=== PATIENT | female | born 1990 | race Caucasian/White ===

== ENCOUNTER → 2021-10-14 10:18 | Outpatient (BNVA) | payer OTHER, MEDICAID, SELFPAY | PROVIDERS: Visit Provider Nurse Practitioner Family | DX: M54.81 Occipital neuralgia (principal); M54.2 Cervicalgia; G43.109 Migraine with aura, not intractable, without status migrainosus; G25.81 Restless legs syndrome; R56.9 Unspecified convulsions; M79.2 Neuralgia and neuritis, unspecified; Z79.899 Other long term (current) drug therapy | CPT/HCPCS: 99212 ==

== ENCOUNTER 2021-12-13 06:48 | Outpatient (REF) | payer OTHER, SELFPAY ==
--- NOTE | 2021-12-13 06:52 | EEG_ITS ---
This is a 16-channel EEG with an EKG lead. The patient is reported awake and drowsy during the tracing. Background EEG rhythm during wakefulness is about 10 to 12 hertz 5 to 30 microvolt posteriorly, lower amplitude fast anteriorly. The patient transitioned into drowsiness and then like sleep. There was 1 right frontal sharp wave noted during later part of the tracing. Photic stimulation did not produce any significant driving. Hyperventilation was not performed. Cardiac lead did not reveal any significant abnormality. IMPRESSION: Mildly abnormal EEG suggestive of right hemispheric irritability. If seizure disorder is strongly suspected, further EEG monitoring with ambulatory EEG is recommended. MD SADIA Lovell/MINAL / [phone]
== END 2021-12-13 06:49 | disposition home or self-care (01) ==
LOC: HO.NEURO 06:48
PROVIDERS: Visit Provider Nurse Practitioner Family
DX: R56.9 Unspecified convulsions (principal)
CPT/HCPCS: 95816

== ENCOUNTER → 2021-12-23 11:21 | Outpatient (BNVA) | payer OTHER, SELFPAY | PROVIDERS: Visit Provider Nurse Practitioner Family | DX: G25.81 Restless legs syndrome (principal); R53.83 Other fatigue; R56.9 Unspecified convulsions; M79.2 Neuralgia and neuritis, unspecified; G43.109 Migraine with aura, not intractable, without status migrainosus; M54.81 Occipital neuralgia; M54.2 Cervicalgia; Z79.891 Long term (current) use of opiate analgesic | CPT/HCPCS: 99212 ==

== ENCOUNTER → 2022-01-10 13:38 | Outpatient (BNVA) | payer OTHER, SELFPAY | PROVIDERS: Visit Provider Nurse Practitioner Family | DX: G43.109 Migraine with aura, not intractable, without status migrainosus (principal); M54.81 Occipital neuralgia; M54.2 Cervicalgia; M79.2 Neuralgia and neuritis, unspecified; Z79.891 Long term (current) use of opiate analgesic | CPT/HCPCS: 99202 ==

== ENCOUNTER → 2022-03-30 10:37 | Outpatient (BNVA) | payer OTHER, SELFPAY | PROVIDERS: Visit Provider Nurse Practitioner Family | DX: G25.81 Restless legs syndrome (principal); G43.109 Migraine with aura, not intractable, without status migrainosus; M54.81 Occipital neuralgia; M79.2 Neuralgia and neuritis, unspecified; R56.9 Unspecified convulsions; Z79.891 Long term (current) use of opiate analgesic | CPT/HCPCS: 99212 ==

== ENCOUNTER → 2022-04-15 10:22 | Outpatient (BNVA) | payer OTHER, SELFPAY | PROVIDERS: Visit Provider Internal Medicine | DX: M54.81 Occipital neuralgia (principal) | CPT/HCPCS: 64405; 64450; J2795; J3300 ==

== ENCOUNTER → 2022-05-06 11:13 | Outpatient (BNVA) | payer OTHER, SELFPAY | PROVIDERS: Visit Provider Internal Medicine | DX: G43.109 Migraine with aura, not intractable, without status migrainosus (principal); M54.81 Occipital neuralgia | CPT/HCPCS: 99212 ==

== ENCOUNTER → 2022-06-27 09:42 | Outpatient (BNVA) | payer OTHER, SELFPAY | PROVIDERS: Visit Provider Nurse Practitioner Family | DX: G43.109 Migraine with aura, not intractable, without status migrainosus (principal); M79.2 Neuralgia and neuritis, unspecified; R56.9 Unspecified convulsions; G25.81 Restless legs syndrome; M54.81 Occipital neuralgia; E10.9 Type 1 diabetes mellitus without complications; Z79.891 Long term (current) use of opiate analgesic | CPT/HCPCS: 99212 ==

== ENCOUNTER → 2022-09-28 11:21 | Outpatient (BNVA) | payer OTHER, SELFPAY | PROVIDERS: Visit Provider Nurse Practitioner Family | DX: G43.109 Migraine with aura, not intractable, without status migrainosus (principal); G25.81 Restless legs syndrome; M54.81 Occipital neuralgia; R56.9 Unspecified convulsions | CPT/HCPCS: 99212 ==

== ENCOUNTER → 2022-12-29 11:35 | Outpatient (BNVA) | payer MEDICAID, SELFPAY | PROVIDERS: PCP Internal Medicine; Visit Provider Nurse Practitioner Family | DX: M79.2 Neuralgia and neuritis, unspecified (principal); R56.9 Unspecified convulsions; G43.109 Migraine with aura, not intractable, without status migrainosus; G25.81 Restless legs syndrome | CPT/HCPCS: 99212 ==

== ENCOUNTER → 2023-01-06 09:23 | Outpatient (BNVA) | payer MEDICAID, SELFPAY | PROVIDERS: PCP Internal Medicine; Visit Provider Nurse Practitioner Family | DX: E11.40 Type 2 diabetes mellitus with diabetic neuropathy, unspecified (principal); E11.65 Type 2 diabetes mellitus with hyperglycemia | CPT/HCPCS: 99212 ==

== ENCOUNTER 2023-03-23 08:27 | Outpatient (REF) | payer MEDICAID, SELFPAY ==
--- NOTE | 2023-03-23 08:32 | EMG_ITS ---
Bilateral tibial and peroneal motor studies were performed. Bilateral sural, superficial peroneal, and medial and lateral plantar sensory studies were performed. Tibial H reflexes were obtained. A needle examination was performed. IMPRESSION: 1. Mild sensory motor peripheral neuropathy. 2. Moderately severe left peroneal neuropathy, somewhat out of proportion to underlying neuropathy. MD SADIA Lovell/MINAL / [phone]
[2023-03-23 09:10] LABS: MANUAL DIFF FLAG NO
[2023-03-23 09:52] LABS: Basophils Percent Auto 0.5 % (0-2); Eosinophils Absolute Auto 0.2 X10*3/uL (0.0-0.4); Eosinophils Percent Auto 2.4 % (0-4); Hematocrit 39.7 % (37.0-47.0); Hemoglobin 12.6 g/dl (12.0-16.0); Imm Gran Abs Auto 0.05 X10*3/uL (0.00-0.03); Imm Gran Pct Auto 0.7 % (0.0-0.4); Lymphocytes Absolute Auto 2.1 X10*3/uL (1.2-4.9); Lymphocytes Percent Auto 27.8 % (20-40); Mean Corpuscular HGB Conc 31.7 g/dl (31.0-35.0); Mean Corpuscular Hemoglobin 29.2 pg (27.0-33.0); Mean Corpuscular Volume 92.1 fL (80.0-98.0); Mean Platelet Volume 9.7 fL (9.4-12.3); Monocytes Absolute Auto 0.5 X10*3/uL (0.1-1.2); Monocytes Percent Auto 6.6 % (2-11); Neutrophils Absolute Auto 4.6 x10*3/uL (2.0-8.3); Platelet Count 334 X10*3/uL (160-400); Red Blood Count 4.31 X10*6/uL (4.20-5.50); Red Cell Distribution Width 13.1 % (11.0-16.0); White Blood Count 7.4 X10*3/uL (4.8-10.8)
[2023-03-23 10:35] LABS: Alanine Aminotransferase 10 U/L (0-31); Albumin Level 4.1 g/dL (3.5-5.0); Alkaline Phosphatase 86 U/L (39-117); Anion Gap 10 (12-20); Aspartate Amino Transferase 15 U/L (5-31); Bilirubin Total 1.1 mg/dL (0.0-1.0); Blood Urea Nitrogen 7 mg/dL (9-16); Calcium 9.2 mg/dL (8.4-10.2); Carbon Dioxide 26 mmol/L (22-29); Chloride 106 mmol/L (96-108); Estimated Glomerular Filt Rate > 60; Glucose Random 108 mg/dL (60-115); Potassium 4.1 mmol/L (3.3-5.1); Sodium 138 mmol/L (135-145); Total Protein 7.3 g/dL (6.5-8.0)
== END 2023-03-23 08:28 | disposition home or self-care (01) ==
LOC: HO.NEURO 08:27
PROVIDERS: Nurse Practitioner Family; Visit Provider Nurse Practitioner Family
DX: E10.40 Type 1 diabetes mellitus with diabetic neuropathy, unspecified (principal); M79.2 Neuralgia and neuritis, unspecified; R56.9 Unspecified convulsions
CPT/HCPCS: 36415; 80053; 85025; 95886; 95913

== ENCOUNTER 2023-04-20 13:19 | Outpatient (AMB) | payer MEDICAID, SELFPAY ==
--- NOTE | 2023-04-20 13:20 | A.OFFVIS_ITS ---
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 Patient reports increasing weakness in her left lower extremity and tripping on the left. Patient reports she was shopping at store today and almost fell due to tripping on left side. She presents with left ankle/foot mild weakness with dorsiflexion, no foot drop. Neurodiagnostic studies showed mild sensory motor peripheral neuropathy and moderately severe left peroneal neuropathy. Patient was referred to [facility] for consideration for placing her left ankle in a boot. Denies any recent cough, cold, infection, fever or other significant changes in medical history since last office visit. Patient denies any bladder or bowel incontinence or saddle anesthesia. PRIOR: Patient presents today to discuss trial of capsaicin 8% for chronic painful diabetic neuropathy with a history of poorly controlled glucose. Patient had bilateral EMG and NCS in 2018 at [facility] which showed bilateral mild peroneal neuropathy. No EMG have been repeated since then. Patient reports chronic numbness, tingling, burning, stabbing, cramping pain worse at night. Her last A1C was 7.1. She was diagnosed with DM type 1 at age 13. Her diabetic foot exams have been consistently normal. Patient reports mild decrease in sensation in her plantar surfaces of both feet. Skin intact, no ulcers or breaks in skin. Patient is interested to proceed with Topical Capsaicin 8% patch application. We will submit request for PAStefany SMITH Medical History Type 1 diabetes Surgical History No pertinent past surgical history Family History Father Skin cancer Diabetes Hypertension Mother Diabetes Social History Alcohol intake: never Patient Tobacco Use Status: Never used Tobacco Review of Systems Const All systems reviewed & are unremarkable except as noted in HPI and below Physical Exam Vital Signs: Last Vital Signs Pulse 82 04/20/23 13:24 BP 130/73 04/20/23 13:24 Pulse Ox 99 04/20/23 13:24 Oxygen Delivery Method Room Air 04/20/23 13:24 BMI result Body Mass Index 23.6 General: Appears afebrile. Alert and oriented. Mood and affect appropriate. Follows and participates in conversation appropriately. Respiratory effort is unlabored. Able to transition from sit to stand unassisted. Ambulates with bilaterally normal heel strike and toe off. Results Reviewed Results Reviewed: NE electromyogram (EMG); NE nerve conduction velocity 03/23/23 Bilateral tibial and peroneal motor studies were performed. Bilateral sural, superficial peroneal, and medial and lateral plantar sensory studies were performed. Tibial H reflexes were obtained. A needle examination was performed. IMPRESSION: 1. Mild sensory motor peripheral neuropathy. 2. Moderately severe left peroneal neuropathy, somewhat out of proportion to underlying neuropathy. Assessment & Plan Assessment & Plan (1) Peroneal neuropathy: Code(s): G57.30 - Lesion of lateral popliteal nerve, unspecified lower limb (2) Chronic painful diabetic neuropathy: Code(s): E11.40 - Type 2 diabetes mellitus with diabetic neuropathy, unspecified Plan 1. Neurodiagnostic studies discussed with patient and are noted above. 2. Orthopedic referral placed earlier for consideration of putting patient's left ankle in a boot. 3. Schedule Left sciatic diagnostic nerve block with local and US guidance for potential temporary stimulator placement for sensory motor peripheral neuropathy and moderately severe left peroneal neuropathy. Informational pamphlet provided to patient. Expectations, risks and benefits were reviewed. Patient is aware she will be contacted to schedule this procedure. All questions were answered and the patient is in agreement of plan. Follow-up after injections and sooner as needed. Coding Level of Care Code Est Pt Level 4 (35073) Diagnoses Peroneal neuropathy G57.30 Chronic painful diabetic neuropathy E11.40
[2023-04-20 13:24] VITALS: BP 130/73; PULSE 82; O2SAT 99; BMI 23.6
== END 2023-04-20 13:50 | disposition home or self-care (01) ==
PROVIDERS: Visit Provider Nurse Practitioner Family
DX: G57.30 Lesion of lateral popliteal nerve, unspecified lower limb (principal); E11.40 Type 2 diabetes mellitus with diabetic neuropathy, unspecified
CPT/HCPCS: 99214

== ENCOUNTER → 2023-04-20 13:19 | Outpatient (BNVA) | payer MEDICAID, SELFPAY | PROVIDERS: Visit Provider Nurse Practitioner Family | DX: G57.30 Lesion of lateral popliteal nerve, unspecified lower limb (principal); E11.40 Type 2 diabetes mellitus with diabetic neuropathy, unspecified | CPT/HCPCS: 99212 ==

== ENCOUNTER 2023-05-08 09:16 | Outpatient (AMB) | payer MEDICAID, SELFPAY ==
[2023-05-08 09:36] VITALS: PULSE 84; RESP 14; O2SAT 99; BMI 23.6
--- NOTE | 2023-05-08 09:36 | A.OFFVIS_ITS ---
Intake Vital Signs 3 05/08/23 09:36 Height 5 ft 2 in Weight 129 lb BMI 23.6 Blood Pressure Location Lt brachial Position Sitting Respiration 14 Pulse 84 Pulse Source Pulse Oximeter Pulse Oximetry (%) 99 Oxygen Delivery Method Room Air Intake Visit Reasons: Left Dx sciatic nerve block Allergies No Known Allergies Allergy (Verified 05/11/23 14:35) HPI Left Dx sciatic nerve block 2 HPI0 Details 32-year-old female who presents today to the office for a left diagnostic sciatic nerve block. Denies any recent cough, cold, infection, fever or other significant changes in medical history since last office visit. She is type I diabetic. Past Procedures: 04/15/22: Occipital Nerve Block ? No reli ef. [facility] Medical History Type 1 diabetes Surgical History No pertinent past surgical history Family History Father Skin cancer Diabetes Hypertension Mother Diabetes Social History Alcohol intake: never Patient Tobacco Use Status: Never used Tobacco Review of Systems Const All systems reviewed & are unremarkable except as noted in HPI and below Physical Exam Vital Signs: Last Vital Signs Pulse 84 05/08/23 09:36 Resp 14 05/08/23 09:36 Pulse Ox 99 05/08/23 09:36 Oxygen Delivery Method Room Air 05/08/23 09:36 BMI result Body Mass Index 23.6 General: Appears afebrile. Alert and oriented. Mood and affect appropriate. Follows and participates in conversation appropriately. Respiratory effort is unlabored. Able to transition from sit to stand unassisted. Ambulates with bilaterally normal heel strike and toe off. Office Procedures Nerve Block Details: Left peroneal nerve block, ultrasound-guided After obtaining written consent, pre-procedure blood pressure and heart rate were stable and recorded in the nursing record. The patient was placed lateral on the table. The popliteal fossa area overlying the sciatic nerve was widely prepped with chloraprep, allowed to dry and sterilely draped. Using ultrasound, the appropriate landmarks including the popliteal artery and peroneal nerve were identified. The skin overlying the target was anesthetized with 1% lidocaine. A 21 gauge echostim needle was advanced under sonographic guidance to the peroneal segment of the sciatic nerve after the bifurcation. Aspiration was negative for heme and synovial fluid. 4 cc of lidocaine 1.5% was injected around the peroneal nerve. The needle was removed, skin cleansed and a sterile bandage was applied. The patient tolerated the procedure well and no complications were encountered. Following the procedure, the patient's vital signs and foot strength were stable. The patient was discharged home in good condition with post-procedural instructions. Time Out: Immediately prior to the procedure, the following was verbally confirmed that there is a signed consent form and that the correct patient, planned procedure, site and side are consistent with documentation and that necessary equipment and/or blood products are available prior to the start of the case. Complications: none EBL: <1 cc Note: An ultrasound image of the injection was taken and stored in the permanent record. 23338 - Sciatic (left sided, ultrasound guided) Procedure code (CPT) selection complete Results Reviewed Results Reviewed: No imaging is available for review. Assessment & Plan Assessment & Plan (1) Peroneal neuropathy: Code(s): G57.30 - Lesion of lateral popliteal nerve, unspecified lower limb Plan Patient is status post left peroneal nerve block, ultrasound-guided. Patient tolerated procedure well and was discharged home in stable condition with discharge instructions. All questions were answered. We will follow-up in two weeks via telephone or in clinic to assess response to therapy. A follow-up appointment was made during today's visit. Scribed for Dr. Miller by Brandon Rucker medical coordinator pesticide use, on 05/08/2023. I, Dr. Miller, have personally reviewed and agree with the information entered by the scribe. Coding Level of Care Code Procedure Only Diagnoses Peroneal neuropathy G57.30 CPT Codes Nerve Block - Nerve Block 6: 30402 - Sciatic ([id number])
== END 2023-05-08 10:04 | disposition home or self-care (01) ==
PROVIDERS: Visit Provider Internal Medicine
DX: G57.30 Lesion of lateral popliteal nerve, unspecified lower limb (principal)
CPT/HCPCS: 64450; 76942

== ENCOUNTER → 2023-05-08 09:16 | Outpatient (BNVA) | payer MEDICAID, SELFPAY | PROVIDERS: Visit Provider Internal Medicine | DX: G57.30 Lesion of lateral popliteal nerve, unspecified lower limb (principal) | CPT/HCPCS: 64450 ==

== ENCOUNTER 2023-05-11 14:29 | Outpatient (AMB) | payer MEDICAID, SELFPAY ==
--- NOTE | 2023-05-11 14:31 | A.OFFVIS_ITS ---
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 Miller. Patient reports 70-80% pain relief for 2 days with improved functioning, daily activities, and better sleep. She has upcoming visit with Orthopedic provider for left ankle boot evaluation. Patient would like to proceed with Sprint PNS trial for a sustained pain relief. Denies any recent cough, cold, infection, fever or other significant changes in medical history since last office visit. Most recent A1C 6.4. per patient. Past Procedures: 05/08/23: Left peroneal nerve block-70-8 0% pain relief for 2 days. PRIOR: Patient presents today to discuss recent EMG results. Patient reports increasing weakness in her left lower extremity and tripping on the left. Patient reports she was shopping at store today and almost fell due to tripping on left side. She presents with left ankle/foot mild weakness with dorsiflexion, no foot drop. Neurodiagnostic studies showed mild sensory motor peripheral neuropathy and moderately severe left peroneal neuropathy. Patient was referred to [facility] for consideration for placing her left ankle in a boot. Denies any recent cough, cold, infection, fever or other significant changes in medical history since last office visit. Patient denies any bladder or bowel incontinence or saddle anesthesia. PRIOR: Patient presents today to discuss trial of capsaicin 8% for chronic painful diabetic neuropathy with a history of poorly controlled glucose. Patient had bilateral EMG and NCS in 2018 at [facility] which showed bilateral mild peroneal neuropathy. No EMG have been repeated since then. Patient reports chronic numbness, tingling, burning, stabbing, cramping pain worse at night. Her last A1C was 7.1. She was diagnosed with DM type 1 at age 13. Her diabetic foot exams have been consistently normal. Patient reports mild decrease in sensation in her plantar surfaces of both feet. Skin intact, no ulcers or breaks in skin. Patient is interested to proceed with Topical Capsaicin 8% patch application. We will submit request for PA. [facility] Medical History Type 1 diabetes Surgical History No pertinent past surgical history Family History Father Skin cancer Diabetes Hypertension Mother Diabetes Social History Alcohol intake: never Patient Tobacco Use Status: Never used Tobacco Review of Systems Const All systems reviewed & are unremarkable except as noted in HPI and below Physical Exam Vital Signs: Last Vital Signs Pulse 80 05/11/23 14:35 BP 128/69 05/11/23 14:35 Pulse Ox 99 05/11/23 14:35 Oxygen Delivery Method Room Air 05/11/23 14:35 BMI result Body Mass Index 23.7 General: Appears afebrile. Alert and oriented. Mood and affect appropriate. Follows and participates in conversation appropriately. Respiratory effort is unlabored. Able to transition from sit to stand unassisted. Ambulates with bilaterally normal heel strike and toe off. Assessment & Plan Assessment & Plan (1) Peroneal neuropathy: Code(s): G57.30 - Lesion of lateral popliteal nerve, unspecified lower limb Plan Patient is status post left peroneal nerve block on 05/08/23 with good results. 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 Schedule Left Peroneal Nerve Sprint PNS lead placement with local OR and US guidance. Expectations, risks and benefits were reviewed. Patient is aware she will be contacted to schedule this procedure. All questions were answered and the patient is in agreement of plan. Follow-up after Sprint placement and sooner as needed. Coding Level of Care Code Est Pt Level 3 (70436) Diagnoses Peroneal neuropathy G57.30
[2023-05-11 14:35] VITALS: BP 128/69; PULSE 80; O2SAT 99; BMI 23.7
== END 2023-05-11 14:48 | disposition home or self-care (01) ==
PROVIDERS: Visit Provider Nurse Practitioner Family
DX: G57.30 Lesion of lateral popliteal nerve, unspecified lower limb (principal)
CPT/HCPCS: 99213

== ENCOUNTER → 2023-05-11 14:29 | Outpatient (BNVA) | payer MEDICAID, SELFPAY | PROVIDERS: Visit Provider Nurse Practitioner Family | DX: G57.30 Lesion of lateral popliteal nerve, unspecified lower limb (principal) | CPT/HCPCS: 99212 ==

== ENCOUNTER 2023-05-17 09:57 | Outpatient (AMB) | payer MEDICAID, SELFPAY ==
[2023-05-17 09:57] VITALS: BMI 23.6
--- NOTE | 2023-05-17 09:57 | A.OFFVIS_ITS ---
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 She complains of pain in the ankle as well as weakness that causes tripping. She has been seen recently with pain mgmt who have done a peroneal nerve block on 05/08/23 and referred her to our office for possible boot placement due to the weakness and increased tripping. No foot drop per pain mgmt. Neurodiagnostic studies showed mild sensory motor peripheral neuropathy and moderately severe left peroneal neuropathy.. Allergies No Known Allergies Allergy (Verified 05/17/23 10:01) Medication List - Last Reconciled 05/17/23 by Lorie Thorpe MD atogepant 30 mg PO DAILY 30 days benfotiamine 300 mg (2 x 150 mg) PO DAILY 30 days blood sugar diagnostic (FreeStyle Lite Strips) As directed blood-glucose meter (FreeStyle Lite Meter kit) As directed epinephrine (EpiPen) 0.3 mg (0.3 mL) IM Q4H PRN fremanezumab-vfrm (Ajovy) 225 mg (1.5 mL) subcut ONCE 30 days glucagon (Glucagon Emergency Kit) mg IM DIRECTED indomethacin 50 mg (2 x 25 mg) PO TID PRN 30 days insulin glargine (Lantus U-100 Insulin) 23 units subcut DAILY PRN insulin lispro 0 - 75 units subcut DAILY insulin syringe-needle U-100 As directed levonorgestrel (Mirena) 1 insert intrauterine ONCE magnesium oxide 400 mg PO BEDTIME 30 days naloxone (LifEMS Naloxone) 2 mg (2 mL) IM Q2M PRN 30 days oxcarbazepine (Trileptal) 150 mg PO BID 30 days oxycodone 10 mg PO QHS, may repeat x's 1; 24 days riboflavin (vitamin B2) 400 mg PO DAILY 30 days rimegepant (Nurtec ODT) 75 mg PO Q OTHER DAY 30 days sumatriptan succinate 50 - 100 mg orally at onset of headache, may repeat in 2 hrs PRN; max 2 tabs per day or 4 tabs/week (may take with Ibuprofen) 30 days HPI HPI Comments History of Present Illness Details Per records review: s/p Left peroneal nerve block on 05/08/[address] Miller. Chronic painful diabetic neuropathy with a history of poorly controlled glucose, type 1 DM. Patient had bilateral EMG and NCS in [address] [facility] which showed bilateral mild peroneal neuropathy. No EMG have been repeated since then. 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 Scheduling for Left Peroneal Nerve Sprint PNS lead placement. Patient been having numbness on both feet/legs at age 27. Some numbnness mildly on fingers. Noted left foot drop past month only. No falls. Left knee pain. Left sided back pain. Not using assistive device. HbA1c now 6.4. [facility] Medical History Type 1 diabetes Surgical History No pertinent past surgical history Family History Father Skin cancer Diabetes Hypertension Mother Diabetes Social History Alcohol intake: never Patient Tobacco Use Status: Never used Tobacco Review of Systems Const All systems reviewed & are unremarkable except as noted in HPI and below Physical Exam Vital Signs: BMI result Body Mass Index 23.6 Constitutional: Patient appears to be in no acute distress, well nourished and well developed. Patient was appropriately conversant and oriented. Good historian. MSK: No specific abnormalities found on inspection of the spine and all extremities. No pain with palpation over the lumbar area. Lumbar ROM was full. Bilateral hip, knee and ankle ROM WNL. No ligamentous laxity or crepitance. No increased effusion. Mild tenderness and Achillis tendon left, tenderness on left plantar fascia. No foot drop. Strength is 5/5 in all muscle groups tested. No increased tone noted. Neurological: Neurologic examination of the upper and lower extremities was nonfocal with intact sensation, muscle stretch reflexes and without focal motor deficits . Guzman?s negative bilaterally. Babinski was down going bilaterally. Clonus was negative. Gait is non-antalgic without loss of balance. Patient was able to perform heel walk and toe walk. Good heel strike on gait exam. Results Reviewed Results Reviewed: I independently reviewed the results of the following: NCS/EMG done by Dr. Marquez did show slowing of peroneal motor nerve across the fibula. But also showed other evidence of polyneuropathy. I reviewed records from the following: Neurology Pain management Assessment & Plan Assessment & Plan (1) Chronic painful diabetic neuropathy: Code(s): E11.40 - Type 2 diabetes mellitus with diabetic neuropathy, unspecified (2) Peroneal neuropathy: Code(s): G57.30 - Lesion of lateral popliteal nerve, unspecified lower limb Qualifiers: Laterality: left Qualified Code(s): 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, left lower limb (3) Plantar fasciitis of left foot: Code(s): M72.2 - Plantar fascial fibromatosis Plan No actual footdrop seen on exam. I think pain affects her dorsiflexion, possibly from plantar fascia or Achilles tendinitis. I do not think she needs a custom molded AFO at this time. I also do not want to put her on a bulky tie up/shoe lace type of brace that will just worsen her proprioception. We can try a plantar fascia sock for now, to wear during the day. Re-evaluate in 2 months. Advised to watch out for any development of EHL or dorsiflexion weakness or frequent falls. Discussed proper gait such as heel strike. Assessment and plan discussed with patient, and patient was agreeable. All questions were answered thoroughly. Follow-up in 2 months. Lorie Thorpe MD, RADHA Board Certified, [place] Board [employer] and Rehabilitation (ABPMR) Board Certified, [place] Board [employer] Electrodiagnostic [employer] (ABEM) Coding Level of Care Code New Pt Level 4 (43948) Diagnoses Chronic painful diabetic neuropathy E11.40 Neuropathy of left peroneal nerve G57.32 Laterality: left Plantar fasciitis of left foot M72.2
== END 2023-05-17 11:09 | disposition home or self-care (01) ==
PROVIDERS: Visit Provider Physical Medicine & Rehabilitation
DX: E11.40 Type 2 diabetes mellitus with diabetic neuropathy, unspecified (principal); G57.32 Lesion of lateral popliteal nerve, left lower limb; M72.2 Plantar fascial fibromatosis
CPT/HCPCS: 99204

== ENCOUNTER → 2023-05-17 09:57 | Outpatient (BNVA) | payer MEDICAID, SELFPAY | PROVIDERS: Visit Provider Physical Medicine & Rehabilitation | DX: G57.32 Lesion of lateral popliteal nerve, left lower limb (principal); M21.372 Foot drop, left foot; M72.2 Plantar fascial fibromatosis; E11.42 Type 2 diabetes mellitus with diabetic polyneuropathy; E11.65 Type 2 diabetes mellitus with hyperglycemia; Z79.4 Long term (current) use of insulin; Z79.891 Long term (current) use of opiate analgesic | CPT/HCPCS: 99202 ==

== ENCOUNTER 2023-07-05 10:04 | Day surgery (SDC) | payer MEDICAID, SELFPAY ==
--- OUTSIDE RECORDS SUMMARY | 2023-07-05 10:06 | XMS_ITS | Continuity of Care Document ---
Author Name Unknown Organization [facility] Endocrinolo gy and Diabetes Address [address] [place] [id number]- Care Team Providers Care Chemist Physical Name Role Phone Radha FITZPATRICK, Brittany Saeed Primary Care Physician Encounter [facility] [place] Date(s): 05/10/23 - 05/17/23 [facility] Endocrinology and Diabetes [address] [place] [id number] Attending Physician: Francisca Bashir NP Allergies, Adverse Reactions, Alerts Substance Reaction Severity Status enalapril Angioedema Active Immunizations Given and Recorded Vaccine Date Status Refusal Reason tetanus/diphtheria/pertussis, acel(Tdap) 1 03/28/13 Given influ virus vac, H1N1, inactive(oldterm) 07/01/09 Given 1Admin Note: vis given Medications AccuChek Guide Glucometer AccuChek Guide Glucometer, See Instructions, # 1 each, Refills 0, Tot. Refills 0, Maintenance, Use to check Bgs 6x daily. E10.65, 05/10/23 9:53:00 EDT, Supply, 158, cm, 05/10/23 9:22:00 EDT, Height Start Date: 05/10/23 Status: Ordered AccuChek Guide Test Strips AccuChek Guide Test Strips, See Instructions, # 180 each, Refills 6, Tot. Refills 6, Maintenance, Use to check BGs up to 6x daily. E10.65, 05/10/23 9:53:00 EDT, Supply, 158, cm, 05/10/23 9:22:00 EDT,Height Start Date: 05/10/23 Status: Ordered acetaminophen 325 mg oral tablet 650 mg, By Mouth, Every 4 hours, PRN, (1-3), may give 325mg per patient preference and re-dose [id number] within 4 hours, if needed. Patient should only receive a total of 650mg of Acetaminophen every 4 hours., Refills 0, Maintenance, Pain , Mild, 1... Start Date: 07/08/20 Status: Ordered Alcohol Pads See Instructions, # 450 each, Refills 5, Tot. Refills 5, Maintenance, use as directed for Type 1 Diabetes Mellitus to test 5 times daily, 07/19/22 16:12:00 EST, Compound, 158, cm, 06/27/22 11:23:00 EST, Height Start Date: 07/19/22 Stop Date: 01/10/24 Status: Ordered Alcohol Wipes See Instructions, # 450 Doses, Refills 4, Tot. Refills 4, Maintenance, use up to 5 times/d, 09/20/17 9:35:50, Compound Start Date: 09/20/17 Status: Ordered Baqsimi inhaled glucagon Baqsimi inhaled glucagon, See Instructions, # 2 each, Refills 3, Tot. Refills 3, Maintenance, prn severe hypoglycemia; may repeat x 1, 06/30/21 12:06:00 EST, Supply, 158, cm, 06/30/21 11:35:00 EST, Height, 74.7, kg, 07/02/20 14:05:00 EST, Dry Weight Start Date: 06/30/21 Status: Ordered BD Ultra fine [id number] insuiln syringes BD Ultra fine [id number] insuiln syringes, See Instructions, # 120 each, Refills 3, Tot. Refills 3, Maintenance, Use to inject insulin 4x a day in case of pump failure. E10.9, 01/25/23 9:08:00 EDT, pump failed, Supply, 158, cm, 08/25/22 12:35:00 EST,... Start Date: 01/25/23 Status: Ordered bisoprolol 10 mg oral tablet 1 tablet = 10 mg, By Mouth, Daily, # 90 tablet, 4 Refills, Maintenance, 05/20/21 11:26:00 EDT, Tablet, [facility][id number], Partial fill upon patient request if the prescription is for a schedule II opioid drug., 158, cm, 05/20/21 11:15:00 EDT... Start Date: 05/20/21 Stop Date: 08/13/22 Status: Ordered Blood Pressure Machine Blood Pressure Machine, See Instructions, # 1 Unknown, Refills 0, Tot. Refills 0, Maintenance, Blood Pressure Machine, 08/19/20 15:11:00 EST, Supply, 158, cm, 07/31/20 15:21:00 EST, Height, 74.7, kg,07/02/20 14:05:00 EST, Dry Weight Start Date: 08/19/20 Status: Ordered Contour Next EZ Test Strips See Instructions, # 900 each, Refills 4, Tot. Refills 4, Maintenance, use as directed for Type 1 Diabetes Mellitus. Max test 10x's/day, 90 days, 06/30/21 12:06:00 EST, Compound, 158, cm, 06/30/21 11:35:00 EST, Height, 74.7, kg, 07/02/20 14:05:00 EST,... Start Date: 06/30/21 Stop Date: 11/27/21 Status: Ordered cyclobenzaprine 10 mg oral tablet 10 mg, 1, tablet, By Mouth, Daily at supper, # 30 tablet, Refills 1, Tot. Refills 1, Maintenance, 06/27/22 11:38:00 EST, Route to Pharmacy Electronically, [facility] #[id number], Partial fill upon patient request if the prescription is for a sche... Start Date: 06/27/22 Status: Ordered famotidine 20 mg oral tablet 20 mg, 1, tablet, By Mouth, 2 times a day, # 60 tablet, Refills 0, Tot. Refills 0, Maintenance, 06/09/20 12:47:00 EST, Route to Pharmacy Electronically, [facility] #[id number], Partial fill uponpatient request, 157, cm, 06/08/20 22:31:00 EST, He... Start Date: 06/09/20 Status: Ordered Freestyle Flash Glucose Meter See Instructions, # 1 each, Refills 5, Tot. Refills 5, Maintenance, use as directed for Type 1 Diabetes Mellitus, 12/30/19 19:43:00 EDT, Supply, 160.1, cm, 10/04/19 10:01:00 EDT, Height, 56.1, kg, 01/10/20 11:19:00 EST, Dry Weight Start Date: 12/30/19 Stop Date: 06/27/20 Status: Ordered Freestyle Lite Lancets See Instructions, # 180 each, Refills 6, Tot. Refills 6, Maintenance, Use to check BGs 6x daily. E10.65, 07/19/22 16:11:00 EST, Supply, 158, cm, 06/27/22 11:23:00 EST, Height Start Date: 07/19/22 Status: Ordered Freestyle Lite Monitor See Instructions, # 1 each, Refills 0, Tot. Refills 0, Maintenance, Use to check BGs 6x daily. E10.65, 07/19/22 16:11:00 EST, Supply, 158, cm, 06/27/22 11:23:00 EST, Height Start Date: 07/19/22 Status: Ordered Freestyle Lite Monitor See Instructions, # 1 each, Refills 1, Tot. Refills 1, Maintenance, use to test BS 10 times daily, E 10.65, 06/10/22 10:21:00 EST, Supply, 158, cm, 03/23/22 11:28:00 EDT, Height, 74.7, kg, 07/02/20 14:05:00 EST, Dry Weight Start Date: 06/10/22 Status: Ordered Freestyle Lite Test Strips See Instructions, # 180 each, Refills 6, Tot. Refills 6, Maintenance, Check BGs 6x daily. E10.65, 05/10/23 9:32:00 EDT, Supply, 158, cm, 05/10/23 9:22:00 EDT, Height Start Date: 05/10/23 Status: Ordered Freestyle Test Strips See Instructions, # 250 each, Refills 6, Tot. Refills 6, Maintenance, Use to check blood glucose 8xa day, E10.9, 06/02/21 12:16:00 EST, Supply, 158, cm, 05/20/21 11:15:00 EDT, Height, 74.7, kg, 07/02/20 14:05:00 EST, Dry Weight Start Date: 06/02/21 Stop Date: 02/22/23 Status: Ordered Glucagon Emergency Kit See Instructions, PRN, # 6 each, Refills 2, Tot. Refills 2, Maintenance, Blood Glucose, use as directed for Type 1 Diabetes Mellitus, 06/30/21 12:09:00 EST, Supply, 158, cm, 06/30/21 11:35:00 EST, Height, 74.7, kg, 07/02/20 14:05:00 EST, Dry Weight Start Date: 06/30/21 Stop Date: 03/27/22 Status: Ordered Home BP Cuff Home BP Cuff, See Instructions, # 1 each, Refills 1, Tot. Refills 1, Maintenance, dx = T1DM, ; check BP once daily, 06/05/20 10:24:00 EST, Supply, 160.1, cm, 06/05/20 10:12:00 EST, Height, 59.9, kg, 04/08/20 11:16:00 EDT, Dry Weight Start Date: 06/05/20 Status: Ordered insulin lispro 100 u/ml subcutaneous injection See Instructions, Up to 50 units per day via insulin pump. E 10.9, # 30 mL, 8 Refills, Maintenance,05/10/23 9:34:00 EDT, [facility][id number], 158, cm, 05/10/23 9:22:00 EDT, Height Start Date: 05/10/23 Status: Ordered Insulin Syringe, BD Ultra-Fine 1 cc 31 G x 8 mm (5/16in) See Instructions, # 100 each, Refills 11, Tot. Refills 11, Maintenance, use to inject insulin up to3 times per day. E 10.9, 06/30/21 12:06:00 EST, Supply, 158, cm, 06/30/21 11:35:00 EST, Height, 74.7, kg, 07/02/20 14:05:00 EST, Dry Weight Start Date: 06/30/21 Status: Ordered Ketostix See Instructions, # 1 each, Refills 11, Tot. Refills 11, Maintenance, use as directed for Type 1 Diabetes Mellitus, 06/30/21 12:06:00 EST, Compound, 158, cm, 06/30/21 11:35:00 EST, Height, 74.7, kg, 07/02/20 14:05:00 EST, Dry Weight Start Date: 06/30/21 Stop Date: 06/25/22 Status: Ordered Lantus 100 u/ml subcutaneous solution See Instructions, Subcutaneous Injection, take 23 units daily prn pump failure, # 10 mL, 11 Refills, Maintenance, 01/25/23 8:59:00 EDT, [facility] #[id number], 158, cm, 08/25/22 12:35:00 EST, Height Start Date: 01/25/23 Stop Date: 01/20/24 Status: Ordered Medtronic 630G Insulin Pump Medtronic 630G Insulin Pump, Refills 0, Maintenance, 05/24/17 9:45:07, Compound Start Date: 05/24/17 Status: Ordered Medtronic 770G Insulin Pump Medtronic 770G Insulin Pump, See Instructions, Refills 0, Maintenance, NOT sharing, 08/25/22 12:44:00 EST, Supply Start Date: 08/25/22 Status: Ordered , Refills 0, Maintenance, 03/27/20 9:59:00 EDT, Supply Start Date: 03/27/20 Status: Ordered Problem List Condition Confirmation Course Effective Dates Status Health St atus Informant Rubella non-immune Confirmed Active Type 1 diabetes mellitus Confirmed Active Vitamin D deficiency Confirmed Active Vital Signs Most recent to oldest [Reference Range]: 1 Height 158 cm (05/10/23 9:22 AM) Weight 58.8 kg (05/10/23 9:22 AM) Oxygen Saturation [94-100 %] 98 % (05/10/23 9:22 AM) Pulse Rate [55-90 bpm] 77 bpm (05/10/23 9:22 AM) Body Mass Index [18.5-24.99 kg/m2] 23.55 kg/m2 (05/10/23 9:22 AM) Blood Pressure [90-138/55-84 mm Hg] 108/ 72mm Hg (05/10/23 9:22 AM) Respiratory Rate [16-30 br/min] 14 br/mi n *L* (05/10/23 9:22 AM) Mode of Delivery (Oxygen) Room air (05/10/23 9:22 AM) Blood pressure sites Arm, left (05/10/23 9:22 AM) Weight Obtained Via Bed scale (05/10/23 9:22 AM) Social History Social History Type Response Smoking Status Never smoker entered on: 04/17/15 Sex Patient Care team information Care Team Personnel Name: Radha FITZPATRICK, Brittany Saeed Position: [facility] Outreach Member Role: PCP Address: Address: [facility] [place] [address]- Care Team Related Persons Name: PERRI MORALEZ Address: home [address] [place] [address] Name: JULIAN MOLINA Address: home [address] [place] [address] Name: BERLIN MOLINA Address: [address] [address] Name: BERTHA SINGH Address: [address] Address: home [address] [place] [address] Name: LA SINGH Address: home [address] [place] [address]
--- OUTSIDE RECORDS SUMMARY | 2023-07-05 10:06 | XMS_ITS | Continuity of Care Document ---
Author Name Unknown Organization [facility] Endocrinolo gy and Diabetes Address [address] [place] [address]- Care Team Providers Care Ip Litigation Associate Name Role Phone Radha FITZPATRICK, Brittany Saeed Primary Care Physician [phone] Encounter [facility] [place] Date(s): 05/15/23 - 06/14/23 [facility] Endocrinology and Diabetes [address] [place] [id number] Allergies, Adverse Reactions, Alerts Substance Reaction Severity [...] give 325mg per patient preference and re-dose [id number] within 4 hours, if needed. Patient should [...] Date: 06/30/21 Status: Ordered BD Ultra fine [id number] insuiln syringes BD Ultra fine 87Am2hgq8sb insuiln syringes, See Instructions, # 120 each, [...] 4 Refills, Maintenance, 05/20/21 11:26:00 EDT, Tablet, [facility] #[id number], Partial fill upon patient request if the [...] 06/27/22 11:38:00 EST, Route to Pharmacy Electronically, [facility] #[id number], Partial fill upon patient request if the prescription is for a sche... Start Date: 06/27/22 Status: Ordered famotidine 20 mg oral tablet 20 mg, 1, tablet, By Mouth, 2 times a day, # 60 tablet, Refills 0, Tot. Refills 0, Maintenance, 06/09/20 12:47:00 EST, Route to Pharmacy Electronically, [facility] #[id number], Partial fill uponpatient request, 157, cm, 06/08/20 22:31:00 EST, He... Start Date: 06/09/20 Status: Ordered Freestyle Flash Glucose Meter See Instructions, # 1 each, Refills 5, Tot. Refills 5, Maintenance, use as directed for Type 1 Diabetes Mellitus, 12/30/19 19:43:00 EDT, Supply, 160.1, cm, 10/04/19 10:01:00 EDT, Height, 56.1, kg, 08/02/19 11:19:00 EST, Dry Weight Start Date: 12/30/19 Stop Date: 06/27/20 Status: Ordered FREESTYLE LITE BLOOD GLUCOSE SYSTEM FREESTYLE LITE BLOOD GLUCOSE SYSTEM, See Instructions, # 1 each, 0 Refills, Maintenance, USE TO TEST BLOOD SUGAR 10 TIMES A DAY, 05/31/23 8:04:00 EST, 158, cm, 05/10/23 9:22:00 EDT, Height Start Date: 05/31/23 Status: Ordered Freestyle Lite Lancets See Instructions, [...] 6, Maintenance, Check BGs 6x daily. E10.65, 06/01/23 12:08:00 EST, Supply, 158, cm, 05/10/23 9:22:00 EDT, Height Start Date: 06/01/23 Status: Ordered Freestyle Test Strips See Instructions, [...] 30 mL, 8 Refills, Maintenance,05/10/23 9:34:00 EDT, [id number], 158, cm, 05/10/23 9:22:00 EDT, Height Start [...] mL, 11 Refills, Maintenance, 01/25/23 8:59:00 EDT, [facility] #[id number], 158, cm, 08/25/22 12:35:00 EST, Height Start [...] Confirmed Active Vitamin D deficiency Confirmed Active Social History Social History Type Response Smoking Status Never smoker entered on: 04/17/15 Sex Patient Care team information Care Team Personnel Name: Radha FITZPATRICK, Brittany Saeed Position: [facility] Outreach Member Role: PCP Address: Address: [address] [place] [address]- Care Team Related Persons Name: PERRI MORALEZ Address: home [address] [place] [address] Name: JULIAN MOLINA Address: home [address] [place] [address] Name: BERLIN MOLINA Address: home [address] [address] Name: BERTHA SINGH Address: [address] Address: home [address] [place] [address] Name: LA SINGH Address: home [address] [place] [address]
--- OUTSIDE RECORDS SUMMARY | 2023-07-05 10:07 | XMS_ITS | Continuity of Care Document ---
Author Name Unknown Organization [facility] Endocrinolo gy and Diabetes Address [address] [place] [address]- Care Team Providers Care Property Economist Name Role Phone Radha FITZPATRICK, Brittany Saeed Primary Care Physician Encounter [facility] [place] Date(s): 01/25/23 - 02/24/23 [facility] Endocrinology and Diabetes [address] [place] [id number] Allergies, Adverse Reactions, Alerts Substance Reaction Severity Status enalapril Angioedema Active Immunizations Given and Recorded Vaccine Date Status Refusal Reason tetanus/diphtheria/pertussis, acel(Tdap) 1 03/28/13 Given influ virus vac, H1N1, inactive(oldterm) 07/01/09 Given 1Admin Note: vis given Medications acetaminophen 325 mg oral tablet 650 mg, By Mouth, Every 4 hours, PRN, (1-3), may give 325mg per patient preference and re-dose [id number] within 4 hours, if needed. Patient should [...] Date: 06/30/21 Status: Ordered BD Ultra fine [id number] insuiln syringes BD Ultra fine 78Lz5vvg5lg insuiln syringes, See Instructions, # 120 each, [...] 4 Refills, Maintenance, 05/20/21 11:26:00 EDT, Tablet, [facility] #[id number], Partial fill upon patient request if the [...] 06/27/22 11:38:00 EST, Route to Pharmacy Electronically, [facility] #[id number], Partial fill upon patient request if the prescription is for a sche... Start Date: 06/27/22 Status: Ordered famotidine 20 mg oral tablet 20 mg, 1, tablet, By Mouth, 2 times a day, # 60 tablet, Refills 0, Tot. Refills 0, Maintenance, 06/09/20 12:47:00 EST, Route to Pharmacy Electronically, [facility] #[id number], Partial fill uponpatient request, 157, cm, 06/08/20 [...] 6, Maintenance, Check BGs 6x daily. E10.65, 08/25/22 13:10:00 EST, Supply, 158, cm, 08/25/22 12:35:00 EST, Height Start Date: 08/25/22 Status: Ordered Freestyle Test Strips See Instructions, [...] E 10.9, # 30 mL, 8 Refills, Maintenance,08/25/22 13:09:00 EST, [facility] #[id number], 158, cm, 08/25/22 12:35:00 EST, Height Start Date: 08/25/22 Status: Ordered Insulin Syringe, BD Ultra-Fine 1 [...] mL, 11 Refills, Maintenance, 01/25/23 8:59:00 EDT, [facility] #[id number], 158, cm, 08/25/22 12:35:00 EST, Height Start [...] Personnel Name: Radha FITZPATRICK, Brittany Saeed Position: [facility] Outreach Member Role: PCP Address: Address: [address] [place] [address] Name: Eve Mccormick RN Position: [facility] RN Member Role: Primary Care Nurse Care Team Related Persons Name: PERRI MORALEZ Address: home [address] [place] [address] Name: JULIAN MOLINA Address: home [address] [place] [address] Name: BERLIN MOLINA Address: home [address] [facility] [address] [place] [address] Name: BERTHA SINGH Address: [address] Address: home [address] [place] [address] Name: LA SINGH Address: home [address] [place] [address]
--- OUTSIDE RECORDS SUMMARY | 2023-07-05 10:07 | XMS_ITS | Continuity of Care Document ---
Author Name Unknown Organization [facility] Endocrinolo gy and Diabetes Address [address] [place] [address]- Care Team Providers Care Tool Room Gear Machine Operator Name Role Phone Radha FITZPATRICK, Brittany Saeed Primary Care Physician Encounter [facility] [place] Date(s): 05/10/23 - 06/09/23 [facility] Endocrinology and Diabetes [address] [place] [id number] Attending Physician: AdmtrHilda Admitting Physician: Admtr, Ar8 Referring Physician: Admtr, Ar8 Allergies, Adverse Reactions, Alerts Substance Reaction Severity [...] give 325mg per patient preference and re-dose [id number] within 4 hours, if needed. Patient should [...] Date: 06/30/21 Status: Ordered BD Ultra fine [id number] insuiln syringes BD Ultra fine 25Mx4tby2dg insuiln syringes, See Instructions, # 120 each, [...] 4 Refills, Maintenance, 05/20/21 11:26:00 EDT, Tablet, [facility] #[id number], Partial fill upon patient request if the [...] 06/27/22 11:38:00 EST, Route to Pharmacy Electronically, [facility] #[id number], Partial fill upon patient request if the prescription is for a sche... Start Date: 06/27/22 Status: Ordered famotidine 20 mg oral tablet 20 mg, 1, tablet, By Mouth, 2 times a day, # 60 tablet, Refills 0, Tot. Refills 0, Maintenance, 06/09/20 12:47:00 EST, Route to Pharmacy Electronically, [facility] #[id number], Partial fill uponpatient request, 157, cm, 06/08/20 [...] 30 mL, 8 Refills, Maintenance,05/10/23 9:34:00 EDT, [facility] #[id number], 158, cm, 05/10/23 9:22:00 EDT, Height Start [...] mL, 11 Refills, Maintenance, 01/25/23 8:59:00 EDT, [facility] #[id number], 158, cm, 08/25/22 12:35:00 EST, Height Start [...] Care team information Care Team Personnel Name: Brittany Garcia NP Position: [facility] Outreach Member Role: PCP Address: Address: [address] [place] [address]- Care Team Related Persons Name: PERRI MORALEZ Address: home [address] [place] [address] Name: JULIAN MOLINA Address: home [address] [place] [address] Name: BERLIN MOLINA Address: home [address] [facility] [address] [place] [address] Name: BERTHA SINGH Address: [address] Address: home [address] [place] [address] Name: LA SINGH Address: home [address] [place] [address]
--- OUTSIDE RECORDS SUMMARY | 2023-07-05 10:07 | XMS_ITS | Continuity of Care Document ---
Author Name Unknown Organization [facility] Endocrinolo gy and Diabetes Address [address] [place] [address]- Care Team Providers Care Molecular Genetic Pathologist Name Role Phone Radha FITZPATRICK, Brittany Saeed Primary Care Physician [phone] Encounter [facility] [place] Date(s): 06/01/23 - 07/01/23 [facility] Endocrinology and Diabetes [address] [place] [id number] Allergies, Adverse Reactions, Alerts Substance Reaction [...] give 325mg per patient preference and re-dose [id number] within 4 hours, if needed. Patient should [...] Date: 06/30/21 Status: Ordered BD Ultra fine [id number] insuiln syringes BD Ultra fine 70Ea5sqt9ui insuiln syringes, See Instructions, # 120 each, [...] 4 Refills, Maintenance, 05/20/21 11:26:00 EDT, Tablet, [facility] #[id number], Partial fill upon patient request if the [...] 06/27/22 11:38:00 EST, Route to Pharmacy Electronically, [facility] #[id number], Partial fill upon patient request if the prescription is for a sche... Start Date: 06/27/22 Status: Ordered famotidine 20 mg oral tablet 20 mg, 1, tablet, By Mouth, 2 times a day, # 60 tablet, Refills 0, Tot. Refills 0, Maintenance, 06/09/20 12:47:00 EST, Route to Pharmacy Electronically, [facility] #[id number], Partial fill uponpatient request, 157, cm, 06/08/20 [...] 30 mL, 8 Refills, Maintenance,05/10/23 9:34:00 EDT, [id number], 158, cm, 05/10/23 9:22:00 EDT, Height Start [...] mL, 11 Refills, Maintenance, 01/25/23 8:59:00 EDT, [facility] #[id number], 158, cm, 08/25/22 12:35:00 EST, Height Start [...] Personnel Name: Radha FITZPATRICK, Brittany Saeed Position: [facility] Outreach Member Role: PCP Address: Address: [address] [place] [address]- Care Team Related Persons Name: PERRI MORALEZ Address: home [address] [place] [address] Name: JULIAN MOLINA Address: home [address] [place] [address] Name: BERLIN MOLINA Address: [address] [address] Name: BERTHA SINGH Address: [address] Address: home [address] [place] [address] Name: LA SINGH Address: home [address] [place] [address]
--- OUTSIDE RECORDS SUMMARY | 2023-07-05 10:08 | XMS_ITS | Continuity of Care Document ---
Author Name Unknown Organization [facility] Endocrinolo gy and Diabetes Address [address] [place] [address]- Care Team Providers Care Superintendent Stevedoring Name Role Phone Radha FITZPATRICK, Brittany Saeed Primary Care Physician [place] [facility]s): 06/01/23 - 07/01/23 [facility] Endocrinology and Diabetes [address] [place] [id number] Allergies, Adverse Reactions, Alerts Substance Reaction [...] give 325mg per patient preference and re-dose [id number] within 4 hours, if needed. Patient should [...] Date: 06/30/21 Status: Ordered BD Ultra fine [id number] insuiln syringes BD Ultra fine 55Ec8lze0kk insuiln syringes, See Instructions, # 120 each, [...] 4 Refills, Maintenance, 05/20/21 11:26:00 EDT, Tablet, [facility] #[id number], Partial fill upon patient request if the [...] 06/27/22 11:38:00 EST, Route to Pharmacy Electronically, [facility] #[id number], Partial fill upon patient request if the prescription is for a sche... Start Date: 06/27/22 Status: Ordered famotidine 20 mg oral tablet 20 mg, 1, tablet, By Mouth, 2 times a day, # 60 tablet, Refills 0, Tot. Refills 0, Maintenance, 06/09/20 12:47:00 EST, Route to Pharmacy Electronically, [facility] #[id number], Partial fill uponpatient request, 157, cm, 06/08/20 [...] 30 mL, 8 Refills, Maintenance,05/10/23 9:34:00 EDT, [id number], 158, cm, 05/10/23 9:22:00 EDT, Height Start [...] mL, 11 Refills, Maintenance, 01/25/23 8:59:00 EDT, [facility] #[id number], 158, cm, 08/25/22 12:35:00 EST, Height Start [...] Personnel Name: Radha FITZPATRICK, Brittany Saeed Position: [facility] Outreach Member Role: PCP Address: Address: [address] [place] [address]- Care Team Related Persons Name: PERRI MORALEZ Address: home [address] [place] [address] Name: JULIAN MOLINA Address: home [address] [place] [address] Name: BERLIN MOLINA Address: [address] [address] Name: BERTHA SINGH Address: [address] Address: home [address] [place] [address] Name: LA SINGH Address: home [address] [place] [address]
--- OUTSIDE RECORDS SUMMARY | 2023-07-05 10:08 | XMS_ITS | Continuity of Care Document ---
Author Name Unknown Organization [facility] Address [address] [place] [address]- Care Team Providers Care Pin Machine Tender Name Role Phone Radha FITZPATRICK, Brittany Saeed Primary Care Physician [phone] Encounter [facility] [place](s): 06/01/23 - 07/01/23 [facility] [address] [place] [id number] Allergies, Adverse Reactions, Alerts Substance Reaction [...] give 325mg per patient preference and re-dose [id number] within 4 hours, if needed. Patient should [...] Date: 06/30/21 Status: Ordered BD Ultra fine [id number] insuiln syringes BD Ultra fine [id number] insuiln syringes, See Instructions, # 120 each, [...] 4 Refills, Maintenance, 05/20/21 11:26:00 EDT, Tablet, [facility] #[id number], Partial fill upon patient request if the [...] 06/27/22 11:38:00 EST, Route to Pharmacy Electronically, [facility] #[id number], Partial fill upon patient request if the prescription is for a sche... Start Date: 06/27/22 Status: Ordered famotidine 20 mg oral tablet 20 mg, 1, tablet, By Mouth, 2 times a day, # 60 tablet, Refills 0, Tot. Refills 0, Maintenance, 06/09/20 12:47:00 EST, Route to Pharmacy Electronically, [facility] #[id number], Partial fill uponpatient request, 157, cm, 06/08/20 [...] 30 mL, 8 Refills, Maintenance,05/10/23 9:34:00 EDT[id number], 158, cm, 05/10/23 9:22:00 EDT, Height Start [...] mL, 11 Refills, Maintenance, 01/25/23 8:59:00 EDT, [facility] #[id number], 158, cm, 08/25/22 12:35:00 EST, Height Start [...] Personnel Name: Radha FITZPATRICK, Brittany Saeed Position: [facility] Outreach Member Role: PCP Address: Address: [address] [place] [id number]- Care Team Related Persons Name: PERRI MORALEZ Address: home [address] [place] [address] Name: JULIAN MOLINA Address: home [address] [place] [address] Name: BERLIN MOLINA Address: [address] [address] Name: BERTHA SINGH Address: [address] Address: home [address] [place] [address] Name: LA SINGH Address: [address] [place] [address]
--- OUTSIDE RECORDS SUMMARY | 2023-07-05 10:09 | XMS_ITS | Continuity of Care Document ---
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 Patient should [...] Date: 06/30/21 Status: Ordered BD Ultra fine [id number] insuiln syringes BD Ultra fine [id number] insuiln syringes, See Instructions, # 120 each, [...] 4 Refills, Maintenance, 05/20/21 11:26:00 EDT, Tablet, [facility] #[id number], Partial fill upon patient request if the [...] 06/27/22 11:38:00 EST, Route to Pharmacy Electronically, [facility] #[id number], Partial fill upon patient request if the prescription is for a sche... Start Date: 06/27/22 Status: Ordered famotidine 20 mg oral tablet 20 mg, 1, tablet, By Mouth, 2 times a day, # 60 tablet, Refills 0, Tot. Refills 0, Maintenance, 06/09/20 12:47:00 EST, Route to Pharmacy Electronically, [facility] #[id number], Partial fill uponpatient request, 157, cm, 06/08/20 [...] 30 mL, 8 Refills, Maintenance,05/10/23 9:34:00 EDT, [facility] #[id number], 158, cm, 05/10/23 9:22:00 EDT, Height Start [...] mL, 11 Refills, Maintenance, 01/25/23 8:59:00 EDT, [facility] #[id number], 158, cm, 08/25/22 12:35:00 EST, Height Start [...] Status Never smoker entered on: 04/17/15 Sex Cardiology * Event Display: Cardiovascular Result Scanned Authored Date: Patient Care team information Care Team Personnel Name: Brittany Garcia NP Position: [facility] Outreach Member Role: PCP Address: Address: [address] [place] [id number]- Care Team Related Persons Name: PERRI MORALEZ Address: [address] [place] [address] Name: JULIAN MOLINA Address: [address] [place] [address] Name: BERLIN MOLINA Address: [address] [address] Name: BERTHA SINGH Address: [address] Address: [address] [place] [address] [place] Name: LA SINGH Address: [address] [place] [address]
[2023-07-05 10:27] VITALS: BP 125/74; PULSE 81; RESP 16; TEMP 36.2; O2SAT 99; BMI 23.8
--- NOTE | 2023-07-05 11:12 | P.BOP_ITS ---
Brief Operative Note Date of Service: 07/05/23 Pre-op diagnosis: Peroneal neuropathy, left Post-op diagnosis: same Procedure: Temporary left peroneal nerve stimulator placement Implants: Sprint temporary PNS system Surgeon: Anant Miller MD Anesthesia: local Was an High Value Associate used for this Procedure?: No Estimated blood loss (mL): 1 Pathology: none sent Condition: stable Disposition: same day
--- NOTE | 2023-07-05 11:12 | MHC.SHP ---
Pre-Procedural Eval Section A Date of Service: 07/05/23 The patient is an INPATIENT: No Changes since office visit: Yes Patient answered all questions The History & Physical has been completed within 30 days and I have reviewed it.: No Section B Chief Complaint: Peroneal neuropathy Relevant Family History (Specify if Yes): No Relevant Social History: None Present Medications: see Short Stay Collaborative assessment Medical History: No relevant PMH History of Previous Operations: No relevant previous surgery Allergies: Allergies Allergy/AdvReac Type Severity Reaction Status Date / Time pregabalin [From Lyrica] AdvReac Drowsy Verified 06/01/23 10:45 gabapentin AdvReac Intermediate Drowsy Uncoded 06/01/23 10:45 Review of Systems Sugical H&P ROS: Negative: Constitution, Cardiovascular and Respiratory Exam Surgical H&P Exam: Normal: HEENT, Normal: Heart and Normal: Lungs and Significant Findings: Skin (Bruise on the left lateral thigh) Plan Diagnosis/Plan: Unchanged I have reviewed the history and physical and performed a pertinent physical examination on my patient. No changes have occurred unless specified. Time Spent With Patient Time: Total time managing care of this patient today ____ minutes.
--- NOTE | 2023-07-05 11:12 | W.PM.OPN ---
Operative Note Operative Note Date of Service: 07/05/23 Narrative: Peripheral Nerve Stimulation Temporary Lead Placement, Ultrasound-Guided, Peroneal Nerve, Left ? After the risks, benefits and alternatives were discussed with the patient and informed consentwas obtained, patient was placed in the lateral position and padded to foster comfort. Appropriate skin and bony landmarks were identified, and pertinent vascular structures were located. The skin overlying the needle entry site was prepped and draped in sterile fashion. Ultrasound was used to identify the popliteal artery and the sciatic nerve. After identifying and marking the intended target along the course of the peroneal segment of the sciatic nerve, the skin around the planned entry point and the subcutaneous tissues were injected with local anesthetic. An introducer needle and stimulating probe were assembled, inserted and advanced along the intended course of the peroneal segment, taking care to maintain the proper depth of insertion as the introducer was advanced under ultrasound guidance. The introducer needle was delivered to a location in proximity to the peroneal segment of the sciatic nerve taking care not to puncture the popliteal artery or the vein. Multiple stimulation parameters were used to deliver stimulation to the peroneal nerve in concert with stimulating at multiple positions around the nerve. Nerve target acquisition was confirmed noting generation of sensory effects (paresthesia, muscle tension, etc) in the lateral knee, calf and ankle; corresponding to the distribution of the peroneal nerve. Various electrical parameter combinations were tested, and the lead location was adjusted (physically relocated under ultrasound guidance) until the patient indicated lateral leg paresthesia and tension overlapping the distribution of the patient?s typical region of pain. The stimulating probe was removed from the introducer and a percutaneous lead was guided through the needle and delivered to a location in similar proximity to the nerve. Final location was verified with electrical stimulation and documented. The introducer needle was removed, and the exposed end of the percutaneous lead was attached to an external stimulator unit. Various electrical parameter combinations were again tested until the patient indicated paresthesia and muscle tension overlapping the distribution of the patient?s typical region of pain. After confirming that lead impedance was in the normal range, the external unit was detached, the needle was removed, and the lead was anchored at the skin. The lead was threaded into the connector block and electrical continuity and desired patient response was confirmed. The connector block was attached to the external stimulator unit. The site was covered with a sterile occlusive dressing. A final ultrasound image was taken to document final placement. The patient was observed for stability of vital signs and comfort.
[2023-07-05 11:52] VITALS: BP 116/67; PULSE 74; RESP 20; TEMP 37.1; O2SAT 98
== END 2023-07-05 12:15 | disposition home or self-care (01) ==
PROVIDERS: Visit Provider Internal Medicine
PROC: (CPT 64555; principal; 2023-07-05 14:40)
DX: G57.32 Lesion of lateral popliteal nerve, left lower limb (principal); E10.8 Type 1 diabetes mellitus with unspecified complications; Z79.4 Long term (current) use of insulin
CPT/HCPCS: 64555; C1778

== ENCOUNTER → 2023-07-05 10:04 | Outpatient (BNV) | payer MEDICAID, SELFPAY | PROVIDERS: Visit Provider Internal Medicine | DX: G57.32 Lesion of lateral popliteal nerve, left lower limb (principal) | CPT/HCPCS: 64555 ==

== ENCOUNTER 2023-07-11 09:01 | Outpatient (AMB) | payer MEDICAID, SELFPAY ==
--- NOTE | 2023-07-11 09:03 | MHC.OFFVIS ---
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 Miller. Patient reports 70% pain relief since procedure with improved functioning, daily activities, and better sleep. Rates her left lower extremity pain at 3-4/10 since Sprint placement at 34 stimulation setting. Patient reports tenderness and bruising at the lead insertion site and rates this at 8/10. The dressing was removed today. Lead insertion sites look clean, dry, intact, with noted healing bruising around lead site, no redness, no swelling, no pathological discharge. Area was cleansed with Chloraprep. Leads pulled with tips intact and the area was cleansed again with Chloraprep, applied Bacitracin and covered it with gauze and Tegaderm film dressing. Denies any recent cough, cold, infection, fever or other significant changes in medical history since last office visit. Past Procedures: 07/05/23: Left peroneal nerve Sprint PNS-70% pain relief 05/08/23: Left peroneal nerve block-70-80% pain relief for 2 days. PRIOR: Patient presents today to discuss recent EMG results. Patient reports increasing weakness in her left lower extremity and tripping on the left. Patient reports she was shopping at store today and almost fell due to tripping on left side. She presents with left ankle/foot mild weakness with dorsiflexion, no foot drop. Neurodiagnostic studies showed mild sensory motor peripheral neuropathy and moderately severe left peroneal neuropathy. Patient was referred to [facility] for consideration for placing her left ankle in a boot. Denies any recent cough, cold, infection, fever or other significant changes in medical history since last office visit. Patient denies any bladder or bowel incontinence or saddle anesthesia. PRIOR: Patient presents today to discuss trial of capsaicin 8% for chronic painful diabetic neuropathy with a history of poorly controlled glucose. Patient had bilateral EMG and NCS in 2018 at [facility] which showed bilateral mild peroneal neuropathy. No EMG have been repeated since then. Patient reports chronic numbness, tingling, burning, stabbing, cramping pain worse at night. Her last A1C was 7.1. She was diagnosed with DM type 1 at age 13. Her diabetic foot exams have been consistently normal. Patient reports mild decrease in sensation in her plantar surfaces of both feet. Skin intact, no ulcers or breaks in skin. Patient is interested to proceed with Topical Capsaicin 8% patch application. We will submit request for PA. [facility] Medical History Type 1 diabetes Surgical History No pertinent past surgical history Family History Father Skin cancer Diabetes Hypertension Mother Diabetes Social History Alcohol intake: never Patient Tobacco Use Status: Never used Tobacco Review of Systems Const All systems reviewed & are unremarkable except as noted in HPI and below Physical Exam Vital Signs: Last Vital Signs Pulse 81 07/11/23 09:06 BP 127/83 07/11/23 09:06 Pulse Ox 98 07/11/23 09:06 Oxygen Delivery Method Room Air 07/11/23 09:06 BMI result Body Mass Index 23.8 General: Appears afebrile. Alert and oriented. Mood and affect appropriate. Follows and participates in conversation appropriately. Respiratory effort is unlabored. Able to transition from sit to stand unassisted. Ambulates with bilaterally normal heel strike and toe off. Lead Insertion Site: Lead insertion sites look clean, dry, intact. Healing bruising noted at the lead insertion site, no pathological discharge, no swelling, no redness, no erythema.? Assessment & Plan Assessment & Plan (1) Peroneal neuropathy: Code(s): G57.30 - Lesion of lateral popliteal nerve, unspecified lower limb Qualifiers: Laterality: left Qualified Code(s): 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, left lower limb Plan Patient is status post one week left peroneal nerve Sprint lead placement on 07/08/23 with good results. Patient has healing bruising with site tenderness post insertion and will continue to monitor it, with trial of ice pack and Tylenol as needed. Otherwise, lead site is intact, no pathological discharge, bleeding or swelling. Dressing change was done in office today. Patient will continue dressing changes at home and reports no concerns or questions with device care or dressing changes. Patient will adjust her stimulation settings as needed. All questions were answered and the patient is in agreement of plan. Follow-up for Sprint removal and sooner as needed. Coding Level of Care Code Est Pt Level 3 (61969) Diagnoses Neuropathy of left peroneal nerve G57.32 Laterality: left
[2023-07-11 09:06] VITALS: BP 127/83; PULSE 81; O2SAT 98; BMI 23.8
== END 2023-07-11 10:06 | disposition home or self-care (01) ==
PROVIDERS: Visit Provider Nurse Practitioner Family
DX: G57.32 Lesion of lateral popliteal nerve, left lower limb (principal)
CPT/HCPCS: 99024

== ENCOUNTER → 2023-07-11 09:01 | Outpatient (BNVA) | payer MEDICAID, SELFPAY | PROVIDERS: Visit Provider Nurse Practitioner Family | DX: G57.32 Lesion of lateral popliteal nerve, left lower limb (principal) | CPT/HCPCS: 99212 ==

== ENCOUNTER 2023-07-27 13:15 | Outpatient (AMB) | payer MEDICAID, SELFPAY ==
--- NOTE | 2023-07-27 13:29 | MHC.OFFVIS ---
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 Miller. Patient continues to endorse significant pain at the Sprint lead insertion and around lead insertion site since placement procedure. She reports good pain relief in her left lower leg laterally and dorsal left foot with positive paresthesia with stimulation setting at 34-48. Patient reports tenderness and healing bruising at the lead insertion site and rates this at 8-/10. She has reached out to Benita Jensen several times regarding this with multiple setting adjustments and turning off device with no changes in her pain symptoms around lead insertion site. Patient presents today with request to remove her Sprint device. The dressing was removed today. Lead insertion sites look clean, dry, intact, with mild bruising and mild redness noted around lead site, but no swelling, erythema or pathological discharge. Area was cleansed with Chloraprep. Lead pulled with the tip intact and the area was cleansed again with Chloraprep, applied Bacitracin and covered it with gauze and Tegaderm film dressing. The lead wire at the distal end was noted to be partially uncurled upon inspection after Sprint lead removal. Denies any recent cough, cold, infection, fever or other significant changes in medical history since last office visit. Past Procedures: 07/05/23: Left peroneal nerve Sprint PNS-70% LLE pain relief, TTP around and at lead insertion site 05/08/23: Left peroneal nerve block-70-80% pain relief for 2 days. PRIOR: Patient presents today to discuss recent EMG results. Patient reports increasing weakness in her left lower extremity and tripping on the left. Patient reports she was shopping at store today and almost fell due to tripping on left side. She presents with left ankle/foot mild weakness with dorsiflexion, no foot drop. Neurodiagnostic studies showed mild sensory motor peripheral neuropathy and moderately severe left peroneal neuropathy. Patient was referred to [facility] for consideration for placing her left ankle in a boot. Denies any recent cough, cold, infection, fever or other significant changes in medical history since last office visit. Patient denies any bladder or bowel incontinence or saddle anesthesia. PRIOR: Patient presents today to discuss trial of capsaicin 8% for chronic painful diabetic neuropathy with a history of poorly controlled glucose. Patient had bilateral EMG and NCS in 2018 at [facility] which showed bilateral mild peroneal neuropathy. No EMG have been repeated since then. Patient reports chronic numbness, tingling, burning, stabbing, cramping pain worse at night. Her last A1C was 7.1. She was diagnosed with DM type 1 at age 13. Her diabetic foot exams have been consistently normal. Patient reports mild decrease in sensation in her plantar surfaces of both feet. Skin intact, no ulcers or breaks in skin. Patient is interested to proceed with Topical Capsaicin 8% patch application. We will submit request for PA. [facility] Medical History Type 1 diabetes Surgical History No pertinent past surgical history Family History Father Skin cancer Diabetes Hypertension Mother Diabetes Social History Alcohol intake: never Patient Tobacco Use Status: Never used Tobacco Review of Systems Const All systems reviewed & are unremarkable except as noted in HPI and below Physical Exam Vital Signs: Last Vital Signs Pulse 88 07/27/23 13:32 BP 134/81 07/27/23 13:32 Pulse Ox 97 07/27/23 13:32 Oxygen Delivery Method Room Air 07/27/23 13:32 BMI result Body Mass Index 23.8 General: Appears afebrile. Alert and oriented. Mood and affect appropriate. Follows and participates in conversation appropriately. Respiratory effort is unlabored. Able to transition from sit to stand unassisted. Ambulates with bilaterally normal heel strike and toe off. Lead Insertion Site: Lead insertion sites look clean, dry, intact. Mild redness and skin site irritation noted around the lead insertion site, no pathological discharge, no swelling, no redness, no erythema. Lead pulled with tip intact, with uncurled lead wire is noted at the distal end as noted below. Assessment & Plan Assessment & Plan (1) Peroneal neuropathy: Code(s): G57.30 - Lesion of lateral popliteal nerve, unspecified lower limb Qualifiers: Laterality: left Qualified Code(s): 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, left lower limb Plan Patient is status post one week left peroneal nerve Sprint lead placement on 07/08/23 with good results for LLE pain relief. However, she has continuous and unbearable tenderness and discomfort around lead insertion site. Sprint lead site is intact, no pathological discharge, bleeding or swelling. Patient has adjusted stimulation settings and reached out to Sprint rep with continued lead insertion site pain and tenderness. Lead was pulled with tip intact per patient's request. Discussed Sprint PNS replacement. Patient will continue to monitor her symptoms and notify our office with her decision. All questions and concerns have been answered. Follow up as needed. Coding Level of Care Code Est Pt Level 3 (71464) Diagnoses Neuropathy of left peroneal nerve G57.32 Laterality: left
[2023-07-27 13:32] VITALS: BP 134/81; PULSE 88; O2SAT 97; BMI 23.8
== END 2023-07-27 13:50 | disposition home or self-care (01) ==
PROVIDERS: Visit Provider Nurse Practitioner Family
DX: G57.32 Lesion of lateral popliteal nerve, left lower limb (principal)
CPT/HCPCS: 99213

== ENCOUNTER → 2023-07-27 13:15 | Outpatient (BNVA) | payer MEDICAID, SELFPAY | PROVIDERS: Visit Provider Nurse Practitioner Family | DX: G57.32 Lesion of lateral popliteal nerve, left lower limb (principal) | CPT/HCPCS: 99212 ==

== ENCOUNTER 2023-08-30 10:55 | Outpatient (AMB) | payer MEDICAID, SELFPAY ==
[2023-08-30 10:58] VITALS: BMI 23.8
--- NOTE | 2023-08-30 10:58 | A.OFFVIS_ITS ---
Intake Vital Signs 08/30/23 10:58 Height 5 ft 2 in Weight 130 lb BMI 23.8 Intake Visit Reasons: OV-Left Ankle foot Neuropathy-Follow up Intake Note: Gris is a 33 year old female who presents today for a follow up of her left foot/ankle plantar fasciitis & peroneal neuropathy. At her last visit she was fit in an ankle sleeve, which gives her mild relief but she cant wear it for a long time. She states that her pain has gotten worse since her last visit. Allergies pregabalin [From Lyrica] Adverse Reaction (Verified 08/30/23 11:01) Drowsy gabapentin Adverse Reaction (Intermediate, Uncoded 06/01/23 10:45) Drowsy Medication List - Last Reconciled 08/30/23 by Lorie Thorpe MD atogepant 30 mg PO DAILY 30 days benfotiamine 300 mg (2 x 150 mg) PO DAILY 30 days blood sugar diagnostic (FreeStyle Lite Strips) As directed blood-glucose meter (FreeStyle Lite Meter kit) As directed duloxetine 30 mg PO DAILY 2 weeks epinephrine (EpiPen) 0.3 mg (0.3 mL) IM Q4H PRN fremanezumab-vfrm (Ajovy) 225 mg (1.5 mL) subcut ONCE 30 days glucagon (Glucagon Emergency Kit) mg IM DIRECTED indomethacin 50 mg (2 x 25 mg) PO TID PRN 30 days insulin glargine (Lantus U-100 Insulin) 23 units subcut DAILY PRN insulin lispro 0 - 75 units subcut DAILY insulin syringe-needle U-100 As directed levonorgestrel (Mirena) 1 insert intrauterine ONCE magnesium oxide 400 mg PO BEDTIME 30 days naloxone (LifEMS Naloxone) 2 mg (2 mL) IM Q2M PRN 30 days oxcarbazepine (Trileptal) 150 mg PO BID 30 days oxycodone 10 mg PO QHS, may repeat x's 1; 24 days riboflavin (vitamin B2) 400 mg PO DAILY 30 days rimegepant (Nurtec ODT) 75 mg PO Q OTHER DAY 30 days sumatriptan succinate 50 - 100 mg orally at onset of headache, may repeat in 2 hrs PRN; max 2 tabs per day or 4 tabs/week (may take with Ibuprofen) 30 days HPI HPI Comments History of Present Illness Details Per records review: s/p Left peroneal nerve block on 05/08/[address] Miller. Chronic painful diabetic neuropathy with a history of poorly controlled glucose, type 1 DM. Patient had bilateral EMG and NCS in 2018 at [facility] which showed bilateral mild peroneal neuropathy. No EMG have been repeated since then. Pursuing peripheral nerve stimulation for left peroneal neuropathy for [facility] pain relief. Scheduling for Left Peroneal Nerve Sprint PNS lead placement. Patient been having numbness on both feet/legs at age 27. Some numbnness mildly on fingers. Noted left foot drop past month only. No falls. Left knee pain. Left sided back pain. Not using assistive device. HbA1c now 6.4. Since the last time I saw her, she had followed with pain management. Left Peroneal nerve Sprint PNS lead placement on 07/05/[address] Miller. However it caused more severe pain. Lead was removed on her last visit 07/27/2023. Tells me today that it is about the same kind of pain. Pointing to area posterior to left lateral malleolus, along peroneal tendons. She tried to wear the plantar fascia sock but could not tolerate wearing it more than a few hours. It did not really help. [facility] Medical History (Updated 08/30/23 @ 11:24 by Lorie Thorpe MD) Foot drop, left Type 1 diabetes Surgical History No pertinent past surgical history Family History Father Skin cancer Diabetes Hypertension Mother Diabetes Social History Alcohol intake: never Patient Tobacco Use Status: Never used Tobacco Physical Exam Vital Signs: BMI result Body Mass Index 23.8 Constitutional: Patient appears to be in no acute distress, well nourished and well developed. Patient was appropriately conversant and oriented. Good historian. MSK: Tender just behind left lateral malleolus, along peroneal tendon. No signs of acute inflammation. Slight footdrop left, but still full range actively when done with knee extended. No increased tone noted. Neurological: Babinski was down going bilaterally. Clonus was negative. Gait is more antalgic today. Results Reviewed Results Reviewed: 03/23/23 Dr. Marquez IMPRESSION: 1. Mild sensory motor peripheral neuropathy. 2. Moderately severe left peroneal neuropathy, somewhat out of proportion to underlying neuropathy. Reviewed notes from pain management. Assessment & Plan Assessment & Plan (1) Foot drop, left: Code(s): M21.372 - Foot drop, left foot (2) Peroneal neuropathy: Code(s): G57.30 - Lesion of lateral popliteal nerve, unspecified lower limb Qualifiers: Laterality: left Qualified Code(s): 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, left lower limb (3) Chronic painful diabetic neuropathy: Code(s): E11.40 - Type 2 diabetes mellitus with diabetic neuropathy, unspecified Plan I am afraid her footdrop is worsening, partly from weakness, partly from pain. At this point I would recommend a custom molded AFO to prevent any falls and further injuries. Referring her to an dbas. Patient had undergone adequate conservative management without improvement of condition. It would be reasonable to obtain further imaging such as MRI left ankle. An MRI would help rule out any serious condition, guide treatment and assess prognosis for recovery, and also help us decide if she needs any surgical consult. Assessment and plan discussed with patient, and patient was agreeable. All questions were answered thoroughly. Follow-up after MRI. Lorie Thorpe MD, RADHA Board Certified, [place] [employer] and [employer] (ABPMR) Board Certified, [place] [employer] Electro[employer]ostic [employer] (ABEM) Orders: Orders MR ankle LT wo con Today E11.40 - Type 2 diabetes mellitus with diabetic neuropathy, unspecified, G57.30 - Lesion of lateral popliteal nerve, unspecified lower limb Medications: New [Custom AFO] left custom molded AFO 1 ea 0RF E11.40 - Type 2 diabetes mellitus with diabetic neuropathy, unspecified, G57.30 - Lesion of lateral popliteal nerve, unspecified lower limb, M21.372 - Foot drop, left foot Coding Level of Care Code Est Pt Level 4 (14329) Diagnoses Foot drop, left M21.372 Neuropathy of left peroneal nerve G57.32 Laterality: left Chronic painful diabetic neuropathy E11.40
== END 2023-08-30 11:40 | disposition home or self-care (01) ==
PROVIDERS: Referring Provider Internal Medicine; Visit Provider Physical Medicine & Rehabilitation
DX: M21.372 Foot drop, left foot (principal); G57.32 Lesion of lateral popliteal nerve, left lower limb; E11.40 Type 2 diabetes mellitus with diabetic neuropathy, unspecified
CPT/HCPCS: 99214

== ENCOUNTER → 2023-08-30 10:55 | Outpatient (BNVA) | payer MEDICAID, SELFPAY | PROVIDERS: Visit Provider Physical Medicine & Rehabilitation | DX: M21.372 Foot drop, left foot (principal); G57.32 Lesion of lateral popliteal nerve, left lower limb | CPT/HCPCS: 99212 ==

== ENCOUNTER 2023-10-13 10:13 | Outpatient (AMB) | payer MEDICAID, SELFPAY ==
--- NOTE | 2023-10-13 10:14 | MHC.OFFVIS ---
Intake Vital Signs 10/13/23 10:29 Height 5 ft 2 in Weight 134 lb BMI 24.5 BP 114/72 Blood Pressure Location Rt brachial Position Sitting Pulse 80 Pulse Source Pulse Oximeter Pulse Oximetry (%) 98 Intake Visit Reasons: f/u appt overdue-LVM Intake Note: Paytient presents for follow up. no issues or concerns Allergies pregabalin [From Lyrica] Adverse Reaction (Verified 10/13/23 10:29) Drowsy gabapentin Adverse Reaction (Intermediate, Uncoded 10/13/23 10:29) Drowsy Medication List - Last Reconciled 10/13/23 by REJI RichardP [Custom AFO left custom molded AFO] atogepant 30 mg PO DAILY 30 days benfotiamine 300 mg (2 x 150 mg) PO DAILY 30 days blood sugar diagnostic (FreeStyle Lite Strips) As directed blood-glucose meter (FreeStyle Lite Meter kit) As directed duloxetine 30 mg PO DAILY 2 weeks epinephrine (EpiPen) 0.3 mg (0.3 mL) IM Q4H PRN fremanezumab-vfrm (Ajovy) 225 mg (1.5 mL) subcut ONCE 30 days glucagon (Glucagon Emergency Kit) mg IM DIRECTED indomethacin 50 mg (2 x 25 mg) PO TID PRN 30 days insulin glargine (Lantus U-100 Insulin) 23 units subcut DAILY PRN insulin lispro 0 - 75 units subcut DAILY insulin syringe-needle U-100 As directed levonorgestrel (Mirena) 1 insert intrauterine ONCE magnesium oxide 400 mg PO BEDTIME 30 days naloxone (LifEMS Naloxone) 2 mg (2 mL) IM Q2M PRN 30 days oxcarbazepine (Trileptal) 150 mg PO BID 30 days oxycodone 10 mg PO QHS, may repeat x's 1; 24 days riboflavin (vitamin B2) 400 mg PO DAILY 30 days rimegepant (Nurtec ODT) 75 mg PO Q OTHER DAY 30 days sumatriptan succinate 50 - 100 mg orally at onset of headache, may repeat in 2 hrs PRN; max 2 tabs per day or 4 tabs/week (may take with Ibuprofen) 30 days HPI HPI Comments History of Present Illness Details 33-yr-old female presents for f/u visit. Pt continues to use Oxycodone 10-20mg qhs for restless legs and leg pains. She has been f/b pain management and now physiatry for further tx of left peroneal neuropathy and pains in he knees nad feet. She was tried on a pain stimulator- however this caused insertion pain. She is now working w/ physiatry to try a boot/splint and having an MRI. More recently, she is noticing tingling and swelling in her hands. She states her migraines are Good and Bad. She is taking Atogepant- may forget sometimes to take- but it does help. She does not think she rec'd Nurtec yet. She is no longer on Ajovy- these caused injection site pain and were ineffective. She has not had any spacing out episodes. Her blood sugars are well-controlled- but even w/ episodes of lower blood sugar, she has not had any spacing out episodes. No longer taking the Trileptal. Labs done in Jul 2023- Showed mildly elevated WBC 12.9 H and Neut 9.7 H. At the time she stated she felt fine, however within a few days she developed a strep infection- which was tx'd w/ ABT. Ferritin- 45 low norm 25 OH Vit D- 14.6 H TSH- 1.85 NL Folic acid- 6.2 NL Vit B12- 290 NL [facility] Medical History (Updated 08/30/23 @ 11:24 by Lorie Thorpe MD) Foot drop, left Type 1 diabetes Surgical History No pertinent past surgical history Family History Father Skin cancer Diabetes Hypertension Mother Diabetes Social History Alcohol intake: never Patient Tobacco Use Status: Never used Tobacco Physical Exam Vital Signs: Last Vital Signs Pulse 80 10/13/23 10:29 BP 114/72 10/13/23 10:29 Pulse Ox 98 10/13/23 10:29 BMI result Body Mass Index 24.5 Const General: cooperative and no acute distress Orientation/consciousness: patient oriented x3 Resp Effort & Inspection: normal respiratory effort and able to speak in complete sentences Neuro General: patient oriented x3 Cranial nerves: Yes CN's II-XII intact bilaterally Cognition (Neuro): normal cognition Psych Appearance: grossly normal Mental Status: mental status grossly normal Speech and movement: Normal speech and movement present Affect: normal affect Attitude: cooperative Assessment & Plan Assessment & Plan (1) Migraine with aura: Code(s): G43.109 - Migraine with aura, not intractable, without status migrainosus (2) Restless leg syndrome: Code(s): G25.81 - Restless legs syndrome Plan For neuralgia and restless legs: Reviewed recent lab workup. Ferritin low normal, less than goal of 75 in RLS treatment. B12 and folate low normal. We will supplement with ferrous sulfate and vitamin-C, colace p.r.n. B12 and folic acid supplement. Continue oxycodone 10-20mg qhs. Naloxone prn opioid overdose w/ instructions for use. Follow-up with pain management in physiatry as scheduled. Patient has previously ?failed multiple dopaminergic, AED, and antidepressant treatments for her ongoing restless leg/neuropathy symptoms. ? For convulsions: No recent convulsive or spacing out episodes. Possible these previous episodes were related to hypoglycemia. Blood sugars overall better controlled. Her 24 EEG showed left temporal lobe slowing, Brain MRI showed Few small subcortical white matter T2 hyperintensities in the mesial left frontal lobe. Patient is no longer taking Trileptal. ? For migraine prevention: May use indomethacin 25-50 mg po tid prn stabbing headaches sparingly- taken w/ food. Continue Riboflavin and Magnesium. Continue Atogepant 30mg qhs. Pt has not tolerated ?amirtiptyline, cymbalta, gabapentin, pregabail, Aimovig (constipation and leg cramping), Emaglity (injection site pain). Ajovy- injection site pain and was ineffective. ? For acute migraine tx: Hold Sumatriptan prn. Trial rizatriptan 10 mg p.r.n. ? f/u in 3 months or sooner prn. Medications: New cholecalciferol (vitamin D3) 25 mcg PO DAILY 30 caps 6RF 30 days cyanocobalamin (vitamin B-12) 500 mcg PO DAILY 30 tabs 6RF 30 days folic acid 0.4 mg PO DAILY 30 tabs 6RF 30 days ferrous sulfate 325 mg orally 3 x's per week- Mon; take w/ vitamin C 12 tabs 6RF 28 days ascorbate calcium (vitamin C) 500 mg orally 3 x's per week- Mon; 12 tabs 6RF 28 days rizatriptan max 2 tabs per day or 4 tabs per week 5 - 10 mg (0.5 - 1 x 10 mg) PO Q2H PRN 12 tabs 3RF migraine headache 30 days Refilled atogepant 30 mg PO DAILY 30 tabs 6RF 30 days G43.109 - Migraine with aura, not intractable, without status migrainosus indomethacin administer with food or milk 50 mg (2 x 25 mg) PO TID PRN 90 caps 1RF stabbing headache 30 days Discontinued fremanezumab-vfrm administer 225mg sc q month Discontinued Reason: Doctor's Order 225 mg (1.5 mL) subcut ONCE 30 days 1.5 mL 6RF rimegepant for prevention. Discontinued Reason: Doctor's Order 75 mg PO Q OTHER DAY 30 days 18 tabs 6RF G43.109 - Migraine with aura, not intractable, without status migrainosus oxcarbazepine Discontinued Reason: Doctor's Order 150 mg PO BID 30 days 60 tabs 3RF Coding Level of Care Code Est Pt Level 4 (51964) Diagnoses Migraine with aura G43.109 Restless leg syndrome G25.81
[2023-10-13 10:29] VITALS: BP 114/72; PULSE 80; O2SAT 98; BMI 24.5
== END 2023-10-13 11:07 | disposition home or self-care (01) ==
PROVIDERS: Visit Provider Nurse Practitioner Family
DX: G43.109 Migraine with aura, not intractable, without status migrainosus (principal); G25.81 Restless legs syndrome
CPT/HCPCS: 99214

== ENCOUNTER → 2023-10-13 10:13 | Outpatient (BNVA) | payer MEDICAID, SELFPAY | PROVIDERS: Visit Provider Nurse Practitioner Family | DX: G25.81 Restless legs syndrome (principal); G43.109 Migraine with aura, not intractable, without status migrainosus; G62.9 Polyneuropathy, unspecified; M79.606 Pain in leg, unspecified; Z79.891 Long term (current) use of opiate analgesic | CPT/HCPCS: 99212 ==

== ENCOUNTER 2023-11-08 10:23 | Outpatient (REF) | payer MEDICAID, SELFPAY ==
--- NOTE | ~2023-11-08 | MR_ITS ---
EXAMINATION: MR ANKLE WITHOUT CONTRAST, LEFT CLINICAL INFORMATION: Lesion of the lateral popliteal nerve. Chronic peroneal neuropathy, foot drop. Please assess tendons for tears. COMPARISON: None available. TECHNIQUE: MRI of the ankle was performed using routine sequences on a high-field scanner. FINDINGS: ACHILLES TENDON: Normal. OTHER TENDONS: Tendons are intact. The peroneal tendons, specifically, are normal in appearance without appreciable tears, tendinosis, or tenosynovitis. Imaged portions of the peroneal muscles are normal in signal intensity. No appreciable subluxation at the level of lateral malleolus. Extensor and medial flexor tendons are normal. LIGAMENTS: The anterior and posterior talofibular ligaments are intact. Normal calcaneofibular ligament. Normal anterior and posterior tibiofibular ligament. The deltoid and spring ligaments are intact. BONE AND ARTICULAR CARTILAGE: Normal marrow signal. Cartilage is well preserved. No talar osteochondral lesions. JOINT FLUID AND SOFT TISSUES: No joint effusion. Subcutaneous soft tissues are normal. PLANTAR FASCIA: Normal. SINUS TARSI AND TARSAL TUNNEL: Normal. MR/MR ankle LT wo con IMPRESSION: Normal MRI of the ankle. No appreciable abnormalities are identified at the peroneal tendons.
== END 2023-11-08 10:24 | disposition home or self-care (01) ==
LOC: HO.MRI 10:23
PROVIDERS: Visit Provider Physical Medicine & Rehabilitation
DX: G57.30 Lesion of lateral popliteal nerve, unspecified lower limb (principal); E11.40 Type 2 diabetes mellitus with diabetic neuropathy, unspecified
CPT/HCPCS: 73721

== ENCOUNTER 2024-02-29 12:58 | Outpatient (AMB) | payer MEDICAID, SELFPAY ==
--- NOTE | 2024-02-29 13:00 | MHC.OFFVIS ---
Vital Signs 02/29/24 13:01 Height 5 ft 2 in Weight 133 lb BMI 24.3 Pulse 73 Pulse Source Pulse Oximeter Pulse Oximetry (%) 100 Oxygen Delivery Method Room Air Intake Visit Reasons: Follow up Intake Note: Patient presents for follow up migraines are really bad non stop for a whole week. Allergies pregabalin [From Lyrica] Adverse Reaction (Verified 02/29/24 13:04) Drowsy gabapentin Adverse Reaction (Intermediate, Uncoded 02/29/24 13:04) Drowsy Medication List - Last Reconciled 02/29/24 by VIN Richard [Custom AFO left custom molded AFO] ascorbate calcium (vitamin C) 500 mg orally 3 x's per week- Mon; 28 days atogepant 30 mg PO DAILY 30 days benfotiamine 300 mg (2 x 150 mg) PO DAILY 30 days blood sugar diagnostic (FreeStyle Lite Strips) As directed blood-glucose meter (FreeStyle Lite Meter kit) As directed cholecalciferol (vitamin D3) 25 mcg PO DAILY 30 days cyanocobalamin (vitamin B-12) 500 mcg PO DAILY 30 days duloxetine 30 mg PO DAILY 2 weeks epinephrine (EpiPen) 0.3 mg (0.3 mL) IM Q4H PRN ferrous sulfate 325 mg orally 3 x's per week- Mon; take w/ vitamin C 28 days folic acid 0.4 mg PO DAILY 30 days glucagon (Glucagon Emergency Kit) mg IM DIRECTED indomethacin 50 mg (2 x 25 mg) PO TID PRN 30 days insulin glargine (Lantus U-100 Insulin) 23 units subcut DAILY PRN insulin lispro 0 - 75 units subcut DAILY insulin syringe-needle U-100 As directed levonorgestrel (Mirena) 1 insert intrauterine ONCE magnesium oxide 400 mg PO BEDTIME 30 days naloxone (LifEMS Naloxone) 2 mg (2 mL) IM Q2M PRN 30 days oxycodone 10 mg PO QHS, november repeat x's 1; 24 days riboflavin (vitamin B2) 400 mg PO DAILY 30 days ubrogepant (Ubrelvy) 50 - 100 mg (0.5 - 1 x 100 mg) PO ONCE PRN 30 days HPI Comments Details: 33-yr-old female presents for f/u visit of migraine, BLE restless leg syndrome. Pt is not sure who her current PCP is at [facility]. Pt denies any significant interval medical changes. Pt states he has had an increase in frequency and severity of her migraine attacks, especially in the last 1.5 weeks. She has also been more forgetful. She has had to lay down d/t the photo/phonophobia. Currently only using Tylenol prn, which does not help. Prior to this she was having a migraine every few weeks. Low grade headache- also a/w photo/phonophobia, once a week. She states she had side effects from Rizatriptan. She is not sure what happened with the atogepant order. Has not been using her indomethacin. Her blood sugars have been more variable in the last few weeks- she attributes this to the headaches. When her migraines are worse, her blood sugar will decrease. Her last HgA1C was WNL. Denies any seizure like episodes. Baseline headache characteristics: Throbbing, aching, pressure holocranial, mostly frontal and occipital, pain a/w photophobia, phonophobia, allodynia, nausea, tiredness, brain fog, activity intolerance. She continues to have BLE tingling, pain, numbness. She has seen physiatry, who gave her RLE AFO. She cannot wear all the time, as it can be uncomfortable. She is not sure if it helping or not. [facility] Medical History (Updated 08/30/23 @ 11:24 by Lorie Thorpe MD) Foot drop, left Type 1 diabetes Surgical History No pertinent past surgical history Family History Father Skin cancer Diabetes Hypertension Mother Diabetes Social History Alcohol intake: never Patient Tobacco Use Status: Never used Tobacco Physical Exam Vital Signs: Last Vital Signs Pulse 73 02/29/24 13:01 Pulse Ox 100 02/29/24 13:01 Oxygen Delivery Method Room Air 02/29/24 13:01 BMI result Body Mass Index 24.3 Const General: cooperative and no acute distress Orientation/consciousness: patient oriented x3 Resp Effort & Inspection: normal respiratory effort and able to speak in complete sentences Neuro General: patient oriented x3 Cranial nerves: Yes CN's II-XII intact bilaterally Cognition (Neuro): normal cognition Psych Appearance: grossly normal Mental Status: mental status grossly normal Speech and movement: Normal speech and movement present Affect: normal affect Attitude: cooperative Assessment & Plan Assessment & Plan (1) Migraine with aura: Code(s): G43.109 - Migraine with aura, not intractable, without status migrainosus Category: Medical (2) Neuralgia: Comment: BLE & BUE- swelling, tingling, numbness, pain. ? 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 Code(s): M79.2 - Neuralgia and neuritis, unspecified Category: Medical (3) Restless leg syndrome: Code(s): G25.81 - Restless legs syndrome Category: Medical Plan For neuralgia and restless legs: Will check f/u labs. Continue ferrous sulfate and vitamin-C, colace p.r.n. B12 and folic acid supplement. Continue oxycodone 10-20mg qhs. Naloxone prn opioid overdose w/ instructions for use. Follow-up with pain management and physiatry as scheduled. Patient has previously ?failed multiple dopaminergic, AED, and antidepressant treatments for her ongoing restless leg/neuropathy symptoms. ? For convulsions: No recent convulsive or spacing out episodes. Possible these previous episodes were related to hypoglycemia. Blood sugars overall better controlled. Her 24 EEG showed left temporal lobe slowing, Brain MRI showed Few small subcortical white matter T2 hyperintensities in the mesial left frontal lobe. Patient is no longer taking Trileptal. ? For migraine prevention: Re-try indomethacin 25-50 mg po tid prn for breakthrough migraine and for stabbing headaches sparingly- taken w/ food. Continue Riboflavin and Magnesium. Resume Atogepant 30mg qhs. Pt has not tolerated ?amirtiptyline, cymbalta, gabapentin, pregabail, Aimovig (constipation and leg cramping), Emaglity (injection site pain). Ajovy- injection site pain and was ineffective. Treatment contraindications: Betablockers d/t insulin dependent type I diabetic. Future considerations- Vyepti. ? For acute migraine tx: Trial Ubrelvy 100mg prn at onset of migarine, MR in 2 hrs, max 200mg/day. May take w/ Tylenol. Previous trials- Sumatriptan- ineffective. Rizatriptan 10 mg p.r.n- ineffective. ? f/u in 3-6 months or sooner prn. Medications: New ubrogepant (Ubrelvy) take at onset of migraine, may repeat in 2hrs (may take w/ Tylenol) 50 - 100 mg (0.5 - 1 x 100 mg) PO ONCE 30 days PRN 16 tabs 3RF migraine headache Refilled indomethacin administer with food or milk 50 mg (2 x 25 mg) PO TID 30 days PRN 90 caps 1RF stabbing headache atogepant 30 mg PO DAILY 30 days 30 tabs 6RF G43.109 - Migraine with aura, not intractable, without status migrainosus Discontinued sumatriptan succinate Discontinued Reason: Doctor's Order (0.5 - 1 x 100 mg) 50 - 100 mg orally at onset of headache, may repeat in 2 hrs PRN; max 2 tabs per day or 4 tabs/week (may take with Ibuprofen) 30 days 12 tabs 6RF migraine headache rizatriptan max 2 tabs per day or 4 tabs per week Discontinued Reason: Doctor's Order 5 - 10 mg (0.5 - 1 x 10 mg) PO Q2H 30 days PRN 12 tabs 3RF migraine headache Coding Level of Care Code Est Pt Level 4 (12440) Diagnoses Migraine with aura G43.109 Neuralgia M79.2 Restless leg syndrome G25.81
[2024-02-29 13:01] VITALS: PULSE 73; O2SAT 100; BMI 24.3
== END 2024-02-29 13:46 | disposition home or self-care (01) ==
PROVIDERS: Visit Provider Nurse Practitioner Family
DX: G43.109 Migraine with aura, not intractable, without status migrainosus (principal); M79.2 Neuralgia and neuritis, unspecified; G25.81 Restless legs syndrome
CPT/HCPCS: 99214

== ENCOUNTER → 2024-02-29 12:58 | Outpatient (BNVA) | payer MEDICAID, SELFPAY | PROVIDERS: Visit Provider Nurse Practitioner Family | DX: G43.109 Migraine with aura, not intractable, without status migrainosus (principal); G25.81 Restless legs syndrome; M79.2 Neuralgia and neuritis, unspecified | CPT/HCPCS: 99212 ==

== ENCOUNTER 2024-02-29 13:51 | Outpatient (REF) | payer MEDICAID, SELFPAY ==
[2024-02-29 17:41] LABS: MANUAL DIFF FLAG NO
[2024-02-29 17:58] LABS: Basophils Percent Auto 0.2 % (0-2); Eosinophils Absolute Auto 0.1 X10*3/uL (0.0-0.4); Eosinophils Percent Auto 1.7 % (0-4); Hematocrit 38.9 % (37.0-47.0); Hemoglobin 12.8 g/dl (12.0-16.0); Imm Gran Abs Auto 0.04 X10*3/uL (0.00-0.03); Imm Gran Pct Auto 0.5 % (0.0-0.4); Lymphocytes Absolute Auto 1.9 X10*3/uL (1.2-4.9); Lymphocytes Percent Auto 22.7 % (20-40); Mean Corpuscular HGB Conc 32.9 g/dl (31.0-35.0); Mean Corpuscular Hemoglobin 29.8 pg (27.0-33.0); Mean Corpuscular Volume 90.5 fL (80.0-98.0); Mean Platelet Volume 10.1 fL (9.4-12.3); Monocytes Absolute Auto 0.4 X10*3/uL (0.1-1.2); Monocytes Percent Auto 4.4 % (2-11); Neutrophils Absolute Auto 5.8 x10*3/uL (2.0-8.3); Neutrophils Percent Auto 70.5 % (45-73); Platelet Count 333 X10*3/uL (160-400); Red Cell Distribution Width 13.5 % (11.0-16.0); White Blood Count 8.2 X10*3/uL (4.8-10.8)
[2024-02-29 18:15] LABS: Alanine Aminotransferase 11 U/L (0-31); Albumin Level 4.2 g/dL (3.5-5.0); Alkaline Phosphatase 89 U/L (39-117); Anion Gap 9 (12-20); Aspartate Amino Transferase 16 U/L (5-31); Blood Urea Nitrogen 7 mg/dL (9-16); Calcium 9.2 mg/dL (8.4-10.2); Carbon Dioxide 26 mmol/L (22-29); Chloride 106 mmol/L (96-108); Estimated Glomerular Filt Rate > 60; Glucose Random 179 mg/dL (60-115); Iron 60 mcg/dL (30-160); Percent Iron Saturation 21 % (15-50); Potassium 3.6 mmol/L (3.3-5.1); Sodium 137 mmol/L (135-145); Total Iron Binding Capacity 291 mcg/dL (228-428); Total Protein 7.3 g/dL (6.5-8.0); Unsaturated Iron Binding 231 ug/dL
[2024-02-29 18:32] LABS: Ferritin 42 ng/mL (10-122); TSH reflex Free T4 0.81 uIU/mL (0.32-4.0)
[2024-02-29 18:38] LABS: Folate 6.2 ng/mL (> or = 4.0); Vitamin B12 328 pg/mL (200-900)
[2024-02-29 18:44] LABS: Erythrocyte Sedimentation Rate 3 MM/HR (0-20)
[2024-03-01 09:03] LABS: CRP High Sensitivity 7.2 mg/L
[2024-03-04 17:43] LABS: Vitamin D 25-OH, D2 <4 ng/mL; Vitamin D 25-OH, D3 26 ng/mL; Vitamin D 25-OH, Total 26 ng/mL (30-100)
== END 2024-02-29 13:52 | disposition home or self-care (01) ==
LOC: HO.HKASLDS 13:51
PROVIDERS: Visit Provider Nurse Practitioner Family
DX: R53.83 Other fatigue (principal); E11.40 Type 2 diabetes mellitus with diabetic neuropathy, unspecified; G25.81 Restless legs syndrome; M79.10 Myalgia, unspecified site
CPT/HCPCS: 36415; 80053; 82306; 82607; 82728; 82746; 83540; 84443; 85025; 85652; 86141; 99212

== ENCOUNTER 2024-09-13 13:21 | Outpatient (AMB) | payer MEDICAID, SELFPAY ==
[2024-09-13 13:21] VITALS: BP 120/84; PULSE 84; O2SAT 99; BMI 25.1
--- NOTE | 2024-09-13 13:21 | MHC.OFFVIS ---
Vital Signs 09/13/24 13:21 Height 5 ft 2 in Weight 137 lb BMI 25.1 BP 120/84 Blood Pressure Location Lt brachial Position Sitting Pulse 84 Pulse Source Pulse Oximeter Pulse Oximetry (%) 99 Oxygen Delivery Method Room Air Intake Visit Reasons: Follow up [employer] Required: No Allergies pregabalin [From Lyrica] Adverse Reaction (Verified 09/13/24 13:28) Drowsy gabapentin Adverse Reaction (Intermediate, Uncoded 02/29/24 13:04) Drowsy Medication List - Last Reconciled 09/14/24 by VIN Richard [Custom AFO left custom molded AFO] ascorbate calcium (vitamin C) 500 mg orally 3 x's per week- Mon; 28 days atogepant 30 mg PO DAILY 30 days benfotiamine 300 mg (2 x 150 mg) PO DAILY 30 days blood sugar diagnostic (FreeStyle Lite Strips) As directed blood-glucose meter (FreeStyle Lite Meter kit) As directed cholecalciferol (vitamin D3) 50 mcg (2 x 25 mcg (1,000 unit)) PO DAILY 30 days cyanocobalamin (vitamin B-12) 500 mcg PO DAILY 30 days duloxetine 30 mg PO DAILY 2 weeks epinephrine (EpiPen) 0.3 mg (0.3 mL) IM Q4H PRN ferrous sulfate 325 mg orally 3 x's per week- Mon; take w/ vitamin C 28 days folic acid 0.4 mg PO DAILY 30 days glucagon (Glucagon Emergency Kit) mg IM DIRECTED indomethacin 50 mg (2 x 25 mg) PO TID PRN 30 days insulin glargine (Lantus U-100 Insulin) 23 units subcut DAILY PRN insulin lispro 0 - 75 units subcut DAILY insulin syringe-needle U-100 As directed levonorgestrel (Mirena) 1 insert intrauterine ONCE magnesium oxide 400 mg PO BEDTIME 30 days naloxone (LifEMS Naloxone) 2 mg (2 mL) IM Q2M PRN 30 days oxycodone 10 mg PO QHS, november repeat x's 1; 24 days riboflavin (vitamin B2) 400 mg PO DAILY 30 days ubrogepant (Ubrelvy) 50 - 100 mg (0.5 - 1 x 100 mg) PO ONCE PRN 30 days HPI Comments Details: 34-yr-old female presents for f/u visit of migraine, BLE restless leg syndrome. Pt is not sure who her current PCP is at [facility]. Pt reports she is having increased pain. Now having shocking, electrical pains and numbness in bilateral distal forearms, wrists, and hands. Her hands feel weak with extended activity, but sometimes even doing her hair. She does endorse nonradiating neck pain and tightness. She is having shocking non-radiating low back pain. She is having increased RLE distal and LLE form knee through foot- shocking pains. She has not seen pain managemnet in > 1 yr. Physiatry gave her a LLE AFO, but this does not always help. Left ankle MRI in October of 2023, was unremarkable. Her last HgA1C was < 6%. She states she is compliant with vitamin-D, folic acid, magnesium, B2, ferrous sulfate. She is compliant with oxycodone 10-20 mg q.h.s. Denies interval syncopal events. Pt reports her migraines are not as frequent. Currently having 2-3 migraine days a week. She is not taking anything at this time for as needed tx. She does not believe she started the Qulipta 30 mg q.h.s. Baseline headache characteristics: Throbbing, aching, pressure holocranial, mostly frontal and occipital, pain a/w photophobia, phonophobia, allodynia, nausea, tiredness, brain fog, activity intolerance. COUNTS INCLUDE 234 BEDS AT [facility] Medical History (Updated 09/14/24 @ 17:28 by VIN Richard) Foot drop, left Type 1 diabetes Surgical History No pertinent past surgical history Family History Father Skin cancer Diabetes Hypertension Mother Diabetes Social History Alcohol intake: never Patient Tobacco Use Status: Never used Tobacco Physical Exam Vital Signs: Last Vital Signs Pulse 84 09/13/24 13:21 BP 120/84 09/13/24 13:21 Pulse Ox 99 09/13/24 13:21 Oxygen Delivery Method Room Air 09/13/24 13:21 BMI result Body Mass Index 25.1 Const General: cooperative and no acute distress Orientation/consciousness: patient oriented x3 Resp Effort & Inspection: normal respiratory effort and able to speak in complete sentences Neuro Other: RUE Tinel, Phalen, medial nerve compression test-positive. Symmetric bilateral hand grasp Decreased bilateral, more so on left, strength. Patient is not wearing left AFO today General: patient oriented x3 Cranial nerves: Yes CN's II-XII intact bilaterally Cognition (Neuro): normal cognition Psych Appearance: grossly normal Mental Status: mental status grossly normal Speech and movement: Normal speech and movement present Affect: normal affect Attitude: cooperative Assessment & Plan Assessment & Plan (1) Paresthesia and pain of both upper extremities: Code(s): R20.2 - Paresthesia of skin; M79.601 - Pain in right arm; M79.602 - Pain in left arm Category: Medical (2) Migraine with aura: Code(s): G43.109 - Migraine with aura, not intractable, without status migrainosus Category: Medical (3) Neuralgia: Comment: BLE & BUE- swelling, tingling, numbness, pain. ? 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 Code(s): M79.2 - Neuralgia and neuritis, unspecified Category: Medical (4) Restless leg syndrome: Code(s): G25.81 - Restless legs syndrome Category: Medical (5) Vitamin D deficiency: Code(s): E55.9 - Vitamin D deficiency, unspecified Category: Medical (6) Anemia: Code(s): D64.9 - Anemia, unspecified Category: Medical Plan For worsening BUE painful paresthesia: Patient advised to undergo BUE EMG/NCS. For neuralgia, restless legs, left footdrop: Will recheck labs. Continue ferrous sulfate and vitamin-C, colace p.r.n. B12 and folic acid supplement. Continue oxycodone 10-20mg qhs. No indications of inappropriate use of oxycodone. Naloxone prn opioid overdose. Patient has previously ?failed multiple dopaminergic, AED, and antidepressant treatments for her ongoing restless leg/neuropathy symptoms. Future considerations: Spine imaging, CSF studies, follow-up with pain management and physiatry. ? For convulsions: No recent convulsive or spacing out episodes. Possible these previous episodes were related to hypoglycemia. Blood sugars overall better controlled. Her 24 EEG showed left temporal lobe slowing, Brain MRI showed Few small subcortical white matter T2 hyperintensities in the mesial left frontal lobe. Patient is no longer taking Trileptal. ? For migraine prevention: Hold indomethacin 25-50 mg- patient not taking Continue Riboflavin and Magnesium. Resume Atogepant 30mg qhs. Pt has not tolerated ?amirtiptyline, cymbalta, gabapentin, pregabail, Aimovig (constipation and leg cramping), Emaglity (injection site pain). Ajovy- injection site pain and was ineffective. Treatment contraindications: Betablockers d/t insulin dependent type I diabetic. Future considerations- Vyepti. ? For acute migraine tx: Trial zolmitriptan 5 mg p.r.n., may repeat in 2 hours, max 10 mg per day. May take with Tylenol 650-1000 mg every 4-6 hours as needed. Hold Ubrelvy 100mg prn at onset of migarine, MR in 2 hrs, max 200mg/day. May take w/ Tylenol. Previous trials- Sumatriptan- ineffective. Rizatriptan 10 mg p.r.n- ineffective. ? f/u in 3-6 months or sooner prn. Orders: Orders NE electromyogram (EMG) Today M79.601 - Pain in right arm, M79.602 - Pain in left arm, R20.2 - Paresthesia of skin Vitamin D 25-OH (D2 and D3) Today D64.9 - Anemia, unspecified, E10.9 - Type 1 diabetes mellitus without complications, E55.9 - Vitamin D deficiency, unspecified, M79.601 - Pain in right arm, M79.602 - Pain in left arm, R20.2 - Paresthesia of skin Vitamin B12 and Folate Today D64.9 - Anemia, unspecified, E10.9 - Type 1 diabetes mellitus without complications, E55.9 - Vitamin D deficiency, unspecified, M79.601 - Pain in right arm, M79.602 - Pain in left arm, R20.2 - Paresthesia of skin Ferritin Today D64.9 - Anemia, unspecified, E10.9 - Type 1 diabetes mellitus without complications, E55.9 - Vitamin D deficiency, unspecified, M79.601 - Pain in right arm, M79.602 - Pain in left arm, R20.2 - Paresthesia of skin Vitamin B6 Today D64.9 - Anemia, unspecified, E10.9 - Type 1 diabetes mellitus without complications, E55.9 - Vitamin D deficiency, unspecified, M79.601 - Pain in right arm, M79.602 - Pain in left arm, R20.2 - Paresthesia of skin DANNY Reflex Titer and Pattern Today D64.9 - Anemia, unspecified, E55.9 - Vitamin D deficiency, unspecified, 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, left lower limb, M21.372 - Foot drop, left foot, M79.601 - Pain in right arm, M79.602 - Pain in left arm, R20.2 - Paresthesia of skin Methylmalonic Acid Today D64.9 - Anemia, unspecified, E55.9 - Vitamin D deficiency, unspecified, 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, left lower limb, M21.372 - Foot drop, left foot, M79.601 - Pain in right arm, M79.602 - Pain in left arm, R20.2 - Paresthesia of skin Erythrocyte Sedimentation Rate Today D64.9 - Anemia, unspecified, E55.9 - Vitamin D deficiency, unspecified, 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, left lower limb, M21.372 - Foot drop, left foot, M79.601 - Pain in right arm, M79.602 - Pain in left arm, R20.2 - Paresthesia of skin Vitamin B1 Today D64.9 - Anemia, unspecified, E55.9 - Vitamin D deficiency, unspecified, 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, left lower limb, M21.372 - Foot drop, left foot, M79.601 - Pain in right arm, M79.602 - Pain in left arm, R20.2 - Paresthesia of skin NE nerve conduction velocity Today M79.601 - Pain in right arm, M79.602 - Pain in left arm, R20.2 - Paresthesia of skin IRON PROFILE Today D64.9 - Anemia, unspecified, E10.9 - Type 1 diabetes mellitus without complications, E55.9 - Vitamin D deficiency, unspecified, M79.601 - Pain in right arm, M79.602 - Pain in left arm, R20.2 - Paresthesia of skin Complete Blood Count Auto Diff Today D64.9 - Anemia, unspecified, E10.9 - Type 1 diabetes mellitus without complications, E55.9 - Vitamin D deficiency, unspecified, M79.601 - Pain in right arm, M79.602 - Pain in left arm, R20.2 - Paresthesia of skin Comprehensive Met. Panel Today D64.9 - Anemia, unspecified, E10.9 - Type 1 diabetes mellitus without complications, E55.9 - Vitamin D deficiency, unspecified, M79.601 - Pain in right arm, M79.602 - Pain in left arm, R20.2 - Paresthesia of skin Rheumatoid Factor Today D64.9 - Anemia, unspecified, E55.9 - Vitamin D deficiency, unspecified, 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, left lower limb, M21.372 - Foot drop, left foot, M79.601 - Pain in right arm, M79.602 - Pain in left arm, R20.2 - Paresthesia of skin Homocysteine Today D64.9 - Anemia, unspecified, E55.9 - Vitamin D deficiency, unspecified, 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, left lower limb, M21.372 - Foot drop, left foot, M79.601 - Pain in right arm, M79.602 - Pain in left arm, R20.2 - Paresthesia of skin CRP High Sensitivity Today D64.9 - Anemia, unspecified, E55.9 - Vitamin D deficiency, unspecified, 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, left lower limb, M21.372 - Foot drop, left foot, M79.601 - Pain in right arm, M79.602 - Pain in left arm, R20.2 - Paresthesia of skin Medications: New zolmitriptan (Zomig) take 1 tab at onset of headache; if no relief, may repeat 1 tab after at least 2 hrs; max = 2 tabs/24 hrs orally PRN; 30 days 12 tabs 3RF migraine headache Refilled atogepant 30 mg PO DAILY 30 days 30 tabs 6RF G43.109 - Migraine with aura, not intractable, without status migrainosus Discontinued ubrogepant (Ubrelvy) take at onset of migraine, may repeat in 2hrs (may take w/ Tylenol) Discontinued Reason: Doctor's Order 50 - 100 mg (0.5 - 1 x 100 mg) PO ONCE 30 days PRN 16 tabs 3RF migraine headache Coding Level of Care Code Est Pt Level 4 (06133) Complex EM visit Add On G2211 Diagnoses Paresthesia and pain of both upper extremities R20.2; M79.601; M79.602 Migraine with aura G43.109 Neuralgia M79.2 Restless leg syndrome G25.81 Vitamin D deficiency E55.9 Anemia D64.9
--- OUTSIDE RECORDS SUMMARY | 2024-09-13 13:46 | XMS_ITS | Clinical Summary ---
Author Organization [facility] Address [address] [place] [address] Care Team Providers Care Director Sales Name Role Phone Kim Braden Primary Care Provider [phone] Source Comments PLEASE NOTE, if this patient is a minor, it may be UNLAWFUL to discuss sensitive information that is contained in these records (such as FAMILY PLANNING, MENTAL HEALTH or SUBSTANCE ABUSE) with the minor patient's parent or other person without the patient's specific authorization.[facility] Allergies Active Allergy Reactions Criticality Noted Date Comments Emily Armenta,SOB High 12/13/2020 Medications HUMALOG U-100 INSULIN 100 unit/mL injection 10 8 Active KETOSTIX strip Use as directed. 2 Active oxyCODONE 10 mg tab tablet TAKE 1 TABLET BY MOUTH EVERY NIGHT AT BEDTIME FOR RESTLESS LEGS. MAY REPEAT DOSE 1 TIME. 2 Active LANTUS U-100 INSULIN 100 unit/mL injection ADMINISTER 23 UNITS UNDER THE SKIN DAILY NEEDED FOR PUMP FAILURE 2 Active butalbital-acet aminophen-caff 50-325-40 mg per tablet TAKE 1 TABLET BY MOUTH AT ONSET OF MIGRAINE NEEDED FOR PAIN. MAY REPEAT IN 4 HOURS. MAX 2 TABLETS DAILY / 4 EVERY WEEK NEEDED 2 Active bisoprolol fumarate (ZEBETA) 5 mg tablet Take 5 mg by mouth once daily 2 Active ferrous sulfate 325 mg (65 mg iron) tabletIndicatio ns:Low iron Take 1 Tablet by mouth once daily with breakfast 90 Tablet 2 Active VITAMIN B-12 1,000 mcg tabletIndicatio ns:B12 deficiency TAKE 1 TABLET BY MOUTH DAILY 90 Tablet 2 Active Hospital, Clinic, or Other Facility Administered Medication Ordered Dose Route Frequency Start Date End Date Status medroxyPROGESTERone 150 mg injection (Ordered as: DEPO-PROVERA)Indications :Depo-Provera contraceptive status 150 mg IM Every 3 months 12/27/2017 Active medroxyPROGESTERone 150 mg injection (Ordered as: DEPO-PROVERA)Indications :Depo-Provera contraceptive status 150 mg IM Every 3 months 05/30/2018 Active Active Problems Problem Noted Date Diagnosed Date Migraine headache 01/10/2023 Overview (01/10/2023): [facility] [place] 12/29/22 - indomethacin 20-25 po TID prn with food. C/w riboflavin, magnesium Trial atogepant. Once approved, stop ajovy Has not tolerated amitriptyline, cymbalta, gabapentin, pregabalin, aimovig Abnormal EEG 11/20/2022 Overview (01/10/2023): 12/29/22 [facility] [place]. Borderline abnormal EEG. Spacing out. 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 She is seeing Cardiology Dr. 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 She is seeing Cardiology Dr. Rooney at [facility] Vitamin D deficiency 10/21/[address] 10/21/2021 Overview (10/21/2021): 2020 approx. B12 deficiency 02/08/2019 Restless leg syndrome 05/31/2018 Overview (01/10/2023): 12/29/22 For neuralgia, RLS: on oxycodone. Have failed trial of dopaminergic, AED, antidepressants Seeing [facility] neurolog[place] Chronic pain 05/01/2018 Overview (05/01/2018): 03/30/[address] Denney at [facility]. No labs received, referred back to PCP. Neuropathy 04/10/2018 Overview (01/17/2023): 12/2022: pt seeing pain management. Undergoing repeat NCV, EMG study to assess for neuropathy progression 04/03/18 Eval at [facility] Neurology. Will obtain EMG reports. Start trial of ER alpha lipoic acid 300 mg BID, consider Lamictal or tricyclic as gapaentin and nortriptyline not tolerated in the past. F/u 4 months. Depo-Provera contraceptive status 02/21/2018 Type 1 diabetes mellitus wit h diabetic polyneuropathy ([facility]) 12/20/2017 Overview (10/07/2022): 02/2022 [facility] consult: no changes to insulin regimen. Goal A1c <7%. Eye referral placed by endo. F/u in 3 months Sees [facility]. 06/06/18 - on insulin pump. RTC in 3 months. 2--19 - doing well on insulinpump. A1c 6.7%. B12 low. No indication for VY or statin at thist iem. RTC in 3 months. Saw eye provider september 2017. Chronic nonintractable headache 12/20/2017 Immunizations Name Administration Dates Next Due Flu, Preservative Free 10/21/2021,2019,03/21/2017,08/15 HEP B,ADULT 09/10/2014,03/07/2014,02/03/2014 HPV, QUADRIVALENT 07/01/2009,02/25/2009,11/12/19 09 INFLUENZA, SEASONAL, INJECTABLE 04/13/2011,04/10 INFLUENZA,SEASONAL,INTRADERM AL,PRESERV ATIVE FREE 04/18/2012 PNEUMOCOCCAL POLYSACCHARIDE PPV23 09/24/2019 TDAP 01/29/2014 Td(adult),2 Lf tetanus toxoid,preservative free 05/24/2005 Varicella, Live Vaccine 09/12/2014,02/03/2014 Family History Medical History Relation Name Comments No Known Problems Father No Known Problems Maternal Grandfather No Known Problems Maternal Grandmother Cancer Mother Colon CA No Known Problems Sister No Known Problems Son Kidney disease Neg Relation Name Status Comments Father Alive Maternal Grandfather Maternal Grandmother Alive Mother Sister Alive Son Alive Social History Tobacco Use Types Packs/Day Years Used Date Smoking Tobacco: Never Smokeless Tobacco: Never Tobacco Cessation:Counseling Given: Yes Alcohol Use Standard Drinks/Week Comments No 0 (1 standard drink = 0.6 oz pur e alcohol) Social Connections Answer Date Recorded Connectedness 0 03/30/2024 Financial Resource Strain Answer Date R ecorded Financial Resource Strain 0 2018 Stress Answer Date Recorded Stress 0 03/18/2019 Physical Activity Answer Date Recorded Physical Activity 0 03/18/2019 Food Insecurity Answer Date Recorded Food 0 04/18/2024 Transportation Needs Answer Date Record ed Transportation 0 03/18/2019 Housing Stability Answer Date Recorded Housing 0 03/18/2019 Safety and Environment Answer Date Eric rded Safety 0 10/21/2021 Utilities Answer Date Recorded Utilities 0 03/18/2019 Employment Answer Date Recorded Employment 0 03/18/2019 Comments No Sex and Gender Information Value Date Recorded Sex Assigned at Female 12/20/2017 6:40 AM PDT Legal Sex Female 11:42 AM PDT Gender Identity Female 12/20/2017 6:40 AM PDT Sexual Orientation Straight 12/20/2017 6: 57 AM PDT Occupation Industry Job Start Date Job End Date Unemployed Not on file Not on file Not on file Last Filed Vital Signs Vital Sign Reading Time Taken Comments Blood Pressure 110/80 10/21/2021 9:23 AM EDT Pulse 69 10/21/2021 9:23 AM EDT Temperature 36.7 ??C (98.1 ??F) 10/21/2021 9:23 AM ED T Respiratory Rate 16 10/21/2021 9:23 AM EDT Oxygen Saturation 98% 10/21/2021 9:23 AM EDT Inhaled Oxygen Concentration - - Weight 49 kg (108 lb) 10/21/2021 9:23 AM EDT Height 157.5 cm (5' 2 ) 10/21/2021 9:23 AM EDT Body Mass Index 19.75 10/21/2021 9:23 AM EDT Plan of Treatment Health Maintenance Due Date Last Done Comments Dental Examination 1992 Diabetes Foot Exam 1992 HPV Screening 1992 Urine Drug Screen 1992 [id number] INJ 08/30/2018 05/30/2018 Imm-Pneumococcal (2 of 2 - PCV) 09/23/2020 Diabetes HbA1c 04/22/2022 10/21/2021, 03/0 09/2019, 12/20/2017 Annual Preventive Care Visit 10/21/2022 10/21/2021, 12/20/2017 Diabetes Microalbumin (w/Creatinine) 10/21/2022 10/21/2021 Relationship Safety Screening/Counseling 10/21/2022 10/21/2021 Serum Creatinine 10/21/2022 10/21/2021, 09/2019, 03/01/2018, Additional history exists Tobacco Screening 10/21/2022 10/21/2021 Imm-DTaP/Tdap/Td (4 - Td or Tdap) 01/30/2024 01/29/2014, 03/28/2013, 05/24/2005 Pap Smear 02/20/2024 02/19/2021 [id number] ( season) 2024 Imm-Influenza (#1) 2024 10/21/2021, 0 09/24/2019, 03/21/2017, Additional history exists Alcohol and Drug Screen 07/24/2024 10/22/19 22, 09/24/2019, 12/20/2017 Depression Annual Screen 07/24/2024 10/21/2021, 11/23 Hypertension Screening (#1) 10/20/2024 Retinopathy Screening 07/02/2025 07/02/2024, 023 Cervical Cancer Screening 02/19/2026 Pap + HPV 02/19/2026 02/19/2021 Lipid Screening 10/21/2026 10/21/2021, 03/0 09/2019, 12/20/2017 Imm-Hepatitis B Completed 09/10/2014, 02/21, 02/03/2014 HIV Screening Completed 10/21/2021, 09/24/2019 Hepatitis C Screening Completed 10/21/2021, 018 Cervical Ablation/Cold-Knife Conization Discontinued Cervical Cryotherapy Discontinued Colposcopy Discontinued Endometrial Biopsy Discontinued Excision/Leep Discontinued HPV Genotyping Discontinued Vaginal Pap Discontinued Vulvoscopy Discontinued Procedures Procedure Name Priority Date/Time Associated Diagnosis Comments EYE EXAM 07/02/2024 3:00 AM EST HIV 1/2 AG & AB W/RFLX (4TH GEN) Routine 10/21/2021 10:27 AM EDT Screening for viral disease COMPREHENSIVE METABOLIC PANEL Routine 10/21/2021 10:27 AM EDT Type 1 diabetes mellitus with diabetic polyneuropathy (HCC-CMS) HEPATITIS C AB W/RFLX HCV RNA, QT, RT PCR Routine 10/21/2021 10:27 AM EDT Screening for viral disease LIPIDS W RFLX TO DIRECT LDL Routine 10/21/2021 10:27 AM EDT Type 1 diabetes mellitus with diabetic polyneuropathy (HCC-CMS) MICROALBUMIN/CREATINI NE RATIO, URINE, RANDOM Routine 10/21/2021 10:27 AM EDT Type 1 diabetes mellitus with diabetic polyneuropathy (HCC-CMS) HGBA1C W/MPG Routine 10/21/2021 10:27 AM EDT Type 1 diabetes mellitus with diabetic polyneuropathy (HCC-CMS) PAP W/ HPV 02/19/2021 3:00 AM EDT from Last 3 Months or Most Recently Relevant to Health Maintenance Results * EYE EXAM (07/02/2024 3:00 AM EST) 07/02/2024 3:00 AM EST us Tristin Raymundo MD OTHER Edited Result - Final * HEPATITIS C AB W/RFLX HCV RNA, QT, RT PCR (10/21/2021 10:27 AM EDT) HEPATITIS C ANTIBODY NON-REACT SOFIA NON-REACT SOFIA [facility] SIGNAL TO CUT-OFF 0.01 <1.00 [facility] Comment: HCV antibody was non-reactive. There is no laboratory evidence of HCV infection. In most cases, no further action is required. However, if recent HCV exposure is suspected, a test for HCV RNA (test code 02377) is suggested. For additional information please refer to http://[employer] Feed/faq/FXO66b0 (This link is being provided for informational/ educational purposes only.) Blood Blood / Unknown 10/21/2021 1 0:27 AM EDT 10/21/2021 10:28 AM EDT Narrative [facility] - 10/22/2021 10:54 PM EDT FASTING:YES Leah Orellana [employer]ENT [employer] WORKER-C LAB - BLOOD DRAW Final Resul t [facility] [address] [address], [facility] [address] [address] * HIV 1/2 AG & AB W/RFLX (4TH GEN) (10/21/2021 10:27 AM EDT) Pathologist [facility] HIV AG/AB, 4TH GEN NON-REAC TIVE NON-REAC TIVE [facility] Comment: HIV-1 antigen and HIV-1/HIV-2 antibodies were not detected. There is no laboratory evidence of HIV infection. PLEASE NOTE: This information has been disclosed to you from records whose confidentiality may be protected by state law. ??If your state requires such protection, then the state law prohibits you from making any further disclosure of the information without the specific written consent of the person to whom it pertains, or as otherwise permitted by law. A general authorization for the release of medical or other information is NOT sufficient for this purpose. ?? For additional information please refer to http://Parent[employer] Feed/faq/WDU218 (This link is being provided for informational/ educational purposes only.) The performance of this assay has not been clinically validated in patients less than 2 years old. Blood Blood / Unknown 10/21/2021 1 0:27 AM EDT 10/21/2021 10:28 AM EDT Narrative [facility] - 10/22/2021 10:54 PM EDT FASTING:YES Leah MENDOZAP-C LAB - BLOOD DRAW Final Resul t Performing Organization Address [facility] Co de Phone Number [email or web address] [address] [address], [facility] [address] [address] * (ABNORMAL) HGBA1C W/MPG (10/21/2021 10:27 AM EDT) HEMOGLOBIN A1C 6.6(H) <5.7 % of total Hgb [facility] Comment: For someone without known diabetes, a hemoglobin A1c value of 6.5% or greater indicates that they may have diabetes and this should be confirmed with a follow-up test. For someone with known diabetes, a value <7% indicates that their diabetes is well controlled and a value greater than or equal to 7% indicates suboptimal control. A1c targets should be individualized based on duration of diabetes, age, comorbid conditions, and other considerations. Currently, no consensus exists regarding use of hemoglobin A1c for diagnosis of diabetes for children. ?? MEAN PLASMA GLUCOSE 158 mg/dL (calc) [facility] Blood Blood / Unknown 10/21/2021 1 0:27 AM EDT 10/21/2021 10:28 AM EDT Narrative [facility] - 10/22/2021 10:54 PM EDT FASTING:YES Leah MENDOZAP-C LAB - BLOOD DRAW Edited Resu lt - Final Performing Organization Address [facility]/ZIP Co de Phone Number [email or web address] [address] [address], [employer] [address],[place] [address] * LIPIDS W RFLX TO DIRECT LDL (10/21/2021 10:27 AM EDT) CHOLESTEROL, TOTAL 117 <200 mg/dL [facility] HDL CHOLESTEROL 55 > OR = 50 mg/dL [facility] TRIGLYCERIDES 38 <150 mg/dL [facility] LDL-CHOLESTEROL 51 99 mg/dL (calc) [facility] Comment: Reference range: <100 Desirable range <100 mg/dL for primary prevention; ?? <70 mg/dL for patients with CHD or diabetic patients with > or = 2 CHD risk factors. LDL-C is now calculated using the Steven calculation, which is a validated novel method providing better accuracy than the Friedewald equation in the estimation of LDL-C. Manish SS et al. ASIF. 2013;310(19): 1780-8711 (http://education.[employer]/faq/AHU828) CHOL/HDLC RATIO 2.1 <5.0 (calc) [facility] NON-HDL CHOLESTEROL 62 <130 mg/dL (calc) [facility] Comment: For patients with diabetes plus 1 major ASCVD risk factor, treating to a non-HDL-C goal of <100 mg/dL (LDL-C of <70 mg/dL) is considered a therapeutic option. Blood Blood / Unknown 10/21/2021 1 0:27 AM EDT 10/21/2021 10:28 AM EDT Narrative [facility] - 10/22/2021 10:54 PM EDT FASTING:YES Leah Orellana [employer] WORKER-C LAB - BLOOD DRAW Final Resul t [facility] [address] [address], [facility] [address] [address] * MICROALBUMIN/CREATININE RATIO, URINE, RANDOM (10/21/2021 10:27 AM EDT) CREATININE, RANDOM URINE 169 20 - 275 mg/dL [facility] MICROALBUMIN 1.0 mg/dL [facility] Comment: Reference Range Not established MICROALBUMIN/CREA TININE RATIO, RANDOM URINE 6 <30 mcg/mg creat [facility] Comment: The ADA defines abnormalities in albumin excretion as follows: Albuminuria Category ?Result (mcg/mg creatinine) Normal to Mildly increased ?? <30 Moderately increased ? 30-299 Severely increased ? > OR = 300 The ADA recommends that at least two of three specimens collected within a 3-6 month period be abnormal before considering a patient to be within a diagnostic category. Urine Urine specimen / Unknown 10/21/2021 10:27 AM EDT 10/21/2021 10:28 AM EDT Narrative [facility] - 10/22/2021 10:54 PM EDT FASTING:YES Leah Reyna [employer] WORKER-C LAB - NO BLOOD DRAW Final Re sult [facility] [address] [address], [facility] [address] [address] * (ABNORMAL) COMPREHENSIVE METABOLIC PANEL (10/21/2021 10:27 AM EDT) GLUCOSE 161(H) 65 - 99 mg/dL [facility] Comment: ?Fasting reference interval For someone without known diabetes, a glucose value >125 mg/dL indicates that they may have diabetes and this should be confirmed with a follow-up test. UREA NITROGEN (BUN) 14 7 - 25 mg/dL [facility] CREATININE (blood) 0.69 0.50 - 1.10 mg/dL [facility] GFR ESTIMATED 118 > OR = 60 mL/min/1 .73m2 [facility] EGFR 136 > OR = 60 mL/min/1 .73m2 [facility] BUN/CREATININE RATIO NOT APPLICABLE 6 - 22 [facility] SODIUM 136 135 - 146 mmol/L [facility] POTASSIUM 4.3 3.5 - 5.3 mmol/L [facility] CHLORIDE 105 98 - 110 mmol/L [facility] CARBON DIOXIDE 24 20 - 32 mmol/L [facility] CALCIUM 8.9 8.6 - 10.2 mg/dL [facility] PROTEIN, TOTAL 6.5 6.1 - 8.1 g/dL [facility] ALBUMIN 4.0 3.6 - 5.1 g/dL [facility] GLOBULIN 2.5 1.9 - 3.7 g/dL (calc) [facility] ALBUMIN/GLOBUL IN RATIO 1.6 1.0 - 2.5 (calc) [facility] BILIRUBIN, TOTAL 0.6 0.2 - 1.2 mg/dL [facility] ALKALINE PHOSPHATASE 62 31 - 125 U/L [facility] AST 23 10 - 30 U/L [facility] ALT 13 6 - 29 U/L [facility] Blood Blood / Unknown 10/21/2021 1 0:27 AM EDT 10/21/2021 10:28 AM EDT Narrative [facility] - 10/22/2021 10:54 PM EDT FASTING:YES Leah BANUELOS-C LAB - BLOOD DRAW Edited Resu lt - Final [facility] [address] [address], [facility] [address] [address] * PAP W/ HPV (02/19/2021 3:00 AM EDT) 02/19/2021 3:00 AM EDT Leah MENDOZAP-C LAB - NO BLOOD DRAW Final Re sult from Last 3 Months or Most Recently Relevant to Health Maintenance Insurance [employer] Care Teams Director Sales Relationship Specialty Start Date End Date iKm Braden [place] [address] [place] [address] PCP - General Primary Care 12/13/23
--- OUTSIDE RECORDS SUMMARY | 2024-09-13 13:46 | XMS_ITS | Continuity of Care Document ---
Author Organization [facility] Address [address] [place] [address]- Care Team Providers Care [employer] Name Role Phone Radha FITZPATRICK, Brittany Saeed Primary Care Physician [id number] Date(s): 07/18/24 - 08/17/24 [facility] [address] [place] [id number] Encounter Type: Triage Allergies, Adverse Reactions, Alerts Substance Criticality Severity Reaction Reaction Severity Status enalapril Angioedema Active Immunizations Given and Recorded Vaccine Date Status Refusal Reason tetanus/diphtheria/pertussis, acel(Tdap) 1 03/28/13 Given influ virus vac, H1N1, inactive(oldterm) 07/01/09 Given 1Admin Note: vis given Medications AccuChek Guide Glucometer AccuChek Guide Glucometer, See Instructions, # 1 each, Refills 0, Tot. Refills 0, Maintenance, Use to check Bgs 6x daily. E10.65, 05/10/23 9:53:00 AM EDT, Supply, 158, cm, 05/10/23 9:22:00 EDT, Height Start Date: 05/10/23 Status: Ordered Quantity: 1.0 Unit: each Repeat number: 1 AccuChek Guide Test Strips AccuChek Guide Test Strips, See Instructions, # 180 each, Refills 6, Tot. Refills 6, Maintenance, Use to check BGs up to 6x daily. E10.65, 05/10/23 9:53:00 AM EDT, Supply, 158, cm, 05/10/23 9:22:00 EDT, Height Start Date: 05/10/23 Status: Ordered Quantity: 180.0 Unit: each Repeat number: 7 acetaminophen 325 mg oral tablet 650 mg, By Mouth, Every 4 hours, PRN, (1-3), may give 325mg per patient preference and re-dose [id number] within 4 hours, if needed. Patient should only receive a total of 650mg of Acetaminophen every 4 hours., Refills 0, Maintenance, Pain , Mild, 07/08/20 9:14:00 AM EST, Partial fill upon patient r equest if the prescription is for a schedule II opioid drug. Start Date: 07/08/20 Status: Ordered Repeat number: 1 Alcohol Pads See Instructions, # 450 each, Refills 5, Tot. Refills 5, Maintenance, use as directed for Type 1 Diabetes Mellitus to test 5 times daily, 07/19/22 4:12:00 PM EST, Compound, 158, cm, 06/27/22 11:23:00EST, Height Start Date: 07/19/22 Stop Date: 01/10/24 Status: Ordered Quantity: 450.0 Unit: each Repeat number: 6 Alcohol Wipes See Instructions, # 450 Doses, Refills 4, Tot. Refills 4, Maintenance, use up to 5 times/d, :35:50 AM EST, Compound Start Date: 09/20/17 Status: Ordered Quantity: 450.0 Unit: Doses Repeat number: 5 Baqsimi inhaled glucagon Baqsimi inhaled glucagon, See Instructions, # 2 each, Refills 3, Tot. Refills 3, Maintenance, prn severe hypoglycemia; may repeat x 1, 06/30/21 12:06:00 PM EST, Supply, 158, cm, 06/30/21 11:35:00 EST,Height, 74.7, kg, 07/02/20 14:05:00 EST, Dry Weight Start Date: 06/30/21 Status: Ordered Quantity: 2.0 Unit: each Repeat number: 4 BD Ultra fine [id number] insuiln syringes BD Ultra fine [id number] insuiln syringes, See Instructions, # 120 each, Refills 3, Tot. Refills 3, Maintenance, Use to inject insulin 4x a day in case of pump failure. E10.9, 01/25/23 9:08:00 AM EDT,pump failed, Supply, 158, cm, 08/25/22 12:35:00 EST, Height Start Date: 01/25/23 Status: Ordered Quantity: 120.0 Unit: each Repeat number: 4 bisoprolol 10 mg oral tablet 1 tablet = 10 mg, By Mouth, Daily, # 90 tablet, 4 Refills, Maintenance, 05/20/21 11:26:00 AM EDT, Tablet, [facility] #[id number], Partial fill upon patient request if the prescription is for a schedule II opioid drug., 158, cm, 05/20/21 11:15:00 EDT, Height, 74.7, kg, 07/02/20 14:05:00 EST, Dry Weight Start Date: 05/20/21 Stop Date: 08/13/22 Status: Ordered Quantity: 90.0 Unit: tablet Repeat number: 5 Blood Pressure Machine Blood Pressure Machine, See Instructions, # 1 Unknown, Refills 0, Tot. Refills 0, Maintenance, Blood Pressure Machine, 08/19/20 3:11:00 PM EST, Supply, 158, cm, 07/31/20 15:21:00 EST, Height, 74.7, kg, 07/02/20 14:05:00 EST, Dry Weight Start Date: 08/19/20 Status: Ordered Quantity: 1.0 Unit: Unknown Repeat number: 1 Contour Next EZ Test Strips See Instructions, # 900 each, Refills 4, Tot. Refills 4, Maintenance, use as directed for Type 1 Diabetes Mellitus. Max test 10x's/day, 90 days, 06/30/21 12:06:00 PM EST, Compound, 158, cm, 06/30/21 11:35:00 EST, Height, 74.7, kg, 07/02/20 14:05:00 EST, Dry Weight Start Date: 06/30/21 Stop Date: 11/27/21 Status: Ordered Quantity: 900.0 Unit: each Repeat number: 5 cyclobenzaprine 10 mg oral tablet 10 mg, 1, tablet, By Mouth, Daily at supper, # 30 tablet, Refills 1, Tot. Refills 1, Maintenance, 06/27/22 11:38:00 AM EST, Route to Pharmacy Electronically, [facility] #[id number], Partial fill upon patient request if the prescription is for a schedule II opioid drug., 158, cm, 06/27/22 11:23:0 0 EST, Height, 74.7, kg, 07/02/20 14:05:00 EST, Dry Weight Start Date: 06/27/22 Status: Ordered Quantity: 30.0 Unit: tablet Repeat number: 2 famotidine 20 mg oral tablet 20 mg, 1, tablet, By Mouth, 2 times a day, # 60 tablet, Refills 0, Tot. Refills 0, Maintenance, 06/09/20 12:47:00 PM EST, Route to Pharmacy Electronically, [facility] #[id number], Partial fill upon patient request, 157, cm, 06/08/20 22:31:00 EST, Height, 63, kg, 06/08/20 22:31:00 EST, Dry Weight Start Date: 06/09/20 Status: Ordered Quantity: 60.0 Unit: tablet Repeat number: 1 Freestyle Flash Glucose Meter See Instructions, # 1 each, Refills 5, Tot. Refills 5, Maintenance, use as directed for Type 1 Diabetes Mellitus, 12/30/19 7:43:00 PM EDT, Supply, 160.1, cm, 10/04/19 10:01:00 EDT, Height, 56.1, kg, 08/02/19 11:19:00 EST, Dry Weight Start Date: 12/30/19 Stop Date: 06/27/20 Status: Ordered Quantity: 1.0 Unit: each Repeat number: 6 FREESTYLE LITE BLOOD GLUCOSE SYSTEM FREESTYLE LITE BLOOD GLUCOSE SYSTEM, See Instructions, # 1 each, 0 Refills, Maintenance, USE TO TEST BLOOD SUGAR 10 TIMES A DAY, 05/31/23 8:04:00 AM EST, 158, cm, 05/10/23 9:22:00 EDT, Height Start Date: 05/31/23 Status: Ordered Quantity: 1.0 Unit: each Repeat number: 1 Freestyle Lite Lancets See Instructions, # 180 each, Refills 6, Tot. Refills 6, Maintenance, Use to check BGs 6x daily. E10.65, 07/19/22 4:11:00 PM EST, Supply, 158, cm, 06/27/22 11:23:00 EST, Height Start Date: 07/19/22 Status: Ordered Quantity: 180.0 Unit: each Repeat number: 7 Freestyle Lite Monitor See Instructions, # 1 each, Refills 0, Tot. Refills 0, Maintenance, Use to check BGs 6x daily. E10., 07/19/22 4:11:00 PM EST, Supply, 158, cm, 06/27/22 11:23:00 EST, Height Start Date: 07/19/22 Status: Ordered Quantity: 1.0 Unit: each Repeat number: 1 Freestyle Lite Monitor See Instructions, # 1 each, Refills 1, Tot. Refills 1, Maintenance, use to test BS 10 times daily, E 10., 06/10/22 10:21:00 AM EST, Supply, 158, cm, 03/23/22 11:28:00 EDT, Height, 74.7, kg, 07/02/20 14:05:00 EST, Dry Weight Start Date: 06/10/22 Status: Ordered Quantity: 1.0 Unit: each Repeat number: 2 Freestyle Lite Test Strips See Instructions, # 180 each, Refills 6, Tot. Refills 6, Maintenance, Check BGs 6x daily. E10.65, 06/01/23 12:08:00 PM EST, Supply, 158, cm, 05/10/23 9:22:00 EDT, Height Start Date: 06/01/23 Status: Ordered Quantity: 180.0 Unit: each Repeat number: 7 Freestyle Test Strips See Instructions, # 250 each, Refills 6, Tot. Refills 6, Maintenance, Use to check blood glucose 8xa day, E10.9, 06/02/21 12:16:00 PM EST, Supply, 158, cm, 05/20/21 11:15:00 EDT, Height, 74.7, kg, 07/02/20 14:05:00 EST, Dry Weight Start Date: 06/02/21 Stop Date: 02/22/23 Status: Ordered Quantity: 250.0 Unit: each Repeat number: 7 Glucagon Emergency Kit See Instructions, PRN, # 6 each, Refills 2, Tot. Refills 2, Maintenance, Blood Glucose, use as directed for Type 1 Diabetes Mellitus, 06/30/21 12:09:00 PM EST, Supply, 158, cm, 06/30/21 11:35:00 EST, Height, 74.7, kg, 07/02/20 14:05:00 EST, Dry Weight Start Date: 06/30/21 Stop Date: 03/27/22 Status: Ordered Quantity: 6.0 Unit: each Repeat number: 3 Home BP Cuff Home BP Cuff, See Instructions, # 1 each, Refills 1, Tot. Refills 1, Maintenance, dx = T1DM, ; check BP once daily, 06/05/20 10:24:00 AM EST, Supply, 160.1, cm, 06/05/20 10:12:00 EST, Height, 59.9, kg, 04/08/20 11:16:00 EDT, Dry Weight Start Date: 06/05/20 Status: Ordered Quantity: 1.0 Unit: each Repeat number: 2 insulin lispro 100 u/ml subcutaneous injection See Instructions, Up to 50 units per day via insulin pump. E 10.9, # 30 mL, 8 Refills, Maintenance,04/03/24 10:16:00 AM EDT, [facility] #[id number], 158, cm, 04/03/24 9:44:00 EDT, Height Start Date: 04/03/24 Status: Ordered Quantity: 30.0 Unit: mL Repeat number: 9 Insulin Syringe, BD Ultra-Fine 1 cc 31 G x 8 mm (5/16in) See Instructions, # 100 each, Refills 11, Tot. Refills 11, Maintenance, use to inject insulin up to3 times per day. E 10.9, 06/30/21 12:06:00 PM EST, Supply, 158, cm, 06/30/21 11:35:00 EST, Height, 74.7, kg, 07/02/20 14:05:00 EST, Dry Weight Start Date: 06/30/21 Status: Ordered Quantity: 100.0 Unit: each Repeat number: 12 Ketostix See Instructions, # 1 each, Refills 11, Tot. Refills 11, Maintenance, use as directed for Type 1 Diabetes Mellitus, 06/30/21 12:06:00 PM EST, Compound, 158, cm, 06/30/21 11:35:00 EST, Height, 74.7, kg, 07/02/20 14:05:00 EST, Dry Weight Start Date: 06/30/21 Stop Date: 06/25/22 Status: Ordered Quantity: 1.0 Unit: each Repeat number: 12 Lantus 100 u/ml subcutaneous solution See Instructions, Subcutaneous Injection, take 23 units daily prn pump failure, # 10 mL, 11 Refills, Maintenance, 01/25/23 8:59:00 AM EDT, [facility] #[id number], 158, cm, 08/25/22 12:35:00 EST, Height Start Date: 01/25/23 Stop Date: 01/20/24 Status: Ordered Quantity: 10.0 Unit: mL Repeat number: 12 Medtronic 630G Insulin Pump Medtronic 630G Insulin Pump, Refills 0, Maintenance, 05/24/17 9:45:07 AM EDT, Compound Start Date: 05/24/17 Status: Ordered Repeat number: 1 Medtronic 770G Insulin Pump Medtronic 770G Insulin Pump, See Instructions, Refills 0, Maintenance, NOT sharing, 08/25/22 12:44:00PM EST, Supply Start Date: 08/25/22 Status: Ordered Repeat number: 1 , Refills 0, Maintenance, 03/27/20 9:59:00 AM EDT, Supply Start Date: 03/27/20 Status: Ordered Repeat number: 1 Problem List Condition Confirmation Course Effective Dates Status Health St atus Informant Rubella non-immune Confirmed Active Type 1 diabetes mellitus Confirmed Active Vitamin D deficiency Confirmed Active Social History Social History Type Response Smoking Status Never smoker entered on: 04/17/15 Sex Female Sex Representation Female (finding) Patient Care team information Care Team Personnel Name: Brittany Garcia NP Position: S Outreach Member Role: PCP Address: [address] [place] [address] Telecom: Name: Eve Mccormick RN Position: [facility] SN RN Member Role: Primary Care Nurse Care Team Related Persons Name: PERRI MORALEZ Name: JULIAN MOLINA Name: BERLIN MOLINA Name: BERTHA SINGH Name: LA SINGH Insurance Providers Guarantor name: SAMMY MORALEZ [facility] Plan Information #: 1 Payer: [facility] [employer] Member Number: NA Policy Number: NA Group Number: NA
--- OUTSIDE RECORDS SUMMARY | 2024-09-13 13:47 | XMS_ITS | Data Portability ---
Author Organization [facility], Main Office Address [address] [facility] [place] [address] Care Team Providers Care Clinical Registered Nurse Name Role Phone SIENA FLORES Primary Care Provider OMAR GARDINER Router Operator Pin [phone] SULEMAN LEIGH Property Consultant SILVINO SARMIENTO Hand Assembler For Puller Over Assessment No assessment recorded. Plan of Treatment Reminders Order Date Submit Date Provider Last Modified By Organization Details Last Modified Time Details Appointments None record ed. Lab pregna ncy test, urine 2017 018 [email or web address] In-Office Order, Internal Use Only DO Not Attach Compendium DO Not Attach Compendium, Do Not Delete/merge, [id number] 8 11:45:04 TSH, serum or plasma 2016 017 OSMAN [facility], [address], [address], [place], [address], 7 17:59:13 vitami n B12, serum 2016 017 OSMAN [facility], [address], [address], [place], [address], 7 18:11:00 pregna ncy test, urine 2016 017 OSMAN In-Office Order, Internal Use Only DO Not Attach Compendium DO Not Attach Compendium, Do Not Delete/merge, [id number] 7 09:50:38 Referral neurol ogist referr al 2017 018 andrez Thornton MD, [address] [place] [address] , [address], [place], [address], 8 13:35:00 physic al therap ist referr al - DX:lbp eval & treat 2-3x/w k x 4 wks 2016 017 [email or web address] Not available 8 09:11:08 gyneco logist referr al - Pap in 2016 after urgent visit for post coital bleedi ng showed ASCUS and + HPV, has not had follow -up for this. Also having menorr hagia since , on depo- does not usuall y have a period . 2016 017 [email or web address] [facility] Hand Assembler For Puller Over Group [facility], [address] [place], [address], 7 09:49:29 Procedures None record ed. Surgeries None record ed. Imaging XR, lumbos acral spine 2016 017 [facility], [address] [place], [address], 7 12:31:15 Medication Orders medrox yproge steron e 150 mg/mL intram uscula r suspen jeovany 2017 018 [email or web address] Not available 8 11:45:04 gabape ntin 300 mg capsul e 2016 017 [email or web address] [id number], [address], [place], [id number], 8 09:14:28 duloxe florentin 60 mg capsul e,meek yed releas e 2016 017 [email or web address] [id number], [address], [place], [id number], 7 10:37:05 medrox yproge steron e 150 mg/mL intram uscula r suspen jeovany 2016 017 [email or web address] Not available 09:53:47 Patient TargetsNo targets recorded. Patient Instructions Encounter Date Encounter Id Patient Instructions Last Modified By Organization Details Last Modified Time 05/04/2017 [id number] Call or return for worsening or concerns. [email or web address] Not available 05/04/2017 09:48:46 I have reviewed the note and agree with the assessment and plan of care. [email or web address] Not available 05/04/2017 11:50:32 05/19/2017 [id number] learning about type 1 diabetes Not available 05/20/2017 09:54:40 type 1 diabetes: care instructions Not available 05/20/2017 09:54:40 Medications (OTC, herbal therapies, supplements) reviewed and reconciled with patient and or caregiver, including potential side effects, drug interactions, instructions, and the consequences of not taking medication. Reviewed potential barriers to medication adherence, such as side effects from medication or cost of medication. [email or web address] Not available 05/20/2017 14:17:16 06/14/2017 [id number] back pain: care instructions [email or web address] Not available 06/14/2017 11:27:20 back care and preventing injuries: care instructions ckrym Not available 06/14/2017 11:27:21 getting back to normal after low back pain: care instructions ckrym Not available 06/14/2017 11:27:21 back pain, emergency or urgent symptoms: care instructions ckrym Not available 06/14/2017 11:27:21 take gabapentin at night x 3 nights, then twice daily x 3 days, then 3 times daily [email or web address] Not available 06/14/2017 11:19:28 I have reviewed the note and agree with the assessment and plan of care. [email or web address] Not available 06/14/2017 12:41:25 07/26/2017 [id number] I have reviewed the note and agree with the assessment and plan of care. 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 Also having menorrhagia since march, on depo- does not usually have a period. Referring Physician: Ernesto Gomez, Family Medicine, Encounter Date: 05/04/2017 DX:lbp eval & treat 2-3x/wk x 4 wks Referring Physician: Geovany Howell, Internal Medicine, Encounter Date: 06/14/2017 Neurologist Referral for Idi opathic peripheral neuropathy Referring Physician: Geovany Howell, Internal Medicine, Encounter Date: 07/26/2017 Results Created Date Observation Date Name Description Value Unit Range Abnormal Flag Note LastModifiedBy Organization Detail LastModifiedTime 05/04/20 17 05/04/2017 pregn kalyan test, urine HCG negati ve Not Available In-Office Order Internal Use Only DO Not Attach Compendium DO Not Attach Compendium, Do Not Delete/merge, [id number] 05/04/2017 09:43:40 04/26/20 17 04/26/2017 CBC w/ auto diff WBC 8.1 K/mm3 (4.0-1 1.0) Not Available [facility] [address] [place], [address], 04/26/2017 14:34:25 04/26/20 17 04/26/2017 CBC w/ auto diff RBC 4.10 M/mm3 (4.20- 5.40) low Not Available [facility] [address] [place], [address], 04/26/2017 14:34:25 04/26/20 17 04/26/2017 CBC w/ auto diff HGB 11.5 gm/dL (12.0- 16.0) low Not Available [facility] [address] [place], [address], 04/26/2017 14:34:25 04/26/20 17 04/26/2017 CBC w/ auto diff HCT 36.1 % (37.0- 47.0) low Not Available [facility] [address] [place], [address], 04/26/2017 14:34:25 04/26/20 17 04/26/2017 CBC w/ auto diff MCV 88.0 fL (80.0- 100.0) Not Available [facility] [address] [place], [address], 04/26/2017 14:34:25 04/26/20 17 04/26/2017 CBC w/ auto diff MCH 28.0 pg (27.0- 34.0) Not Available [facility] [address] [place], [address], 04/26/2017 14:34:25 04/26/20 17 04/26/2017 CBC w/ auto diff MCHC 31.9 g/dL (33.0- 37.0) low Not Available [facility] [address] [place], [address], 04/26/2017 14:34:25 04/26/20 17 04/26/2017 CBC w/ auto diff plt 255 K/mm3 (150-4 60) Not Available [facility] [address] [place], [address], 04/26/2017 14:34:25 04/26/20 17 04/26/2017 CBC w/ auto diff RDW-SD 41.3 fL (<47.0 ) Not Available [facility] [address] [place], [address], 04/26/2017 14:34:25 04/26/20 17 04/26/2017 CBC w/ auto diff MPV 10.7 fL (9.4-1 2.4) Not Available [facility] [address] [place], [address], 04/26/2017 14:34:25 04/26/20 17 04/26/2017 CBC w/ auto diff automated NRBC 0.0 #/100 _WBC' s Not Available [facility] [address] [place], [address], 04/26/2017 14:34:25 04/26/20 17 04/26/2017 CBC w/ auto diff abs. NRBC 0.0 K/mm3 Not Available [facility] [address] [place], [address], 04/26/2017 14:34:25 04/26/20 17 04/26/2017 iron + total iron- yulissa ng capac ity (TIBC ), serum iron 37 mcg/d L (30-16 0) Not Available [facility] [address] [place], [address], 04/26/2017 16:33:52 04/26/20 17 04/26/2017 iron + total iron- yulissa ng capac ity (TIBC ), serum unsaturated iron binding capac 266 mcg/d L (110-3 70) Not Available [facility] [address] [place], [address], 04/26/2017 16:33:52 04/26/20 17 04/26/2017 iron + total iron- yulissa ng capac ity (TIBC ), serum est T. iron bind capacity 303 mcg/d L (140-5 30) Not Available [facility] [address] [place], [address], 04/26/2017 16:33:52 04/26/20 17 04/26/2017 iron + total iron- yulissa ng capac ity (TIBC ), serum % iron saturation 12 % (20-55 ) low Not Available [facility] [address] [place], [address], 04/26/2017 16:33:52 04/26/20 17 04/26/2017 beni tin, serum or plasm a ferritin 31 NG/mL (14-28 3) Not Available [facility] [address] [place], [address], 04/26/2017 16:42:17 04/26/20 17 04/27/2017 vitam in D, 25-hy droxy , total , serum 25OH vitamin D 22.2 NG/mL (20-50 ) SERUM 25OHD : 20 TO 50 NG/ML : SUFFI CIENT IN VITAM IN D. Refer ence: [facility] Data Brief : No.59 September: Vitam in D Statu s: Unite d State s: 2000- 2005 Not Available [facility] [address] [place], [address], 04/27/2017 06:28:47 06/14/20 17 06/14/2017 TSH, serum or plasm a TSH 1.49 mIU/m L (0.40- 4.00) Not Available [facility] [address] [place], [address], 06/14/2017 17:59:12 06/14/20 17 06/14/2017 vitam in B12, serum vitamin B12 270 pg/mL (170-8 70) Not Available [facility] [address] [place], [address], 06/14/2017 18:11:00 08/02/19 18 08/02/2017 pregn kalyan test, urine HCG negati ve Not Available In-Office Order Internal Use Only DO Not Attach Compendium DO Not Attach Compendium, Do Not Delete/merge, [id number] 08/02/2017 10:13:52 06/14/20 17 06/14/2017 XR, lumba r spine Lumbar Spine 2 or 3 Views INDICA TION/C LINICA L QUESTI ON: radicu lopath y lumbar region / . COMPAR KHAI: None. FINDIN GS: Normal alignm ent and well preser kiana disc and verteb ral body morpho logy. No bone lesion s or fractu res. No spondy lolysi s or spondy lolist hesis. Normal soft tissue s. IMPRES JEOVANY: No acute abnorm ality. WSN: [id number] Dictat ed By: Elvis Salgado MD Dictat ed Date/T luis: 12:28 p Review ed By: Elvis Salgado MD Signed By: Elvis Salgado MD Signed Date/T luis: 12:28 pm Transc ribed By: DARSHAN Transc ribed Date/T luis: 12:28 pm Patien t Class: Outpat ient [facility] (Outpt Imaging) [address] , [place], [address], 06/14/2017 22:02:42 Result Notes None recorded. Problems Name Problem SNOMED Code Status Onset Date Resolution Date Notes Provider Name and Address Organization Details Recorded Time Radiolog y result abnormal [id number] Completed 201202/11/2014 RECORDED 03/14/20 13 9:57AM BY ANTOINE ROBLERO MA, ANNOTATI ON/ADDEN DUM Donalarry PAGAN-C [address], [place], [address], [facility] 6 11:47:54 Amenorrh ea 81878018 Completed 201202/11/2014 IMPRESSI ON: DUE TO PREGNANC Y; RECORDED 01/30/20 13 10:36AM BY LEIGHA HAGEN MA, ANNOTATI ON/ADDEN DUM Dona Dante PA-C [address], [place], [address], [facility] 6 11:47:54 Allergic rhinitis 35276024 Active Dona PAGAN-C [address], [place], [address], [facility] 6 11:47:54 Chest pain 62311074 Completed 200802/11/2014 RECORDED 02/26/20 09 10:33AM BY MAGDIEL POWER ON/ADDEN DUM Dona Dante PAGAN-C [address], [place], [address], [facility] 6 11:47:54 Breathin g painful 22428571 Completed 201202/11/2014 IMPRESSI ON: HER CHEST PAIN IS MUSCULOS KELETAL AND PROBABLY COSTOCHO NDRITIS; RECORDED 01/30/20 13 10:36AM BY LEIGHA HAGEN MA, ANNOTATI ON/ADDEN DUM Donalarry PAGAN-C [address], [place], [address], [facility] 6 11:47:54 Contact dermatit is 03475441 Completed 201102/11/2014 RECORDED 02/21/20 12 9:30AM BY JAK COLEMAN MA, ANNOTATI ON/ADDEN DUM Dona Howell PA-C [address] [facility] [address], [place], [address], [facility] 6 11:47:54 Dizzines s and giddines s 499939993 Completed 201202/11/2014 RECORDED 01/30/20 13 10:36AM BY LEIGHA HAGEN MA, ANNOTATI ON/ADDEN DUM Dona Howell PA-C [address] [facility] [address], [place], [address], [facility] 6 11:47:54 Type 1 diabetes mellitus 89817593 Active Donamag Howell WISeKey-C [address] [facility] [address], [place], [address], [facility] 6 11:47:54 Impacted cerumen 83511433 Completed 201102/11/2014 IMPRESSI ON: BILAT. NORMAL POST LAVAGE EXAM.; RECORDED 02/21/20 12 9:30AM BY JAK COLEMAN MA, ANNOTATI ON/ADDEN DUM Dona Howell PA-C [address] [facility] [address], [place], [address], [facility] 6 11:47:54 Influenz a vaccine needed 88430221289 06 Completed 201302/11/2014 RECORDED 08/15/19 14 1:43PM BY SIENA FLOWERS MD, ANNOTATI ON/ADDEN DUM Dona Howell PA-C [address] [facility] [address], [place], [address], [facility] 6 11:47:54 Follow-u p encounte r Completed 201102/11/2014 RECORDED 02/21/20 12 9:30AM BY JAK COLEMAN MA, ANNOTATI ON/ADDEN DUM Dona Dante PAGAN-C [address] [facility] [address], [place], [address], [facility] 6 11:47:55 Adult health examinat ion Completed 201307/28/2014 RECORDED 08/15/19 14 12:58PM BY DENISE PEREZ I, OFFICE VISIT Dona PAGAN-C [address] [facility] [address], [place], [address], [facility] 6 11:47:55 Pruritic disorder 879631295 Completed 201102/11/2014 RECORDED 02/21/20 12 9:30AM BY JAK COLEMAN MA, ANNOTATI ON/ADDEN DUM Dona Dante PAGAN-C [address] [facility] [address], [place], [address], [facility] 6 11:47:54 Gastroes ophageal reflux disease 313694561 Active Dona PAGAN-C [address] [facility] [address], [place], [address], [facility] 6 11:47:54 Laborato ry procedur e performe d 753771963 Completed 201302/11/2014 RECORDED 08/15/19 14 12:55PM BY DENISE PEREZ I, ANNOTATI ON/ADDEN DUM Dona Dante PAGAN-C [address] [facility] [address], [place], [address], [facility] 6 11:47:55 Migraine 59636360 Active Donamag PAGAN-C [address] [facility] [address], [place], [address], [facility] 6 11:47:54 Administ ration of viral vaccine Completed 200802/11/2014 DATE: 02/26/20 09; RECORDED 02/21/20 12 9:30AM BY JAK COLEMAN MA, MAGDIEL ON/ADDEN DUM [facility] [address] [facility] [address], [place], [address], [facility] 6 11:47:54 Patient status finding [id number] Completed 201307/28/2014 RECORDED 08/15/19 14 12:58PM BY DENISE PEREZ I, OFFICE VISIT Dona Howell [address], [place], [address], [facility] 6 11:47:54 Onychomy cosis due to dermatop hyte 447583161 Active [address], [place], [address], [facility] 6 11:47:54 Onychia of toe 270298531 Completed 201102/11/2014 IMPRESSI ON: CHRONIC AND RECURRIN G, WITH I&D AND TOENAIL TRIMMING DONE YESTERDA Y BY PODIATRY . ALTHOUGH HER SXS TODAY SEEM TO BE CONCERNI NG, THIS ALSO COULD BE THE TRAUMA ASSOC WITH RECENT SURGERY AND NOT NECESSAR ANGIE INFECTIO N. SHE IS WORSE TODAY THAN USUAL POST PROCEDUR E AND HAS RESPONDE D TO BACTRIM IN THE PAST, SO WE DISCUSSE D AND OPTED TO START EMPIRIC ABX TX, WHILE CONTINUI NG TO MONITOR AT HOME. REFERRAL FOR SECOND OPINION GIVEN.; RECORDED 02/21/20 12 9:30AM BY JAK COLEMAN MA, ANNOTATI ON/ADDEN DUM Dona BAINC [address], [place], [address], [facility] 6 11:47:54 Paronych ia of toe 359601268 Active Dona Howell PA-C [address] [place] [address] [address], [place], [address], [facility] 6 11:47:54 Primigra mohan 651207940 Completed 201202/11/2014 IMPRESSI ON: THIS WAS UNEXPECT ED. SHE WILL START NOW. HANDOUT ACOG GIVEN YOLIS Vinson UNEXPECT ED PREGNANC Y OPTIONS. SHE IS NOT SURE IF SHE WANTS TO KEEP THE BABY. GAVE HANDOUT ACOG NUTRI N ALSO. WILL SET HER UP WITH OB. SHE WILL NEED TO BE SEEN SOONER THAN USUAL WITH HER TYPE 1 DM.; RECORDED 03/14/20 13 9:56AM BY ANTOINE ROBLERO MA, MAGDIEL ON/ADDEN DUM Dona BAINC [address], [place], [address], [facility] 6 11:47:55 Eruption [id number] Completed 201102/11/2014 IMPRESSI ON: ETIOLOGY UNCLEAR, NO NEW EXPOSURE THAT SHE IS AWARE OF BUT DID HAVE RECENT TRAVEL TO [place]. LITTLE IMPROVEM ENT WITH TOPICAL CS AND PO ANTIHIST AMINES. AVOID PO PRED D/T DMT1 FOR NOW. GIVEN THAT ITCHING WORSE AT NIGHT, ONGOING NATURE WILL TX WITH PERMETHR IN X 1 BEFORE SEEING DERM. APPT WITH SPEC CURRENTL Y SCHED FOR MAR, WE WILL TRY TO EXPEDITE FOR HER.; RECORDED 07/05/20 12 3:17PM BY MAGDIEL YOUNG ON/ADDEN DUM Dona BAINC [address], [place], [address], [facility] 6 11:47:54 Adult health examinat ion Completed 201102/11/2014 RECORDED 02/21/20 12 9:30AM BY JAK COLEMAN MA, ANNOTATI ON/ADDEN DUM Dona BAINC [address], [place], [address], [facility] 6 11:47:55 Well child 382706176 Completed 201102/11/2014 RECORDED 02/21/20 12 9:30AM BY JAK COLEMAN MA, ANNOTATI ON/ADDEN DUM Dona BAINC [address], [place], [address], [facility] 6 11:47:55 Administ ration of diphther ia, pertussi s, and tetanus vaccine Completed 201307/28/2014 RECORDED 08/15/19 14 1:44PM BY SIENA FLOWERS MD, SIGRIDATI ON/ADDEN DUM Dona Howell PA-C [address], [place], [address], [facility] 6 11:47:54 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 Completed 200802/11/2014 RECORDED 02/26/20 09 10:32AM BY MAGDIEL POWER ON/ADDEN DUM Dona Howell PA-C [address], [place], [address], [facility] 6 11:47:54 Tinea pedis 4815772 Completed 201102/11/2014 RECORDED 02/21/20 12 9:30AM BY JAK COLEMAN MA, SIGRIDATI ON/ADDEN DUM Dona Howell PA-C [address] [facility] [address], [place], [address], [facility] 6 11:47:54 Type 1 diabetes mellitus 12267761 Completed 201202/11/2014 RECORDED 10/10/19 13 4:13PM BY MAGDIEL PIERRE ON/ADDEN DUM Dona Howell PA-C [address] [facility] [address], [place], [address], [facility] 6 11:47:54 Urticari a 529881216 Completed 201102/11/2014 STORY: MADE SEVERAL ATTEMPT TO REACH MOM WITH NO RETURN CALLS; RECORDED 02/21/20 12 9:30AM BY JAK COLEMAN MA, SIGRIDATI ON/ADDEN DUM Dona Howell PA-C [address] [facility] [address], [place], [address], [facility] 6 11:47:54 Leukorrh ea 936180058 Completed 201202/11/2014 RECORDED 01/30/20 13 10:36AM BY LEIGHA HAGEN MA, MAGDIEL ON/ADDEN DUM Dona Howell PA-C [address], [place], [address], [facility] 6 11:47:54 Viral disease 68454374 Completed 201102/11/2014 IMPRESSI ON: IN HOUSE STREP NEG, SEND OUT PENDING. LUNGS CTA. SUSPECT VIRAL ETIOLOGY . ENCOURAG ED CONTINUE D PRN USE OF TYLENOL/ MOTRIN, REST, AND FLUIDS. F/U PRN IF SXS WORSEN OR FAIL TO IMPROVE. ; RECORDED 02/21/20 12 9:30AM BY JAK COLEMAN MA, MAGDIEL ON/ADDEN DUM Dona Howell PA-C [address], [place], [address], [facility] 6 11:47:54 Candidal vulvovag initis 88204259 Active Dona Howell PA-C [address] [facility] [address], [place], [address], [facility] 6 11:47:54 Ganglion cyst 618656795 Active Dona Howell PA-C [address] [facility] [address], [place], [address], [facility] 6 11:47:54 Lichenif ication of skin 935751681 Active Dona Howell PA-C [address], [place], [address], [facility] 6 11:47:54 Radiolog y result abnormal 017552479 Completed 201203/03/2014 RECORDED 03/14/20 13 9:57AM BY ANTOINE ROBLERO MA, MAGDIEL ON/ADDEN DUM Dona Howell PA-C [address], [place], [address], [facility] 6 11:47:54 Amenorrh ea 95832364 Completed 201203/03/2014 IMPRESSI ON: DUE TO PREGNANC Y; RECORDED 01/30/20 13 10:36AM BY LEIGHA HAGEN MA, ANNOTATI ON/ADDEN DUM Dona Howell PA-C [address], [place], [address], [facility] 6 11:47:54 Chest pain 33877310 Completed 200803/03/2014 RECORDED 02/26/20 09 10:33AM BY TRAMA[place] TRAN, SIGRIDATI ON/ADDEN DUM Dona Howell PA-C [address], [place], [address], [facility] 6 11:47:54 Breathin g painful 85747362 Completed 201203/03/2014 IMPRESSI ON: HER CHEST PAIN IS MUSCULOS KELETAL AND PROBABLY COSTOCHO NDRITIS; RECORDED 01/30/20 13 10:36AM BY LEIGHA HAGEN MA, ANNOTMARAH ON/ADDEN DUM Dona Howell PA-C [address], [place], [address], [facility] 6 11:47:54 Contact dermatit is 50369966 Completed 201103/03/2014 RECORDED 02/21/20 12 9:30AM BY JAK COLEMAN MA, ANNOTATI ON/ADDEN DUM Dona Howell PA-C [address], [place], [address], [facility] 6 11:47:54 Dizzines s and giddines s 145939914 Completed 201203/03/2014 RECORDED 01/30/20 13 10:36AM BY LEIGHA HAGEN MA, ANNOTATI ON/ADDEN DUM Dona Howell PA-C [address], [place], [address], [facility] 6 11:47:54 Impacted jordyn 34640345 Completed 201103/03/2014 IMPRESSI ON: BILAT. NORMAL POST LAVAGE EXAM.; RECORDED 02/21/20 12 9:30AM BY JAK COLEMAN MA, ANNOTATI ON/ADDEN DUM Dona Dante PA-C [address], [place], [address], [facility] 6 11:47:54 Influenz a vaccine needed 27309231564 06 Completed 201303/03/2014 RECORDED 08/15/19 14 1:43PM BY SIENA FLOWERS MD, ANNOTATI ON/ADDEN DUM Dona Dante PA-C [address], [place], [address], [facility] 6 11:47:54 Follow-u p encounte r Completed 201103/03/2014 RECORDED 02/21/20 12 9:30AM BY JAK COLEMAN MA, ANNOTMARAH ON/ADDEN DUM Dona Dante PA-C [address] [facility] [address], [place], [address], [facility] 6 11:47:55 Adult health examinat ion Completed 201303/03/2014 RECORDED 02/04/20 14 3:31PM BY JAK COLEMAN MA, MAGDIEL ON/ADDEN DUM Dona Dante PA-C [address], [place], [address], [facility] 6 11:47:55 Pruritic disorder 230499369 Completed 201103/03/2014 RECORDED 02/21/20 12 9:30AM BY JAK COLEMAN MA, MAGDIEL ON/ADDEN DUM Dona Dante PA-C [address], [place], [address], [facility] 6 11:47:54 Gastroes ophageal reflux disease 464575400 Completed 201303/03/2014 RECORDED 02/04/20 14 3:30PM BY JAK COLEMAN MA, MAGDIEL ON/ADDEN DUM Dona BAINC [address], [place], [address], [facility] 6 11:47:54 Infectiv e hepatiti s immuniza tion Completed 201303/03/2014 RECORDED 02/04/20 14 3:31PM BY JAK COLEMAN MA, NURSE VISIT Dona Howell PA-C [address], [place], [address], [facility] 6 11:47:54 History of clinical finding in subject 913941354 Completed 201303/03/2014 RECORDED 02/04/20 14 3:31PM BY JAK COLEMAN MA, MAGDIEL ON/ADDEN DUM Dona BAINC [address], [place], [address], [facility] 6 11:47:54 Laborato ry procedur e performe d 718893553 Completed 201303/03/2014 RECORDED 08/15/19 14 12:55PM BY MAGDIEL YOUNG ON/ADDEN DUM Dona Howell PA-C [address], [place], [address], [facility] 6 11:47:55 Administ ration of viral vaccine Completed 200803/03/2014 DATE: 02/26/20 09; RECORDED 02/21/20 12 9:30AM BY JAK COLEMAN MA, MAGDIEL ON/ADDEN DUM Dona Howell PA-C [address], [place], [address], [facility] 6 11:47:54 Onychomy cosis due to dermatop hyte 021733690 Completed 201303/03/2014 RECORDED 02/04/20 14 3:30PM BY JAK COLEMAN MA, MAGDIEL ON/JOSE BAINC [address], [place], [address], [facility] 6 11:47:54 Onychia of toe 046998967 Completed 201103/03/2014 IMPRESSI ON: CHRONIC AND RECURRIN G, WITH I&D AND TOENAIL TRIMMING DONE YESTERDA Y BY PODIATRY . ALTHOUGH HER SXS TODAY SEEM TO BE CONCERNI NG, THIS ALSO COULD BE THE TRAUMA ASSOC WITH RECENT SURGERY AND NOT NECESSAR ANGIE INFECTIO N. SHE IS WORSE TODAY THAN USUAL POST PROCEDUR E AND HAS RESPONDE D TO BACTRIM IN THE PAST, SO WE DISCUSSE D AND OPTED TO START EMPIRIC ABX TX, WHILE CONTINUI NG TO MONITOR AT HOME. REFERRAL FOR SECOND OPINION GIVEN.; RECORDED 02/21/20 12 9:30AM BY JAK COLEMAN MA, MAGDIEL ON/JOSE Howell PA-C [address], [place], [id number] 9, [facility] 6 11:47:54 Primigra mohan [id number] Completed 201203/03/2014 IMPRESSI ON: THIS WAS UNEXPECT ED. SHE WILL START NOW. HANDOUT ACOG GIVEN REGARDIN G UNEXPECT ED PREGNANC Y OPTIONS. SHE IS NOT SURE IF SHE WANTS TO KEEP THE BABY. GAVE HANDOUT ACOG NUTRITIO N ALSO. WILL SET HER UP WITH OB. SHE WILL NEED TO BE SEEN SOONER THAN USUAL WITH HER TYPE 1 DM.; RECORDED 03/14/20 13 9:56AM BY ANTOINE ROBLERO MA, MAGDIEL ON/JOSE BAINC [address], [place], [address], [facility] 6 11:47:55 Eruption [id number] Completed 201103/03/2014 IMPRESSI ON: ETIOLOGY UNCLEAR, NO NEW EXPOSURE THAT SHE IS AWARE OF BUT DID HAVE RECENT TRAVEL TO [place]. LITTLE IMPROVEM ENT WITH TOPICAL CS AND PO ANTIHIST AMINES. AVOID PO PRED D/T DMT1 FOR NOW. GIVEN THAT ITCHING WORSE AT NIGHT, ONGOING NATURE WILL TX WITH PERMETHR IN X 1 BEFORE SEEING DERM. APPT WITH SPEC CURRENTL Y SCHED FOR SEPT, WE WILL TRY TO EXPEDITE FOR HER.; RECORDED 07/05/20 12 3:17PM BY SIGRID YOUNGATI ON/ADDEN DUM Dona Dante PA-C [address] [facility] [address], [place], [address], [facility] 6 11:47:54 Well child [id number] Completed 201103/03/2014 RECORDED 02/21/20 12 9:30AM BY JAK COLEMAN MA, MAGDIEL ON/ADDEN DUM Donalarry Howell PA-C [address] [facility] [address], [place], [address], [facility] 6 11:47:55 Administ ration of diphther ia, pertussi s, and tetanus vaccine Completed 201303/03/2014 RECORDED 02/04/20 14 3:30PM BY JAK COLEMAN MA, MAGDIEL ON/ADDEN DUM Donamag Howell PA-C [address] [facility] [address], [place], [address], [facility] 6 11:47:54 Tietze's disease [id number] Completed 200803/03/2014 RECORDED 02/26/20 09 10:32AM BY MAGDIEL POWER ON/ADDEN DUM Dona Dante PA-C [address] [facility] [address], [place], [address], [facility] 6 11:47:54 Tinea pedis [id number] Completed 201103/03/2014 RECORDED 02/21/20 12 9:30AM BY JAK COLEMAN MA, MAGDIEL ON/ADDEN DUM Dona Dante PA-C [address] [facility] [address], [place], [address], [facility] 6 11:47:54 Urticjasmyne gross [id number] Completed 201103/03/2014 STORY: MADE SEVERAL ATTEMPT TO REACH MOM WITH NO RETURN CALLS; RECORDED 02/21/20 12 9:30AM BY JAK COLEMAN MA, MAGDIEL ON/ADDEN DUM [facility] [address] [facility] [address], [place], [address], [facility] 6 11:47:54 Leukorrh ea [id number] Completed 201203/03/2014 RECORDED 01/30/20 13 10:36AM BY LEIGHA HAGEN MA, MAGDIEL ON/ADDEN [facility] [address] [facility] [address], [place], [address], [facility] 6 11:47:54 Varicell a vaccinat ion Completed 201303/03/2014 RECORDED 02/04/20 14 3:31PM BY JAK COLEMAN MA, NURSE VISIT [address], [place], [address], [facility] 6 11:47:54 Viral disease [id number] Completed 201103/03/2014 IMPRESSI ON: IN HOUSE STREP NEG, SEND OUT PENDING. LUNGS CTA. SUSPECT VIRAL ETIOLOGY . ENCOURAG ED CONTINUE D PRN USE OF TYLENOL/ MOTRIN, REST, AND FLUIDS. F/U PRN IF SXS WORSEN OR FAIL TO IMPROVE. ; RECORDED 02/21/20 12 9:30AM BY JAK COLEMAN MA, ANNOTMARAH ON/ADDEN [facility] [address] [facility] [address], [place], [address], [facility] 6 11:47:54 Candidal vulvovag initis [id number] Completed 201303/03/2014 RECORDED 02/04/20 14 3:31PM BY JAK COLEMAN MA, ANNOTATI ON/ADDEN DUM Dona Valladaresden PA-C [address], [place], [address], [facility] 6 11:47:54 Alek ball [id number] Active Dona Howell PA-C [address], [place], [address], [facility] 6 11:47:54 Shoulder pain 64309663 Active Dona Howell PA-C [address], [place], [address], [facility] 6 11:47:54 Luis liu [id number] Completed 07/26/2017 TRAMAINE Pierre, [facility] 8 09:11:35 Type 2 diabetes mellitus [id number] Completed 09/25/2015 Dona Howell PA-C [address], [place], [address], [facility] 6 11:47:54 Fatigue 13914877 Completed 07/26/2017 TRAMAINE Pierre, [facility] 8 09:11:48 Anemia 240221400 Active Dona Howell PA-C [address], [place], [address], [facility] 6 11:47:54 Vitamin D deficien cy 51200200 Active Dona Howell PA-C [address], [place], [address], [facility] 6 11:47:54 Upper chest pain [id number] Completed 06/14/2017 TRAMAINE Neff, [facility] 7 10:30:36 Pain in lower limb 17544251 Active 2016 Siena vanessa MD [address] [facility] [address], [facility] [address], [facility] 7 12:08:57 Notes:Diabetic Eye Exam, [facility] on 08/18/2015. Problem Notes None recorded. Procedures Surgical History Date Name Laterality Status Provider Name and Address Organization Details Recorded Time 05/12/2017 Date of Last Pap Smear completed Leigha stokes MA [facility] 05/13/2017 12:30:50 No surg proc w/in 30 days completed Leigha stokes MA [facility] 06/14/2017 10:31:01 Imaging Results Imaging Date Name Status LastModified by Organiz ation Details LastModified Time 06/14/2017 XR, lumbar spine completed [facility] [address] , [place], [address], 06/14/2017 22:02:42 Procedure Notes None recorded. Medical Equipment None Reported. Allergies Allergen ID Allergen Name Allergen Category Reaction Reaction Severity Criticality Documentation Date Start Date Code Code System Note Provider Name and Address Organization Details Recorded Time 26659 duloxetin e medicatio n dizziness nausea vomiting moderate Not available Not available Not available 06/01/20172016 12454 RxNorm Leigha de MA null, [facility] 7 10:30:23 Medications Name Sig Start Date Stop Date Status Note LastModified by Organization Details LastModified Time multiple vitamins tabs active Not Available Not Available Not Available vitamin d 67223 unit caps active Not Available Not Available No t Available butalbita l/apap/ca ffeine 50-300-40 mg caps active Not Available Not Available Not Available ciproflox acin hcl 500 mg tabs active Not Available Not Available Not Available oxycodone /acetamin ophen 5-325 mg tabs active Not Available Not Available Not Available humalog 100 unit/ml soln active Not Available Not Available Not Available amoxicill in/clavul anate potassium 875-125 mg tabs active Not Available Not Available Not Available ibuprofen 800 mg tabs active Not Available Not Available Not Available methylpre dnisolone dose pack 4 mg tabs active Not Available Not Available No t Available methocarb melina 750 mg tabs active Not Available Not Available Not Available polymyxin b sulfate/t rimethopr im sulfate 83341-1.1 unit/ml-% soln active Not Available Not Available Not Available hydroxyzi ne pamoate 50 mg caps active Not Available Not Available Not Available diazepam 5 mg tabs active Not Available Not Available No t Available amoxicill in 500 mg capsule Take 1 capsule every day by oral route as needed for 7 days. 05/20 completed dental work Not Available Not Available Not Available Vitamin B-2 100 mg tablet active Not Available Not Available No t Available naproxen 375 mg tablet TWO TIMES DAILY 08/04 completed RECORDED 10/10/19 13 1:18PM BY SIENA FLOWERS MD, MEDICATI ON AUTO-JACK CTIVATIO N; Not Available Not Available Not Available divalproe x 250 mg tablet,de layed release TAKE 1 TABLET BY MOUTH TWICE DAILY 08/25 completed Not Available Not Available Not Available cetirizin e 10 mg tablet Take 1 tablet every day by oral route for 5 days. 03/21 completed Not Available Not Available Not Available ibuprofen 800 mg tablet Take 1 tablet every 6-8 hours by oral route as needed for 10 days. active Not Available Not Available No t Available fluconazo le 150 mg tablet ONE TIME FOR VULVOVAG INAL CANDIDIA SIS 08/16 completed RECORDED 08/20/19 14 2:43PM BY SIENA FLOWERS MD, MEDICATI ON AUTO-JACK CTIVATIO N; Not Available Not Available Not Available hydrocodo ne 5 mg-acetam inophen 325 mg tablet active Not Available Not Available Not Available promethaz ine 12.5 mg tablet active Not Available Not Available No t Available metronida zole 0.75 % (37.5 mg/5 gram) vaginal gel active Not Available Not Available Not Available ondansetr on HCl 4 mg tablet active Not Available Not Available No t Available prednison e 20 mg tablet Take 2 tablets every day by oral route with meals for 5 days. 10/03 completed Not Available Not Available Not Available Lantus U-100 Insulin 100 unit/mL subcutane ous solution Inject 18 units every day by subcutan eous route. active Not Available Not Available No t Available permethri n 5 % topical cream ONE TIME LEAVE ON FOR 8 TO 14HOURS 02/21 completed RECORDED 02/25/20 12 9:01AM BY YOUSUF BURNETT PA-C, MEDICATI ON AUTO-JACK CTIVATIO N; Not Available Not Available Not Available clotrimaz ole 1 % vaginal cream AT BEDTIME, NEEDS APPLICAT OR 10/16 completed RECORDED 10/17/19 13 8:51AM BY LATASHA LAI, MEDICATI ON AUTO-JACK CTIVATIO N; Not Available Not Available Not Available metronida zole 500 mg tablet Take 1 tablet twice a day by oral route for 7 days. 07/22 completed Not Available Not Available Not Available sulfameth oxazole 800 mg-trimet hoprim 160 mg tablet TWO TIMES DAILY 09/23 completed RECORDED 09/28/19 11 10:31AM BY LATASHA KRAFT, MEDICATI ON AUTO-JACK CTIVATIO N; Not Available Not Available Not Available amoxicill in 500 mg tablet 03/21 completed Not Available Not Available Not Available Vitamin tablet Take 1 tablet every day by oral route for 90 days. 04/01 completed Not Available Not Available Not Available oxycodone -acetamin ophen 5 mg-325 mg tablet 05/04 completed Not Available Not Available Not Available Humalog U-100 Insulin 100 unit/mL subcutane ous solution PER SLIDING SCALE active Not Available Not Available No t Available amitripty line 10 mg tablet TAKE 1 TABLET BY MOUTH DAILY FOR 1 WEEK THEN INCREASE BY 1 TABLET EVERY WEEK UNTIL TAKING 4 TABLETS DAILY 05/20 completed Not Available Not Available Not Available cephalexi n 500 mg capsule Take 1 capsule 3 times a day by oral route for 7 days. 10/03 completed Not Available Not Available Not Available diphenhyd ramine 25 mg capsule FOUR TIMES DAILY, NEEDED 10/09 completed RECORDED 10/10/19 13 4:17PM BY SHANNON PULIDO, OFFICE VISIT; Not Available Not Available Not Available ferrous sulfate 325 mg (65 mg iron) tablet active Not Available Not Available Not Available clotrimaz ole-betam ethasone 1 %-0.05 % topical cream BID TO AFFECTED AREA active Not Available Not Available No t Available Polytrim 10,000 unit-1 mg/mL eye drops INSTILL 1 DROP INTO AFFECTED EYE(S) BY OPHTHALM IC ROUTE EVERY 6 HOURS x 7 DAYS 2014 active Not Available Not Available Not Avai lable gabapenti n 300 mg capsule Take 1 capsule 3 times a day by oral route for 30 days. 07/26 completed Not Available Not Available Not Available omeprazol e 20 mg capsule,d elayed release Take 1 capsule every day by oral route for 90 days. 08/25 completed Not Available Not Available Not Available alcohol swabs 03/21 completed Not Available Not Available Not Available ibuprofen 600 mg tablet Take 1 tablet 3 times a day by oral route with meals for 30 days. active Not Available Not Available No t Available Vitamin C 250 mg tablet active Not Available Not Available Not Available Vitamin D2 1,250 mcg (50,000 unit) capsule TAKE 1 CAPSULE BY MOUTH EVERY WEEK x 8 weeks only active Not Available Not Available No t Available Aclovate 0.05 % topical cream BID 10/09 completed RECORDED 10/10/19 13 4:17PM BY SHANNON PULIDO, OFFICE VISIT; Not Available Not Available Not Available medroxypr ogesteron e 150 mg/mL intramusc ular suspensio n Inject 1 mL every 3 months by intramus cular route. active Not Available Not Available No t Available loratadin e 10 mg tablet DAILY 12/09 completed RECORDED 12/10/19 11 1:12PM BY LEIGHA HAGEN MA, OFFICE VISIT; Not Available Not Available Not Available Ketostix strips 03/21 completed Not Available Not Available Not Available naproxen 500 mg tablet TAKE 1 TABLET BY MOUTH TWICE DAILY FOR 15 DAYS 04/26 completed Not Available Not Available Not Available amoxicill in 875 mg-potass ium clavulana te 125 mg tablet Take 1 tablet every 12 hours by oral route for 7 days. 2014 active Not Available Not Available Not Avai lable Levora-28 0.15 mg-0.03 mg tablet active Not Available Not Available No t Available azithromy srinivas 500 mg tablet 06/22 completed Not Available Not Available Not Available medroxypr ogesteron e 150 mg/mL intramusc ular syringe active Not Available Not Available Not Available duloxetin e 60 mg capsule,d elayed release Take 1 capsule every day by oral route for 90 days. 06/14 completed Not Available Not Available Not Available Lyrica 50 mg capsule Take 1 capsule 3 times a day by oral route for 30 days. active Not Available Not Available No t Available chlorhexi dine gluconate 0.12 % mouthwash 05/04 completed Not Available Not Available Not Available omeprazol e DAILY 2013 active RECORDED 08/15/19 14 1:41PM BY SIENA FLOWERS MD, OFFICE VISIT; Not Available Not Available Not Available naproxen BID/PRN 05/10 completed RECORDED 11/08/19 09 9:14AM BY SIENA FLOWERS MD, MEDICATI ON AUTO-JACK CTIVATIO N; Not Available Not Available Not Available DAILY 08/15 completed RECORDED 08/15/19 14 1:07PM BY DENISE PEREZ I, ANNOTATI ON/ADDEN DUM; Not Available Not Available Not Available Humalog U-100 Insulin SLIDING SCALE active RECORDED 01/02/20 10 4:27PM BY LEIGHA HAGEN MA, WELL CHILD VISITS; Not Available Not Available Not Available fexofenad ine DAILY 12/09 completed RECORDED 12/10/19 11 1:12PM BY LEIGHA HAGEN MA, OFFICE VISIT; Not Available Not Available Not Available Triamcino lone Acetate TWO TIMES DAILY 10/09 completed RECORDED 10/10/19 13 4:17PM BY SHANNON PULIDO, OFFICE VISIT; Not Available Not Available Not Available Paradigm Insulin Pump NEEDED active RECORDED 08/15/19 14 1:08PM BY DENISE PEREZ I, OFFICE VISIT; Not Available Not Available Not Available butalbita l-acetami nophen-ca ffeine 50 mg-300 mg-40 mg capsule Take 1 capsule 4 times a day by oral route as needed for 5 days. active Not Available Not Available No t Available Judy 30 mg tablet 04/01 completed Not Available Not Available Not Available Contour Next EZ Meter Take 1 each 4 times a day by miscell. route. active Not Available Not Available No t Available PrePlus 27 mg iron-1 mg tablet 04/01 completed Not Available Not Available Not Available Xulane 150 mcg-35 mcg/24 hr transderm al patch active Not Available Not Available Not Available TriNessa Lo 0.18 mg/0.215 mg/0.25 mg-25 mcg tablet 03/21 completed Not Available Not Available Not Available Vitals Date Recorded Body height Body temperature Oxygen saturation Oxygen saturation in Arterial blood by Pulse oximetry Heart rate Body mass index (BMI) Body weight Systolic blood pressure Diastolic blood pressure Provider Name and Address Organization Details Last Updated DateTime 165.735 cm 97.6 [degF] 97 % 97 % 91 /min 18.3 kg/m2 96053.0 3 g 104 mm[Hg] 69 mm[Hg] Boy Perez [facility] 7 09:21:50 Date Recorded Body height Body mass index (BMI) Body weight Heart rate Oxygen saturation Oxygen saturation in Arterial blood by Pulse oximetry Body temperature Systolic blood pressure Diastolic blood pressure Provider Name and Address Organization Details Last Updated DateTime 165.735 cm 18.8 kg/m2 91288.5 3 g 74 /min 97 % 97 % 98.1 [degF] 116 mm[Hg] 74 mm[Hg] Denise Mora [facility] 7 15:58:40 Date Recorded Body height Body temperature Oxygen saturation Oxygen saturation in Arterial blood by Pulse oximetry Heart rate Body mass index (BMI) Body weight Systolic blood pressure Diastolic blood pressure Provider Name and Address Organization Details Last Updated DateTime 165.735 cm 98.8 [degF] 97 % 97 % 116 /min 19 kg/m2 20717.1 2 g 98 mm[Hg] 62 mm[Hg] Leigha de [facility] 7 10:42:00 Date Recorded Body height Body mass index (BMI) Body weight Body temperature Oxygen saturation Oxygen saturation in Arterial blood by Pulse oximetry Heart rate Systolic blood pressure Diastolic blood pressure Provider Name and Address Organization Details Last Updated DateTime 8 165.735 cm 19.6 kg/m2 47195.7 g 98.3 [degF] 100 % 100 % 80 /min 98 mm[Hg] 63 mm[Hg] Shannon Pulido MA [facility] [place] 8 09:14:17 Date Recorded Body height Provider Name an d Address Organization Details Last Updated DateTime 08/02/2017 165.735 cm Laya Braxton [facility] [place] 08/02/2017 10:02:11 Social History Question Answer Notes LastModified by Organizat ion Details LastModified Time Tobacco Smoking Status Never Smoker Not Available [facility] 05/26/2020 03:36:40 Do You Have An Advance Directive? No [id number] Information not available 05/26/2020 What Is Your Level Of Alcohol Consumption? None [id number] Information not available 05/26/2020 Is Blood Transfusion Acceptable In An Emergency? Yes [id number] Information not available 05/26/2020 What Is Your Level Of Caffeine Consumption? None [id number] Information not available 05/26/2020 How Much Tobacco Do You Chew? None [id number] Information not available 05/26/2020 Are You Currently Employed? Yes [id number] Information not available 05/26/2020 What Type Of Diet Are You Following? REGULAR [id number] Information not available 05/26/2020 Which Illicit Or Recreational Drugs Have You Used? 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 With Others Son Information not available 09/10/2014 Do You Take Precautions To Prevent Distracted Driving? Yes Information not available 09/24/2015 How Often Do You Need To Have Someone Help You When You Read Instructions, Pamphlets, Or Other Written Material From Your Doctor Or Pharmacy? Never Information not available 09/24/2015 Have You Served In The ? No [email or web address] Information not available 04/01/2016 What Was The Date Of Your Most Recent Tobacco Screening? 07/26/2017 [id number] Information not available 05/26/2020 How Many Children Do You Have? 1 Todd [id number] Information not available 05/26/2020 Do You Use Protection During Sex? No [id number] Information not available 05/26/2020 Seat Belts Used Routinely Yes Information not available 09/24/2015 Are You Sexually Active? Yes [id number] Information not available 05/26/2020 Smoke Alarm In Home Yes Information not available 04/07/2015 At What Age Did You Start Smoking Tobacco? 2 [id number] Information not available 05/26/2020 Are You Passively Exposed To Smoke? No Information not available 04/07/2015 How Much Tobacco Do You Smoke? No [id number] Information not available 05/26/2020 Do You Use Sunscreen Routinely? No [id number] Information not available 05/26/2020 How Many Years Have You Smoked Tobacco? 0 [id number] Information not available 05/26/2020 Sex: Unknown Functional Status Question Answer Note LastModified by Organization D etails LastModified Time Are you able to care for yourself? Yes [id number] Information n ot available 05/26/2020 What is your exercise level? None [id number] Information not available 05/26/2020 Mental Status None recorded. Family History Relationship Description Onset Age of this Age Resolved Age Notes LastModified by Organization Details LastModified Time Mother Migraine [email or web address] Not avail able 12/25/2015 10:48:47 Mother Irritable bowel syndrome [email or web address] Not available 09/2015 10:48:47 Mother Primary fibromyalgia syndrome [email or web address] Not available 09/2015 10:48:47 Medical History Condition Response Diabetes Y Gynecological History Statement/Question Response Date of Last Pap Smear 05/12/2017 Obstetrics History GPAL:G 0 P 0 0 0 0 Immunizations Vaccine Type Date Status Note Provider Nam e and Address Organization Details Recorded Time Hep B, adult 5 completed Not Available [facility] 08/10/2019 02:21:35 varicella 5 completed Not Available [facility] 08/10/2019 02:21:32 Hep B, adult 4 completed Not Available [facility] 08/24/2019 02:14:00 Tdap 4 completed Not Available [facility] 02/28/2014 09:41:55 varicella 4 completed Not Available [facility] 02/28/2014 09:41:55 Td (adult), 2 Lf tetanus toxoid, preservative free, adsorbed 5 completed Not Available [facility] 02/04/2014 13:24:14 Influenza, split virus, trivalent, preservative 8 completed Not Available [facility] 02/04/2014 13:24:14 HPV, quadrivalent 9 completed Not Available [facility] 02/04/2014 13:24:14 HPV, quadrivalent 9 completed Not Available [facility] 02/04/2014 13:24:14 HPV, quadrivalent 9 completed Not Available [facility] 02/04/2014 13:24:14 Influenza, split virus, trivalent, preservative 1 completed Not Available [facility] 02/04/2014 13:24:14 influenza, seasonal, intradermal, preservative free 2 completed Not Available [facility] 02/04/2014 13:24:14 Influenza, split virus, quadrivalent, PF 4 completed Not Available [facility] 02/04/2014 13:24:14 Hep B, adult 4 completed Not Available [facility] 08/10/2019 02:21:35 Influenza, split virus, quadrivalent, PF 7 completed Not Available [facility] 08/10/2019 02:22:10 Past Encounters Encounter ID Performer Location Encounter Start Date Encounter Closed Date Diagnosis/Indication Diagnosis SNOMED-CT Code Diagnosis ICD10 Code Diagnosis Note [id number] Denise Mora Main Office [address] [place] [address] 02/26/2014 14:30:48 02/26/2014 15:01:37 Ganglion cyst 569428026 Lichenific ation of skin 405177515 [id number] autoEComm erce [address] [facility] [place] [address] 10/25/2007 00:00:00 [id number] [address] [place] [address] 12/04/2007 00:00:00 [id number] auto[employer]Comm erce [address] [facility] [address] [place] [address] 04/10/2008 00:00:00 [id number] autoEComm erce [address] [facility] [place] [address] 11/11/2008 00:00:00 [id number] autoEComm erce [address] [facility] [address] [place] [address] 12/22/2008 00:00:00 [id number] autoEComm erce [address] [facility] [place] [address] 02/25/2009 00:00:00 [id number] autoEComm erce [address] [facility] [place] [address] 01/01/2010 00:00:00 [id number] autoEComm erce [address] [facility] [place] [address] 04/22/2010 00:00:00 [id number] autoEComm erce [address] [facility] [place] [address] 09/16/2010 00:00:00 [id number] autoEComm erce [address] [facility] [place] [address] 12/09/2010 00:00:00 [id number] autoEComm erce [address] [facility] [place] [address] 01/12/2011 00:00:00 [id number] autoEComm erce [address] [facility] [place] [address] 04/13/2011 00:00:00 [id number] autoEComm erce [address] [facility],[address] [address] [place] [address] 06/15/2011 00:00:00 [id number] [employer] [address] [place],[address] [place] [address] 07/19/2011 00:00:00 [id number] [address] [address] [place] [address] 01/18/2012 00:00:00 [id number] [address] [address] [place] [address] 02/21/2012 00:00:00 [id number] [employer] [address] [place],[address] [place] [address] 04/18/2012 00:00:00 [id number] [address] [address] [place] [address] 07/05/2012 00:00:00 [id number] [employer] erce [address] [facility],[address] [place] [address] 10/09/2012 00:00:00 [id number] auto[employer] erce [address] [facility],[address] [place] [address] 08/15/2013 00:00:00 [id number] Main Office [address] [facility] [address] [place], [place] [address] 03/07/2014 08:52:54 03/07/2014 12:17:28 Requires course of hepatitis B vaccination [id number] Denise Mora Main Office [address] [facility] [address] [place], [place] [address] 07/28/2014 12:45:00 07/28/2014 13:12:56 Migraine 66148093 Her migraines occur 2-4 times per week so she has agreed to trying prophylaxi s. We will start with Depakote since a beta antonio may drop her BP which is already at a systolic below 110 and topomax may decrease her appetite and her BMI is already below 17. [id number] Denise Mora Main Office [address] [facility] [address] [place] [address] 09/10/2014 15:31:05 09/10/2014 16:11:30 Adult health examination [id number] Requires c ourse of hepatitis B vaccination [id number] Migraine 36252391 Her migraines occur 2-4 times per week so she has agreed to trying prophylaxi s. We will start with Depakote since a beta antonio may drop her BP which is already at a systolic below 110 and topomax may decrease her appetite and her BMI is already below 17. Type 1 marilia betes mellitus [id number] Siena Flores MD Main Office [address] [address] [place] [address] 09/12/2014 11:25:08 09/12/2014 11:40:26 Varicella vaccination 73851120 [id number] Denise Yaolianne Main Office [address] [address] [place] [address] 09/16/2014 10:13:32 09/16/2014 10:33:46 Hordeolum [id number] Please apply warm compresses to area x 15 minutes 4-5 times daily- (use a wash clot with hot water and hold to area, apply fresh hot water as needed x 15 minutes. Polytrim every 6 hours as directed. Should you develop worsening swelling, redness, fever, discharge, vision changes please return. [id number] Main Office [address] [address] [place] [address] 03/10/2015 09:06:03 03/10/2015 09:58:00 Type 1 diabetes mellitus 19447982 followed at [facility] and has a pump in place. A1C's have been running high. Shoulder pain 25625626 [id number] Alden Adams MD Main Office [address] [address] [place] [address] 04/07/2015 13:18:08 04/07/2015 13:58:55 [facility] [id number] Siena Flores MD Main Office [address] [address] [place] [address] 07/09/2015 14:20:17 07/09/2015 15:04:29 Type 2 diabetes mellitus 15869595 E11.9 Fingerstic k A1C 8.7%, improved from the last one in february which was 11.3, she sees Dr. Martin next month. She will f.u at that appt, watch her diet- carbs and high sugar food intake, she will contact her opthalmolo gist re: blurred vision. Will check CBC, TSH and vitamin D as well. Fatigue 70739456 R53.83 [id number] Siena Flores MD Main Office [address] [address] [place] [address] 09/24/2015 14:35:59 09/24/2015 15:25:57 Adult health examination 335208024 Z00.00 Screening for malignant neoplasm of cervix 751444419 Z12.4 Type 1 marilia betes mellitus 31762471 E10.9 followed at [facility] and has a pump in place. A1C's have been running high. [id number] Alden Adams MD Main Office [address] [address] [place] [address] 12/25/2015 10:43:16 12/25/2015 11:43:08 Upper chest pain 661543459 R07.82 Musculoske letal L. chest pain. Pt. reassured. Advised to do warm compress TID 5-10 minutes, avoid lifting or excessive exercise and take ADvil 200 mg 3 po TID with food for 5 days. F/u PRN. [id number] Estellafilemon Rouse Main Office [address] [address] [place] [address] 02/25/2016 09:57:00 02/25/2016 10:35:59 Amenorrhea 81760790 N91.2 Normal 1645597 2 Z34.91 [id number] Siena Flores MD Main Office [address] [address] [place] [address] 04/01/2016 09:56:40 04/01/2016 10:46:22 Type 1 diabetes mellitus 65830727 E10.9 followed at [facility] and has a pump in place. A1C's have been running high. Migraine 99736414 G43.90 9 Her migraines occur 2-4 times per week so she has agreed to trying prophylaxi s. We will start with Depakote since a beta antonio may drop her BP which is already at a systolic below 110 and topomax may decrease her appetite and her BMI is already below 17. Gastroesop hageal reflux disease 362177992 K21.9 [id number] Siena Flores MD Main Office [address] [address] [place] [address] 06/22/2016 10:42:11 06/22/2016 11:32:23 Postcoital bleeding 27565023 N93.0 Cultures were sent and test was negative. We will make a [facility] appointmen t for her for further evaluation . Sampling o f vagina for Papanicolaou smear 703987649 Z01.419 [id number] Edgar arriaga Main Office [address] [address] [place] [address] 07/22/2016 13:21:30 07/22/2016 14:29:10 Lateral epicondylitis 515377629 M77.11 Tendinitis of wrist 4238 86305 M77.8 ice, compressio n , ortho referral for wrist injection. [id number] Siena Flores MD Main Office [address] [address] [place] [address] 08/25/2016 08:49:25 08/25/2016 09:45:11 Cellulitis 482481580 L03.011 Paronychia of finger 444 477692 L03.019 [id number] Siena Flores MD Main Office [address] [address] [place] [address] 09/02/2016 09:11:28 09/02/2016 09:51:55 Type 1 diabetes mellitus 57121266 E10.9 followed at [facility] and has a pump in place. A1C's have been running high. Physically able to work 5280173652 12730 Z78.9 Evaluation done to clear her to work. She first must see [facility] because of her type 1 diabetes. [id number] Alden Adams MD Main Office [address] [address] [place] [address] 09/05/2016 13:53:15 09/05/2016 15:22:56 Eruption 101007207 R21 unknown etiology, but doubt anaphylaxi s as was seen in ER last night, and doubt SE of keflex as has been off it x few days - will change benadryl to zyrtec and add pred. pulse [id number] Siena Flores MD Main Office [address] [address] [place] [address] 11/11/2016 09:35:54 11/11/2016 09:51:05 Contraception care management 107993661 Z30.9 [id number] Siena Flores MD Main Office [address] [address] [place] [address] 02/13/2017 09:45:48 02/13/2017 10:14:39 Contraception care management 593339055 Z30.9 [id number] Gwen James Main Office [address] [address] [place] [address] 03/21/2017 11:21:23 03/21/2017 12:11:55 Needs influenza immunization 692929281 Z23 Pain in lower limb 80623 006 M79.661 M79.662 Unclear etiology. Will check labs and do a trial of naprosyn and see her back in 2 weeks. If the pain persists we will do a referral at that time. [id number] Siena Flores MD Main Office [address] [address] [place] [address] 04/12/2017 11:29:30 04/12/2017 12:06:13 Diabetic peripheral neuropathy 013601819 E11.40 We discussed improving her diabetes control as well and she is followed by [facility] endo. [id number] Siena Flores MD Main Office [address] [address] [place] [address] 04/26/2017 08:56:03 04/26/2017 10:43:46 Adult health examination 780546923 Z00.00 pt utd c a1c and lipids Irregular periods 530596 07 N92.6 despite use of depo q 3 months - will arrange for diver's tender exam Vitamin D deficiency 347 85121 E55.9 recheck level Type 1 marilia betes mellitus 27412874 E10.9 cont meds as dir - cont f/u c [facility] endo - next is 11 - they check a1c q 6 months Diabetic p eripheral neuropathy 920870660 E11.40 encouraged her to increase to 3 pills nightly of elavil since no sig response to 2 tabs nightly - f/u c pcp next month Anemia 807248950 D64.9 h/o anemia - will check iron studies too Loss of te eth due to extraction 85431999 K08.409 had 3 wisdom teeth extracted last week - finished prednisone and advised to finish amox as dir as well as add probiotic supplement daily - next f/u next Monday [id number] Siena Flores MD Main Office [address] [place] [address] 05/04/2017 09:13:57 05/04/2017 09:49:28 Menorrhagia 165194242 N92.0 On depo, negative. Will refer to [facility] for further eval. HPV - Erendira n papillomavirus test positive 115611551 R87.619 Had pap but has not had follow-up. Will refer to [facility] Atypical s quamous cells of undetermined significance on cervical Papanicolaou smear 400460396 R87.610 Anemia 336756187 D64.9 Mildly anemic with normal iron and mildly low % sat. Suspect due to menorrhagi a. instructed to eat more iron rich foods- green leafy veggies, red meat. [facility] 951140888 Z30.42 To get depo today. [id number] Siena Flores MD Main Office [address] [place] [address] 05/19/2017 15:52:01 05/19/2017 16:17:10 Type 1 diabetes mellitus 17337537 E10.9 followed at [facility] and has a pump in place. A1C's have been running high. Diabetic p eripheral neuropathy 466159349 E11.40 Tried amitriptyl ine which did not help. [id number] Siena Flores MD Main Office [address] [address] 06/14/2017 10:27:23 06/14/2017 11:27:36 Type 1 diabetes mellitus 85682250 E10.9 cont meds, f/u c endo Diabetic p eripheral neuropathy 208328150 E11.40 no better c elavil, no tolerate duloxetine - will give trial of gabapentin Lumbar radiculopathy 128 739067 M54.16 [id number] Siena Flores MD Main Office [address] [address] 07/26/2017 08:56:34 07/26/2017 09:58:26 Idiopathic peripheral neuropathy 77854455 G60.9 per neur persists, doubt diabetic per neur from last endo note - all labs and xrays nl so far - will get neuro evaluation -- pt does have + FH MS in maternal cousin meanwhile - cont lyrica as best you can - if SE unbearable , then stop Type 1 marilia betes mellitus 15561476 E10.9 cont meds, f/u c endo [id number] Denise Mora Main Office [address] [facility] [address] [facility] [place] [address] 08/02/2017 09:23:28 08/02/2017 10:31:40 Contraception care management 949666557 Z30.42 Health Concerns Section Related Observation LastModified by Organization Detai ls LastModified Time None Recorded Concern Status LastModified by Organization Details LastModified Time None Recorded Advance Directives Directive N: Payers Encounter Date Sequence Insurance Name Policy Number Policy Schulte Covered Member ID Schulte Member ID Guarantor Name 05/04/2017 1 [facility] - MEDICAID ESSENTIAL (MEDICAID HMO) [id number] Gris Vega [id number] Gris Vega 05/04/2017 1 [place] Gris Vega [id number] Gris Vega 05/19/2017 1 [facility] - MEDICAID ESSENTIAL (MEDICAID HMO) [id number] Gris Vega [id number] Gris Vega 05/19/2017 1 [place] Gris Vega [id number] Gris Vega 06/14/2017 1 [facility] - MEDICAID ESSENTIAL (MEDICAID HMO) [id number] Gris Vega [id number] Gris Vega 06/14/2017 1 [place] Gris Vega [id number] Gris Vega 07/26/2017 1 [facility] - MEDICAID ESSENTIAL (MEDICAID HMO) [id number] Gris Vega [id number] Gris Vega 07/26/2017 1 [place] Gris Vega [id number] Gris Vega 08/02/2017 1 [facility] - MEDICAID ESSENTIAL (MEDICAID HMO) [id number] Grismarlene Vega [id number] Gris Vega 08/02/2017 1 [place] [facility] Gris Vega [id number] Gris Vega Notes Date Note Type Note Provider Name and Address Organization Details Recorded Time 05/04/2017 text/html Generic HPI TemplateReported bypatient.Notes:Dionisio gaytan presents c/o intermenstrual bleeding since march. Comes randomly, has been going on daily since march. She has been on depo x almost 1 year and does not usually have a period- not even spotting. She did not miss any depo doses. No increased stress recently. She does use condoms but not consistent. She does not believe there is any chance she could be . She presented for an urgent visit 06/22/2016 for post coital bleeding and a pap smear was done at that time- that was her first pap. She tested positive for BV and was treated appropriately Siena Flores MD [address], [address], [facility] 05/04/2017 11:50:48 05/19/2017 text/html She was started on amitriptyline 10 mg daily and increased this dose to a total of 40 mg daily for peripheral neuropathy but she stopped it because it was not giving any relief. She continues to have pain in her legs. 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 Siena Flores MD [address] [facility] [address], [place], [address], [facility] 05/20/2017 14:17:38 06/14/2017 text/html rev. recent note s - c/o B LE >> B UE tingling, numbness, and pain x several months now. tried increasing elavil - no help, then tried duloxetine - had SE - stopped -- now on no meds for this rev. endo consult 11.1 - doubt per neur but rec check tsh and B-12 c/o int lbp x 2 months as well, no b/b dysfxn Siena Flores MD [address] [facility] [address], [place], [address], [facility] 06/14/2017 12:41:32 07/26/2017 text/html here for f/u per . neur no better c elavil, no tolerate duloxetine and gabapentin, and then changed to lyrica ~ 3 wks ago - pt states could not tolerate 50mg 3x/day d/t gi SE, but can handle BID - however, only feels minimally better had lumbar xray - rev c pt - she did not go to PT, but low back pain is better primarily c/o B thigh to feet or even vice versa -- tingling, swelling, pain seen by endo - does not feel is diabetic per neur rev xray and recent labs that endo asked us to check - all normal no b/b dysfxn + FH MS - maternal cousin Siena Flores MD [address] [facility] [address], [place], [address], [facility] [place] 07/26/2017 09:58:50 OBGyn Episode No OBEpisode recorded.
== END 2024-09-13 13:56 | disposition home or self-care (01) ==
PROVIDERS: Visit Provider Nurse Practitioner Family
DX: R20.2 Paresthesia of skin (principal); M79.601 Pain in right arm; M79.602 Pain in left arm; G43.109 Migraine with aura, not intractable, without status migrainosus; M79.2 Neuralgia and neuritis, unspecified; G25.81 Restless legs syndrome; E55.9 Vitamin D deficiency, unspecified; D64.9 Anemia, unspecified
CPT/HCPCS: 99214

== ENCOUNTER → 2024-09-13 13:21 | Outpatient (BNVA) | payer MEDICAID, SELFPAY | PROVIDERS: Visit Provider Nurse Practitioner Family | DX: G43.109 Migraine with aura, not intractable, without status migrainosus (principal); R20.2 Paresthesia of skin; M79.601 Pain in right arm; M79.602 Pain in left arm; M79.2 Neuralgia and neuritis, unspecified; G25.81 Restless legs syndrome; E55.9 Vitamin D deficiency, unspecified; D64.9 Anemia, unspecified | CPT/HCPCS: 99212 ==

== ENCOUNTER 2024-09-18 09:15 | Outpatient (REF) | payer MEDICAID, SELFPAY ==
--- OUTSIDE RECORDS SUMMARY | 2024-09-18 10:22 | XMS_ITS | Data Portability ---
Author Organization [facility], Main Office Address [address] [facility] [address] [place] [address] Care Team Providers Care Front End Driver Name Role Phone SIENA FLORES Primary Care Provider OMAR GARDINER Lead Engineer SULEMAN LEIGH Photo Finisher SILVINO SARMIENTO Counsel Assessment No assessment recorded. Plan of Treatment Reminders Order Date Submit Date Provider Last Modified By Organization Details Last Modified Time Details Appointments None record ed. Lab pregna ncy test, urine 2017 018 [email or web address] In-Office Order, Internal Use Only DO Not Attach Compendium DO Not Attach Compendium, Do Not Delete/merge, [id number] 8 11:45:04 TSH, serum or plasma 2016 017 OSMAN [facility], [address], [address], [place], [address], 7 17:59:13 vitami n B12, serum 2016 017 OSMAN [facility], [address], [address], [place], [address], 7 18:11:00 pregna ncy test, urine 2016 017 OSMAN In-Office Order, Internal Use Only DO Not Attach Compendium DO Not Attach Compendium, Do Not Delete/merge, [id number] 7 09:50:38 Referral neurol ogist referr al 2017 018 andrez Thornton MD, [address] [place] [address] , [address], [place], [address], 8 13:35:00 physic al therap ist referr [...] have a period . 2016 017 [email or web address] [facility], [address] [place], [address], 7 09:49:29 Procedures None record ed. Surgeries None record ed. Imaging XR, lumbos acral spine 2016 017 [facility], [address] [place], [address], 7 12:31:15 Medication Orders medrox yproge steron e 150 mg/mL intram uscula r suspen jeovany 2017 018 [email or web address] Not available 8 11:45:04 gabape ntin 300 mg capsul e 2016 017 [email or web address] [id number], [address], [place], [id number], 8 09:14:28 duloxe florentin 60 mg capsul e,meek yed releas e 2016 017 [email or web address] [facility] #[id number], [address], [place], [phone], 7 10:37:05 medrox yproge steron e 150 mg/mL intram uscula r suspen jeovany 2016 017 [email or web address] Not available 09:53:47 Patient TargetsNo targets recorded. Patient Instructions Encounter Date Encounter Id Patient Instructions Last Modified By Organization Details Last Modified Time 05/04/2017 [id number] Call or return for worsening or concerns. [email or web address] Not available 05/04/2017 09:48:46 I have reviewed the note and agree with the assessment and plan of care. [email or web address] Not available 05/04/2017 11:50:32 05/19/2017 [id number] learning about type 1 diabetes Not available [...] medication. [email or web address] Not available 05/20/2017 14:17:16 06/14/2017 [id number] back pain: care instructions [email or web address] Not available [...] care. [email or web address] Not available 06/14/2017 12:41:25 07/26/2017 [id number] I have reviewed the note and agree with the assessment and plan of care. 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 Referral for HP V - Human papillomavirus [...] Abnormal Flag Note LastModifiedBy Organization Detail LastModifiedTime 05/04/2005/04/2017 pregn kalyan test, urine HCG negati ve Not Available In-Office Order Internal Use Only DO Not Attach Compendium DO Not Attach Compendium, Do Not Delete/merge, [id number] 05/04/2017 09:43:40 04/26/2004/26/2017 CBC w/ auto diff WBC 8.1 K/mm3 (4.0-1 1.0) Not Available [facility] (Centralized Electronic Ordering - All Locations) Patient Can Go To The Location Of Their Choice, [id number] 04/26/2017 14:34:25 04/26/2004/26/2017 CBC w/ auto diff RBC 4.10 M/mm3 (4.20- 5.40) low Not Available [facility] (Centralized Electronic Ordering - All Locations) Patient Can Go To The Location Of Their Choice, [id number] 04/26/2017 14:34:25 04/26/2004/26/2017 CBC w/ auto diff HGB 11.5 gm/dL (12.0- 16.0) low Not Available [facility] (Centralized Electronic Ordering - All Locations) Patient Can Go To The Location Of Their Choice, [id number] 04/26/2017 14:34:25 04/26/20 17 04/26/2017 CBC w/ auto diff HCT 36.1 % (37.0- 47.0) low Not Available [facility] (Centralized Electronic Ordering - All Locations) Patient Can Go To The Location Of Their Choice, [id number] 04/26/2017 14:34:25 04/26/2004/26/2017 CBC w/ auto diff MCV 88.0 fL (80.0- 100.0) Not Available [facility] (Centralized Electronic Ordering - All Locations) Patient Can Go To The Location Of Their Choice, 04/26/2017 14:34:25 04/26/20 17 04/26/2017 CBC w/ auto diff MCH 28.0 pg (27.0- 34.0) Not Available [facility] (Centralized Electronic Ordering - All Locations) Patient Can Go To The Location Of Their Choice, 04/26/2017 14:34:25 04/26/20 17 04/26/2017 CBC w/ auto diff MCHC 31.9 g/dL (33.0- 37.0) low Not Available [facility] (Centralized Electronic Ordering - All Locations) Patient Can Go To The Location Of Their Choice, 04/26/2017 14:34:25 04/26/20 17 04/26/2017 CBC w/ auto diff plt 255 K/mm3 (150-4 60) Not Available [facility] (Centralized Electronic Ordering - All Locations) Patient Can Go To The Location Of Their Choice, 04/26/2017 14:34:25 04/26/2004/26/2017 CBC w/ auto diff RDW-SD 41.3 fL (<47.0 ) Not Available [facility] (Centralized Electronic Ordering - All Locations) Patient Can Go To The Location Of Their Choice, 04/26/2017 14:34:25 04/26/2004/26/2017 CBC w/ auto diff MPV 10.7 fL (9.4-1 2.4) Not Available [facility] (Centralized Electronic Ordering - All Locations) Patient Can Go To The Location Of Their Choice, 04/26/2017 14:34:25 04/26/2004/26/2017 CBC w/ auto diff automated NRBC 0.0 #/100 _WBC' s Not Available [facility] (Centralized Electronic Ordering - All Locations) Patient Can Go To The Location Of Their Choice, 04/26/2017 14:34:25 04/26/2004/26/2017 CBC w/ auto diff abs. NRBC 0.0 K/mm3 Not Available [facility] (Centralized Electronic Ordering - All Locations) Patient Can Go To The Location Of Their Choice, 04/26/2017 14:34:25 04/26/20 17 04/26/2017 iron + total iron- yulissa ng capac ity (TIBC ), serum iron 37 mcg/d L (30-16 0) Not Available [facility] (Centralized Electronic Ordering - All Locations) Patient Can Go To The Location Of Their Choice, 04/26/2017 16:33:52 04/26/20 17 04/26/2017 iron + total iron- yulissa ng capac ity (TIBC ), serum unsaturated iron binding capac 266 mcg/d L (110-3 70) Not Available [facility] (Centralized Electronic Ordering - All Locations) Patient Can Go To The Location Of Their Choice, 04/26/2017 16:33:52 04/26/20 17 04/26/2017 iron + total iron- yulissa ng capac ity (TIBC ), serum est T. iron bind capacity 303 mcg/d L (140-5 30) Not Available [facility] (Centralized Electronic Ordering - All Locations) Patient Can Go To The Location Of Their Choice, 04/26/2017 16:33:52 04/26/20 17 04/26/2017 iron + total iron- yulissa ng capac ity (TIBC ), serum % iron saturation 12 % (20-55 ) low Not Available [facility] (Centralized Electronic Ordering - All Locations) Patient Can Go To The Location Of Their Choice, 04/26/2017 16:33:52 04/26/20 17 04/26/2017 beni tin, serum or plasm a ferritin 31 NG/mL (14-28 3) Not Available [facility] (Centralized Electronic Ordering - All Locations) Patient Can Go To The Location Of Their Choice, 04/26/2017 16:42:17 04/26/20 17 04/27/2017 vitam in D, 25-hy droxy , total , serum 25OH vitamin D 22.2 NG/mL (20-50 ) SERUM 25OHD : 20 TO 50 NG/ML : SUFFI CIENT IN VITAM IN D. Refer ence: [facility] Data Brief : No.59 September: Vitam in D Statu s: Unite [place] s: 2000- 2005 Not Available [facility] (Centralized Electronic Ordering - All Locations) Patient Can Go To The Location Of Their Choice, [id number] 04/27/2017 06:28:47 06/14/20 17 06/14/2017 TSH, serum or plasm a TSH 1.49 mIU/m L (0.40- 4.00) Not Available [facility] (Centralized Electronic Ordering - All Locations) Patient Can Go To The Location Of Their Choice, [id number] 06/14/2017 17:59:12 06/14/20 17 06/14/2017 vitam in B12, serum vitamin B12 270 pg/mL (170-8 70) Not Available [facility] (Centralized Electronic Ordering - All Locations) Patient Can Go To The Location Of Their Choice, [id number] 06/14/2017 18:11:00 08/02/19 18 08/02/2017 pregn kalyan test, urine HCG negati ve Not Available In-Office Order Internal Use Only DO Not Attach Compendium DO Not Attach Compendium, Do Not Delete/merge, [id number] 08/02/2017 10:13:52 06/14/20 17 06/14/2017 XR, lumba [...] IMPRES JEOVANY: No acute abnorm ality. WSN: [id number] Dictat ed By: Elvis Salgado MD Dictat ed Date/T luis: 12:28 p Review ed By: Elvis Salgado MD Signed By: Elvis Salgado MD Signed Date/T luis: 12:28 pm Transc ribed By: DARSHAN Transc ribed Date/T luis: 12:28 pm Patien t Class: Outpat ient [facility] (Outpt Imaging) [address] [place], [address], 06/14/2017 22:02:42 Result Notes None recorded. Problems Name Problem SNOMED Code Status Onset Date Resolution Date Notes Provider Name and Address Organization Details Recorded Time Radiolog y result abnormal [id number] Completed 201202/11/2014 RECORDED 03/14/20 13 9:57AM BY ANTOINE ROBLERO MA, SIGRIDATI ON/ADDEN DUM [facility] [place] [employer] [address], [place], [address], [facility] 6 11:47:54 Amenorrh ea 75580873 Completed 201202/11/2014 IMPRESSI ON: DUE TO PREGNANC Y; RECORDED 01/30/20 13 10:36AM BY LEIGHA HAGEN MA, ANNOTMARAH ON/ADDEN DUM [facility] [place] [employer] [address], [place], [address], [facility] 6 11:47:54 Allergic rhinitis 56463780 Active Dona Howell PA-C [address], [place], [address], [facility] 6 11:47:54 Chest pain 42082512 Completed 200802/11/2014 RECORDED 02/26/20 09 10:33AM BY MAGDIEL POWER ON/ADDEN DUM [facility] [place] [employer] [address], [place], [address], [facility] 6 11:47:54 Breathin g painful [id number] Completed 201202/11/2014 IMPRESSI ON: HER CHEST PAIN IS MUSCULOS KELETAL AND PROBABLY COSTOCHO NDRITIS; RECORDED 01/30/20 13 10:36AM BY LEIGHA HAGEN MA, ANNOTMARAH ON/ADDEN DUM [facility] [place] [employer] [address], [place], [address], [facility] 6 11:47:54 Contact dermatit is [id number] Completed 201102/11/2014 RECORDED 02/21/20 12 9:30AM BY JAK COLEMAN MA, ANNOTATI ON/ADDEN DUM Dona Howell PA-C [address], [place], [address], [facility] 6 11:47:54 Dizzines s and giddines s 990818948 Completed 201202/11/2014 RECORDED 01/30/20 13 10:36AM BY LEIGHA HAGEN MA, ANNOTATI ON/ADDEN DUM Dona Howell PA-C [address], [place], [address], [facility] 6 11:47:54 Type 1 diabetes mellitus [id number] Active Dona Howell PA-C [address], [place], [address], [facility] 6 11:47:54 Impacted cerumen 60086850 Completed 201102/11/2014 IMPRESSI ON: BILAT. NORMAL POST LAVAGE EXAM.; RECORDED 02/21/20 12 9:30AM BY JAK COLEMAN MA, ANNOTATI ON/ADDEN DUM Dona Howell PA-C [address], [place], [address], [facility] 6 11:47:54 Influenz a vaccine needed [id number] 06 Completed 201302/11/2014 RECORDED 08/15/19 14 1:43PM BY SIENA FLOWERS MD, ANNOTATI ON/ADDEN DUM Dona Howell PA-C [address], [place], [address], [facility] 6 11:47:54 Follow-u p encounte r Completed 201102/11/2014 RECORDED 02/21/20 12 9:30AM BY JAK COLEMAN MA, ANNOTATI ON/ADDEN DUM Dona Howell PA-C [address], [place], [address], [facility] 6 11:47:55 Adult health examinat ion Completed 201307/28/2014 RECORDED 08/15/19 14 12:58PM BY DENISE PEREZ I, OFFICE VISIT Dona [facility] [address], [place], [address], [facility] 6 11:47:55 Pruritic disorder [id number] Completed 201102/11/2014 RECORDED 02/21/20 12 9:30AM BY JAK COLEMAN MA, ANNOTATI ON/ADDEN DUM Dona [facility] [address], [place], [address], [facility] 6 11:47:54 Gastroes ophageal reflux disease 741658516 Active Dona [facility] [address] [facility] [address], [place], [address], [facility] 6 11:47:54 Laborato ry procedur e performe d 589796976 Completed 201302/11/2014 RECORDED 08/15/19 14 12:55PM BY DENISE PEREZ I, ANNOTATI ON/ADDEN DUM [facility] [address] [facility] [address], [place], [address], [facility] 6 11:47:55 Migraine 74017122 Active Dona [facility] [address], [place], [address], [facility] 6 11:47:54 Administ ration of viral vaccine Completed 200802/11/2014 DATE: 02/26/20 09; RECORDED 02/21/20 12 9:30AM BY JAK COLEMAN MA, ANNOTATI ON/ADDEN DUM Dona [facility] [address] [facility] [address], [place], [address], [facility] 6 11:47:54 Patient status finding [id number] Completed 201307/28/2014 RECORDED 08/15/19 14 12:58PM BY DENISE PEREZ I, OFFICE VISIT Dona Howell PA-C [address] [facility] [address], [place], [address], [facility] 6 11:47:54 Onychomy cosis due to dermatop hyte 013294418 Active Dona Howell PA-C [address] [facility] [address], [place], [address], [facility] 6 11:47:54 Onychia of toe 271714453 Completed 201102/11/2014 IMPRESSI ON: CHRONIC AND RECURRIN [...] ANNOTATI ON/ADDEN DUM Dona Howell PA-C [address] [facility] [address], [place], [address], [facility] 6 11:47:54 Paronych ia of toe 500344508 Active oDna Howell PA-C [address] [facility] [address], [place], [address], [facility] 6 11:47:54 Primigra mohan 332657690 Completed 201202/11/2014 IMPRESSI ON: THIS WAS UNEXPECT [...] [address], [place], [address], [facility] 6 11:47:55 Eruption 631101445 Completed 201102/11/2014 IMPRESSI ON: ETIOLOGY UNCLEAR, NO NEW EXPOSURE THAT SHE IS AWARE OF BUT DID HAVE RECENT TRAVEL TO [place]. LITTLE IMPROVEM ENT WITH TOPICAL CS AND PO ANTIHIST AMINES. AVOID PO PRED D/T DMT1 FOR NOW. GIVEN THAT ITCHING WORSE AT NIGHT, ONGOING NATURE WILL TX WITH PERMETHR IN X 1 BEFORE SEEING DERM. APPT WITH SPEC CURRENTL Y SCHED FOR MAR, WE WILL TRY TO EXPEDITE FOR HER.; RECORDED 07/05/20 12 3:17PM BY MAGDIEL YOUNG ON/JOSE DUM Dona [facility] [address], [place], [address], [facility] 6 11:47:54 Adult health examinat ion Completed 201102/11/2014 RECORDED 02/21/20 12 9:30AM BY JAK COLEMAN MA, MAGDIEL ON/JOSE BAINC [address] [facility] [address], [place], [address], [facility] 6 11:47:55 Well child [id number] Completed 201102/11/2014 RECORDED 02/21/20 12 9:30AM BY JAK COLEMAN MA, ANNOTATI ON/JOSE BAINC [address] [facility] [address], [place], [address], [facility] 6 11:47:55 Administ ration of diphther ia, pertussi s, and tetanus vaccine Completed 201307/28/2014 RECORDED 08/15/19 14 1:44PM BY SIENA FLOWERS MD, ANNOTATI ON/ADDEN DUM Dona Howell PA-C [address], [place], [address], [facility] 6 11:47:54 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 Completed 200802/11/2014 RECORDED 02/26/20 09 10:32AM BY TRAMAINE TRAN, ANNOTATI ON/ADDEN DUM Dona Howell PA-C [address], [place], [address], [facility] 6 11:47:54 Tinea pedis 4309045 Completed 201102/11/2014 RECORDED 02/21/20 12 9:30AM BY JAK COLEMAN MA, ANNOTATI ON/ADDEN DUM Dona Howell PA-C [address] [facility] [address], [place], [address], [facility] 6 11:47:54 Type 1 diabetes mellitus [id number] Completed 201202/11/2014 RECORDED 10/10/19 13 4:13PM BY SHANNON PULIDO, SIGRIDATI ON/ADDEN DUM Dona Howell PA-C [address] [facility] [address], [place], [address], [facility] 6 11:47:54 Urticari a [id number] Completed 201102/11/2014 STORY: MADE SEVERAL ATTEMPT TO REACH MOM WITH NO RETURN CALLS; RECORDED 02/21/20 12 9:30AM BY JAK COLEMAN MA, ANNOTATI ON/ADDEN DUM Dona Howell PA-C [address] [facility] [address], [place], [address], [facility] 6 11:47:54 Leukorrh ea 318388810 Completed 201202/11/2014 RECORDED 01/30/20 13 10:36AM BY LEIGHA HAGEN MA, SIGRIDATI ON/ADDEN DUM Dona Howell PA-C [address], [place], [address], [facility] 6 11:47:54 Viral disease 14225737 Completed 201102/11/2014 IMPRESSI ON: IN HOUSE STREP NEG, SEND OUT PENDING. LUNGS CTA. SUSPECT VIRAL ETIOLOGY . ENCOURAG ED CONTINUE D PRN USE OF TYLENOL/ MOTRIN, REST, AND FLUIDS. F/U PRN IF SXS WORSEN OR FAIL TO IMPROVE. ; RECORDED 02/21/20 12 9:30AM BY JAK COLEMAN MA, MAGDIEL ON/ADDEN DUM Dona Howell PA-C [address], [place], [address], [facility] 6 11:47:54 Candidal vulvovag initis 26426529 Active M[facility] [address], [place], [address], [facility] 6 11:47:54 Ganglion cyst 915956868 Active [facility] [address], [place], [address], [facility] 6 11:47:54 Lichenif ication of skin 170936212 Active [facility] [address], [place], [address], [facility] 6 11:47:54 Radiolog y result abnormal 506478149 Completed 201203/03/2014 RECORDED 03/14/20 13 9:57AM BY ANTOINE ROBLERO MA, MAGDIEL ON/ADDEN DUM Dona Howell PA-C [address], [place], [address], [facility] 6 11:47:54 Amenorrh ea 43224854 Completed 201203/03/2014 IMPRESSI ON: DUE TO PREGNANC Y; RECORDED 01/30/20 13 10:36AM BY LEIGHA HAGEN MA, ANNOTATI ON/ADDEN DUM Dona Howell PA-C [address], [place], [address], [facility] 6 11:47:54 Chest pain 10677363 Completed 200803/03/2014 RECORDED 02/26/20 09 10:33AM BY TRAMAINE TRAN, ANNOTATI ON/ADDEN DUM Dona Howell PA-C [address], [place], [address], [facility] 6 11:47:54 Breathin g painful 06010120 Completed 201203/03/2014 IMPRESSI ON: HER CHEST PAIN IS MUSCULOS KELETAL AND PROBABLY COSTOCHO NDRITIS; RECORDED 01/30/20 13 10:36AM BY LEIGHA HAGEN MA, ANNOTATI ON/ADDEN DUM Dona Howell PA-C [address], [place], [address], [facility] 6 11:47:54 Contact dermatit is [id number] Completed 201103/03/2014 RECORDED 02/21/20 12 9:30AM BY JAK COLEMAN MA, ANNOTATI ON/ADDEN DUM Dona Howell PA-C [address] [facility] [address], [place], [address], [facility] 6 11:47:54 Dizzines s and giddines s 129581224 Completed 201203/03/2014 RECORDED 01/30/20 13 10:36AM BY LEIGHA HAGEN MA, ANNOTATI ON/ADDEN DUM Dona Howell PA-C [address], [place], [address], [facility] 6 11:47:54 Impacted cerumen 10143793 Completed 201103/03/2014 IMPRESSI ON: BILAT. NORMAL POST LAVAGE EXAM.; RECORDED 02/21/20 12 9:30AM BY JAK COLEMAN MA, ANNOTATI ON/ADDEN DUM Odna Howell PA-C [address], [place], [address], [facility] 6 11:47:54 Influenz a vaccine needed 06142639087 06 Completed 201303/03/2014 RECORDED 08/15/19 14 1:43PM BY SIENA FLOWERS MD, SIGRIDATI ON/ADDEN DUM Dona Howell PA-C [address], [place], [address], [facility] 6 11:47:54 Follow-u mckenna encounte r Completed 201103/03/2014 RECORDED 02/21/20 12 9:30AM BY JAK COLEMAN MA, MAGDIEL ON/ADDEN DUM Dona Howell PA-C [address] [facility] [address], [place], [address], [facility] 6 11:47:55 Adult health examinat ion Completed 201303/03/2014 RECORDED 02/04/20 14 3:31PM BY JAK COLEMAN MA, MAGDIEL ON/ADDEN DUM Dona Dante PA-C [address] [facility] [address], [place], [address], [facility] 6 11:47:55 Pruritic disorder 996909551 Completed 201103/03/2014 RECORDED 02/21/20 12 9:30AM BY JAK COLEMAN MA, ANNOTMARAH ON/ADDEN DUM Dona Howell PA-C [address], [place], [address], [facility] 6 11:47:54 Gastroes ophageal reflux disease 918487648 Completed 201303/03/2014 RECORDED 02/04/20 14 3:30PM BY JAK COLEMAN MA, MAGDIEL ON/ADDEN DUM Dona Dante [facility] [address], [place], [address], [facility] 6 11:47:54 Infectiv e hepatiti s immuniza tion Completed 201303/03/2014 RECORDED 02/04/20 14 3:31PM BY JAK COLEMAN MA, NURSE VISIT Dona [facility] [address], [place], [address], [facility] 6 11:47:54 History of clinical finding in subject [id number] Completed 201303/03/2014 RECORDED 02/04/20 14 3:31PM BY JAK COLEMAN MA, MAGDIEL ON/ADDEN DUM Dona Dante [facility] [address] [facility] [address], [place], [address], [facility] 6 11:47:54 Laborato ry procedur e performe d 368447155 Completed 201303/03/2014 RECORDED 08/15/19 14 12:55PM BY MAGDIEL YOUNG ON/ADDEN DUM Dona Dante [facility] [address] [facility] [address], [place], [address], [facility] 6 11:47:55 Administ ration of viral vaccine Completed 200803/03/2014 DATE: 02/26/20 09; RECORDED 02/21/20 12 9:30AM BY JAK COLEMAN MA, MAGDIEL ON/ADDEN DUM Dona Dante [facility] [address] [facility] [address], [place], [address], [facility] 6 11:47:54 Onychomy cosis due to dermatop hyte 250639351 Completed 201303/03/2014 RECORDED 02/04/20 14 3:30PM BY JAK COLEMAN MA, MAGDIEL ON/ADDEN DUM Dona Dante [facility] [address], [place], [address], [facility] 6 11:47:54 Onychia of toe 826012870 Completed 201103/03/2014 IMPRESSI ON: CHRONIC AND RECURRIN [...] [address], [place], [address], [facility] 6 11:47:54 Primigrrenato preston 844757157 Completed 201203/03/2014 IMPRESSI ON: THIS WAS UNEXPECT [...] 9:56AM BY ANTOINE ROBLERO MA, MAGDIEL ON/JOSE Howell PA-C [address], [place], [address], [facility] 6 11:47:55 Eruption 629712138 Completed 201103/03/2014 IMPRESSI ON: ETIOLOGY UNCLEAR, NO NEW EXPOSURE THAT SHE IS AWARE OF BUT DID HAVE RECENT TRAVEL TO [place]. LITTLE IMPROVEM ENT WITH TOPICAL CS AND PO ANTIHIST AMINES. AVOID PO PRED D/T DMT1 FOR NOW. GIVEN THAT ITCHING WORSE AT NIGHT, ONGOING NATURE WILL TX WITH PERMETHR IN X 1 BEFORE SEEING DERM. APPT WITH SPEC CURRENTL Y SCHED FOR SEPT, WE WILL TRY TO EXPEDITE FOR HER.; RECORDED 07/05/20 12 3:17PM BY MAGDIEL YOUNG ON/ADDEN DUM Dona Howell PA-C [address], [place], [address], [facility] 6 11:47:54 Well child 156343201 Completed 201103/03/2014 RECORDED 02/21/20 12 9:30AM BY JAK COLEMAN MA, MAGDIEL ON/ADDEN DUM Dona Howell PA-C [address] [facility] [address], [place], [address], [facility] 6 11:47:55 Administ ration of diphther ia, pertussi s, and tetanus vaccine Completed 201303/03/2014 RECORDED 02/04/20 14 3:30PM BY JAK COLEMAN MA, MAGDIEL ON/ADDEN DUM Dona Howell PA-C [address] [facility] [address], [place], [address], [facility] 6 11:47:54 Tietze's disease 06708831 Completed 200803/03/2014 RECORDED 02/26/20 09 10:32AM BY MAGDIEL POWER ON/ADDEN DUM Dona Howell PA-C [address] [facility] [address], [place], [address], [facility] 6 11:47:54 Tinea pedis 0977155 Completed 201103/03/2014 RECORDED 02/21/20 12 9:30AM BY JAK COLEMAN MA, ANNOTATI ON/ADDEN DUM Dona Howell PA-C [address] [facility] [address], [place], [address], [facility] 6 11:47:54 Urticari a 849953522 Completed 201103/03/2014 STORY: MADE SEVERAL ATTEMPT TO REACH MOM WITH NO RETURN CALLS; RECORDED 02/21/20 12 9:30AM BY JAK COLEMAN MA, MAGDIEL ON/ADDEN DUM [facility] [address], [place], [address], [facility] 6 11:47:54 Leukorrh ea [id number] Completed 201203/03/2014 RECORDED 01/30/20 13 10:36AM BY LEIGHA HAGEN MA, MAGDIEL ON/ADDEN DUM [facility] [address], [place], [address], [facility] 6 11:47:54 Varicell a vaccinat ion Completed 201303/03/2014 RECORDED 02/04/20 14 3:31PM BY JAK COLEMAN MA, NURSE VISIT [facility] [address], [place], [address], [facility] 6 11:47:54 Viral disease [id number] Completed 201103/03/2014 IMPRESSI ON: IN HOUSE STREP NEG, SEND OUT PENDING. LUNGS CTA. SUSPECT VIRAL ETIOLOGY . ENCOURAG ED CONTINUE D PRN USE OF TYLENOL/ MOTRIN, REST, AND FLUIDS. F/U PRN IF SXS WORSEN OR FAIL TO IMPROVE. ; RECORDED 02/21/20 12 9:30AM BY JAK COLEMAN MA, MAGDIEL ON/ADDEN DUM Dona Howell [place]-C [address], [place], [address], [facility] 6 11:47:54 Candidal vulvovag initis [id number] Completed 201303/03/2014 RECORDED 02/04/20 14 3:31PM BY JAK COLEMAN MA, MAGDIEL ON/ADDEN DUM [facility] [place] [address], [place], [address], [facility] 6 11:47:54 Alek ball 261865113 Active Dona Howell PA-C [address], [place], [address], [facility] 6 11:47:54 Shoulder pain 91465498 Active Dona Howell PA-C [address], [place], [address], [facility] 6 11:47:54 Luis liu [id number] Completed 07/26/2017 Shannon Pulido MA null, [facility] 8 09:11:35 Type 2 diabetes mellitus 12998762 Completed 09/25/2015 Dona Howell PA-C [address], [place], [address], [facility] 6 11:47:54 Fatigue 17025723 Completed 07/26/2017 Shannon Pulido MA null, [facility] 8 09:11:48 Anemia 566973804 Active Dona Howell PA-C [address], [place], [address], [facility] 6 11:47:54 Vitamin D deficien cy 38117741 Active Dona Howell PA-C [address], [place], [address], [facility] 6 11:47:54 Upper chest pain 834807492 Completed 06/14/2017 Leigha de MA null, [facility] 7 10:30:36 Pain in lower limb 93911562 Active 2016 Siena vanessa MD [address], [place], [address], [facility] 7 12:08:57 Notes:Diabetic Eye Exam, [facility] on 08/18/2015. Problem Notes None recorded. Procedures Surgical History Date Name Laterality Status Provider Name and Address Organization Details Recorded Time 05/12/2017 Date of Last Pap Smear completed Leigha stokes MA [facility] 05/13/2017 12:30:50 No surg proc w/in 30 days completed Leigha stokes MA [facility] 06/14/2017 10:31:01 Imaging Results Imaging Date Name Status LastModified by Organiz ation Details LastModified Time 06/14/2017 XR, lumbar spine completed [facility] (Out[facility] [address] , [place], [address], 06/14/2017 22:02:42 Procedure Notes None recorded. Medical Equipment None Reported. Allergies Allergen ID Allergen Name Allergen Category Reaction Reaction Severity Criticality Documentation Date Start Date Code Code System Note Provider Name and Address Organization Details Recorded Time 44910 duloxetin e medicatio n dizziness nausea vomiting moderate Not available Not available Not available 06/01/20172016 60603 RxNorm [place]AMA[place] Neff [facility] 7 10:30:23 Medications Name Sig Start Date Stop Date Status Note LastModified by Organization Details LastModified Time multiple vitamins tabs active Not Available Not Available Not Available vitamin d 84663 unit caps active Not Available Not Available [...] Available polymyxin b sulfate/t rimethopr im sulfate 02481-6.1 unit/ml-% soln active Not Available Not Available [...] and Address Organization Details Last Updated DateTime 7 165.735 cm 97.6 [degF] 97 % 97 % 91 /min 18.3 kg/m2 13268.0 3 g 104 mm[Hg] 69 mm[Hg] Boy Perez [facility] 7 09:21:50 Date Recorded Body height Body mass index (BMI) Body weight Heart rate Oxygen saturation Oxygen saturation in Arterial blood by Pulse oximetry Body temperature Systolic blood pressure Diastolic blood pressure Provider Name and Address Organization Details Last Updated DateTime 7 165.735 cm 18.8 kg/m2 37719.5 3 g 74 /min 97 % 97 % 98.1 [degF] 116 mm[Hg] 74 mm[Hg] Denise Mora [facility] 7 15:58:40 Date Recorded Body height Body temperature Oxygen saturation Oxygen saturation in Arterial blood by Pulse oximetry Heart rate Body mass index (BMI) Body weight Systolic blood pressure Diastolic blood pressure Provider Name and Address Organization Details Last Updated DateTime 7 165.735 cm 98.8 [degF] 97 % 97 % 116 /min 19 kg/m2 38831.1 2 g 98 mm[Hg] 62 mm[Hg] Leigha de [facility] 7 10:42:00 Date Recorded Body height Body mass index (BMI) Body weight Body temperature Oxygen saturation Oxygen saturation in Arterial blood by Pulse oximetry Heart rate Systolic blood pressure Diastolic blood pressure Provider Name and Address Organization Details Last Updated DateTime 8 165.735 cm 19.6 kg/m2 38932.7 g 98.3 [degF] 100 % 100 % 80 /min 98 mm[Hg] 63 mm[Hg] Shannon Pulido MA [facility] [place] 8 09:14:17 Date Recorded Body height Provider Name an d Address Organization Details Last Updated DateTime 08/02/2017 165.735 cm Laya Braxton [facility] [place] 08/02/2017 10:02:11 Social History Question Answer Notes LastModified by Organizat ion Details LastModified Time Tobacco Smoking Status Never Smoker Not Available [facility] 05/26/2020 03:36:40 Do You Have An Advance Directive? No [id number] Information not available 05/26/2020 What Is Your Level Of Alcohol Consumption? None [id number] Information not available 05/26/2020 Is Blood Transfusion Acceptable In An Emergency? Yes [id number] Information not available 05/26/2020 What Is Your Level Of Caffeine Consumption? None [id number] Information not available 05/26/2020 How Much Tobacco Do You Chew? None [id number] Information not available 05/26/2020 Are You Currently Employed? Yes [id number] Information not available 05/26/2020 What Type Of Diet Are You Following? REGULAR [id number] Information not available 05/26/2020 Which Illicit Or Recreational Drugs Have You Used? None [id number] Information not available 05/26/2020 Education 12 Information no t available 09/10/2014 What Is Your Occupation? 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 With Others Son [email or web address] Information not available 09/10/2014 Do You Take Precautions To Prevent Distracted Driving? Yes Information not available 09/24/2015 How Often Do You Need To Have Someone Help You When You Read Instructions, Pamphlets, Or Other Written Material From Your Doctor Or Pharmacy? Never Information not available 09/24/2015 Have You Served In The ? No [email or web address] Information not available 04/01/2016 What Was The Date Of Your Most Recent Tobacco Screening? 07/26/2017 [id number] Information not available 05/26/2020 How Many Children Do You Have? 1 Todd [id number] Information not available 05/26/2020 Do You Use Protection During Sex? No [id number] Information not available 05/26/2020 Seat Belts Used Routinely Yes Information not available 09/24/2015 Are You Sexually Active? Yes [id number] Information not available 05/26/2020 Smoke Alarm In Home Yes Information not available 04/07/2015 At What Age Did You Start Smoking Tobacco? 2 [id number] Information not available 05/26/2020 Are You Passively Exposed To Smoke? No Information not available 04/07/2015 How Much Tobacco Do You Smoke? No [id number] Information not available 05/26/2020 Do You Use Sunscreen Routinely? No [id number] Information not available 05/26/2020 How Many Years Have You Smoked Tobacco? 0 [id number] Information not available 05/26/2020 Sex: Unknown Functional Status Question Answer Note LastModified by Organization D etails LastModified Time Are you able to care for yourself? Yes [id number] Information n ot available 05/26/2020 What is your exercise level? None [id number] Information not available 05/26/2020 Mental Status None [...] Hep B, adult 5 completed Not Available [facility] 08/10/2019 02:21:35 varicella 5 completed Not Available [facility] 08/10/2019 02:21:32 Hep B, adult 4 completed Not Available [facility] 08/24/2019 02:14:00 Tdap 4 completed Not Available [facility] 02/28/2014 09:41:55 varicella 4 completed Not Available [facility] 02/28/2014 09:41:55 Td (adult), 2 Lf tetanus toxoid, preservative free, adsorbed 5 completed Not Available [facility] 02/04/2014 13:24:14 Influenza, split virus, trivalent, preservative 8 completed Not Available [facility] 02/04/2014 13:24:14 HPV, quadrivalent 9 completed Not Available [facility] 02/04/2014 13:24:14 HPV, quadrivalent 9 completed Not Available [facility] 02/04/2014 13:24:14 HPV, quadrivalent 9 completed Not Available [facility] 02/04/2014 13:24:14 Influenza, split virus, trivalent, preservative 1 completed Not Available [facility] 02/04/2014 13:24:14 influenza, seasonal, intradermal, preservative free 2 completed Not Available [facility] 02/04/2014 13:24:14 Influenza, split virus, quadrivalent, PF 4 completed Not Available [facility] 02/04/2014 13:24:14 Hep B, adult 4 completed Not Available [facility] 08/10/2019 02:21:35 Influenza, split virus, quadrivalent, PF 7 completed Not Available [facility] 08/10/2019 02:22:10 Past Encounters Encounter ID Performer Location Encounter Start Date Encounter Closed Date Diagnosis/Indication Diagnosis SNOMED-CT Code Diagnosis ICD10 Code Diagnosis Note [id number] Denise Mora Main Office [address] [facility] [place] [address] 02/26/2014 14:30:48 02/26/2014 15:01:37 Ganglion cyst 726118289 Lichenific ation of skin 219303118 [id number] [facility] [address] [facility] [facility] [address] 10/25/2007 00:00:00 [id number] [facility] [address] [facility] [place] [address] 12/04/2007 00:00:00 [id number] auto[facility] erce [address] [facility] [address] [place] [address] 04/10/2008 00:00:00 [id number] [facility] erce [address] [place] [address] 11/11/2008 00:00:00 [id number] [facility] erce [address] [place] [address] 12/22/2008 00:00:00 [id number] [facility] erce [address] [facility] [address] [place] [address] 02/25/2009 00:00:00 [id number] [facility] erce [address] [facility] [address] [place] [address] 01/01/2010 00:00:00 [id number] [facility] erce [address] [facility] [place] [address] 04/22/2010 00:00:00 [id number] [facility] erce [address] [facility] [place] [address] 09/16/2010 00:00:00 [id number] [facility] erce [address] [facility] [place] [address] 12/09/2010 00:00:00 [id number] [facility] erce [address] [facility] [place] [address] 01/12/2011 00:00:00 [id number] [facility] erce [address] [facility] [place] [address] 04/13/2011 00:00:00 [id number] [facility] erce [address] [facility] [address] [place] [address] 06/15/2011 00:00:00 [id number] [facility] erce [address] [facility] [place] [address] 07/19/2011 00:00:00 [id number] [facility] erce [address] [facility] [place] [address] 01/18/2012 00:00:00 [id number] [facility] erce [address] [facility] [place] [address] 02/21/2012 00:00:00 [id number] auto[facility]Comm erce [address] [facility] [place] [address] 04/18/2012 00:00:00 [id number] [facility]Comm erce [address] [facility] [place] [address] 07/05/2012 00:00:00 [id number] [facility]Comm erce [address] [facility] [place], [place] [address] 10/09/2012 00:00:00 [id number] [facility]Comm erce [address] [facility] [place] [address] 08/15/2013 00:00:00 [id number] Main Office [address] [facility] [address] [place], [place] [address] 03/07/2014 08:52:54 03/07/2014 12:17:28 Requires course of hepatitis B vaccination [id number] [id number] Denise Mora Main Office [address] [facility] [address] [place], [place] [address] 07/28/2014 12:45:00 07/28/2014 13:12:56 Migraine 99005224 Her migraines occur 2-4 times per week so she has agreed to trying prophylaxi s. We will start with Depakote since a beta antonio may drop her BP which is already at a systolic below 110 and topomax may decrease her appetite and her BMI is already below 17. [id number] Denise Mora Main Office [address] [facility] [address] [place], [place] [address] 09/10/2014 15:31:05 09/10/2014 16:11:30 Adult health examination 776471496 Requires c ourse of hepatitis B vaccination 881955285 Migraine 29257779 Her migraines occur 2-4 times per week so she has agreed to trying prophylaxi s. We will start with Depakote since a beta antonio may drop her BP which is already at a systolic below 110 and topomax may decrease her appetite and her BMI is already below 17. Type 1 marilia betes mellitus 94380829 [id number] Siena Flores MD Main Office [address] [address] [place] [address] 09/12/2014 11:25:08 09/12/2014 11:40:26 Varicella vaccination 93707897 [id number] Denise Mora Main Office [address] [place] [address] [place] [address] 09/16/2014 10:13:32 09/16/2014 10:33:46 Hordeolum [id number] Please apply warm compresses to area x 15 minutes 4-5 times daily- (use a wash clot with hot water and hold to area, apply fresh hot water as needed x 15 minutes. Polytrim every 6 hours as directed. Should you develop worsening swelling, redness, fever, discharge, vision changes please return. [id number] Main Office [address] [place] [address] [place] [address] 03/10/2015 09:06:03 03/10/2015 09:58:00 Type 1 diabetes mellitus 65949602 followed at [facility] and has a pump in place. A1C's have been running high. Shoulder pain 83795269 [id number] Alden Adams MD Main Office [address] [place] [address] [place] [address] 04/07/2015 13:18:08 04/07/2015 13:58:55 Chalazion 3715969 [id number] Siena Flores MD Main Office [address] [place] [address] [place] [address] 07/09/2015 14:20:17 07/09/2015 15:04:29 Type 2 diabetes mellitus 37374153 E11.9 Fingerstic k A1C 8.7%, improved from the last one in february which was 11.3, she sees Dr. Martin next month. She will f.u at that appt, watch her diet- carbs and high sugar food intake, she will contact her opthalmolo gist re: blurred vision. Will check CBC, TSH and vitamin D as well. Fatigue 53577498 R53.83 [id number] Siena Flores MD Main Office [address] [place] [address] [place] [address] 09/24/2015 14:35:59 09/24/2015 15:25:57 Adult health examination 382446379 Z00.00 Screening for malignant neoplasm of cervix 327590480 Z12.4 Type 1 marilia betes mellitus 91330416 E10.9 followed at [facility] and has a pump in place. A1C's have been running high. [id number] Alden Adams MD Main Office [address] [facility] [address] [place] [address] 12/25/2015 10:43:16 12/25/2015 11:43:08 Upper chest pain 562828422 R07.82 Musculoske letal L. chest pain. Pt. reassured. Advised to do warm compress TID 5-10 minutes, avoid lifting or excessive exercise and take ADvil 200 mg 3 po TID with food for 5 days. F/u PRN. [id number] Estella Rouse Main Office [address] [address] [place] [address] 02/25/2016 09:57:00 02/25/2016 10:35:59 Amenorrhea 50804980 N91.2 Normal 1247908 2 Z34.91 [id number] Siena Flores MD Main Office [address] [address] [place] [address] 04/01/2016 09:56:40 04/01/2016 10:46:22 Type 1 diabetes mellitus 77626366 E10.9 followed at [facility] and has a pump in place. A1C's have been running high. Migraine 90239318 G43.90 9 Her migraines occur 2-4 times per week so she has agreed to trying prophylaxi s. We will start with Depakote since a beta antonio may drop her BP which is already at a systolic below 110 and topomax may decrease her appetite and her BMI is already below 17. Gastroesop hageal reflux disease 981337907 K21.9 [id number] Siena Flores MD Main Office [address] [address] [place] [address] 06/22/2016 10:42:11 06/22/2016 11:32:23 Postcoital bleeding 33682957 N93.0 Cultures were sent and test was negative. We will make a [employer] appointmen t for her for further evaluation . Sampling o f vagina for Papanicolaou smear 237363499 Z01.419 [id number] Edgar arriaga Main Office [address] [facility] [address] [place] [address] 07/22/2016 13:21:30 07/22/2016 14:29:10 Lateral epicondylitis 910291513 M77.11 Tendinitis of wrist 4238 82530 M77.8 ice, compressio n , ortho referral for wrist injection. [id number] Siena Flores MD Main Office [address] [address] [place] [address] 08/25/2016 08:49:25 08/25/2016 09:45:11 Cellulitis 101313803 L03.011 Paronychia of finger 444 834151 L03.019 [id number] Siena Flores MD Main Office [address] [address] [place] [address] 09/02/2016 09:11:28 09/02/2016 09:51:55 Type 1 diabetes mellitus 93996261 E10.9 followed at [facility] and has a pump in place. A1C's have been running high. Physically able to work 2540368357 25130 Z78.9 Evaluation done to clear her to work. [facility] of her type 1 diabetes. [id number] Alden Adams MD Main Office [address] [address] [place] [address] 09/05/2016 13:53:15 09/05/2016 15:22:56 Eruption 021795217 R21 unknown etiology, but doubt anaphylaxi s as was seen in ER last night, and doubt SE of keflex as has been off it x few days - will change benadryl to zyrtec and add pred. pulse [id number] Siena Flores MD Main Office [address] [address] [place] [address] 11/11/2016 09:35:54 11/11/2016 09:51:05 Contraception care management 546693331 Z30.9 [id number] Siena Flores MD Main Office [address] [address] [place] [address] 02/13/2017 09:45:48 02/13/2017 10:14:39 Contraception care management 258157241 Z30.9 [id number] wGen James Main Office [address] [address] [place] [address] 03/21/2017 11:21:23 03/21/2017 12:11:55 Needs influenza immunization 451999708 Z23 Pain in lower limb 97562 006 M79.661 M79.662 Unclear etiology. Will check labs and do a trial of naprosyn and see her back in 2 weeks. If the pain persists we will do a referral at that time. [id number] Siena Flores MD Main Office [address] [address] [place] [address] 04/12/2017 11:29:30 04/12/2017 12:06:13 Diabetic peripheral neuropathy 709817541 E11.40 We discussed improving her diabetes control as well and she is followed by [facility] endo. 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 Vitamin D deficiency 347 26974 E55.9 recheck level Type 1 marilia betes mellitus 32043721 E10.9 cont meds as dir - cont f/u c [facility]o - next is 11.17 - they check a1c q 6 months Diabetic p eripheral neuropathy 304987224 E11.40 encouraged her to increase to 3 pills nightly of elavil since no sig response to 2 tabs nightly - f/u c pcp next month Anemia 810776412 D64.9 h/o anemia - will check iron studies too Loss of te eth due to extraction 08814735 K08.409 had 3 wisdom teeth extracted last week - finished prednisone and advised to finish amox as dir as well as add probiotic supplement daily - next f/u next Monday [id number] Siena Flores MD Main Office [address] [place] [address] 05/04/2017 09:13:57 05/04/2017 09:49:28 Menorrhagia 243692515 N92.0 On depo, negative. Will refer to [employer] for further eval. HPV - Erendira n papillomavirus test positive 481258557 R87.619 Had pap but has not had follow-up. Will refer to [employer] Atypical s quamous cells of undetermined significance on cervical Papanicolaou smear 258284027 R87.610 Anemia 774093514 D64.9 Mildly anemic with normal iron and mildly low % sat. Suspect due to menorrhagi a. instructed to eat more iron rich foods- green leafy veggies, red meat. [facility] ion care management 247804522 Z30.42 To get depo today. [id number] Siena Flores MD Main Office [address] [address] [place] [address] 05/19/2017 15:52:01 05/19/2017 16:17:10 Type 1 diabetes mellitus 33148797 E10.9 followed at [facility] and has a pump in place. A1C's have been running high. Diabetic p eripheral neuropathy 570327256 E11.40 Tried amitriptyl ine which did not help. [id number] Siena Flores MD Main Office [address] [address] [place] [address] 06/14/2017 10:27:23 06/14/2017 11:27:36 Type 1 diabetes mellitus 54326578 E10.9 cont meds, f/u c endo Diabetic p eripheral neuropathy 878942801 E11.40 no better c elavil, no tolerate duloxetine - will give trial of gabapentin Lumbar radiculopathy 128 748960 M54.16 [id number] Siena Flores MD Main Office [address] [place] [address] 07/26/2017 08:56:34 07/26/2017 09:58:26 Idiopathic peripheral neuropathy 36439995 G60.9 per neur persists, doubt diabetic per neur from last endo note - all labs and xrays nl so far - will get neuro evaluation -- pt does have + FH MS in maternal cousin meanwhile - cont lyrica as best you can - if SE unbearable , then stop Type 1 marilia betes mellitus 69670850 E10.9 cont meds, f/u c endo [id number] Denise Mora Main Office [address] [facility] [address] [facility] [place] [address] 08/02/2017 09:23:28 08/02/2017 10:31:40 Contraception care management 268296548 Z30.42 Health Concerns Section Related Observation LastModified by Organization Detai ls LastModified Time None Recorded Concern Status LastModified by Organization Details LastModified Time None Recorded Advance Directives Directive N: Payers Encounter Date Sequence Insurance Name Policy Number Policy Schulte Covered Member ID Schulte Member ID Guarantor Name 05/04/2017 1 [facility] - MEDICAID ESSENTIAL (MEDICAID HMO) [id number] Gris Vega [id number] Gris Vega 05/04/2017 1 [place]is Vega [id number] Gris Vega 05/19/2017 1 [facility] - MEDICAID ESSENTIAL (MEDICAID HMO) [id number] Gris Vega [id number] Gris Vega 05/19/2017 1 [place] Gris Vega [id number] Gris Vega 06/14/2017 1 [facility] - MEDICAID ESSENTIAL (MEDICAID HMO) [id number] Gris Vega [id number] Gris Vega 06/14/2017 1 [place] Gris Vega [id number] Gris Vega 07/26/2017 1 [facility] - MEDICAID ESSENTIAL (MEDICAID HMO) [id number] Gris Vega [id number] Gris Vega 07/26/2017 1 [place] Gris Vega [id number] Gris Vega 08/02/2017 1 [facility] - MEDICAID ESSENTIAL (MEDICAID HMO) [id number] Gris Vega [id number] Gris Vega 08/02/2017 1 [place] [facility] [facility] [id number] [place] Notes Date Note Type Note [...] was treated appropriately Siena Flores MD [address], [address], [facility] 05/04/2017 11:50:48 05/19/2017 text/html She was started on amitriptyline 10 mg daily and increased this dose to a total of 40 mg daily for peripheral neuropathy but she stopped it because it was not giving any relief. She continues to have pain in her legs. We will try a different med but she will also discuss this with her cad specialist. Siena Flores MD [address], [address], [facility] 05/20/2017 14:17:38 06/14/2017 text/html rev. recent note [...] well, no b/b dysfxn Siena Flores MD [address], [address], [facility] 06/14/2017 12:41:32 07/26/2017 text/html here for f/u [...] MS - maternal cousin Siena Flores MD [address] [address], [place], [address], [facility] - [facility] 07/26/2017 09:58:50 OBGyn Episode No OBEpisode recorded.
--- OUTSIDE RECORDS SUMMARY | 2024-09-18 10:22 | XMS_ITS | Clinical Summary ---
Author Organization [facility] Address [address] [place] [address] Care Team Providers Care Benefits Specialist Recruiter Name Role Phone Kim Braden Primary Care Provider [phone] Source Comments PLEASE NOTE, if this patient [...] Diagnosed Date Migraine headache 01/10/2023 Overview (01/10/2023): [facility] neurology 12/29/22 - indomethacin 20-25 po TID prn with food. C/w riboflavin, magnesium Trial atogepant. Once approved, stop ajovy Has not tolerated amitriptyline, cymbalta, gabapentin, pregabalin, aimovig Abnormal EEG 11/20/2022 Overview (01/10/2023): 12/29/22 [facility] neurology. Borderline abnormal EEG. Spacing out. 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 She is seeing Cardiology Dr. 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 She is seeing Cardiology Dr. Rooney at [facility] Vitamin D deficiency 10/21/[address] 10/21/2021 Overview (10/21/2021): 2020 approx. B12 deficiency 02/08/2019 Restless leg syndrome 05/31/2018 Overview (01/10/2023): 12/29/22 For neuralgia, RLS: on oxycodone. Have failed trial of dopaminergic, AED, antidepressants Seeing [facility] neurology Chronic pain 05/01/2018 Overview (05/01/2018): 03/30/[address] Denney at [facility]. No labs received, referred back to PCP. Neuropathy 04/10/2018 Overview (01/17/2023): 12/2022: pt seeing pain management. Undergoing repeat NCV, EMG study to assess for neuropathy progression 04/03/18 Eval at [facility] Neurology. Will obtain EMG reports. Start trial of ER alpha lipoic acid 300 mg BID, consider Lamictal or tricyclic as gapaentin and nortriptyline not tolerated in the past. F/u 4 months. Depo-Provera contraceptive status 02/21/2018 Type 1 diabetes mellitus wit h diabetic polyneuropathy ([facility]) 12/20/2017 Overview (10/07/2022): 02/2022 [facility] Endocrine consult: [...] HPV Screening 1992 Urine Drug Screen 1992 [id number] INJ 08/30/2018 05/30/2018 Imm-Pneumococcal (2 of 2 - PCV) 09/23/2020 Diabetes HbA1c 04/22/2022 10/21/2021, 03/0 09/2019, 12/20/2017 Annual Preventive Care Visit 10/21/2022 10/21/2021, 12/20/2017 Diabetes Microalbumin (w/Creatinine) 10/21/2022 10/21/2021 Relationship Safety Screening/Counseling 10/21/2022 10/21/2021 Serum Creatinine 10/21/2022 10/21/2021, 09/2019, 03/01/2018, Additional history exists Tobacco Screening 10/21/2022 10/21/2021 Imm-DTaP/Tdap/Td (4 - Td or Tdap) 01/30/2024 01/29/2014, 03/28/2013, 05/24/2005 Pap Smear 02/20/2024 02/19/2021 [id number] ( season) 2024 Imm-Influenza (#1) 2024 10/21/2021, [...] Procedure Name Priority Date/Time Associated Diagnosis Comments REFERRAL SCANNED DOCUMENT 09/13/2024 3:00 AM EST EYE EXAM 07/02/2024 3:00 AM EST HIV [...] Recently Relevant to Health Maintenance Results * REFERRAL SCANNED DOCUMENT (09/13/2024 3:00 AM EST) 09/13/2024 3:00 AM EST Karin Lomax PA-C SCAN REFERRAL Final Result * EYE EXAM (07/02/2024 3:00 AM EST) 07/02/2024 3:00 AM EST Tristin Raymundo MD OTHER Edited Result - Final * HEPATITIS C AB W/RFLX HCV RNA, QT, RT PCR (10/21/2021 10:27 AM EDT) HEPATITIS C ANTIBODY NON-REACT SOFIA NON-REACT SOFIA [employer] SIGNAL TO CUT-OFF 0.01 <1.00 [employer] Comment: HCV antibody was non-reactive. There is no laboratory evidence of HCV infection. In most cases, no further action is required. However, if recent HCV exposure is suspected, a test for HCV RNA (test code 58964) is suggested. For additional information please refer to http://education.Tao Sales/faq/FOO65z6 (This link is being provided for informational/ educational purposes only.) Blood Blood / Unknown 10/21/2021 1 0:27 AM EDT 10/21/2021 10:28 AM EDT Narrative [employer] [facility] [employer] - 10/22/2021 10:54 PM EDT FASTING:YES Leah Orellana ROOFING SALES REPRESENTATIVE-C LAB - BLOOD DRAW Final Resul t [employer] [address] [place] [id number], [facility] [address] [address] * HIV 1/2 AG & AB W/RFLX (4TH GEN) (10/21/2021 10:27 AM EDT) HIV AG/AB, 4TH GEN NON-REAC TIVE NON-REAC TIVE [employer] Comment: HIV-1 antigen and HIV-1/HIV-2 antibodies were [...] ?? For additional information please refer to http://education.[employer]/faq/HAJ930 (This link is being provided for informational/ educational purposes only.) The performance of this assay has not been clinically validated in patients less than 2 years old. Blood Blood / Unknown 10/21/2021 1 0:27 AM EDT 10/21/2021 10:28 AM EDT Narrative [employer] - 10/22/2021 10:54 PM EDT FASTING:YES us Leah Orellana ROOFING SALES REPRESENTATIVE-C LAB - BLOOD DRAW Final Resul t [employer] [address] [address], [employer] [address] [address] * (ABNORMAL) HGBA1C W/MPG (10/21/2021 10:27 AM EDT) HEMOGLOBIN A1C 6.6(H) <5.7 % of total Hgb [employer] Comment: For someone without known diabetes, a [...] ?? MEAN PLASMA GLUCOSE 158 mg/dL (calc) [employer] Blood Blood / Unknown 10/21/2021 1 0:27 AM EDT 10/21/2021 10:28 AM EDT Narrative [employer] - 10/22/2021 10:54 PM EDT FASTING:YES us Leah Mckinleyadia ROOFING SALES REPRESENTATIVE-C LAB - BLOOD DRAW Edited Resu lt - Final Performing Organization Address City/[facility]/ZIP Co de Phone Number [facility] [address] [address], [employer] [address] [address] * LIPIDS W RFLX TO DIRECT LDL (10/21/2021 10:27 AM EDT) [facility] Signature CHOLESTEROL, TOTAL 117 <200 mg/dL [facility] HDL CHOLESTEROL 55 > OR = 50 mg/dL [facility] TRIGLYCERIDES 38 <150 mg/dL [facility] LDL-CHOLESTEROL 51 99 mg/dL (calc) [facility] Comment: Reference range: <100 Desirable range <100 mg/dL for primary prevention; ?? <70 mg/dL for patients with CHD or diabetic patients with > or = 2 CHD risk factors. LDL-C is now calculated using the Steven calculation, which is a validated novel method providing better accuracy than the Friedewald equation in the estimation of LDL-C. Manish GILLILAND et al. ASIF. 2013;310(19): 1447-7760 (http://education.SolidFire/faq/EMH223) CHOL/HDLC RATIO 2.1 <5.0 (calc) [facility] NON-HDL CHOLESTEROL 62 <130 mg/dL (calc) [facility] Comment: For patients with diabetes plus 1 major ASCVD risk factor, treating to a non-HDL-C goal of <100 mg/dL (LDL-C of <70 mg/dL) is considered a therapeutic option. Blood Blood / Unknown 10/21/2021 1 0:27 AM EDT 10/21/2021 10:28 AM EDT Narrative [facility] - 10/22/2021 10:54 PM EDT FASTING:YES Leah Mckinleyadia ROOFING SALES REPRESENTATIVE-C LAB - BLOOD DRAW Final Resul t Performing Organization Address [facility]/ZIP Co de Phone Number [facility] [address] [address], [employer] [address],[place] [address] * MICROALBUMIN/CREATININE RATIO, URINE, RANDOM (10/21/2021 10:27 AM EDT) Pathologist [facility] CREATININE, RANDOM URINE 169 20 - 275 mg/dL [facility] MICROALBUMIN 1.0 mg/dL [facility] Comment: Reference Range Not established MICROALBUMIN/CREA TININE RATIO, RANDOM URINE 6 <30 mcg/mg creat [facility] Comment: The ADA defines abnormalities in albumin [...] AM EDT 10/21/2021 10:28 AM EDT Narrative [employer] - 10/22/2021 10:54 PM EDT FASTING:YES Leah Orellana ROOFING SALES REPRESENTATIVE-C LAB - NO BLOOD DRAW Final Re sult [facility] [address] [address], [facility] [address] [address] * (ABNORMAL) COMPREHENSIVE METABOLIC PANEL (10/21/2021 10:27 AM EDT) Pathologist [facility] GLUCOSE 161(H) 65 - 99 mg/dL [facility] Comment: ?Fasting reference interval For someone without known diabetes, a glucose value >125 mg/dL indicates that they may have diabetes and this should be confirmed with a follow-up test. UREA NITROGEN (BUN) 14 7 - 25 mg/dL [facility] CREATININE (blood) 0.69 0.50 - 1.10 mg/dL [employer] GFR ESTIMATED 118 > OR = 60 mL/min/1 .73m2 [facility] EGFR 136 > OR = 60 mL/min/1 .73m2 [facility] BUN/CREATININE RATIO NOT APPLICABLE 6 - 22 [facility] SODIUM 136 135 - 146 mmol/L [facility] POTASSIUM 4.3 3.5 - 5.3 mmol/L [facility] CHLORIDE 105 98 - 110 mmol/L [facility] CARBON DIOXIDE 24 20 - 32 mmol/L [facility] CALCIUM 8.9 8.6 - 10.2 mg/dL [facility] PROTEIN, TOTAL 6.5 6.1 - 8.1 g/dL [facility] ALBUMIN 4.0 3.6 - 5.1 g/dL [facility] GLOBULIN 2.5 1.9 - 3.7 g/dL (calc) [facility] ALBUMIN/GLOBUL IN RATIO 1.6 1.0 - 2.5 (calc) [facility] BILIRUBIN, TOTAL 0.6 0.2 - 1.2 mg/dL [facility] ALKALINE PHOSPHATASE 62 31 - 125 U/L [facility] AST 23 10 - 30 U/L [facility] ALT 13 6 - 29 U/L [facility] Blood Blood / Unknown 10/21/2021 1 0:27 AM EDT 10/21/2021 10:28 AM EDT Narrative [facility] - 10/22/2021 10:54 PM EDT FASTING:YES Leah MENDOZAP-C LAB - BLOOD DRAW Edited Resu lt - Final [facility] [address] [address], [facility] [address] [address] * PAP W/ HPV (02/19/2021 3:00 AM EDT) 02/19/2021 3:00 AM EDT Leah MENDOZAP-C LAB - NO BLOOD DRAW Final Re sult from Last 3 Months or Most Recently Relevant to Health Maintenance Insurance [employer] Care Teams Benefits Specialist Recruiter Relationship Specialty Start Date End Date Kim Braden PA [address] [place] [address] PCP - General Primary Care 12/13/23
[2024-09-18 18:37] LABS: MANUAL DIFF FLAG NO
[2024-09-18 18:53] LABS: Basophils Percent Auto 0.7 % (0-2); Eosinophils Absolute Auto 0.3 X10*3/uL (0.0-0.4); Eosinophils Percent Auto 5.4 % (0-4); Hematocrit 38.2 % (37.0-47.0); Hemoglobin 12.5 g/dl (12.0-16.0); Imm Gran Abs Auto 0.02 X10*3/uL (0.00-0.03); Imm Gran Pct Auto 0.3 % (0.0-0.4); Lymphocytes Absolute Auto 1.6 X10*3/uL (1.2-4.9); Lymphocytes Percent Auto 26.4 % (20-40); Mean Corpuscular HGB Conc 32.7 g/dl (31.0-35.0); Mean Corpuscular Hemoglobin 29.3 pg (27.0-33.0); Mean Corpuscular Volume 89.5 fL (80.0-98.0); Mean Platelet Volume 10.3 fL (9.4-12.3); Monocytes Absolute Auto 0.5 X10*3/uL (0.1-1.2); Monocytes Percent Auto 8.6 % (2-11); Neutrophils Absolute Auto 3.5 x10*3/uL (2.0-8.3); Neutrophils Percent Auto 58.6 % (45-73); Platelet Count 289 X10*3/uL (160-400); Red Blood Count 4.27 X10*6/uL (4.20-5.50); Red Cell Distribution Width 12.8 % (11.0-16.0)
[2024-09-18 19:07] LABS: Rheumatoid Factor < 13.0 IU/mL (<15.0)
[2024-09-18 19:14] LABS: Alanine Aminotransferase 14 U/L (0-31); Albumin Level 4.1 g/dL (3.5-5.0); Alkaline Phosphatase 86 U/L (39-117); Anion Gap 10 (12-20); Aspartate Amino Transferase 26 U/L (5-31); Bilirubin Total 0.7 mg/dL (0.0-1.0); Blood Urea Nitrogen 10 mg/dL (9-16); Calcium 9.1 mg/dL (8.4-10.2); Carbon Dioxide 24 mmol/L (22-29); Chloride 108 mmol/L (96-108); Estimated Glomerular Filt Rate > 60; Glucose Random 158 mg/dL (60-115); Iron 45 mcg/dL (30-160); Percent Iron Saturation 18 % (15-50); Potassium 3.9 mmol/L (3.3-5.1); Sodium 138 mmol/L (135-145); Total Iron Binding Capacity 245 mcg/dL (228-428); Total Protein 7.7 g/dL (6.5-8.0); Unsaturated Iron Binding 200 ug/dL
[2024-09-18 19:28] LABS: Ferritin 111 ng/mL (10-122)
[2024-09-18 19:33] LABS: Folate 6.2 ng/mL (> or = 4.0); Vitamin B12 353 pg/mL (200-900)
[2024-09-18 19:56] LABS: Erythrocyte Sedimentation Rate 15 MM/HR (0-20)
[2024-09-19 07:49] LABS: CRP High Sensitivity 17.9 mg/L
[2024-09-22 04:54] LABS: Methylmalonic Acid 115 nmol/L (55-335)
[2024-09-22 13:09] LABS: Vitamin D 25-OH, D2 11 ng/mL; Vitamin D 25-OH, D3 20 ng/mL; Vitamin D 25-OH, Total 31 ng/mL (30-100)
[2024-09-23 15:38] LABS: Vitamin B6 10.9 ng/mL (2.1-21.7)
[2024-09-24 09:39] LABS: Anti Nuclear Antibody Screen NEGATIVE (NEGATIVE)
[2024-09-28 10:03] LABS: Vitamin B1 7 nmol/L (8-30)
== END 2024-09-18 09:16 | disposition home or self-care (01) ==
LOC: HO.HKASLDS 09:15
PROVIDERS: Visit Provider Nurse Practitioner Family
DX: D64.9 Anemia, unspecified (principal)
CPT/HCPCS: 36415; 80053; 82306; 82607; 82728; 82746; 83540; 83921; 84207; 84425; 85025; 85652; 86038; 86141; 86431

== ENCOUNTER 2024-10-16 10:28 | Outpatient (REF) | payer MEDICAID, SELFPAY ==
--- NOTE | 2024-10-16 10:37 | EMG_ITS ---
Chief complaint: Around 2 months of hand numbness, history of type 1 diabetes and diabetic neuropathy Reason for referral: Evaluate for Carpal Tunnel Syndrome Referred by: Alicia Leavitt NP Procedure done: Bilateral upper extremities NCS/EMG Precautions and/or limitations: None The limb temperature was monitored continuously and remained between 32-36 degrees C during the performance of the NCS. Nerve Conduction Studies Anti Sensory Summary Table ?Stim Site NR Onset (ms) Norm Onset (ms) Peak (ms) Norm Peak (ms) O-P Amp (?V) Norm O-P Amp Site1 Site2 Delta-0 (ms) Dist (cm) Dk (m/s) Norm Dk (m/s) Left Median Anti Sensory (2nd Digit) Wrist ? 2.6 3.3 <3.6 33.4 >10 Wrist 2nd Digit 2.6 14.0 54 Right Median Anti Sensory (2nd Digit) Wrist ? 2.7 3.4 <3.6 70.5 >10 Wrist 2nd Digit 2.7 14.0 52 Right Radial Anti Sensory (Thumb) Forearm ? 1.5 2.1 <3.1 19.5 Forearm Thumb 1.5 0.0 Left Ulnar Anti Sensory (5th Digit) Wrist ? 2.4 3.1 <3.7 17.2 >15.0 Wrist 5th Digit 2.4 14.0 58 Right Ulnar Anti Sensory (5th Digit) Wrist ? 2.2 3.1 <3.7 79.5 >15.0 Wrist 5th Digit 2.2 14.0 64 Motor Summary Table ?Stim Site NR Onset (ms) Norm Onset (ms) O-P Amp (mV) Norm O-P Amp iAmp (mV) Amp (1st) (%) Site1 Site2 Delta-0 (ms) Dist (cm) Dk (m/s) Norm Dk (m/s) Left Median Motor (Abd Poll Brev) Wrist ? 3.2 <3.9 8.7 >4.5 10.5 100.0 Elbow Wrist 4.0 19.5 49 >45 Elbow ? 7.2 8.3 10.1 95.4 Right Median Motor (Abd Poll Brev) Wrist ? 3.3 <3.9 5.9 >4.5 7.1 100.0 Elbow Wrist 4.1 19.0 46 >45 Elbow ? 7.4 4.9 6.0 83.1 Left Ulnar Motor (Abd Dig Minimi) Wrist ? 3.0 <3.0 9.6 >5 12.9 100.0 B Elbow Wrist 3.6 20.0 56 >45 B Elbow ? 6.6 9.3 12.5 96.9 A Elbow B Elbow 1.4 10.0 71 >45 A Elbow ? 8.0 9.1 12.3 94.8 Right Ulnar Motor (Abd Dig Minimi) Wrist ? 3.0 <3.0 14.1 >5 17.5 100.0 B Elbow Wrist 3.5 19.0 54 >45 B Elbow ? 6.5 12.4 15.9 87.9 A Elbow B Elbow 1.1 10.0 91 >45 A Elbow ? 7.6 11.3 14.9 80.1 EMG ?Side Muscle Nerve Root Ins Act Fibs Psw Amp Dur Poly Recrt Int Pat Comment Right 1stDorInt Ulnar C8-T1 Nml Nml Nml Nml Nml 0 Nml Complete Right FlexCarRad Median C6-7 Nml Nml Nml Nml Nml 0 Nml Complete Right Biceps Musculocut C5-6 Nml Nml Nml Nml Nml 0 Nml Complete Right Triceps Radial C6-7-8 Nml Nml Nml Nml Nml 0 Nml Complete Right Deltoid Axillary C5-6 Nml Nml Nml Nml Nml 0 Nml Complete Left 1stDorInt Ulnar C8-T1 Nml Nml Nml Nml Nml 0 Nml Complete Left FlexCarRad Median C6-7 Nml Nml Nml Nml Nml 0 Nml Complete Left Biceps Musculocut C5-6 Nml Nml Nml Nml Nml 0 Nml Complete Left Triceps Radial C6-7-8 Nml Nml Nml Nml Nml 0 Nml Complete Left Deltoid Axillary C5-6 Nml Nml Nml Nml Nml 0 Nml Complete FINDINGS: All motor and sensory nerves tested showed normal latencies, amplitudes and conduction velocities. Concentric needle EMG was performed in selected muscles of the bilateral upper extremities. Study did not reveal signs of electric abnormalities as shown in the table above. IMPRESSION: 1. This is a normal study. 2. There is no electrodiagnostic evidence for median neuropathy, ulnar neuropathy, brachial plexopathy, or cervical radiculopathy. Thank you for your kind referral. Lorie Thorpe MD, RADHA Board Certified, [place] [employer] and Rehabilitation (ABPMR) Board Certified, [place] Board of Electrodiagnostic Medicine (ABEM) CODIN [phone] MTDD
--- NOTE | 2024-10-16 10:43 | ECG_ITS ---
Test Reason : ELEV CREATIN PROTEIN Blood Pressure : */* mmHG Vent. Rate : 76 BPM Atrial Rate : 76 BPM P-R Int : 164 ms QRS Dur : 78 ms QT Int : 358 ms P-R-T Axes : 19 52 19 degrees QTcB Int : 402 ms Normal sinus rhythm Normal ECG No previous ECGs available Referred By: Alicia Leavitt Electronically Signed By: RED VIVAS MD
[2024-10-16 11:32] LABS: MANUAL DIFF FLAG NO
[2024-10-16 11:38] LABS: Basophils Absolute Auto 0.1 X10*3/uL (0.0-0.2); Basophils Percent Auto 0.8 % (0-2); Eosinophils Absolute Auto 0.3 X10*3/uL (0.0-0.4); Eosinophils Percent Auto 4.6 % (0-4); Hematocrit 39.1 % (37.0-47.0); Hemoglobin 13.2 g/dl (12.0-16.0); Imm Gran Abs Auto 0.05 X10*3/uL (0.00-0.03); Imm Gran Pct Auto 0.7 % (0.0-0.4); Lymphocytes Absolute Auto 2.1 X10*3/uL (1.2-4.9); Lymphocytes Percent Auto 28.9 % (20-40); Mean Corpuscular HGB Conc 33.8 g/dl (31.0-35.0); Mean Corpuscular Hemoglobin 29.9 pg (27.0-33.0); Mean Corpuscular Volume 88.5 fL (80.0-98.0); Mean Platelet Volume 9.4 fL (9.4-12.3); Monocytes Absolute Auto 0.5 X10*3/uL (0.1-1.2); Monocytes Percent Auto 6.9 % (2-11); Neutrophils Absolute Auto 4.2 x10*3/uL (2.0-8.3); Neutrophils Percent Auto 58.1 % (45-73); Platelet Count 329 X10*3/uL (160-400); Red Blood Count 4.42 X10*6/uL (4.20-5.50); Red Cell Distribution Width 13.8 % (11.0-16.0); White Blood Count 7.2 X10*3/uL (4.8-10.8)
--- OUTSIDE RECORDS SUMMARY | 2024-10-16 12:16 | XMS_ITS | Clinical Summary ---
Author Organization [facility] Address [address] [place] [address] Care Team Providers Care Correction Officer Supervisor Name Role Phone Kim Braden Primary Care Provider [phone] Source Comments PLEASE NOTE, if this patient [...] Diagnosed Date Migraine headache 01/10/2023 Overview (01/10/2023): [facility] neurology 12/29/22 - indomethacin 20-25 po TID prn with food. C/w riboflavin, magnesium Trial atogepant. Once approved, stop ajovy Has not tolerated amitriptyline, cymbalta, gabapentin, pregabalin, aimovig Abnormal EEG 11/20/2022 Overview (01/10/2023): 12/29/22 [facility] neurology. Borderline abnormal EEG. Spacing out. 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 She is seeing Cardiology Dr. 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 She is seeing Cardiology Dr. Rooney at [facility] Vitamin D deficiency 10/21/[address] 10/21/2021 Overview (10/21/2021): 2020 approx. B12 deficiency 02/08/2019 Restless leg syndrome 05/31/2018 Overview (01/10/2023): 12/29/22 For neuralgia, RLS: on oxycodone. Have failed trial of dopaminergic, AED, antidepressants Seeing [facility] neurology Chronic pain 05/01/2018 Overview (05/01/2018): 03/30/[address] Denney at [facility]. No labs received, referred back to PCP. Neuropathy 04/10/2018 Overview (01/17/2023): 12/2022: pt seeing pain management. Undergoing repeat NCV, EMG study to assess for neuropathy progression 04/03/18 Eval at [facility] Neurology. Will obtain EMG reports. Start trial of ER alpha lipoic acid 300 mg BID, consider Lamictal or tricyclic as gapaentin and nortriptyline not tolerated in the past. F/u 4 months. Depo-Provera contraceptive status 02/21/2018 Type 1 diabetes mellitus wit h diabetic polyneuropathy ([facility]) 12/20/2017 Overview (10/07/2022): 02/2022 [facility] Endocrine consult: [...] september 2017. Chronic nonintractable headache 12/20/2017 Immunizations Immunization Administration Dates Next Due Flu, Preservative Free [...] HPV Screening 1992 Urine Drug Screen 1992 [id number] INJ 08/22/2018 05/30/2018 Imm-Pneumococcal (2 of 2 - PCV) 09/23/2020 Diabetes HbA1c 04/22/2022 10/21/2021, 03/0 09/2019, 12/20/2017 Annual Preventive Care Visit 10/21/2022 10/21/2021, 12/20/2017 Relationship Safety Screening/Counseling 10/21/2022 10/21/2021 Serum Creatinine 10/21/2022 10/21/2021, 09/2019, 03/01/2018, Additional history exists Tobacco Screening 10/21/2022 10/21/2021 Urine Albumin Creatinine Rat io Screening 10/21/2022 10/21/2021 Imm-DTaP/Tdap/Td (4 - Td or Tdap) 01/30/2024 01/29/2014, 03/28/2013, 05/24/2005 Pap Smear 02/20/2024 02/19/2021 [id number] ( season) 2024 Imm-Influenza (#1) 2024 10/21/2021, [...] 10:27 AM EDT) HEPATITIS C ANTIBODY NON-REACT OSFIA NON-REACT SOFIA [facility] SIGNAL TO CUT-OFF 0.01 <1.00 [facility] Comment: HCV antibody was non-reactive. There is no laboratory evidence of HCV infection. In most cases, no further action is required. However, if recent HCV exposure is suspected, a test for HCV RNA (test code 14388) is suggested. For additional information please refer to http://education.[employer]/faq/KXK44p5 (This link is being provided for informational/ educational purposes only.) Blood Blood / Unknown 10/21/2021 1 0:27 AM EDT 10/21/2021 10:28 AM EDT Narrative [facility] - 10/22/2021 10:54 PM EDT FASTING:YES Leah Orellana UNCLAIMED PROPERTY OFFICER-C LAB - BLOOD DRAW Final Resul t [facility] [address] [address], [facility] [address] [address] * HIV 1/2 AG & AB W/RFLX (4TH GEN) (10/21/2021 10:27 AM EDT) HIV AG/AB, 4TH GEN NON-REAC TIVE NON-REAC TIVE [facility] Comment: HIV-1 antigen and HIV-1/HIV-2 antibodies were [...] ?? For additional information please refer to http://education.[employer]/faq/MRM909 (This link is being provided for informational/ educational purposes only.) The performance of this assay has not been clinically validated in patients less than 2 years old. Blood Blood / Unknown 10/21/2021 1 0:27 AM EDT 10/21/2021 10:28 AM EDT Narrative [facility] - 10/22/2021 10:54 PM EDT FASTING:YES us Leah Orellana UNCLAIMED PROPERTY OFFICER-C LAB - BLOOD DRAW Final Resul t [facility] [address] [address], [facility] [address] [address] * (ABNORMAL) HGBA1C W/MPG (10/21/2021 10:27 AM EDT) HEMOGLOBIN A1C 6.6(H) <5.7 % of total Hgb [facility] Comment: For someone without known diabetes, a [...] ?? MEAN PLASMA GLUCOSE 158 mg/dL (calc) [facility] Blood Blood / Unknown 10/21/2021 1 0:27 AM EDT 10/21/2021 10:28 AM EDT Narrative [facility] - 10/22/2021 10:54 PM EDT FASTING:YES us Leah Monzona UNCLAIMED PROPERTY OFFICER-C LAB - BLOOD DRAW Edited Resu lt - Final Performing Organization Address City/[facility]/ZIP Co de Phone Number [facility] [address] [address], [facility] [address] [address] * LIPIDS W RFLX TO DIRECT LDL (10/21/2021 10:27 AM EDT) [facility] Signature CHOLESTEROL, TOTAL 117 <200 mg/dL [facility] HDL CHOLESTEROL 55 > OR = 50 mg/dL [facility] TRIGLYCERIDES 38 <150 mg/dL [facility] LDL-CHOLESTEROL 51 99 mg/dL (calc) [facility] Comment: Reference range: <100 Desirable range <100 mg/dL for primary prevention; ?? <70 mg/dL for patients with CHD or diabetic patients with > or = 2 CHD risk factors. LDL-C is now calculated using the Steven calculation, which is a validated novel method providing better accuracy than the Friedewald equation in the estimation of LDL-C. Manish GILLILAND et al. ASIF. 2013;310(19): 6539-5759 (http://education.[employer]/faq/ISE815) CHOL/HDLC RATIO 2.1 <5.0 (calc) [facility] NON-HDL CHOLESTEROL 62 <130 mg/dL (calc) [facility] Comment: For patients with diabetes plus 1 major ASCVD risk factor, treating to a non-HDL-C goal of <100 mg/dL (LDL-C of <70 mg/dL) is considered a therapeutic option. Blood Blood / Unknown 10/21/2021 1 0:27 AM EDT 10/21/2021 10:28 AM EDT Narrative [facility] - 10/22/2021 10:54 PM EDT FASTING:YES Leah Monzona UNCLAIMED PROPERTY OFFICER-C LAB - BLOOD DRAW Final Resul t Performing Organization Address City/[facility]/ZIP Co de Phone Number [facility] [address] [address], [facility] [address],[place] [address] * MICROALBUMIN/CREATININE RATIO, URINE, RANDOM (10/21/2021 10:27 AM EDT) Pathologist [facility] CREATININE, RANDOM URINE 169 20 - 275 mg/dL [facility] MICROALBUMIN 1.0 mg/dL [facility] Comment: Reference Range Not established MICROALBUMIN/CREA TININE RATIO, RANDOM URINE 6 <30 mcg/mg creat [facility] Comment: The ADA defines abnormalities in albumin [...] AM EDT 10/21/2021 10:28 AM EDT Narrative [facility] - 10/22/2021 10:54 PM EDT FASTING:YES Leah Orellana UNCLAIMED PROPERTY OFFICER-C LAB - NO BLOOD DRAW Final Re sult [facility] [address] [address], [facility] [address] [address] * (ABNORMAL) COMPREHENSIVE METABOLIC PANEL (10/21/2021 10:27 AM EDT) Pathologist [facility] GLUCOSE 161(H) 65 - 99 mg/dL [facility] Comment: ?Fasting reference interval For someone without known diabetes, a glucose value >125 mg/dL indicates that they may have diabetes and this should be confirmed with a follow-up test. UREA NITROGEN (BUN) 14 7 - 25 mg/dL [facility] CREATININE (blood) 0.69 0.50 - 1.10 mg/dL [facility] GFR ESTIMATED 118 > OR = 60 mL/min/1 .73m2 [facility] EGFR 136 > OR = 60 mL/min/1 .73m2 [facility] BUN/CREATININE RATIO NOT APPLICABLE 6 - 22 [facility] SODIUM 136 135 - 146 mmol/L [facility] POTASSIUM 4.3 3.5 - 5.3 mmol/L [facility] CHLORIDE 105 98 - 110 mmol/L [facility] CARBON DIOXIDE 24 20 - 32 mmol/L [facility] CALCIUM 8.9 8.6 - 10.2 mg/dL [facility] PROTEIN, TOTAL 6.5 6.1 - 8.1 g/dL [facility] ALBUMIN 4.0 3.6 - 5.1 g/dL [facility] GLOBULIN 2.5 1.9 - 3.7 g/dL (calc) [facility] ALBUMIN/GLOBUL IN RATIO 1.6 1.0 - 2.5 (calc) [facility] BILIRUBIN, TOTAL 0.6 0.2 - 1.2 mg/dL [facility] ALKALINE PHOSPHATASE 62 31 - 125 U/L [facility] AST 23 10 - 30 U/L [facility] ALT 13 6 - 29 U/L [facility] Blood Blood / Unknown 10/21/2021 1 0:27 AM EDT 10/21/2021 10:28 AM EDT Narrative [facility] - 10/22/2021 10:54 PM EDT FASTING:YES Leah BANUELOS-C LAB - BLOOD DRAW Edited Resu lt - Final [facility] [address] [address], [facility] [address] [address] * PAP W/ HPV (02/19/2021 3:00 AM EDT) 02/19/2021 3:00 AM EDT Leah MENDOZAP-C LAB - NO BLOOD DRAW Final Re sult from Last 3 Months or Most Recently Relevant to Health Maintenance Insurance [employer] Care Teams Correction Officer Supervisor Relationship Specialty Start Date End Date Kim Braden PA [address] [place] [address] PCP - General Primary Care 12/13/23
[2024-10-16 12:17] LABS: Alanine Aminotransferase 16 U/L (0-31); Albumin Level 4.6 g/dL (3.5-5.0); Alkaline Phosphatase 101 U/L (39-117); Anion Gap 9 (12-20); Aspartate Amino Transferase 21 U/L (5-31); Bilirubin Total 0.6 mg/dL (0.0-1.0); Blood Urea Nitrogen 12 mg/dL (9-16); Calcium 9.6 mg/dL (8.4-10.2); Carbon Dioxide 26 mmol/L (22-29); Chloride 107 mmol/L (96-108); Cholesterol 143 mg/dL (<200); Estimated Glomerular Filt Rate > 60; Glucose Random 88 mg/dL (60-115); HDL Cholesterol 69 mg/dL (>40); LDL Cholesterol Calculated 67 mg/dL (<100); Potassium 3.8 mmol/L (3.3-5.1); Sodium 138 mmol/L (135-145); Total Protein 7.9 g/dL (6.5-8.0); Triglycerides 37 mg/dL (<150)
--- OUTSIDE RECORDS SUMMARY | 2024-10-16 12:17 | XMS_ITS | Data Portability ---
Author Organization [facility], Main Office Address [address] [place] [address] Care Team Providers Care Supervisor Mails Name Role Phone SIENA FLORES Primary Care Provider OMAR GARDINER Mannequin Decorator [phone] SULEMAN LEIGH Power Line Lineman SILVINO SARMIENTO Putty Tinter Maker Assessment No assessment recorded. Plan of Treatment Reminders Order Date Submit Date Provider Last Modified By Organization Details Last Modified Time Details Appointments None record ed. Lab pregna ncy test, urine 2017 018 [email or web address] In-Office Order, Internal Use Only DO Not Attach Compendium DO Not Attach Compendium, Do Not Delete/merge, [id number] 8 11:45:04 TSH, serum or plasma 2016 017 OSMAN [facility], [address], [address], [place], [address], 7 17:59:13 vitami n B12, serum 2016 017 [facility], [address], [address], [place], [address], 7 18:11:00 pregna ncy test, urine 2016 017 OSMAN In-Office Order, Internal Use Only DO Not Attach Compendium DO Not Attach Compendium, Do Not Delete/merge, [id number] 7 09:50:38 Referral neurol ogist referr al 2017 018 andrez Thornton MD, [address] [place] [address] , [address], [place], [address], 8 13:35:00 physic al therap ist referr [...] have a period . 2016 017 [email or web address] [facility] Putty Tinter [employer] [facility], [address] [place], [address], 7 09:49:29 Procedures None record ed. Surgeries None record ed. Imaging XR, lumbos acral spine 2016 017 [facility], [address] [place], [address], 7 12:31:15 Medication Orders medrox yproge steron e 150 mg/mL intram uscula r suspen jeovany 2017 018 [email or web address] Not available 8 11:45:04 gabape ntin 300 mg capsul e 2016 017 [email or web address] [id number], [address] [place], [place], [id number], 8 09:14:28 duloxe florentin 60 mg capsul e,meek yed releas e 2016 017 [email or web address] [facility] #[id number], [address] [place], [place], [id number], 7 10:37:05 medrox yproge steron e 150 mg/mL intram uscula r suspen jeovany 2016 017 [email or web address] Not available 09:53:47 Patient TargetsNo targets recorded. Patient Instructions Encounter Date Encounter Id Patient Instructions Last Modified By Organization Details Last Modified Time 05/04/2017 [id number] Call or return for worsening or concerns. [email or web address] Not available 05/04/2017 09:48:46 I have reviewed the note and agree with the assessment and plan of care. [email or web address] Not available 05/04/2017 11:50:32 05/19/2017 [id number] learning about type 1 diabetes Not available [...] medication. [email or web address] Not available 05/20/2017 14:17:16 06/14/2017 [id number] back pain: care instructions [email or web address] Not available [...] care. [email or web address] Not available 06/14/2017 12:41:25 07/26/2017 [id number] I have reviewed the note and agree with the assessment and plan of care. 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 Referral for HP V - Human papillomavirus [...] DO Not Attach Compendium, Do Not Delete/merge, [id number] 05/04/2017 09:43:40 04/26/2004/26/2017 CBC w/ auto diff WBC 8.1 K/mm3 (4.0-1 1.0) Not Available [facility] (Centralized Electronic Ordering - All Locations) Patient Can Go To The Location Of Their Choice, [id number] 04/26/2017 14:34:25 04/26/2004/26/2017 CBC w/ auto diff RBC 4.10 M/mm3 (4.20- 5.40) low Not Available [facility] (Centralized Electronic Ordering - All Locations) Patient Can Go To The Location Of Their Choice, [id number] 04/26/2017 14:34:25 04/26/2004/26/2017 CBC w/ auto diff HGB 11.5 gm/dL (12.0- 16.0) low Not Available [facility] (Centralized Electronic Ordering - All Locations) Patient Can Go To The Location Of Their Choice, [id number] 04/26/2017 14:34:25 04/26/20 17 04/26/2017 CBC w/ auto diff HCT 36.1 % (37.0- 47.0) low Not Available [facility] (Centralized Electronic Ordering - All Locations) Patient Can Go To The Location Of Their Choice, [id number] 04/26/2017 14:34:25 04/26/2004/26/2017 CBC w/ auto diff [...] CIENT IN VITAM IN D. Refer ence: [facility] Data Brief : No.59 September: Vitam in D Statu s: Unite d State s: 2000- 2005 Not Available [facility] (Centralized Electronic Ordering - All Locations) Patient Can Go To The Location Of Their Choice, [id number] 04/27/2017 06:28:47 06/14/20 17 06/14/2017 TSH, serum or plasm a TSH 1.49 mIU/m L (0.40- 4.00) Not Available [facility] (Centralized Electronic Ordering - All Locations) Patient Can Go To The Location Of Their Choice, [id number] 06/14/2017 17:59:12 06/14/20 17 06/14/2017 vitam in B12, serum vitamin B12 270 pg/mL (170-8 70) Not Available [facility] (Centralized Electronic Ordering - All Locations) Patient Can Go To The Location Of Their Choice, [id number] 06/14/2017 18:11:00 08/02/19 18 08/02/2017 pregn kalyan test, urine HCG negati ve Not Available In-Office Order Internal Use Only DO Not Attach Compendium DO Not Attach Compendium, Do Not Delete/merge, [id number] 08/02/2017 10:13:52 06/14/20 17 06/14/2017 XR, lumba [...] IMPRES JEOVANY: No acute abnorm ality. WSN: [id number] Dictat ed By: Elvis Salgado MD Dictat ed Date/T luis: 12:28 p Review ed By: Elvis Salgado MD Signed By: Elvis Salgado MD Signed Date/T lius: 12:28 pm Transc ribed By: DARSHAN Transc ribed Date/T luis: 12:28 pm Patien t Class: Outpat ient [facility] ([facility]) [address] [place], [address], 06/14/2017 22:02:42 Result Notes None recorded. Problems Name Problem SNOMED Code Status Onset Date Resolution Date Notes Provider Name and Address Organization Details Recorded Time Radiolog y result abnormal [id number] Completed 201202/11/2014 RECORDED 03/14/20 13 9:57AM BY ANTOINE ROBLERO MA, SIGRIDATI ON/ADDEN DUM Dona Anteryon-C [address], [place], [address], [facility] 6 11:47:54 Amenorrh ea 34439542 Completed 201202/11/2014 IMPRESSI ON: DUE TO PREGNANC Y; RECORDED 01/30/20 13 10:36AM BY LEIGHA HAGEN MA, ANNOTMARAH ON/ADDEN DUM Dona Anteryon-C [address], [place], [address], [facility] 6 11:47:54 Allergic rhinitis 93743763 Active Dona Howell PA-C [address], [place], [address], [facility] 6 11:47:54 Chest pain 49727410 Completed 200802/11/2014 RECORDED 02/26/20 09 10:33AM BY MAGDIEL POWER ON/ADDEN DUM Dona Anteryon-C [address], [place], [address], [facility] 6 11:47:54 Breathin g painful 40407167 Completed 201202/11/2014 IMPRESSI ON: HER CHEST PAIN IS MUSCULOS KELETAL AND PROBABLY COSTOCHO NDRITIS; RECORDED 01/30/20 13 10:36AM BY LEIGHA HAGEN MA, ANNOTMARAH ON/ADDEN DUM Dona Anteryon-C [address], [place], [address], [facility] 6 11:47:54 Contact dermatit is [id number] Completed 201102/11/2014 RECORDED 02/21/20 12 9:30AM BY JAK COLEMAN MA, ANNOTATI ON/ADDEN DUM Dona Howell PA-C [address], [place], [address], [facility] 6 11:47:54 Dizzines s and giddines s 238832215 Completed 201202/11/2014 RECORDED 01/30/20 13 10:36AM BY LEIGHA HAGEN MA, ANNOTATI ON/ADDEN DUM Dona Howell PA-C [address], [place], [address], [facility] 6 11:47:54 Type 1 diabetes mellitus 98129457 Active Dona Howell PA-C [address], [place], [address], [facility] 6 11:47:54 Impacted cerumen 26530942 Completed 201102/11/2014 IMPRESSI ON: BILAT. NORMAL POST LAVAGE EXAM.; RECORDED 02/21/20 12 9:30AM BY JAK COLEMAN MA, ANNOTATI ON/ADDEN DUM Dona Howell PA-C [address], [place], [address], [facility] 6 11:47:54 Influenz a vaccine needed 65115192965 06 Completed 201302/11/2014 RECORDED 08/15/19 14 1:43PM BY SIENA FLOWERS MD, ANNOTATI ON/ADDEN DUM Dona Howell PA-C [address], [place], [address], [facility] 6 11:47:54 Follow-u p encounte r Completed 201102/11/2014 RECORDED 02/21/20 12 9:30AM BY JAK COLEMAN MA, ANNOTATI ON/ADDEN DUM Dona Howell PA-C [address], [place], [address], [facility] 6 11:47:55 Adult health examinat ion Completed 201307/28/2014 RECORDED 08/15/19 14 12:58PM BY DENISE PEREZ I, OFFICE VISIT Dona PAGAN-C [address], [place], [address], [facility] 6 11:47:55 Pruritic disorder 031079983 Completed 201102/11/2014 RECORDED 02/21/20 12 9:30AM BY JAK COLEMAN MA, ANNOTATI ON/ADDEN DUM Dona PAGAN-C [address], [place], [address], [facility] 6 11:47:54 Gastroes ophageal reflux disease 673711765 Active Dona PAGAN-C [address] [facility] [address], [place], [address], [facility] 6 11:47:54 Laborato ry procedur e performe d 100347391 Completed 201302/11/2014 RECORDED 08/15/19 14 12:55PM BY DENISE PEREZ I, ANNOTATI ON/ADDEN DUM Donamag PAGAN-C [address] [facility] [address], [place], [address], [facility] 6 11:47:55 Migraine 39621287 Active Dona PAGAN-C [address], [place], [address], [facility] 6 11:47:54 Administ ration of viral vaccine Completed 200802/11/2014 DATE: 02/26/20 09; RECORDED 02/21/20 12 9:30AM BY JAK COLEMAN MA, ANNOTATI ON/ADDEN DUM Dona PAGAN-C [address] [facility] [address], [place], [address], [facility] 6 11:47:54 Patient status finding [id number] Completed 201307/28/2014 RECORDED 08/15/19 14 12:58PM BY DENISE PEREZ I, OFFICE VISIT Dona Howell PA-C [address] [facility] [address], [place], [address], [facility] 6 11:47:54 Onychomy cosis due to dermatop hyte 927071528 Active Dona Howell PA-C [address] [facility] [address], [place], [address], [facility] 6 11:47:54 Onychia of toe 387833722 Completed 201102/11/2014 IMPRESSI ON: CHRONIC AND RECURRIN [...] ANNOTATI ON/ADDEN DUM Dona Howell PA-C [address] [facility] [address], [place], [address], [facility] 6 11:47:54 Paronych ia of toe 117525867 Active Dona Howell PA-C [address] [facility] [address], [place], [address], [facility] 6 11:47:54 Primigra mohan 188818671 Completed 201202/11/2014 IMPRESSI ON: THIS WAS UNEXPECT [...] [address], [place], [address], [facility] 6 11:47:55 Eruption 675666375 Completed 201102/11/2014 IMPRESSI ON: ETIOLOGY UNCLEAR, NO NEW EXPOSURE THAT SHE IS AWARE OF BUT DID HAVE RECENT TRAVEL TO [place]. LITTLE IMPROVEM ENT WITH TOPICAL CS AND PO ANTIHIST AMINES. AVOID PO PRED D/T DMT1 FOR NOW. GIVEN THAT ITCHING WORSE AT NIGHT, ONGOING NATURE WILL TX WITH PERMETHR IN X 1 BEFORE SEEING DERM. APPT WITH SPEC CURRENTL Y SCHED FOR MAR, WE WILL TRY TO EXPEDITE FOR HER.; RECORDED 07/05/20 12 3:17PM BY MAGDIEL YOUNG ON/JOSE DUM Dona PAGAN-C [address], [place], [address], [facility] 6 11:47:54 Adult health examinat ion Completed 201102/11/2014 RECORDED 02/21/20 12 9:30AM BY JAK COLEMAN MA, MAGDIEL ON/JOSE BAINC [address] [facility] [address], [place], [address], [facility] 6 11:47:55 Well child 699045699 Completed 201102/11/2014 RECORDED 02/21/20 12 9:30AM BY JAK COLEMAN MA, ANNOTATI ON/JOSE BAINC [address] [facility] [address], [place], [address], [facility] 6 11:47:55 Administ ration of diphther ia, pertussi s, and tetanus vaccine Completed 201307/28/2014 RECORDED 08/15/19 14 1:44PM BY SIENA FLOWERS MD, ANNOTATI ON/ADDEN DUM Dona Howell PA-C [address], [place], [address], [facility] 6 11:47:54 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 Completed 200802/11/2014 RECORDED 02/26/20 09 10:32AM BY TRAMAINE TRAN, ANNOTATI ON/ADDEN DUM Dona Howell PA-C [address], [place], [address], [facility] 6 11:47:54 Tinea pedis 2751858 Completed 201102/11/2014 RECORDED 02/21/20 12 9:30AM BY JAK COLEMAN MA, ANNOTATI ON/ADDEN DUM Dona Howell PA-C [address] [facility] [address], [place], [address], [facility] 6 11:47:54 Type 1 diabetes mellitus 37260534 Completed 201202/11/2014 RECORDED 10/10/19 13 4:13PM BY SHANNON PULIDO, SIGRIDATI ON/ADDEN DUM Dona Howell PA-C [address] [facility] [address], [place], [address], [facility] 6 11:47:54 Urticari a 836495201 Completed 201102/11/2014 STORY: MADE SEVERAL ATTEMPT TO REACH MOM WITH NO RETURN CALLS; RECORDED 02/21/20 12 9:30AM BY JAK COLEMAN MA, ANNOTATI ON/ADDEN DUM Dona Howell PA-C [address] [facility] [address], [place], [address], [facility] 6 11:47:54 Leukorrh ea 457325357 Completed 201202/11/2014 RECORDED 01/30/20 13 10:36AM BY LEIGHA HAGEN MA, SIGRIDATI ON/ADDEN DUM Dona Howell PA-C [address], [place], [address], [facility] 6 11:47:54 Viral disease 43282450 Completed 201102/11/2014 IMPRESSI ON: IN HOUSE STREP NEG, SEND OUT PENDING. LUNGS CTA. SUSPECT VIRAL ETIOLOGY . ENCOURAG ED CONTINUE D PRN USE OF TYLENOL/ MOTRIN, REST, AND FLUIDS. F/U PRN IF SXS WORSEN OR FAIL TO IMPROVE. ; RECORDED 02/21/20 12 9:30AM BY JAK COLEMAN MA, MAGDIEL ON/ADDEN DUM Dona Howell PA-C [address], [place], [address], [facility] 6 11:47:54 Candidal vulvovag initis 00715115 Active [facility]-C [address], [place], [address], [facility] 6 11:47:54 Ganglion cyst 383840477 Active [facility] [address], [place], [address], [facility] 6 11:47:54 Lichenif ication of skin 970709775 Active [facility] [address], [place], [address], [facility] 6 11:47:54 Radiolog y result abnormal 756748047 Completed 201203/03/2014 RECORDED 03/14/20 13 9:57AM BY ANTOINE ROBLERO MA, MAGDIEL ON/ADDEN DUM Dona Howell PA-C [address], [place], [address], [facility] 6 11:47:54 Amenorrh ea 92283149 Completed 201203/03/2014 IMPRESSI ON: DUE TO PREGNANC Y; RECORDED 01/30/20 13 10:36AM BY LEIGHA HAGEN MA, ANNOTATI ON/ADDEN DUM Dona Howell PA-C [address], [place], [address], [facility] 6 11:47:54 Chest pain 86824710 Completed 200803/03/2014 RECORDED 02/26/20 09 10:33AM BY TRAMAINE TRAN, ANNOTATI ON/ADDEN DUM Dona Howell PA-C [address], [place], [address], [facility] 6 11:47:54 Breathin g painful 09981944 Completed 201203/03/2014 IMPRESSI ON: HER CHEST PAIN IS MUSCULOS KELETAL AND PROBABLY COSTOCHO NDRITIS; RECORDED 01/30/20 13 10:36AM BY LEIGHA HAGEN MA, ANNOTATI ON/ADDEN DUM Dona Howell PA-C [address], [place], [address], [facility] 6 11:47:54 Contact dermatit is 24064991 Completed 201103/03/2014 RECORDED 02/21/20 12 9:30AM BY JAK COLEMAN MA, ANNOTATI ON/ADDEN DUM Dona Howell PA-C [address] [facility] [address], [place], [address], [facility] 6 11:47:54 Dizzines s and giddines s 095654626 Completed 201203/03/2014 RECORDED 01/30/20 13 10:36AM BY LEIGHA HAGEN MA, ANNOTATI ON/ADDEN DUM Dona Howell PA-C [address], [place], [address], [facility] 6 11:47:54 Impacted cerumen 90525205 Completed 201103/03/2014 IMPRESSI ON: BILAT. NORMAL POST LAVAGE EXAM.; RECORDED 02/21/20 12 9:30AM BY JAK COLEMAN MA, ANNOTATI ON/ADDEN DUM Dona Howell PA-C [address], [place], [address], [facility] 6 11:47:54 Influenz a vaccine needed 17771612735 06 Completed 201303/03/2014 RECORDED 08/15/19 14 1:43PM BY SIENA FLOWERS MD, SIGRIDATI ON/ADDEN DUM Dona Howell PA-C [address], [place], [address], [facility] 6 11:47:54 Follow-u mckenna encounte r Completed 201103/03/2014 RECORDED 02/21/20 12 9:30AM BY JAK COLEMAN MA, MAGDIEL ON/ADDEN DUM Dona Howell PA-C [address] [facility] [address], [place], [address], [facility] 6 11:47:55 Adult health examinat ion Completed 201303/03/2014 RECORDED 02/04/20 14 3:31PM BY JAK COLEMAN MA, MAGDIEL ON/ADDEN DUM Dona Dante PA-C [address] [facility] [address], [place], [address], [facility] 6 11:47:55 Pruritic disorder 095485200 Completed 201103/03/2014 RECORDED 02/21/20 12 9:30AM BY JAK COLEMAN MA, ANNOTMARAH ON/ADDEN DUM Dona Howell PA-C [address], [place], [address], [facility] 6 11:47:54 Gastroes ophageal reflux disease 454155960 Completed 201303/03/2014 RECORDED 02/04/20 14 3:30PM BY JAK COLEMAN MA, MAGDIEL ON/ADDEN DUM Dona Dante PAGAN-C [address], [place], [address], [facility] 6 11:47:54 Infectiv e hepatiti s immuniza tion Completed 201303/03/2014 RECORDED 02/04/20 14 3:31PM BY JAK COLEMAN MA, NURSE VISIT Dona PAGAN-C [address], [place], [address], [facility] 6 11:47:54 History of clinical finding in subject 998801605 Completed 201303/03/2014 RECORDED 02/04/20 14 3:31PM BY JAK COLEMAN MA, MAGDIEL ON/ADDEN DUM Dona Dante PAGAN-C [address] [facility] [address], [place], [address], [facility] 6 11:47:54 Laborato ry procedur e performe d 758854883 Completed 201303/03/2014 RECORDED 08/15/19 14 12:55PM BY MAGDIEL YOUNG ON/ADDEN DUM Dona Dante PAGAN-C [address] [facility] [address], [place], [address], [facility] 6 11:47:55 Administ ration of viral vaccine Completed 200803/03/2014 DATE: 02/26/20 09; RECORDED 02/21/20 12 9:30AM BY JAK COLEMAN MA, MAGDIEL ON/ADDEN DUM Dona Dante PAGAN-C [address] [facility] [address], [place], [address], [facility] 6 11:47:54 Onychomy cosis due to dermatop hyte 400425074 Completed 201303/03/2014 RECORDED 02/04/20 14 3:30PM BY JAK COLEMAN MA, MAGDIEL ON/ADDEN DUM Dona Dante PAGAN-C [address], [place], [address], [facility] 6 11:47:54 Onychia of toe 247045785 Completed 201103/03/2014 IMPRESSI ON: CHRONIC AND RECURRIN [...] [address], [place], [address], [facility] 6 11:47:54 Primigrrenato preston 106292648 Completed 201203/03/2014 IMPRESSI ON: THIS WAS UNEXPECT [...] [address], [place], [address], [facility] 6 11:47:55 Eruption 827286981 Completed 201103/03/2014 IMPRESSI ON: ETIOLOGY UNCLEAR, NO NEW EXPOSURE THAT SHE IS AWARE OF BUT DID HAVE RECENT TRAVEL TO [place]. LITTLE IMPROVEM ENT WITH TOPICAL CS AND [...] [address], [place], [address], [facility] 6 11:47:54 Well child 998434595 Completed 201103/03/2014 RECORDED 02/21/20 12 9:30AM BY JAK COLEMAN MA, MAGDIEL ON/ADDEN DUM Dona Howell PA-C [address] [facility] [address], [place], [address], [facility] 6 11:47:55 Administ ration of diphther ia, pertussi s, and tetanus vaccine Completed 201303/03/2014 RECORDED 02/04/20 14 3:30PM BY JAK COLEMAN MA, MAGDIEL ON/ADDEN DUM Dona Howell PA-C [address] [facility] [address], [place], [address], [facility] 6 11:47:54 Tietze's disease 59726865 Completed 200803/03/2014 RECORDED 02/26/20 09 10:32AM BY MAGDIEL POWER ON/ADDEN DUM Dona Howell PA-C [address] [facility] [address], [place], [address], [facility] 6 11:47:54 Tinea pedis 5431748 Completed 201103/03/2014 RECORDED 02/21/20 12 9:30AM BY JAK COLEMAN MA, ANNOTATI ON/ADDEN DUM Dona Howell PA-C [address] [facility] [address], [place], [address], [facility] 6 11:47:54 Urticari a 977203173 Completed 201103/03/2014 STORY: MADE SEVERAL ATTEMPT TO REACH MOM WITH NO RETURN CALLS; RECORDED 02/21/20 12 9:30AM BY JAK COLEMAN MA, MAGDIEL ON/[facility] [address], [place], [address], [facility] 6 11:47:54 Leukorrh ea 725222131 Completed 201203/03/2014 RECORDED 01/30/20 13 10:36AM BY LEIGHA HAGEN MA, MAGDIEL ON/ADDEN DUM [facility] [address], [place], [address], [facility] 6 11:47:54 Varicell a vaccinat ion Completed 201303/03/2014 RECORDED 02/04/20 14 3:31PM BY JAK COLEMAN MA, NURSE VISIT [facility] [address], [place], [address], [facility] 6 11:47:54 Viral disease 89190038 Completed 201103/03/2014 IMPRESSI ON: IN HOUSE STREP NEG, SEND OUT PENDING. LUNGS CTA. SUSPECT VIRAL ETIOLOGY . ENCOURAG ED CONTINUE D PRN USE OF TYLENOL/ MOTRIN, REST, AND FLUIDS. F/U PRN IF SXS WORSEN OR FAIL TO IMPROVE. ; RECORDED 02/21/20 12 9:30AM BY JAK COLEMAN MA, MAGDIEL ON/ADDEN DUM Dona Howell ND-C [address], [place], [address], [facility] 6 11:47:54 Candidal vulvovag initis 31847410 Completed 201303/03/2014 RECORDED 02/04/20 14 3:31PM BY JAK COLEMAN MA, MAGDIEL ON/ADDEN DUM [facility] [address], [place], [address], [facility] 6 11:47:54 Alek ball 226080057 Active Dona Howell PA-C [address], [place], [address], [facility] 6 11:47:54 Shoulder pain 50353861 Active Dona Howell PA-C [address], [place], [address], [facility] 6 11:47:54 Luis liu 0502324 Completed 07/26/2017 Shannon Pulido MA null, [facility] 8 09:11:35 Type 2 diabetes mellitus 46354390 Completed 09/25/2015 Dona Howell PA-C [address], [place], [address], [facility] 6 11:47:54 Fatigue 29964115 Completed 07/26/2017 Shannon Pulido MA null, [facility] 8 09:11:48 Anemia 387661610 Active Dona Howell PA-C [address], [place], [address], [facility] 6 11:47:54 Vitamin D deficien cy 64546579 Active Dona Howell PA-C [address], [place], [address], [facility] 6 11:47:54 Upper chest pain 647167154 Completed 06/14/2017 Leigha de MA null, [facility] 7 10:30:36 Pain in lower limb 13440112 Active 2016 Siena vanessa MD [address], [place], [address], [facility] 7 12:08:57 Notes:Diabetic Eye Exam, [facility] on 08/18/2015. Problem Notes None recorded. Procedures Surgical History Date Name Laterality Status Provider Name and Address Organization Details Recorded Time 05/12/2017 Date of Last Pap Smear completed Leigha stokes MA [facility] 05/13/2017 12:30:50 No surg proc w/in 30 days completed Leigha stokes MA [facility] 06/14/2017 10:31:01 Imaging Results Imaging Date Name Status LastModified by Organiz ation Details LastModified Time 06/14/2017 XR, lumbar spine completed [facility] ([facility] [address] , [place], [address], 06/14/2017 22:02:42 Procedure Notes None recorded. Medical Equipment None Reported. Allergies Allergen ID Allergen Name Allergen Category Reaction Reaction Severity Criticality Documentation Date Start Date Code Code System Note Provider Name and Address Organization Details Recorded Time 57827 duloxetin e medicatio n dizziness nausea vomiting moderate Not available Not available Not available 06/01/20172016 58459 RxNorm TRAMAINE Neff [facility] 7 10:30:23 Medications Name Sig Start Date Stop Date Status Note LastModified by Organization Details LastModified Time multiple vitamins tabs active Not Available Not Available Not Available vitamin d 85735 unit caps active Not Available Not Available [...] Available polymyxin b sulfate/t rimethopr im sulfate 20736-1.1 unit/ml-% soln active Not Available Not Available [...] % 97 % 91 /min 18.3 kg/m2 71837.0 3 g 104 mm[Hg] 69 mm[Hg] Boy Perez [facility] 7 09:21:50 Date Recorded Body height Body mass index (BMI) Body weight Heart rate Oxygen saturation Oxygen saturation in Arterial blood by Pulse oximetry Body temperature Systolic blood pressure Diastolic blood pressure Provider Name and Address Organization Details Last Updated DateTime 7 165.735 cm 18.8 kg/m2 32152.5 3 g 74 /min 97 % 97 % 98.1 [degF] 116 mm[Hg] 74 mm[Hg] Denise Mora [facility] 7 15:58:40 Date Recorded Body height Body temperature Oxygen saturation Oxygen saturation in Arterial blood by Pulse oximetry Heart rate Body mass index (BMI) Body weight Systolic blood pressure Diastolic blood pressure Provider Name and Address Organization Details Last Updated DateTime 7 165.735 cm 98.8 [degF] 97 % 97 % 116 /min 19 kg/m2 62217.1 2 g 98 mm[Hg] 62 mm[Hg] Leigha de [facility] 7 10:42:00 Date Recorded Body height Body mass index (BMI) Body weight Body temperature Oxygen saturation Oxygen saturation in Arterial blood by Pulse oximetry Heart rate Systolic blood pressure Diastolic blood pressure Provider Name and Address Organization Details Last Updated DateTime 8 165.735 cm 19.6 kg/m2 06347.7 g 98.3 [degF] 100 % 100 % 80 /min 98 mm[Hg] 63 mm[Hg] Shannon Pulido MA [facility] [place] 8 09:14:17 Date Recorded Body height Provider Name an d Address Organization Details Last Updated DateTime 08/02/2017 165.735 cm Laya Braxton [facility] [place] 08/02/2017 10:02:11 Social History Question Answer Notes LastModified by Organizat ion Details LastModified Time Tobacco Smoking Status Never Smoker Not Available [facility] 05/26/2020 03:36:40 Do You Have An Advance Directive? No [id number] Information not available 05/26/2020 What Is Your Level Of Alcohol Consumption? None [id number] Information not available 05/26/2020 Is Blood Transfusion Acceptable In An Emergency? Yes [id number] Information not available 05/26/2020 What Is Your Level Of Caffeine Consumption? None [id number] Information not available 05/26/2020 How Much Tobacco Do You Chew? None [id number] Information not available 05/26/2020 Are You Currently Employed? Yes [id number] Information not available 05/26/2020 What Type Of Diet Are You Following? REGULAR [id number] Information not available 05/26/2020 Which Illicit Or Recreational Drugs Have You Used? 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 No [email or web address] Information not available 04/01/2016 What Was The Date Of Your Most Recent Tobacco Screening? 07/26/2017 [id number] Information not available 05/26/2020 How Many Children Do You Have? 1 Todd [id number] Information not available 05/26/2020 Do You Use Protection During Sex? No [id number] Information not available 05/26/2020 Seat Belts Used Routinely Yes Information not available 09/24/2015 Are You Sexually Active? Yes [id number] Information not available 05/26/2020 Smoke Alarm In Home Yes Information not available 04/07/2015 At What Age Did You Start Smoking Tobacco? 2 [id number] Information not available 05/26/2020 Are You Passively Exposed To Smoke? No Information not available 04/07/2015 How Much Tobacco Do You Smoke? No [id number] Information not available 05/26/2020 Do You Use Sunscreen Routinely? No [id number] Information not available 05/26/2020 How Many Years Have You Smoked Tobacco? 0 [id number] Information not available 05/26/2020 Sex: Unknown Functional Status Question Answer Note LastModified by Organization D etails LastModified Time Are you able to care for yourself? Yes [id number] Information n ot available 05/26/2020 What is your exercise level? None [id number] Information not available 05/26/2020 Mental Status None [...] Hep B, adult 5 completed Not Available [facility] 08/10/2019 02:21:35 varicella 5 completed Not Available [facility] 08/10/2019 02:21:32 Hep B, adult 4 completed Not Available [facility] 08/24/2019 02:14:00 Tdap 4 completed Not Available [facility] 02/28/2014 09:41:55 varicella 4 completed Not Available [facility] 02/28/2014 09:41:55 Td (adult), 2 Lf tetanus toxoid, preservative free, adsorbed 5 completed Not Available [facility] 02/04/2014 13:24:14 Influenza, split virus, trivalent, preservative 8 completed Not Available [facility] 02/04/2014 13:24:14 HPV, quadrivalent 9 completed Not Available [facility] 02/04/2014 13:24:14 HPV, quadrivalent 9 completed Not Available [facility] 02/04/2014 13:24:14 HPV, quadrivalent 9 completed Not Available [facility] 02/04/2014 13:24:14 Influenza, split virus, trivalent, preservative 1 completed Not Available [facility] 02/04/2014 13:24:14 influenza, seasonal, intradermal, preservative free 2 completed Not Available [facility] 02/04/2014 13:24:14 Influenza, split virus, quadrivalent, PF 4 completed Not Available [facility] 02/04/2014 13:24:14 Hep B, adult 4 completed Not Available [facility] 08/10/2019 02:21:35 Influenza, split virus, quadrivalent, PF 7 completed Not Available [facility] 08/10/2019 02:22:10 Past Encounters Encounter ID Performer Location Encounter Start Date Encounter Closed Date Diagnosis/Indication Diagnosis SNOMED-CT Code Diagnosis ICD10 Code Diagnosis Note [id number] Denise Mora Main Office [address] [facility] [place] [address] 02/26/2014 14:30:48 02/26/2014 15:01:37 Ganglion cyst 226274159 Lichenific ation of skin 950751796 [id number] [facility] [address] [facility] [facility] [place] [address] 10/25/2007 00:00:00 [id number] [facility] [facility] [address] [facility] [place] [address] 12/04/2007 00:00:00 [id number] autoEComm erce [address] [facility] [address] [place] [address] 04/10/2008 00:00:00 [id number] [address] er[address] [place] [address] 11/11/2008 00:00:00 [id number] auto[employer] erce [address] [place] [address] 12/22/2008 00:00:00 [id number] auto[employer] erce [address] [facility] [address] [place] [address] 02/25/2009 00:00:00 [id number] autoEComm erce [address] [facility] [address] [place] [address] 01/01/2010 00:00:00 [id number] autoEComm erce [address] [facility] [place] [address] 04/22/2010 00:00:00 [id number] autoEComm erce [address] [facility] [place] [address] 09/16/2010 00:00:00 [id number] autoEComm erce [address] [facility] [place] [address] 12/09/2010 00:00:00 [id number] auto[employer]Comm erce [address] [facility] [place] [address] 01/12/2011 00:00:00 [id number] auto[employer] erce [address] [facility] [place] [address] 04/13/2011 00:00:00 [id number] autoEComm erce [address] [facility] [address] [place] [address] 06/15/2011 00:00:00 [id number] auto[employer] erce [address] [facility] [place] [address] 07/19/2011 00:00:00 [id number] autoEComm erce [address] [facility] [place] [address] 01/18/2012 00:00:00 [id number] autoEComm erce [address] [facility] [place] [address] 02/21/2012 00:00:00 [id number] autoEComm erce [address] [facility] [place] [address] 04/18/2012 00:00:00 [id number] autoEComm erce [address] [facility] [place] [address] 07/05/2012 00:00:00 [id number] autoEComm erce [address] [facility] [place], [place] [address] 10/09/2012 00:00:00 [id number] autoEComm erce [address] [facility] [place] [address] 08/15/2013 00:00:00 [id number] Main Office [address] [facility] [address] [place], [place] [address] 03/07/2014 08:52:54 03/07/2014 12:17:28 Requires course of hepatitis B vaccination 980993444 [id number] Denise Mora Main Office [address] [facility] [address] [place], [place] [address] 07/28/2014 12:45:00 07/28/2014 13:12:56 Migraine 60624383 Her migraines occur 2-4 times per week so she has agreed to trying prophylaxi s. We will start with Depakote since a beta antonio may drop her BP which is already at a systolic below 110 and topomax may decrease her appetite and her BMI is already below 17. [id number] Denise Mora Main Office [address] [facility] [address] [place], [place] [address] 09/10/2014 15:31:05 09/10/2014 16:11:30 Adult health examination 705808805 Requires c ourse of hepatitis B vaccination 729090279 Migraine 00182201 Her migraines occur 2-4 times per week so she has agreed to trying prophylaxi s. We will start with Depakote since a beta antonio may drop her BP which is already at a systolic below 110 and topomax may decrease her appetite and her BMI is already below 17. Type 1 marilia betes mellitus 68144195 [id number] Siena Flores MD Main Office [address] [address] [place] [address] 09/12/2014 11:25:08 09/12/2014 11:40:26 Varicella vaccination 50793824 [id number] Denise Mora Main Office [address] [place] [address] [place] [address] 09/16/2014 10:13:32 09/16/2014 10:33:46 Hordeolum [id number] Please apply warm compresses to area x 15 minutes 4-5 times daily- (use a wash clot with hot water and hold to area, apply fresh hot water as needed x 15 minutes. Polytrim every 6 hours as directed. Should you develop worsening swelling, redness, fever, discharge, vision changes please return. [id number] Main Office [address] [place] [address] [place] [address] 03/10/2015 09:06:03 03/10/2015 09:58:00 Type 1 diabetes mellitus 78299818 followed at [facility] and has a pump in place. A1C's have been running high. Shoulder pain 76545441 [id number] Alden Adams MD Main Office [address] [place] [address] [place] [address] 04/07/2015 13:18:08 04/07/2015 13:58:55 Chalazion [id number] Siena Flores MD Main Office [address] [place] [address] [place] [address] 07/09/2015 14:20:17 07/09/2015 15:04:29 Type 2 diabetes mellitus 34935555 E11.9 Fingerstic k A1C 8.7%, improved from the last one in february which was 11.3, she sees Dr. Martin next month. She will f.u at that appt, watch her diet- carbs and high sugar food intake, she will contact her opthalmolo gist re: blurred vision. Will check CBC, TSH and vitamin D as well. Fatigue 50134923 R53.83 [id number] Siena Flores MD Main Office [address] [place] [address] [place] [address] 09/24/2015 14:35:59 09/24/2015 15:25:57 Adult health examination 001167277 Z00.00 Screening for malignant neoplasm of cervix 762994912 Z12.4 Type 1 marilia betes mellitus 18734275 E10.9 followed at [facility] and has a pump in place. A1C's have been running high. [id number] Alden Adams MD Main Office [address] [facility] [address] [place] [address] 12/25/2015 10:43:16 12/25/2015 11:43:08 Upper chest pain 355482452 R07.82 Musculoske letal L. chest pain. Pt. reassured. Advised to do warm compress TID 5-10 minutes, avoid lifting or excessive exercise and take ADvil 200 mg 3 po TID with food for 5 days. F/u PRN. [id number] Estella Rouse Main Office [address] [address] [place] [address] 02/25/2016 09:57:00 02/25/2016 10:35:59 Amenorrhea 98899879 N91.2 Normal 5012138 2 Z34.91 [id number] Siena Flores MD Main Office [address] [address] [place] [address] 04/01/2016 09:56:40 04/01/2016 10:46:22 Type 1 diabetes mellitus 66504946 E10.9 followed at [facility] and has a pump in place. A1C's have been running high. Migraine 92201671 G43.90 9 Her migraines occur 2-4 times per week so she has agreed to trying prophylaxi s. We will start with Depakote since a beta antonio may drop her BP which is already at a systolic below 110 and topomax may decrease her appetite and her BMI is already below 17. Gastroesop hageal reflux disease 059733523 K21.9 [id number] Siena Flores MD Main Office [address] [address] [place] [address] 06/22/2016 10:42:11 06/22/2016 11:32:23 Postcoital bleeding 60808673 N93.0 Cultures were sent and test was negative. We will make a [facility]END[facility] appointmen t for her for further evaluation . Sampling o f vagina for Papanicolaou smear 196038768 Z01.419 [id number] Edgar arriaga Main Office [address] [facility] [address] [place] [address] 07/22/2016 13:21:30 07/22/2016 14:29:10 Lateral epicondylitis 264706875 M77.11 Tendinitis of wrist 4238 53561 M77.8 ice, compressio n , ortho referral for wrist injection. [id number] Siena Flores MD Main Office [address] [address] [place] [address] 08/25/2016 08:49:25 08/25/2016 09:45:11 Cellulitis 293017499 L03.011 Paronychia of finger 444 656616 L03.019 [id number] Siena Flores MD Main Office [address] [address] [place] [address] 09/02/2016 09:11:28 09/02/2016 09:51:55 Type 1 diabetes mellitus 28335476 E10.9 followed at [facility] and has a pump in place. A1C's have been running high. Physically able to work 2499119888 24389 Z78.9 Evaluation done to clear her to work. She first must see [facility] because of her type 1 diabetes. [id number] Alden Adams MD Main Office [address] [address] [place] [address] 09/05/2016 13:53:15 09/05/2016 15:22:56 Eruption 662970637 R21 unknown etiology, but doubt anaphylaxi s as was seen in ER last night, and doubt SE of keflex as has been off it x few days - will change benadryl to zyrtec and add pred. pulse [id number] Siena Flores MD Main Office [address] [address] [place] [address] 11/11/2016 09:35:54 11/11/2016 09:51:05 Contraception care management 362382511 Z30.9 [id number] Siena Flores MD Main Office [address] [address] [place] [address] 02/13/2017 09:45:48 02/13/2017 10:14:39 Contraception care management 699597688 Z30.9 [id number] Gwen James Main Office [address] [address] [place] [address] 03/21/2017 11:21:23 03/21/2017 12:11:55 Needs influenza immunization 393753748 Z23 Pain in lower limb 10933 006 M79.661 M79.662 Unclear etiology. Will check labs and do a trial of naprosyn and see her back in 2 weeks. If the pain persists we will do a referral at that time. [id number] Siena Flores MD Main Office [address] [address] [place] [address] 04/12/2017 11:29:30 04/12/2017 12:06:13 Diabetic peripheral neuropathy 540562066 E11.40 We discussed improving her diabetes control as well and she is followed by [facility] endo. 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 Vitamin D deficiency 347 34349 E55.9 recheck level Type 1 marilia betes mellitus 64780091 E10.9 cont meds as dir - cont f/u c [facility] endo - next is 11.17 - they check a1c q 6 months Diabetic p eripheral neuropathy 290745999 E11.40 encouraged her to increase to 3 pills nightly of elavil since no sig response to 2 tabs nightly - f/u c pcp next month Anemia 720925436 D64.9 h/o anemia - will check iron studies too Loss of te eth due to extraction 77245479 K08.409 had 3 wisdom teeth extracted last week - finished prednisone and advised to finish amox as dir as well as add probiotic supplement daily - next f/u next Monday [id number] Siena Flores MD Main Office [address] [place] [address] 05/04/2017 09:13:57 05/04/2017 09:49:28 Menorrhagia 844834780 N92.0 On depo, negative. Will refer to [facility]END[facility] for further eval. HPV - Erendira n papillomavirus test positive 552732054 R87.619 Had pap but has not had follow-up. Will refer to [facility] ATTENDANT Atypical s quamous cells of undetermined significance on cervical Papanicolaou smear 940568870 R87.610 Anemia 927138796 D64.9 Mildly anemic with normal iron and mildly low % sat. Suspect due to menorrhagi a. instructed to eat more iron rich foods- green leafy veggies, red meat. [facility] ion care management 718720468 Z30.42 To get depo today. [id number] Siena Flores MD Main Office [address] [address] [place] [address] 05/19/2017 15:52:01 05/19/2017 16:17:10 Type 1 diabetes mellitus 86667738 E10.9 followed at [facility] and has a pump in place. A1C's have been running high. Diabetic p eripheral neuropathy 982101817 E11.40 Tried amitriptyl ine which did not help. [id number] Siena Flores MD Main Office [address] [address] [place] [address] 06/14/2017 10:27:23 06/14/2017 11:27:36 Type 1 diabetes mellitus 82945681 E10.9 cont meds, f/u c endo Diabetic p eripheral neuropathy 270629888 E11.40 no better c elavil, no tolerate duloxetine - will give trial of gabapentin Lumbar radiculopathy 128 691489 M54.16 [id number] Siena Flores MD Main Office [address] [place] [address] 07/26/2017 08:56:34 07/26/2017 09:58:26 Idiopathic peripheral neuropathy 42093848 G60.9 per neur persists, doubt diabetic per neur from last endo note - all labs and xrays nl so far - will get neuro evaluation -- pt does have + FH MS in maternal cousin meanwhile - cont lyrica as best you can - if SE unbearable , then stop Type 1 marilia betes mellitus 16563730 E10.9 cont meds, f/u c endo [id number] Denise Mora Main Office [address] [facility] [address] [facility] [place] [address] 08/02/2017 09:23:28 08/02/2017 10:31:40 Contraception care management 874425090 Z30.42 Health Concerns Section Related Observation LastModified by Organization Detai ls LastModified Time None Recorded Concern Status LastModified by Organization Details LastModified Time None Recorded Advance Directives Directive N: Payers Encounter Date Sequence Insurance Name Policy Number Policy Schulte Covered Member ID Schulte Member ID Guarantor Name 05/04/2017 1 [facility] - MEDICAID ESSENTIAL (MEDICAID HMO) [id number] Gris Vega [id number] Gris Vega 05/04/2017 1 [place] Gris Vega [id number] Gris Vega 05/19/2017 1 [facility] - MEDICAID ESSENTIAL (MEDICAID HMO) [id number] Gris Vega [id number] Gris Vega 05/19/2017 1 [place] Gris Vega [id number] Gris Vega 06/14/2017 1 [facility] - MEDICAID ESSENTIAL (MEDICAID HMO) [id number] Gris Vega [id number] Gris Vega 06/14/2017 1 [place] Gris Vega [id number] Gris Vega 07/26/2017 1 [facility] - MEDICAID ESSENTIAL (MEDICAID HMO) [id number] Gris Vega [id number] Gris Vega 07/26/2017 1 [place] Gris Vega [id number] Gris Vega 08/02/2017 1 [facility] [place] [facility] - MEDICAID ESSENTIAL (MEDICAID HMO) [id number] Gris Vega [id number] Gris Vega 08/02/2017 1 [place] [facility] Gris Vega [id number] Gris Vega Notes Date Note Type Note [...] was treated appropriately Siena Flores MD [address], [address], [facility] 05/04/2017 11:50:48 05/19/2017 text/html She was started on amitriptyline 10 mg daily and increased this dose to a total of 40 mg daily for peripheral neuropathy but she stopped it because it was not giving any relief. She continues to have pain in her legs. 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 Siena Flores MD [address] [address], [place], [address], [facility] 05/20/2017 14:17:38 06/14/2017 text/html rev. recent note [...] well, no b/b dysfxn Siena Flores MD [address] [facility] [address], [place], [address], [facility] [place] 06/14/2017 12:41:32 07/26/2017 text/html here for f/u [...] MS - maternal cousin Siena Flores MD [address] [facility] [address], [place], [address], [facility] [place] 07/26/2017 09:58:50 OBGyn Episode No OBEpisode recorded.
[2024-10-16 12:24] LABS: Erythrocyte Sedimentation Rate 10 MM/HR (0-20)
[2024-10-16 12:29] LABS: Folate 7.4 ng/mL (> or = 4.0); Vitamin B12 884 pg/mL (200-900)
[2024-10-16 13:35] LABS: Reflex LDLD? No
[2024-10-17 16:24] LABS: Homocysteine 14.6 umol/L (<10.4)
[2024-10-17 16:38] LABS: CRP High Sensitivity 12.7 mg/L
== END 2024-10-16 10:29 | disposition home or self-care (01) ==
LOC: HO.NEURO 10:28
PROVIDERS: Nurse Practitioner Family; Visit Provider Physical Medicine & Rehabilitation
DX: R20.2 Paresthesia of skin (principal); M79.601 Pain in right arm; M79.602 Pain in left arm; R79.82 Elevated C-reactive protein (CRP); E10.9 Type 1 diabetes mellitus without complications; R56.9 Unspecified convulsions; D64.9 Anemia, unspecified; E55.9 Vitamin D deficiency, unspecified; M21.372 Foot drop, left foot; G57.32 Lesion of lateral popliteal nerve, left lower limb
CPT/HCPCS: 36415; 80053; 80061; 82306; 82607; 82746; 83090; 85025; 85652; 86141; 93005; 95886; 95911

== ENCOUNTER → 2024-10-16 10:37 | Outpatient (BNV) | payer MEDICAID, SELFPAY | PROVIDERS: Visit Provider Physical Medicine & Rehabilitation | DX: R20.0 Anesthesia of skin (principal); R20.2 Paresthesia of skin; E10.40 Type 1 diabetes mellitus with diabetic neuropathy, unspecified | CPT/HCPCS: 95886; 95911 ==

== ENCOUNTER → 2024-10-16 10:43 | Outpatient (BNV) | payer MEDICAID, SELFPAY | PROVIDERS: Visit Provider Internal Medicine Cardiovascular Disease | DX: R79.82 Elevated C-reactive protein (CRP) (principal) | CPT/HCPCS: 93010 ==

== ENCOUNTER 2025-03-06 10:31 | Outpatient (AMB) | payer MEDICAID, SELFPAY ==
--- OUTSIDE RECORDS SUMMARY | 2025-03-04 23:59 | XMS_ITS | Continuity of Care Document ---
Author Organization [facility] Address [address] [place] [id number]- Care Team Providers Care Lead Database Administrator Name Role Phone Radha FITZPATRICK, Brittany Saeed Primary Care Physician [id number] Date(s): 02/25/25 - 03/04/25 [facility] [address] [place] [id number] Attending Physician: Francisca Bashir NP Encounter Type: Office Visit Allergies, Adverse Reactions, Alerts Substance Criticality Severity [...] give 325mg per patient preference and re-dose [id number] within 4 hours, if needed. Patient should [...] each Repeat number: 4 BD Ultra fine [id number] insuiln syringes BD Ultra fine [id number] insuiln syringes, See Instructions, # 120 each, [...] Refills, Maintenance, 05/20/21 11:26:00 AM EDT, Tablet, [id number], Partial fill upon patient request if the [...] 11:38:00 AM EST, Route to Pharmacy Electronically, [facility] #[id number], Partial fill upon patient request if the [...] 12:47:00 PM EST, Route to Pharmacy Electronically, [facility] #[id number], Partial fill upon patient request, 157, cm, [...] Repeat number: 6 FREESTYLE LITE BLOOD GLUCOSE STRIPS FREESTYLE LITE BLOOD GLUCOSE STRIPS, See Instructions, # 200 Unknown, 0 Refills, Maintenance, USE DIRECTED SIX TIMES A DAY, 12/06/24 4:41:00 PM EDT, 158, cm, 10/23/24 10:27:00 EDT, Height Start Date: 12/06/24 Status: Ordered Quantity: 200.0 Unit: Unknown Repeat number: 1 FREESTYLE LITE BLOOD GLUCOSE SYSTEM FREESTYLE LITE [...] 10 times daily, E 10.65, 06/10/22 10:21:00 AM EST, Supply, 158, cm, [...] E 10.9, # 30 mL, 8 Refills, Maintenance,10/23/24 11:24:00 AM EDT, [facility] #[id number], 158, cm, 10/23/24 10:27:00 EDT, Height Start Date: 10/23/24 Status: Ordered Quantity: 30.0 Unit: mL Repeat [...] 11 Refills, Maintenance, 01/25/23 8:59:00 AM EDT, [facility] #[id number], 158, cm, 08/25/22 12:35:00 EST, Height Start [...] 04/17/15 Sex Female Sex Representation Female (finding) Note * Ariella Shook: PERFORM Event Display: Patient Education/Instruction Authored Date: [id number] Ambulatory Adult Visit Summary [facility] [address] [place] [address] Name: SAMMY MORALEZ : 1990?? Visit: 02/25/2025 10:00?? Ambulatory Visit Instructions ?? Your Care Team Primary Care Provider Radha FITZPATRICK, Brittany Saeed? This Visit Provider Mckay FITZPATRICK, Francisca Mcconnell Your Diagnosis Type 1 diabetes Vitals Signs Pulse Rate: 83 bpm Height: 159 cm Systolic Blood Pressure:??141 mm Hg??High Weight: 65.5 kg Diastolic Blood Pressure:??96 mm Hg??High Body Mass Index:??25.91 kg/m2??High ?? Body surface area: 1.7 What to do next Follow-Up Appointments Follow Up with??Francisca Bashir NP When:??Within 3 months Where: [facility] [place] [address]- Future Orders Microalbumin Urine (Urine Microalbumin) - Routine, Once, 04/03/24 9:45:00 EDT, Single or Recurring Future Order, [facility], Urine?? Creatinine - Routine, Once, 04/03/24 9:45:00 EDT, Single or Recurring Future Order, [facility], Blood?? Microalbumin Urine (Urine Microalbumin) - Routine, Once, 04/03/24 10:14:00 EDT, Single or RecurringFuture Order, [facility], Urine?? Creatinine - Routine, Once, 04/03/24 10:14:00 EDT, Single or Recurring Future Order, [facility], Blood?? Creatinine - Routine, Once, 10/23/24 10:55:00 EDT, Single or Recurring Future Order, [facility], Blood?? Microalbumin Urine (Urine Microalbumin) - Routine, Once, 10/23/24 10:56:00 EDT, Single or RecurringFuture Order, [facility], Urine?? Lipid Panel - Routine, Once, 02/25/25 10:39:00 EDT, Single or Recurring Future Order, [facility], Blood?? Medications The list below reflects the information in our records and provided by you today along with any changes made during this visit. Please continue your medications until treatment is completed or stopped by your provider. If this is different from the information you have or there are other questions,please contact the prescribing provider. What How Much When Instructions Unchanged Acetaminophen (acetaminophen 325 mg oral tablet) 650 Milligram Oral Every 4 hours as needed for Pain , Mild (1-3), may give 325mg per patient preference and re-dose with 325mg within 4 hours, if needed. ?? Patient should only receive a total of 650mg of Acetaminophen every 4 hours. ?? Unchanged Bisoprolol (bisoprolol 10 mg oral tablet) 1 tab(s) Oral Daily Duration: 90 Days Unchanged Cyclobenzaprine (cyclobenzaprine 10 mg oral tablet) 1 tab(s) Oral Daily at supper Unchanged Durable Medical Equipment (AccuChek Guide Glucometer) See instructions Use to check Bgs 6x daily. E10.65 ?? Unchanged Durable Medical Equipment (AccuChek Guide Test Strips) See instructions Use to check BGs up to 6x daily. E10.65 ?? Unchanged Durable Medical Equipment (Alcohol Pads) See instructions Duration: 90 Days use as directed for Type 1 Diabetes Mellitus to test 5 times daily ?? Unchanged Durable Medical Equipment (Alcohol Wipes) See instructions use up to 5 times/ d ?? Unchanged Durable Medical Equipment (BD Ultra fine [id number] insuiln syringes) See instructions Use to inject insulin 4x a day in case of pump failure. E10.9 ?? Unchanged Durable Medical Equipment (Blood Pressure Machine) See instructions Blood Pressure Machine ?? Unchanged Durable Medical Equipment (Contour Next EZ Test Strips) See instructions Duration: 30 Days use as directed for Type 1 Diabetes Mellitus. ??Max test 10x's/ day, 90 days ?? Unchanged Durable Medical Equipment (Freestyle Flash Glucose Meter) See instructions Duration: 30 Days use as directed for Type 1 Diabetes Mellitus ?? Unchanged Durable Medical Equipment (Freestyle Lite Lancets) See instructions Use to check BGs 6x daily. E10.65 ?? Unchanged Durable Medical Equipment (Freestyle Lite Monitor) See instructions use to test BS 10 times daily, E 10.65 ?? Unchanged Durable Medical Equipment (Freestyle Lite Monitor) See instructions Use to check BGs 6x daily. E10.65 ?? Unchanged Durable Medical Equipment (Freestyle Lite Test Strips) See instructions Check BGs 6x daily. E10.65 ?? Unchanged Durable Medical Equipment (Freestyle Test Strips) See instructions Duration: 90 Days Use to check blood glucose 8x a day, E10.9 ?? Unchanged Durable Medical Equipment (Glucagon Emergency Kit) See instructions Duration: 90 Days use as directed for Type 1 Diabetes Mellitus, As needed for Blood Glucose ?? Unchanged Durable Medical Equipment (Insulin Syringe, BD Ultra-Fine 1 cc 31 G x 8 mm (5/ 16in)) Seeinstructions use to inject insulin up to 3 times per day. E 10.9 ?? Unchanged Durable Medical Equipment (Ketostix) See instructions Duration: 30 Days use as directed for Type 1 Diabetes Mellitus ?? Unchanged Durable Medical Equipment (Medtronic 630G Insulin Pump) Unchanged Durable Medical Equipment (Medtronic 770G Insulin Pump) See instructions NOT sharing ?? Unchanged Famotidine (famotidine 20 mg oral tablet) 1 tab(s) Oral Twice a day Unchanged Insulin Glargine (Lantus 100 u/ ml subcutaneous solution) See instructions Duration: 30 Days take 23 units daily prn pump failure ?? Unchanged Insulin Lispro (insulin lispro 100 u/ ml subcutaneous injection) See instructions Up to 50 units per day via insulin pump. E 10.9 ?? Unchanged Miscellaneous Rx (Baqsimi inhaled glucagon) See instructions prn severe hypoglycemia; may repeat x 1 ?? Unchanged Miscellaneous Rx (FREESTYLE LITE BLOOD GLUCOSE STRIPS) See instructions USE DIRECTED SIX TIMES A DAY ?? Unchanged Miscellaneous Rx (FREESTYLE LITE BLOOD GLUCOSE SYSTEM) See instructions USE TO TEST BLOOD SUGAR 10 TIMES A DAY ?? Unchanged Miscellaneous Rx (Home BP Cuff) See instructions dx = T1DM, ; check BP once daily ?? Unchanged Miscellaneous Rx () Test Performed Below is a partial list of the tests performed during your Visit. You may have had other tests and procedures not included in this list. Please discuss all test results with your provider. Lipid Panel?-- Results Pending -- POC GLUCOSE ([facility]) POC HBA1C ([facility]) Lab Test Results Below is a partial list of the most recent Laboratory test results done during your Visit. You may have had other tests and procedures not included in this list. Please discuss all test results with your provider. Test Name Test Result Date/Time POC Glucose ([facility]) 84 mg/dL 02/25/2025 10:11 EDT POC HBA1C ([facility]) 7.0 % 02/25/2025 10:12 EDT Medications and Immunizations Administered Medications Given During Visit No medications given during this visit.?? Allergies (NKA means No Known Allergies) enalapril??(Angioedema) Common Emergency Awareness Tips IS IT A STROKE? Act FAST and Check for these signs: FACE Does the face look uneven? ARM Does one arm drift down? SPEECH Does their speech sound strange? TIME Call at any sign of stroke ?? Heart Attack Signs Chest discomfort: Most heart attacks involve discomfort in the center of the chest and lasts more than a few minutes, or goes away and comes back. It can feel like uncomfortable pressure, squeezing, fullness or pain. Discomfort in upper body: Symptoms can include pain or discomfort in one or both arms, back, neck, jaw or stomach. Shortness of breath: With or without discomfort. Other signs: Breaking out in a cold sweat, nausea, or lightheaded. Remember, MINUTES DO MATTER. If you experience any of these heart attack warning signs, call to get immediate medical attention! ?? Smoking can increase your chances of developing chronic health problems and can cause harmful effects to other family members in your house. If you smoke, you are strongly encouraged to quit. Please call [employer] [facility] at [phone] or [phone] (9428) or log in to [email or web address] for referrals to smoking cessation programs. ?? The National Suicide Prevention Hotline is available 13/02 if you or someone you know needs to find a reason to keep living. By calling 7-868-331-[employer] (0791) you'll be connected to a skilled, trained counselor at a crisis center in your area. [facility] You can view and manage your care through the patient portal or by using a health care adams of your choosing. [employer] is a website that allows you to securely view your medical information including your hospital discharge summary, office visit summaries, medications and follow-up visits. You can also request appointments, renew medications, and request access to your medical information using a health care adams of your choosing, or just ask a question. You can enroll at [email or web address] or register during your next office visit. [facility], in keeping with [facility] guidance, no longer requires face masks for staff, patientsor visitors in most situations. Similiar to time spent indoors at other locations, there is the chance that you were exposed to repiratory viruses during your time with us (such as flu or COVID-19). If you develop symptoms concerning for a viral respiratory infection, please seek testing (and treatment if indicated) from your medical provider or home test kit. ?? Disclaimer: The information provided is of a general nature and is intended to be used in conjunction with the recommendations and advice of your health care practitioner. Every effort has been made to ensure that the information provided is accurate and complete at the time it is provided to you however, as your needs change, or, as new information becomes available, different or additional instructions may be required. ?? If you have questions, please consult with your primary care provider or pharmacist, as appropriate. This information is not intended to serve as substitution for assessment and evaluation by a qualified health care provider. If you do not have a primary care provider, you may find a [facility] provider by calling [facility] at [phone]. Patient Care team information Care Team Personnel Name: Brittany Garcia NP Position: [facility] Outreach Member Role: PCP Address: [address] [place] [address] Telecom: Name: Eve Mccormick RN Position: [facility] SN RN Member Role: Primary Care Nurse Care Team Related Persons Name: PERRI MORALEZ Name: JULIAN MOLINA Name: BERLIN MOLINA Name: BERTHA SINGH Name: LA SINGH Insurance Providers Guarantor name: SAMMY MORALEZ Health Plan Information #: 1 Payer: [employer] Payer Identifier: NA Member Number: [id number] Group Number: NA Subscriber Identifier: [id number] Relationship to Subscriber: self Coverage Type: MEDICAID Coverage Verification Date: NA Telecom: NA Address: NA
[2025-03-06 10:31] VITALS: BP 140/100; PULSE 94; O2SAT 98; BMI 24.3
--- NOTE | 2025-03-06 10:31 | A.OFFVIS_ITS ---
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: No Accompanied by: Self / Same As Patient Allergies pregabalin (From Lyrica) Adverse Reaction (Verified 03/06/25 10:32) Drowsy gabapentin Adverse Reaction (Intermediate, Uncoded 02/29/24 13:04) Drowsy Medication List - Last Reconciled 03/06/25 by REJI RichardP [Custom AFO left custom molded AFO] ascorbate calcium (vitamin C) 500 mg orally 3 x's per week- Mon; 28 days atogepant 30 mg PO DAILY 30 days benfotiamine 300 mg (2 x 150 mg) PO DAILY 30 days blood sugar diagnostic (FreeStyle Lite Strips) As directed blood-glucose meter (FreeStyle Lite Meter kit) As directed cholecalciferol (vitamin D3) 50 mcg (2 x 25 mcg (1,000 unit)) PO DAILY 30 days cyanocobalamin (vitamin B-12) 1,000 mcg (2 x 500 mcg) PO DAILY 30 days duloxetine 30 mg PO DAILY 2 weeks epinephrine (EpiPen) 0.3 mg (0.3 mL) IM Q4H PRN ferrous sulfate 325 mg orally 3 x's per week- Mon; take w/ vitamin C 28 days folic acid 0.4 mg PO DAILY 30 days glucagon (Glucagon Emergency Kit) mg IM DIRECTED indomethacin 50 mg (2 x 25 mg) PO TID PRN 30 days insulin glargine (Lantus U-100 Insulin) 23 units subcut DAILY PRN insulin lispro 0 - 75 units subcut DAILY insulin syringe-needle U-100 As directed levonorgestrel (Mirena) 1 insert intrauterine ONCE magnesium oxide 400 mg PO BEDTIME 30 days naloxone (LifEMS Naloxone) 2 mg (2 mL) IM Q2M PRN 30 days oxycodone 10 mg PO QHS, may repeat x's 1; 24 days riboflavin (vitamin B2) 400 mg PO DAILY 30 days thiamine HCl (vitamin B1) 100 mg PO DAILY 30 days zolmitriptan (Zomig) take 1 tab at onset of headache; if no relief, may repeat 1 tab after at least 2 hrs; max = 2 tabs/24 hrs orally PRN; 30 days HPI Comments Details: 34-yr-old female presents for f/u visit of migraine, BLE restless leg syndrome. Pt is not sure who her current PCP is at [facility]. The BUE EMG/NCS was normal. She has an appointment for initial rheumatology consult in May. Pt reports she is having episdes fo chest pressure, fatigue, short of breathe on exertion, hands becoming swollen and sweaty out of the blue. Pt reports she is still having increased fatigue, pain, bone pain, joint pain, hand swelling, feels her body has generalized inflammation. Still has shocking, electrical pains and numbness in bilateral distal forearms, wrists, and hands. Her hands feel weak with extended activity, but sometimes even doing her hair. She does endorse nonradiating neck pain and tightness. She is having shocking non-radiating low back pain. She is having increased RLE distal and LLE form knee through foot- shocking pains. She has not seen pain management in > 1 yr. Physiatry gave her a LLE AFO, but this does not always help. Left ankle MRI in October of 2023, was unremarkable. Her last HgA1C was increased at 7%- so she is trying to be better about her diet and her blood control control. Saw endocrinology last week. She states she is compliant with all of her multivitamins have been ordered. She is compliant with oxycodone 10-20 mg at bedtime for restless legs syndrome. Denies interval syncopal events. Pt reports her mild headaches are still 2-3 migraine days a week, and had not had a severe migarine in a while, but then last week had a few more severe migraine attacks w/o clear trigger. She is using Tylenol as needed. Using indomethacin only if headcahe is very strong. Not sure if she has the zomig. She thinks she is taking the Qulipta 30 mg q.h.s. Baseline headache characteristics: Throbbing, aching, pressure holocranial, mostly frontal and occipital, pain a/w photophobia, phonophobia, allodynia, nausea, tiredness, brain fog, activity intolerance. [facility] Medical History (Updated 08/17/25 @ 17:29 by VIN Richard) Foot drop, left Type 1 diabetes Surgical History No pertinent past surgical history Family History Father Skin cancer Diabetes Hypertension Mother Diabetes Social History Alcohol intake: never Patient Tobacco Use Status: Never used Tobacco Physical Exam Vital Signs: Last Vital Signs Pulse 94 03/06/25 10:31 BP 140/100 H 03/06/25 10:31 Pulse Ox 98 03/06/25 10:31 Oxygen Delivery Method Room Air 03/06/25 10:31 BMI result Body Mass Index 24.3 Const General: cooperative and no acute distress Orientation/consciousness: patient oriented x3 Resp Effort & Inspection: normal respiratory effort and able to speak in complete sentences Neuro Other: Patient is not wearing left AFO today General: patient oriented x3 Cranial nerves: Yes CN's II-XII intact bilaterally Cognition (Neuro): normal cognition Psych Appearance: grossly normal Mental Status: mental status grossly normal Speech and movement: Normal speech and movement present Affect: normal affect Attitude: cooperative Assessment & Plan Assessment & Plan (1) Migraine with aura: Code(s): G43.109 - Migraine with aura, not intractable, without status migrainosus Category: Medical Qualifiers: Status migrainosus presence: without status migrainosus Intractability: not intractable Qualified Code(s): G43.109 - Migraine with aura, not intractable, without status migrainosus (2) Paresthesia and pain of both upper extremities: Code(s): R20.2 - Paresthesia of skin; M79.601 - Pain in right arm; M79.602 - Pain in left arm Category: Medical (3) Neuralgia: Comment: BLE & BUE- swelling, tingling, numbness, pain. ? 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 Code(s): M79.2 - Neuralgia and neuritis, unspecified Category: Medical (4) Restless leg syndrome: Code(s): G25.81 - Restless legs syndrome Category: Medical (5) Vitamin D deficiency: Code(s): E55.9 - Vitamin D deficiency, unspecified Category: Medical (6) Anemia: Code(s): D64.9 - Anemia, unspecified Category: Medical Plan For BUE painful paresthesia: Rheumatology consult as scheduled For neuralgia, restless legs, left footdrop: Will recheck labs. Continue ferrous sulfate and vitamin-C, colace p.r.n. B12 and folic acid supplement. Continue oxycodone 10-20mg qhs. No indications of inappropriate use of oxycodone. Naloxone prn opioid overdose. Continue to work with panel sewer to optimize blood sugar control. Patient has previously ?failed multiple dopaminergic, AED, and antidepressant treatments for her ongoing restless leg/neuropathy symptoms. Future considerations: Spine imaging, CSF studies, follow-up with pain management and physiatry. ? For convulsions: No recent convulsive or spacing out episodes. Possible these previous episodes were related to hypoglycemia. Blood sugars overall better controlled. Her 26 EEG showed left temporal lobe slowing, Brain MRI showed Few small subcortical white matter T2 hyperintensities in the mesial left frontal lobe. Patient is no longer taking Trileptal. We will continue to monitor clinically ? For migraine prevention: Hold indomethacin 25-50 mg- patient not taking Continue Riboflavin and Magnesium. Continue Atogepant 30mg qhs. Start lisinopril 5 mg daily- this may help both migraine and BP control Pt has not tolerated ?amirtiptyline, cymbalta, gabapentin, pregabail, Aimovig (constipation and leg cramping), Emaglity (injection site pain). Ajovy- injection site pain and was ineffective. Treatment contraindications: Betablockers d/t insulin dependent type I diabetic. Future considerations- Vyepti. ? For acute migraine tx: We will reorder zolmitriptan 5 mg p.r.n., may repeat in 2 hours, max 10 mg per day. May take with Tylenol 650-1000 mg every 4-6 hours as needed. Hold Ubrelvy 100mg prn at onset of migarine, MR in 2 hrs, max 200mg/day. May take w/ Tylenol. Previous trials- Sumatriptan- ineffective. Rizatriptan 10 mg p.r.n- ineffective. ? f/u in 3-6 months or sooner prn. Orders: Orders Complete Blood Count Auto Diff 03/06/25 D64.9 - Anemia, unspecified, E51.9 - Thiamine deficiency, unspecified, E55.9 - Vitamin D deficiency, unspecified, R53.83 - Other fatigue, R79.82 - Elevated C-reactive protein (CRP) Comprehensive [place]. Panel Fast 03/06/25 D64.9 - Anemia, unspecified, E51.9 - Thiamine deficiency, unspecified, E55.9 - Vitamin D deficiency, unspecified, R53.83 - Other fatigue, R79.82 - Elevated C-reactive protein (CRP) Vitamin B12 03/06/25 D64.9 - Anemia, unspecified, E51.9 - Thiamine deficiency, unspecified, E55.9 - Vitamin D deficiency, unspecified, R53.83 - Other fatigue, R79.82 - Elevated C-reactive protein (CRP) Ferritin 03/06/25 D64.9 - Anemia, unspecified, E51.9 - Thiamine deficiency, unspecified, E55.9 - Vitamin D deficiency, unspecified, R53.83 - Other fatigue, R79.82 - Elevated C-reactive protein (CRP) IRON PROFILE 03/06/25 D64.9 - Anemia, unspecified, E51.9 - Thiamine deficiency, unspecified, E55.9 - Vitamin D deficiency, unspecified, R53.83 - Other fatigue, R79.82 - Elevated C-reactive protein (CRP) Vitamin B6 03/06/25 D64.9 - Anemia, unspecified, E51.9 - Thiamine deficiency, unspecified, E55.9 - Vitamin D deficiency, unspecified, R53.83 - Other fatigue, R79.82 - Elevated C-reactive protein (CRP) Vitamin B1 03/06/25 D64.9 - Anemia, unspecified, E51.9 - Thiamine deficiency, unspecified, E55.9 - Vitamin D deficiency, unspecified, R53.83 - Other fatigue, R79.82 - Elevated C-reactive protein (CRP) Vitamin D 25-OH (D2 and D3) 03/06/25 D64.9 - Anemia, unspecified, E51.9 - Thiamine deficiency, unspecified, E55.9 - Vitamin D deficiency, unspecified, R53.83 - Other fatigue, R79.82 - Elevated C-reactive protein (CRP) C Reactive Protein 03/06/25 D64.9 - Anemia, unspecified, E51.9 - Thiamine deficiency, unspecified, E55.9 - Vitamin D deficiency, unspecified, R53.83 - Other fatigue, R79.82 - Elevated C-reactive protein (CRP) Saliva Cortisol 03/06/25 E11.40 - Type 2 diabetes mellitus with diabetic neuropathy, unspecified, R03.0 - Elevated blood-pressure reading, without diagnosis of hypertension, R79.82 - Elevated C-reactive protein (CRP) Folate 03/06/25 D64.9 - Anemia, unspecified, E51.9 - Thiamine deficiency, unspecified, E55.9 - Vitamin D deficiency, unspecified, R53.83 - Other fatigue, R79.82 - Elevated C-reactive protein (CRP) Homocysteine 03/06/25 D64.9 - Anemia, unspecified, E51.9 - Thiamine deficiency, unspecified, E55.9 - Vitamin D deficiency, unspecified, R53.83 - Other fatigue, R79.82 - Elevated C-reactive protein (CRP) Methylmalonic Acid 03/06/25 D64.9 - Anemia, unspecified, E51.9 - Thiamine deficiency, unspecified, E55.9 - Vitamin D deficiency, unspecified, R53.83 - Other fatigue, R79.82 - Elevated C-reactive protein (CRP) TSH reflex Free T4 03/06/25 D64.9 - Anemia, unspecified, E51.9 - Thiamine deficiency, unspecified, E55.9 - Vitamin D deficiency, unspecified, R53.83 - Other fatigue, R79.82 - Elevated C-reactive protein (CRP) Magnesium 03/06/25 D64.9 - Anemia, unspecified, E51.9 - Thiamine deficiency, unspecified, E55.9 - Vitamin D deficiency, unspecified, R53.83 - Other fatigue, R79.82 - Elevated C-reactive protein (CRP) Erythrocyte Sedimentation Rate 03/06/25 D64.9 - Anemia, unspecified, E51.9 - Thiamine deficiency, unspecified, E55.9 - Vitamin D deficiency, unspecified, R53.83 - Other fatigue, R79.82 - Elevated C-reactive protein (CRP) Medications: New lisinopril 2.5 mg PO DAILY 30 tabs 3RF 30 days Changed From riboflavin (vitamin B2) 400 mg PO DAILY 30 days 30 tabs 6RF To riboflavin (vitamin B2) 400 mg PO DAILY 90 tabs 3RF 90 days From magnesium oxide may hold for loose stools 400 mg PO BEDTIME 30 days 30 tabs 6RF To magnesium oxide may hold for loose stools 400 mg PO BEDTIME 90 tabs 3RF 90 days Refilled zolmitriptan (Zomig) take 1 tab at onset of headache; if no relief, may repeat 1 tab after at least 2 hrs; max = 2 tabs/24 hrs orally PRN; 12 tabs 6RF migraine headache 30 days thiamine HCl (vitamin B1) 100 mg PO DAILY 30 caps 6RF 30 days E51.9 - Thiamine deficiency, unspecified cholecalciferol (vitamin D3) 50 mcg (2 x 25 mcg (1,000 unit)) PO DAILY 60 caps 6RF 30 days atogepant 30 mg PO DAILY 30 tabs 6RF 30 days G43.109 - Migraine with aura, not intractable, without status migrainosus ferrous sulfate 325 mg orally 3 x's per week- Mon; take w/ vitamin C 12 tabs 6RF 28 days ascorbate calcium (vitamin C) 500 mg orally 3 x's per week- Mon; 12 tabs 6RF 28 days Discontinued duloxetine Discontinued Reason: Patient no longer taking 30 mg PO DAILY 2 weeks 14 caps 0RF pain E11.40 - Type 2 diabetes mellitus with diabetic neuropathy, unspecified benfotiamine Discontinued Reason: Patient no longer taking 300 mg (2 x 150 mg) PO DAILY 3 0 days 60 caps 1RF diabetic neuropathy E11.40 - Type 2 diabetes mellitus with diabetic neuropathy, unspecified Coding Level of Care Code Est Pt Level 4 (05042) Diagnoses Migraine with aura and without status migrainosus, not intractable G43.109 Status migrainosus presence: without status migrainosus Intractability: not intractable Paresthesia and pain of both upper extremities R20.2; M79.601; M79.602 Neuralgia M79.2 Restless leg syndrome G25.81 Vitamin D deficiency E55.9 Anemia D64.9
--- OUTSIDE RECORDS SUMMARY | 2025-03-06 11:30 | XMS_ITS | Clinical Summary ---
Author Organization [employer] Address [address] [place] [address] Care Team Providers Care Adjustment Supervisor Name Role Phone Unavailable Primary Care Provider Unavailabl e Encounters Date Type Department Care Team Description 02/11/2025 Population Health Risk Score [facility] (C3) Department [address] [place] [address] Provider, Population Health Generic from Last 3 Months Social History Tobacco Use Types Packs/Day Years Used Date Smoking Tobacco: Never Assessed Comments Unknown Sex and Gender Information Value Date Recorded Sex Assigned at Not on file Legal Sex Female 9:29 PM EDT Gender Identity Not on file Sexual Orientation Not on file Plan of Treatment Health Maintenance Due Date Last Done Comments Depression Screening 1992 HIV Screening 1992 SDOH Screening 1992 Disability Screening 1992 Alcohol/Substance Use Screening 2004 Tobacco Screening 2004 Family Planning (PISQ) 2007 HPV Vaccines (1 - 3-dose series) 2007 Hepatitis C Screening 2010 DTaP/Tdap/Td Vaccines (1 - Tdap) 2011 Hepatitis B Vaccines (1 of 3 - 19+ 3-dose series) 2011 Pap Smear 2013 Cervical Cancer Screening 2022 HPV/Cotest 2022 COVID-19 Vaccine ( - 2023-2 5 season) 2024 Influenza Vaccine (#1) 2025 Zoster Vaccines (1 of 2) 2042 RSV Patients and Pa tients Aged 60 years or older (1 - 1-dose 75+ series) 2067 HIB Vaccines Aged Out No longer eligi ble based on patient's age to complete this topic Hepatitis A Vaccines Aged Out No long er eligible based on patient's age to complete this topic IPV Vaccines Aged Out No longer eligi ble based on patient's age to complete this topic Meningococcal B Vaccine Aged Out No l onger eligible based on patient's age to complete this topic Meningococcal Vaccine Aged Out No brea silviano eligible based on patient's age to complete this topic Pneumococcal Vaccine: Pediat rics (0 to 5 Years) and At-Risk Patients (6 to 49) Years Aged Out No longer eligible b ased on patient's age to complete this topic RSV under 20 months Aged Out No longe r eligible based on patient's age to complete this topic Rotavirus Vaccines Aged Out No longer eligible based on patient's age to complete this topic
--- OUTSIDE RECORDS SUMMARY | 2025-03-06 11:30 | XMS_ITS | Clinical Summary ---
Author Organization [facility] Address [address] [place] [address] Care Team Providers Care Roastmaster Name Role Phone Kim Braden Primary Care Provider [phone] Source Comments PLEASE NOTE, if this patient [...] Diagnosed Date Migraine headache 01/10/2023 Overview (01/10/2023): [facility] [place]/29/22 - indomethacin 20-25 po TID prn with food. C/w riboflavin, magnesium Trial atogepant. Once approved, stop ajovy Has not tolerated amitriptyline, cymbalta, gabapentin, pregabalin, aimovig Abnormal EEG 11/20/2022 Overview (01/10/2023): 12/29/22 [facility]. Borderline abnormal EEG. Spacing out. 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 She is seeing Cardiology Dr. 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 She is seeing Cardiology Dr. Rooney at [facility] Vitamin D deficiency 10/21/[address] 10/21/2021 Overview (10/21/2021): 2020 approx. B12 deficiency 02/08/2019 Restless leg syndrome 05/31/2018 Overview (01/10/2023): 12/29/22 For neuralgia, RLS: on oxycodone. Have failed trial of dopaminergic, AED, antidepressants Seeing [facility] Chronic pain 05/01/2018 Overview (05/01/2018): 03/30/[address] Denney at [facility]. No labs received, referred back to PCP. Neuropathy 04/10/2018 Overview (01/17/2023): 12/2022: pt seeing pain management. Undergoing repeat NCV, EMG study to assess for neuropathy progression 04/03/18 Eval at [facility] Neurology. Will obtain EMG reports. Start trial of ER alpha lipoic acid 300 mg BID, consider Lamictal or tricyclic as gapaentin and nortriptyline not tolerated in the past. F/u 4 months. Depo-Provera contraceptive status 02/21/2018 Type 1 diabetes mellitus wit h diabetic polyneuropathy ([facility]) 12/20/2017 Overview (10/07/2022): 02/2022 [facility] Endocrine consult: [...] AL,PRESERV ATIVE FREE 04/18/2012 PNEUMOCOCCAL POLYSACCHARIDE PPV23 (Pneumovax 23) 09/24/2019 TDAP 01/29/2014 Td (adult),2 Lf tetanus toxo id (TDVAX), preservative free 05/24/2005 Varicella (Varivax), Live Vaccine 09/12/2014, Family History Medical History Relation Name Comments [...] 6:40 AM PDT Sexual Orientation Straight 12/20/2017 6 :57 AM PDT Occupation Industry Job Start Date Job End Date Unemployed Not on file Not on file Not on file Last Filed Vital Signs Vital Sign Reading Time Taken Comments Blood Pressure 110/80 10/21/2021 9:23 AM EDT Pulse 69 10/21/2021 9:23 AM EDT Temperature 36.7 C (98.1 F) 10/21/2021 9:23 AM EDT Respiratory Rate 16 10/21/2021 9:23 AM EDT Oxygen Saturation 98% 10/21/2021 9:23 AM EDT Inhaled Oxygen Concentration - - Weight 49 kg (108 lb) 10/21/2021 9:23 AM EDT Height 157.5 cm (5' 2 ) 10/21/2021 9:23 AM EDT Body Mass Index 19.75 10/21/2021 9:23 AM EDT Plan of Treatment Health Maintenance Due Date Last Done Comments Anxiety Screening 1992 Dental Examination 1992 Diabetes Foot Exam 1992 HPV Screening 1992 Urine Drug Screen 1992 DWKD-Uuci-rguimes INJ 08/22/2018 05/30/2018 Imm-Pneumococcal (2 of 2 - PCV) 09/23/2020 Hemoglobin A1c 04/22/2022 10/21/2021, 03/0 09/2019, 12/20/2017 Annual Wellness (Adult): Indicated (All Coverage) 10/21/2022 10/21/2021, 12/20/2017 Relationship Safety Screening/Counseling 10/21/2022 10/21/2021 Serum Creatinine 10/21/2022 10/21/2021, 09/2019, 03/01/2018, Additional history exists Tobacco Screening 10/21/2022 10/21/2021 Urine Albumin Creatinine Rat io Screening 10/21/2022 10/21/2021 Imm-DTaP/Tdap/Td (4 - Td or Tdap) 01/30/2024 01/29/2014, 03/28/2013, 05/24/2005 Pap Smear 02/20/2024 02/19/2021 [id number] ( season) 2024 Alcohol and Drug Screen 07/24/2024 10/22/19 22, 09/24/2019, 12/20/2017 Depression Annual Screen 07/24/2024 10/21/2021, 11/23 Hypertension Screening (#1) 10/20/2024 Imm-Influenza (#1) 2025 10/21/2021, 0 09/24/2019, 03/21/2017, Additional history exists Retinopathy Screening 07/02/2025 07/02/2024, 023 Cervical Cancer Screening 02/19/2026 Pap + HPV 02/19/2026 02/19/2021 Lipid Screening 10/21/2026 10/21/2021, 09/2019, 12/20/2017 Imm-Hepatitis B Completed 09/10/2014, 02/21, [...] HEPATITIS C ANTIBODY NON-REACT SOFIA NON-REACT SOFIA [facility] SIGNAL TO CUT-OFF 0.01 <1.00 [employer] [facility] Comment: HCV antibody was non-reactive. There is no laboratory evidence of HCV infection. In most cases, no further action is required. However, if recent HCV exposure is suspected, a test for HCV RNA (test code 87596) is suggested. For additional information please refer to http://GroupTie.Terracotta/faq/DYB21g9 (This link is being provided for informational/ educational purposes only.) Blood Blood / Unknown 10/21/2021 1 0:27 AM EDT 10/21/2021 10:28 AM EDT Narrative [facility] - 10/22/2021 10:54 PM EDT FASTING:YES Leah Reyna [employer]CH[employer]IC-C LAB - BLOOD DRAW Final Resul t [facility] [address] [address], [facility] [address] [address] * HIV 1/2 AG & AB W/RFLX (4TH GEN) (10/21/2021 10:27 AM EDT) Pathologist [facility] HIV AG/AB, 4TH GEN NON-REAC TIVE NON-REAC TIVE [employer] [facility] Comment: HIV-1 antigen and HIV-1/HIV-2 antibodies were not detected. There is no laboratory evidence of HIV infection. PLEASE NOTE: This information has been disclosed to you from records whose confidentiality may be protected by state law. If your state requires such protection, then the state law prohibits you from making any further disclosure of the information without the specific written consent of the person to whom it pertains, or as otherwise permitted by law. A general authorization for the release of medical or other information is NOT sufficient for this purpose. For additional information please refer to http://education.Terracotta/faq/JFX713 (This link is being provided for informational/ educational purposes only.) The performance of this assay has not been clinically validated in patients less than 2 years old. Blood Blood / Unknown 10/21/2021 1 0:27 AM EDT 10/21/2021 10:28 AM EDT Narrative [facility] - 10/22/2021 10:54 PM EDT FASTING:YES Leah Mckinleyadia [employer] MECH[employer]IC-C LAB - BLOOD DRAW Final Resul t Performing Organization Address [facility] de Phone Number [facility] [address] [place] [address], [facility] [address] [place] [phone] * (ABNORMAL) HGBA1C W/MPG (10/21/2021 10:27 AM EDT) HEMOGLOBIN A1C 6.6(H) <5.7 % of total Hgb Subtext Comment: For someone without known diabetes, a [...] A1c for diagnosis of diabetes for children. MEAN PLASMA GLUCOSE 158 mg/dL (calc) Subtext Blood Blood / Unknown 10/21/2021 1 0:27 AM EDT 10/21/2021 10:28 AM EDT Narrative [facility] - 10/22/2021 10:54 PM EDT FASTING:YES us Lynn Reyna [employer] MECHANIC-C LAB - BLOOD DRAW Edited Resu lt - Final Performing Organization Address [facility]/ZIP Co de Phone Number [facility] [address] [place] [phone], [facility] [address] [place], [place] [address] [address] * LIPIDS W RFLX TO DIRECT LDL (10/21/2021 10:27 AM EDT) CHOLESTEROL, TOTAL 117 <200 mg/dL [facility] HDL CHOLESTEROL 55 > OR = 50 mg/dL [facility] TRIGLYCERIDES 38 <150 mg/dL [facility] LDL-CHOLESTEROL 51 99 mg/dL (calc) [facility] Comment: Reference range: <100 Desirable range <100 mg/dL for primary prevention; <70 mg/dL for patients with CHD or diabetic patients with > or = 2 CHD risk factors. LDL-C is now calculated using the Steven calculation, which is a validated novel method providing better accuracy than the Friedewald equation in the estimation of LDL-C. Manish GILLILAND et al. ASIF. 2013;310(19): 5527-5187 (http://education.Charge Payment/faq/VQD602) CHOL/HDLC RATIO 2.1 <5.0 (calc) [facility] NON-HDL CHOLESTEROL 62 <130 mg/dL (calc) [facility] Comment: For patients with diabetes plus 1 major ASCVD risk factor, treating to a non-HDL-C goal of <100 mg/dL (LDL-C of <70 mg/dL) is considered a therapeutic option. Blood Blood / Unknown 10/21/2021 1 0:27 AM EDT 10/21/2021 10:28 AM EDT Narrative [facility] - 10/22/2021 10:54 PM EDT FASTING:YES Leah Orellana [employer] MECH[employer]IC-C LAB - BLOOD DRAW Final Resul t [facility] [address] [address], [facility] [address],[facility] [place] [address] * MICROALBUMIN/CREATININE RATIO, URINE, RANDOM (10/21/2021 10:27 AM EDT) CREATININE, RANDOM URINE 169 20 - 275 mg/dL [facility] MICROALBUMIN 1.0 mg/dL [facility] Comment: Reference Range Not established MICROALBUMIN/CREA TININE RATIO, RANDOM URINE 6 <30 mcg/mg creat Subtext Comment: The ADA defines abnormalities in albumin excretion as follows: Albuminuria Category Result (mcg/mg creatinine) Normal to Mildly increased <30 Moderately increased 30-299 Severely increased > OR = 300 The ADA recommends that at least two of three specimens collected within a 3-6 month period be abnormal before considering a patient to be within a diagnostic category. Urine Urine specimen / Unknown 10/21/2021 10:27 AM EDT 10/21/2021 10:28 AM EDT Narrative [facility] - 10/22/2021 10:54 PM EDT FASTING:YES Leah Orellana [employer] MECH[employer]IC-C LAB URINE AMBULATORY Final R esult [facility] [address] [address], [employer] [facility] [address] [address] * (ABNORMAL) COMPREHENSIVE METABOLIC PANEL (10/21/2021 10:27 AM EDT) GLUCOSE 161(H) 65 - 99 mg/dL Subtext Comment: Fasting reference interval For someone without known diabetes, a glucose value >125 mg/dL indicates that they may have diabetes and this should be confirmed with a follow-up test. UREA NITROGEN (BUN) 14 7 - 25 mg/dL [employer] [facility] CREATININE (blood) 0.69 0.50 - 1.10 mg/dL Subtext GFR ESTIMATED 118 > OR = 60 mL/min/1 .73m2 Subtext EGFR 136 > OR = 60 mL/min/1 .73m2 Subtext BUN/CREATININE RATIO NOT APPLICABLE 6 - 22 Subtext SODIUM 136 135 - 146 mmol/L Subtext POTASSIUM 4.3 3.5 - 5.3 mmol/L Subtext CHLORIDE 105 98 - 110 mmol/L Subtext CARBON DIOXIDE 24 20 - 32 mmol/L Subtext CALCIUM 8.9 8.6 - 10.2 mg/dL Subtext PROTEIN, TOTAL 6.5 6.1 - 8.1 g/dL [facility] ALBUMIN 4.0 3.6 - 5.1 g/dL [facility] GLOBULIN 2.5 1.9 - 3.7 g/dL (calc) [facility] ALBUMIN/GLOBUL IN RATIO 1.6 1.0 - 2.5 (calc) [facility] BILIRUBIN, TOTAL 0.6 0.2 - 1.2 mg/dL [facility] ALKALINE PHOSPHATASE 62 31 - 125 U/L [facility] AST 23 10 - 30 U/L [facility] ALT 13 6 - 29 U/L [facility] Blood Blood / Unknown 10/21/2021 1 0:27 AM EDT 10/21/2021 10:28 AM EDT Narrative [facility] - 10/22/2021 10:54 PM EDT FASTING:YES Leah BANUELOS-C LAB - BLOOD DRAW Edited Resu lt - Final [facility] [address] [address], [facility] [address] [address] * PAP W/ HPV (02/19/2021 3:00 AM EDT) 02/19/2021 3:00 AM EDT Leah MENDOZAP-C LAB - PATHOLOGY AND CYTOLOGY AMBULATORY Final Result from Last 3 Months or Most Recently Relevant to Health Maintenance Insurance [facility] Care Teams Roastmaster Relationship Specialty Start Date End Date Kim Braden PA [address] [place] [address] PCP - General Primary Care 12/13/23
== END 2025-03-06 11:19 | disposition home or self-care (01) ==
PROVIDERS: Visit Provider Nurse Practitioner Family
DX: G43.109 Migraine with aura, not intractable, without status migrainosus (principal); R20.2 Paresthesia of skin; M79.601 Pain in right arm; M79.602 Pain in left arm; M79.2 Neuralgia and neuritis, unspecified; G25.81 Restless legs syndrome; E55.9 Vitamin D deficiency, unspecified; D64.9 Anemia, unspecified
CPT/HCPCS: 99214

== ENCOUNTER → 2025-03-06 10:31 | Outpatient (BNVA) | payer MEDICAID, SELFPAY | PROVIDERS: Visit Provider Nurse Practitioner Family | DX: G43.109 Migraine with aura, not intractable, without status migrainosus (principal); R20.2 Paresthesia of skin; M79.601 Pain in right arm; M79.602 Pain in left arm; M79.2 Neuralgia and neuritis, unspecified; G25.81 Restless legs syndrome; M21.372 Foot drop, left foot; E55.9 Vitamin D deficiency, unspecified; D64.9 Anemia, unspecified | CPT/HCPCS: 99212 ==

== ENCOUNTER 2025-03-06 11:37 | Outpatient (REF) | payer MEDICAID, SELFPAY ==
[2025-03-06 18:09] LABS: Iron 125 mcg/dL (30-160); Magnesium 2.1 mg/dL (1.6-2.6); Percent Iron Saturation 36 % (15-50); Total Iron Binding Capacity 351 mcg/dL (228-428); Unsaturated Iron Binding 226 ug/dL
[2025-03-06 18:37] LABS: Folate 5.9 ng/mL (> or = 4.0)
[2025-03-10 13:22] LABS: Vitamin D 25-OH, D2 6 ng/mL; Vitamin D 25-OH, D3 31 ng/mL; Vitamin D 25-OH, Total 37 ng/mL (30-100)
== END 2025-03-06 11:38 | disposition home or self-care (01) ==
LOC: HO.HKASLDS 11:37
PROVIDERS: Visit Provider Nurse Practitioner Family
DX: R79.82 Elevated C-reactive protein (CRP) (principal); R53.83 Other fatigue; D64.9 Anemia, unspecified; E55.9 Vitamin D deficiency, unspecified; E51.9 Thiamine deficiency, unspecified
CPT/HCPCS: 36415; 82306; 82746; 83090; 83540; 83735; 83921; 84207; 84425; 84443; 85652; 86140

== ENCOUNTER 2025-06-03 10:58 | Outpatient (AMB) | payer MEDICAID, SELFPAY ==
--- NOTE | 2025-06-03 11:02 | MHC.OFFVIS ---
Vital Signs 06/03/25 11:03 Height 5 ft 2 in Weight 149 lb 4.047 oz BMI 27.3 BP 140/80 H Blood Pressure Location Lt brachial Position Sitting Pulse 91 Pulse Source Pulse Oximeter Pulse Oximetry (%) 99 Oxygen Delivery Method Room Air Intake Visit Reasons: joint pain Intake Note: New patient presents today for joint pain. Accompanied by: Self / Same As Patient Allergies pregabalin (From Lyrica) Adverse Reaction (Verified 06/03/25 11:02) Drowsy gabapentin Adverse Reaction (Intermediate, Uncoded 02/29/24 13:04) Drowsy HPI HPI joint pain: Details: New patient visit due to chronic pain She has had pain and swelling of muscles and joints of hands and arms. Her neck feels swollen. She has had chronic mid back and lower back. She has hx of sciatica. 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 Each episode of swelling occurs throughout the day and stays for days. It may occur in the middle of the day and get worse later on in the day. Her pain in her arms and hands are worse with the cold weather. She has rashes at night all over her body with hives. Last rash was last week. No fevers. Feels hot at night. Denies weight loss. Denies sicca symptoms, oral ulcers, Raynaud's phenomenon, pleurisy,. She has dyspnea and heartburn. Denies urinary symptoms. Morning stiffness is 30 minutes. She has occasional headaches and easily bruising. She has chronic fatigue. Recently she has been hypertensive. Neurology team prescribed antihypertensive for patient. She does not follow regularly with her PCP at [facility] Takes tylenol 650mg x2 BID. She had not had benefit in the past with NSAIDs. She has history of type 1 diabetes and reports last A1c recently was around 7. Maternal aunts have arthritis and one of them has SLE. Another aunt has a daughter with SLE. Cousin and her daughter has MS. Denies smoking or alcohol history. Medical history and medication list reviewed. [facility] Medical History (Updated 06/03/25 @ 12:54 by Torrey Lyles MD) Foot drop, left Type 1 diabetes Surgical History No pertinent past surgical history Family History Father Skin cancer Diabetes Hypertension Mother Diabetes Social History Alcohol intake: never Patient Tobacco Use Status: Never used Tobacco Physical Exam Vital Signs: Last Vital Signs Pulse 91 06/03/25 11:03 BP 140/80 H 06/03/25 11:03 Pulse Ox 99 06/03/25 11:03 Oxygen Delivery Method Room Air 06/03/25 11:03 BMI result Body Mass Index 27.3 Const Other: General: Comfortable CVS: RRR Respiratory: clear to auscultation bilaterally. Good respiratory effort Skin: No lesions seen MSK: Tender to palpate bilateral MCPs, PIPs, wrist. Normal range of motion of upper extremities and lower extremities. No synovitis. Diffuse allodynia of all extremities and back. Power 5/5 upper extremities. Lower extremity bilateral hip flexors are 3/5 and the rest of lower extremities are 5/5. Assessment & Plan Assessment & Plan (1) Multiple joint pain: Comment: Chronic polyarthralgias, fatigue with small joint tenderness of bilateral hands/wrists and proximal muscle weakness of lower extremity on exam is concerning. We discussed next steps with evaluation for early inflammatory arthritis and myopathy with labs and x-rays. Prior workup revealed negative rheumatoid factor and DANNY with normal ESR. She has mild elevation in CRP. She has diffuse allodynia, which is consistent with fibromyalgia. Fibromyalgia is a diagnosis of exclusion. 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
[2025-06-03 11:03] VITALS: BP 140/80; PULSE 91; O2SAT 99; BMI 27.3
--- OUTSIDE RECORDS SUMMARY | 2025-06-03 13:07 | XMS_ITS | Clinical Summary ---
Author Organization [facility] Address [address] [place] [address] Care Team Providers Care Surgical Sales Representative Name Role Phone Kim Braden Primary Care Provider [phone] Source Comments PLEASE NOTE, if this patient [...] Diagnosed Date Migraine headache 01/10/2023 Overview (01/10/2023): [facility] neurology 12/29/22 - indomethacin 20-25 po TID prn with food. C/w riboflavin, magnesium Trial atogepant. Once approved, stop ajovy Has not tolerated amitriptyline, cymbalta, gabapentin, pregabalin, aimovig Abnormal EEG 11/20/2022 Overview (01/10/2023): 12/29/22 [facility] neurology. Borderline abnormal EEG. Spacing out. 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 She is seeing Cardiology Dr. 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 She is seeing Cardiology Dr. Rooney at [facility] Vitamin D deficiency 10/21/[address] 10/21/2021 Overview (10/21/2021): 2020 approx. B12 deficiency 02/08/2019 Restless leg syndrome 05/31/2018 Overview (01/10/2023): 12/29/22 For neuralgia, RLS: on oxycodone. Have failed trial of dopaminergic, AED, antidepressants Seeing [facility] neurology Chronic pain 05/01/2018 Overview (05/01/2018): 03/30/[address] Denney at [facility]. No labs received, referred back to PCP. Neuropathy 04/10/2018 Overview (01/17/2023): 12/2022: pt seeing pain management. Undergoing repeat NCV, EMG study to assess for neuropathy progression 04/03/18 Eval at [facility] Neurology. Will obtain EMG reports. Start trial of ER alpha lipoic acid 300 mg BID, consider Lamictal or tricyclic as gapaentin and nortriptyline not tolerated in the past. F/u 4 months. Depo-Provera contraceptive status 02/21/2018 Type 1 diabetes mellitus with diabetic polyneuro carmen 12/20/2017 Overview (10/07/2022): 02/2022 [facility] consult: no changes to insulin regimen. Goal A1c <7%. Eye referral placed by endo. F/u in 3 months Sees [facility]. 06/06/18 - on insulin pump. RTC in 3 months. 2-01-09 - doing well on insulinpump. A1c 6.7%. B12 low. No indication for VY or statin at thist iem. RTC in 3 months. Saw eye provider september 2017. Chronic nonintractable headache 12/20/2017 Encounters Date Type Department Care Team Description 05/29/2025 Interim Notes [address] [address] [place] from Last 3 Months Immunizations Immunization Administration Dates Next Due Flu, [...] 1992 Diabetes Foot Exam 1992 HPV Screening (self-collect) 1992 HPV Screening 1992 Urine Drug Screen 1992 [id number] INJ 08/22/2018 05/30/2018 Imm-Pneumococcal (2 of 2 - PCV) 09/23/2020 Hemoglobin A1c 04/22/2022 10/21/2021, 09/2019, 12/20/2017 Annual Wellness (Adult): Indicated (All Coverage) 10/21/2022 10/21/2021, 12/20/2017 Relationship Safety Screening/Counseling 10/21/2022 10/21/2021 Serum Creatinine 10/21/2022 10/21/2021, 09/2019, 03/01/2018, Additional history exists Tobacco Screening 10/21/2022 10/21/2021 Urine Albumin Creatinine Rat io Screening 10/21/2022 10/21/2021 Imm-DTaP/Tdap/Td (4 - Td or Tdap) 01/30/2024 01/29/2014, 03/28/2013, 05/24/2005 Pap Smear 02/20/2024 02/19/2021 Alcohol and Drug Screen 07/24/2024 10/22/19 22, 09/24/2019, 12/20/2017 Depression Annual Screen 07/24/2024 10/21/2021, 11/23 Hypertension Screening (#1) 10/20/2024 [id number] ( season) 2025 Imm-Influenza (#1) 2025 10/21/2021, 0 09/24/2019, 03/21/2017, Additional history exists Retinopathy Screening 07/02/2025 07/02/2024, 023 Cervical Cancer Screening 02/19/2026 Pap + HPV 02/19/2026 02/19/2021 Lipid Screening 10/21/2026 10/21/2021, 09/2019, 12/20/2017 Imm-RSV (adult) (1 - 1-dose 75+ series) 2067 Imm-HPV Completed 07/01/2009, 11/2008, 11/11/2008 Imm-Hepatitis B Completed 09/10/2014, 02/21, 02/03/2014 HIV Screening Completed 10/21/2021, 09/24/2019 Hepatitis C Screening Completed 10/21/2021, 018 Cervical Ablation/Cold-Knife Conization Discontinued Cervical Cryotherapy Discontinued Colposcopy Discontinued Excision/Leep Discontinued HPV Genotyping Discontinued Vaginal Pap Discontinued Vulvoscopy Discontinued Procedures Procedure Name Priority Date/Time Associated Diagnosis Comments REFERRAL SCANNED DOCUMENT 06/02/2025 3:00 AM EST EYE EXAM 07/02/2024 3:00 [...] Health Maintenance Results * REFERRAL SCANNED DOCUMENT (06/02/2025 3:00 AM EST) 06/02/2025 3:00 AM EST Brittany Garcia CIGARETTE INSPECTOR SCAN REFERRAL Final Res ult * EYE EXAM (07/02/2024 3:00 AM EST) 07/02/2024 3:00 AM EST Tristin Raymundo MD OTHER Edited Result - Final * HEPATITIS C AB W/RFLX HCV RNA, QT, RT PCR (10/21/2021 10:27 AM EDT) HEPATITIS C ANTIBODY NON-REACT SOFIA NON-REACT SOFIA [facility] SIGNAL TO CUT-OFF 0.01 <1.00 [facility] Comment: HCV antibody was non-reactive. There is no laboratory evidence of HCV infection. In most cases, no further action is required. However, if recent HCV exposure is suspected, a test for HCV RNA (test code 59196) is suggested. For additional information please refer to http://education.Viropro/faq/LCA96a0 (This link is being provided for informational/ educational purposes only.) Blood Blood / Unknown 10/21/2021 1 0:27 AM EDT 10/21/2021 10:28 AM EDT Narrative [facility] - 10/22/2021 10:54 PM EDT FASTING:YES Leah Orellana CIGARETTE INSPECTOR-C LAB - BLOOD DRAW Final Resul t [facility] [address] [facility] [address] [place] [address], [facility] [address] [address] * HIV 1/2 AG & AB W/RFLX (4TH GEN) (10/21/2021 10:27 AM EDT) HIV AG/AB, 4TH GEN NON-REAC TIVE NON-REAC TIVE [facility] Comment: HIV-1 antigen and HIV-1/HIV-2 antibodies were [...] purpose. For additional information please refer to http://education.Viropro/faq/KFV754 (This link is being provided for informational/ educational purposes only.) The performance of this assay has not been clinically validated in patients less than 2 years old. Blood Blood / Unknown 10/21/2021 1 0:27 AM EDT 10/21/2021 10:28 AM EDT Narrative [facility] - 10/22/2021 10:54 PM EDT FASTING:YES Leah Orellana CIGARETTE INSPECTOR-C LAB - BLOOD DRAW Final Resul t [facility] [address] [address], [employer] [address] [address] * (ABNORMAL) HGBA1C W/MPG (10/21/2021 10:27 AM EDT) HEMOGLOBIN A1C 6.6(H) <5.7 % of total Hgb [facility] Comment: For someone without known diabetes, a [...] children. MEAN PLASMA GLUCOSE 158 mg/dL (calc) [facility] Blood Blood / Unknown 10/21/2021 1 0:27 AM EDT 10/21/2021 10:28 AM EDT Narrative [employer] [facility] - 10/22/2021 10:54 PM EDT FASTING:YES Leah Orellana CIGARETTE INSPECTOR-C LAB - BLOOD DRAW Edited Resu lt - Final [employer] [facility] [address] [address], [employer] [address] [address] * LIPIDS W RFLX TO DIRECT LDL (10/21/2021 10:27 AM EDT) [facility] Signature CHOLESTEROL, TOTAL 117 <200 mg/dL [facility] HDL CHOLESTEROL 55 > OR = 50 mg/dL [facility] TRIGLYCERIDES 38 <150 mg/dL [facility] LDL-CHOLESTEROL 51 99 mg/dL (calc) [facility] Comment: Reference range: <100 Desirable range <100 mg/dL for primary prevention; <70 mg/dL for patients with CHD or diabetic patients with > or = 2 CHD risk factors. LDL-C is now calculated using the Manish-Elizabeth calculation, which is a validated novel method providing better accuracy than the Friedewald equation in the estimation of LDL-C. Manish GILLILAND et al. ASIF. 2013;310(19): 7987-6279 (http://education.Razient.VelociData/faq/BUB346) CHOL/HDLC RATIO 2.1 <5.0 (calc) [facility] NON-HDL CHOLESTEROL 62 <130 mg/dL (calc) [facility] Comment: For patients with diabetes plus 1 major ASCVD risk factor, treating to a non-HDL-C goal of <100 mg/dL (LDL-C of <70 mg/dL) is considered a therapeutic option. Blood Blood / Unknown 10/21/2021 1 0:27 AM EDT 10/21/2021 10:28 AM EDT Narrative [employer] [facility] - 10/22/2021 10:54 PM EDT FASTING:YES Leah Mckinleyadia CIGARETTE INSPECTOR-C LAB - BLOOD DRAW Final Resul t Performing Organization Address [facility]/ZIP Co de Phone Number [employer] [address] [address], [employer] [address],[place] [address] * MICROALBUMIN/CREATININE RATIO, URINE, RANDOM (10/21/2021 10:27 AM EDT) CREATININE, RANDOM URINE 169 20 - 275 mg/dL [facility] MICROALBUMIN 1.0 mg/dL [employer] [employer] [facility] Comment: Reference Range Not established MICROALBUMIN/CREA TININE RATIO, RANDOM URINE 6 <30 mcg/mg creat [facility] Comment: The ADA defines abnormalities in albumin [...] AM EDT 10/21/2021 10:28 AM EDT Narrative [employer] [facility] - 10/22/2021 10:54 PM EDT FASTING:YES Leah Reyna CIGARETTE INSPECTOR-C LAB URINE AMBULATORY Final R esult Performing Organization Address City/[facility]/ZIP Co de Phone Number [employer] [facility] [address] [address], [employer] [address] [address] * (ABNORMAL) COMPREHENSIVE METABOLIC PANEL (10/21/2021 10:27 AM EDT) GLUCOSE 161(H) 65 - 99 mg/dL [facility] Comment: Fasting reference interval For someone without known diabetes, a glucose value >125 mg/dL indicates that they may have diabetes and this should be confirmed with a follow-up test. UREA NITROGEN (BUN) 14 7 - 25 mg/dL [employer] [facility] CREATININE (blood) 0.69 0.50 - 1.10 mg/dL [employer] [facility] GFR ESTIMATED 118 > OR = 60 mL/min/1 .73m2 [employer] [facility] EGFR 136 > OR = 60 mL/min/1 .73m2 [employer] [facility] BUN/CREATININE RATIO NOT APPLICABLE 6 - 22 [employer] [facility] SODIUM 136 135 - 146 mmol/L [employer] [facility] POTASSIUM 4.3 3.5 - 5.3 mmol/L [employer] [facility] CHLORIDE 105 98 - 110 mmol/L [employer] [facility] CARBON DIOXIDE 24 20 - 32 mmol/L [employer] [facility] CALCIUM 8.9 8.6 - 10.2 mg/dL [employer] [facility] PROTEIN, TOTAL 6.5 6.1 - 8.1 g/dL [facility] [employer] [facility] ALBUMIN 4.0 3.6 - 5.1 g/dL [employer] [facility] GLOBULIN 2.5 1.9 - 3.7 g/dL (calc) [employer] [facility] ALBUMIN/GLOBUL IN RATIO 1.6 1.0 - 2.5 (calc) [employer] [facility] BILIRUBIN, TOTAL 0.6 0.2 - 1.2 mg/dL [employer] [facility] ALKALINE PHOSPHATASE 62 31 - 125 U/L [employer] [facility] AST 23 10 - 30 U/L [employer] [facility] ALT 13 6 - 29 U/L [employer] [facility] Blood Blood / Unknown 10/21/2021 1 0:27 AM EDT 10/21/2021 10:28 AM EDT Narrative [employer] [facility] - 10/22/2021 10:54 PM EDT FASTING:YES Leah Orellana CIGARETTE INSPECTOR-C LAB - BLOOD DRAW Edited Resu lt - Final [employer] [facility] [address] [address], [employer] [facility] [address] [address] * PAP W/ HPV (02/19/2021 3:00 AM EDT) 02/19/2021 3:00 AM EDT Leah Orellana CIGARETTE INSPECTOR-C LAB - PATHOLOGY AND CYTOLOGY AMBULATORY Final Result from Last 3 Months or Most Recently Relevant to Health Maintenance Insurance [facility] Care Teams Surgical Sales Representative Relationship Specialty Start Date End Date Kim Braden PA [address] [place] [address] PCP - General Primary Care 12/13/23
--- OUTSIDE RECORDS SUMMARY | 2025-06-03 13:07 | XMS_ITS | Clinical Summary ---
Author Organization [employer] Address [address] [place] [address] [address] [place] [address] Care Team Providers Care Public Relations Studies Director Name Role Phone Unavailable Primary Care Provider Unavailabl e Social History Tobacco Use Types Packs/Day Years Used Date Smoking Tobacco: Never Assessed Comments Unknown Sex and Gender Information Value Date Recorded Sex Assigned at Not on file Legal Sex Female 9:29 PM EDT Gender Identity Not on file Sexual Orientation Not on file Plan of Treatment Health Maintenance Due Date Last Done Comments Depression Screening 1992 SDOH Screening 1992 Disability Screening 1992 Alcohol/Substance Use Screening 2004 Tobacco Screening 2004 Family Planning (PISQ) 2007 Hepatitis C Screening 2010 Hepatitis B Vaccines (1 of 3 - 19+ 3-dose series) 2011 Pap Smear 2013 Cervical Cancer Screening 2022 HPV/Cotest 2022 DTaP/Tdap/Td Vaccines (3 - Td or Tdap) 01/30/2024 01/29/2014, 05/24/2005 COVID-19 Vaccine ( season) 2025 Influenza Vaccine (#1) 2025 2, 09/24/2019, 03/21/2017, Additional history exists Zoster Vaccines (1 of 2) 2042 RSV Patients and Patients Aged 60 years or older (1 - 1-dose 75+ series) 2067 HPV Vaccines Completed 07/01/2009, 11/2008, 11/11/2008 Pneumococcal Vaccine: Pediatrics (0 to 5 Years) and At-Risk Patients (6 to 49) Years Aged Out 09/24/2019 No longer eligible based on patient's age to complete this topic HIV Screening Completed 10/21/2021 HIB Vaccines Aged Out No longer eligi [...]
--- OUTSIDE RECORDS SUMMARY | 2025-06-03 13:07 | XMS_ITS | Encounter Summary ---
Author Organization [facility] Address [address] [address] Care Team Providers Care Sample Shoe Inspector And Reworker Name Role Phone Kim Braden Primary Care Provider [phone] Reason for Visit * Reason Comments Prior Authorization Encounter Details Date Type Department Care Team ([facility] st Contact Info) Description 05/29/2025 Interim Notes [address] [phone] [place] [address] [place] [id number] Social History Tobacco Use Types Packs/Day Years Used Date Smoking Tobacco: Never Smokeless Tobacco: Never Alcohol Use Standard Drinks/Week Comments No 0 [...] file Not on file Not on file documented as of this encounter Progress Notes * [place] - 05/29/2025 1:00 PM EST You have successfully submitted the Referral for SAMMY MORALEZ .1990 [facility] [id number] The following Referral Authorization Number should be retained in your records. Referral Authorization # [id number] Number of Visits 6 02/25/2025-02/25/2026 You have successfully submitted the Referral for SAMMY MARYE 1990 [facility] npi [id number] The following Referral Authorization Number should be retained in your records. Referral Authorization # [id number] Number of Visits 6 02/25/2025-02/25/2026 documented in this encounter Plan of Treatment Not on file documented as of this encounter Visit Diagnoses Not on filedocumented in this encounter Additional Health Concerns Assessment Noted Time PHQ-9 Depression Total Score: 0 10/22/19 9:57 AM PDT A Depression follow-up plan has been documented for the patient 10/21/2021 10:24 AM PDT PHQ-2 Depression Total Score: 0 10/22/19 22 9:57 AM PDT documented as of this encounter Care Teams Sample Shoe Inspector And Reworker Relationship Specialty Start Date End Date Kim Braden PA [address] [place] [address] PCP - General Primary Care 12/13/23 documented as of this encounter
== END 2025-06-03 11:52 | disposition home or self-care (01) ==
LOC: HO.RHES 10:59
PROVIDERS: Visit Provider Internal Medicine Rheumatology
DX: M25.50 Pain in unspecified joint (principal)
CPT/HCPCS: 99204

== ENCOUNTER 2025-06-03 10:58 | Outpatient (REF) | payer MEDICAID, SELFPAY ==
--- OUTSIDE RECORDS SUMMARY | 2025-06-03 13:59 | XMS_ITS | Data Portability ---
Author Organization [facility], Main Office Address [address] [facility] [address] [place] [address] Care Team Providers Care Manager Adult Name Role Phone SIENA FLORES Primary Care Provider OMAR GARDINER Branding Machine Tender SULEMAN LEIGH Science Analyst SILVINO SARMIENTO Pipe Stripper Assessment No assessment recorded. Plan of Treatment Reminders Order Date Submit Date Provider Last Modified By Organization Details Last Modified Time Details Appointments None record ed. Lab pregna ncy test, urine 2017 018 [email or web address] In-Office Order, Internal Use Only DO Not Attach Compendium DO Not Attach Compendium, Do Not Delete/merge, [id number] 8 11:45:04 TSH, serum or plasma 2016 017 OSMAN [facility], [address], [address], [place], [address], 7 17:59:13 vitami n B12, serum 2016 017 [facility], [address], [address], [place], [address], 7 18:11:00 pregna ncy test, urine 2016 017 OSMAN In-Office Order, Internal Use Only DO Not Attach Compendium DO Not Attach Compendium, Do Not Delete/merge, [id number] 7 09:50:38 Referral neurol ogist referr al 2017 018 andrez Thornton MD, [address] [place] [address] Dr, [address], [place], [address], 8 13:35:00 physic al therap ist referr al - DX:lbp eval & treat 2-3x/w k x 4 wks 2016 017 [email or web address] Not available 8 09:11:08 gyneco logist referr al - Pap in 2016 after urgent visit for post coital bleedi ng showed ASCUS and + HPV, has not had follow -up for this. Also having menorr hagia since geovanni, on depo- does not usuall y have a period . 2016 017 [email or web address] [facility] [employer] [facility], [address] [place], [address], 7 09:49:29 Procedures None record ed. Surgeries None record ed. Imaging XR, lumbos acral spine 2016 017 [facility], [address] [place], [address], 7 12:31:15 Medication Orders medrox yproge steron e 150 mg/mL intram uscula r suspen jeovany 2017 018 [email or web address] Not available 8 11:45:04 gabape ntin 300 mg capsul e 2016 017 [email or web address] [id number], [address] [place], [place], [id number], 8 09:14:28 duloxe florentin 60 mg capsul e,meek yed releas e 2016 017 avani [facility] #[id number], [address], [place], [id number], 7 10:37:05 medrox yproge steron e 150 mg/mL intram uscula r suspen jeovany 2016 017 [email or web address] Not available 09:53:47 Patient TargetsNo targets recorded. Patient Instructions Encounter Date Encounter Id Patient Instructions Last Modified By Organization Details Last Modified Time 05/04/2017 [id number] Call or return for worsening or concerns. [email or web address] Not available 05/04/2017 09:48:46 I have reviewed the note and agree with the assessment and plan of care. [email or web address] Not available 05/04/2017 11:50:32 05/19/2017 [id number] learning about type 1 diabetes Not available [...] medication. [email or web address] Not available 05/20/2017 14:17:16 06/14/2017 [id number] back pain: care instructions [email or web address] Not available [...] care. [email or web address] Not available 06/14/2017 12:41:25 07/26/2017 [id number] I have reviewed the note and agree with the assessment and plan of care. [email or web address] Not available 07/26/2017 09:58:39 Reason for Referral Dynamics Ax Developer Referral for HP V - Human papillomavirus [...] DO Not Attach Compendium, Do Not Delete/merge, [id number] 05/04/2017 09:43:40 04/26/2004/26/2017 CBC w/ auto diff [...] 04/26/2017 14:34:25 04/26/2004/26/2017 CBC w/ auto diff HCT 36.1 % [...] 04/26/2017 14:34:25 04/26/2004/26/2017 CBC w/ auto diff plt 255 K/mm3 [...] Go To The Location Of Their Choice, [id number] 04/27/2017 06:28:47 06/14/20 17 06/14/2017 TSH, serum or plasm a TSH 1.49 mIU/m L (0.40- 4.00) Not Available [facility] (Centralized Electronic Ordering - All Locations) Patient Can Go To The Location Of Their Choice, [id number] 06/14/2017 17:59:12 06/14/20 17 06/14/2017 vitam in B12, serum vitamin B12 270 pg/mL (170-8 70) Not Available [facility] (Centralized Electronic Ordering - All Locations) Patient Can Go To The Location Of Their Choice, [id number] 06/14/2017 18:11:00 08/02/19 18 08/02/2017 pregn kalyan test, urine HCG negati ve Not Available In-Office Order Internal Use Only DO Not Attach Compendium DO Not Attach Compendium, Do Not Delete/merge, [id number] 08/02/2017 10:13:52 06/14/20 17 06/14/2017 XR, lumba [...] IMPRES JEOVANY: No acute abnorm ality. WSN: [id number] Dictat ed By: Elvis Salgado MD Dictat ed Date/T luis: 12:28 p Review ed By: Elvis Salgado MD Signed By: Elvis Salgado MD Signed Date/T luis: 12:28 pm Transc ribed By: DARSHAN Transc ribed Date/T luis: 12:28 pm Patien t Class: Outpat ient [facility] (Outpt Imaging) [address] [place], [address], 06/14/2017 22:02:42 Result Notes Documentation Provider Name and Address Organization Details Recorded Time Xr, Lumbar Spine : Lumbar Spine 2 or 3 Views INDICATION/CLINICAL QUESTION: radiculopathy lumbar region / . COMPARISON: None. FINDINGS: Normal alignment and well preserved disc and vertebral body morphology. No bone lesions or fractures. No spondylolysis or spondylolisthesis. Normal soft tissues. IMPRESSION: No acute abnormality. WSN: [id number] Dictated By: Elvis Salgado MD Dictated Date/Time: 06/14/17 12:28 p Reviewed By: Elvis Salgado MD Signed By: Elvis Salgado MD Signed Date/Time: 06/14/17 12:28 pm Transcribed By: DARSHAN Transcribed Date/Time: 06/14/17 12:28 pm Patient Class: Outpatient Geovany Howell PA-C [address] [address], [place], [address], [facility] 06/14/2017 12:50:57 Problems Name Problem SNOMED Code Status Onset Date Resolution Date Notes Provider Name and Address Organization Details Recorded Time Allergic rhinitis 73665169 Active Dona Howell PA-C [address] [address], [place], [address], [facility] 6 11:47:54 Type 1 diabetes mellitus 67907587 Active Dona Howell PA-C [address] [address], [place], [address], [facility] 6 11:47:54 Gastroes ophageal reflux disease 548399282 Active Dona Howell PA-C [address] [address], [place], [address], [facility] 6 11:47:54 Migraine 43827073 Active Dona Howell PA-C [address] [address], [place], [address], [facility] 6 11:47:54 Onychomy cosis due to dermatop hyte 351669472 Active Dona Howell PA-C [address] [address], [place], [address], [facility] 6 11:47:54 Paronych ia of toe 819157521 Active Dona Howell PA-C [address], [place], [address], [facility] 6 11:47:54 Candidal vulvovag initis 60852187 Active Dona Howell PA-C [address], [place], [address], [facility] 6 11:47:54 Ganglion cyst 559631050 Active Dona Howell PA-C [address], [place], [address], [facility] 6 11:47:54 Lichenif ication of skin 769023060 Active Dona Howell PA-C [address], [place], [address], [facility] 6 11:47:54 Hordeolu m 719583066 Active Dona Howell PA-C [address], [place], [address], [facility] 6 11:47:54 Pain of shoulder region 00380866 Active Dona Howell PA-C [address], [place], [address], [facility] 6 11:47:54 Chalazio n [id number] Completed 07/26/2017 [place], [facility] 8 09:11:35 Type 2 diabetes mellitus 91062524 Completed 09/25/2015 Dona Howell PA-C [address], [place], [address], [facility] 6 11:47:54 Fatigue 56105367 Completed 07/26/2017 [place], [facility] 8 09:11:48 Anemia 803524274 Active Dona Howell PA-C [address], [place], [address], [facility] 6 11:47:54 Vitamin D deficien cy 29754220 Active Dona Valladaresden PA-C [address], [place], [address], [facility] 6 11:47:54 Upper chest pain 133328847 Completed 06/14/2017 Leigha de [place] null, [facility] 7 10:30:36 Chest pain 98264587 Completed 200802/11/2014 RECORDED 02/26/20 09 10:33AM BY MAGDIEL POWER ON/ADDEN DUM Dona Howell PA-C [address], [place], [address], [facility] 6 11:47:54 Administ ration of viral vaccine Completed 200802/11/2014 DATE: 02/26/20 09; RECORDED 02/21/20 12 9:30AM BY JAK COLEMAN MA, MAGDIEL ON/ADDEN DUM Dona Howell PA-C [address], [place], [address], [facility] 6 11:47:54 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 [address], [place], [address], [facility] 6 11:47:54 Contact dermatit is 89536202 Completed 201102/11/2014 RECORDED 02/21/20 12 9:30AM BY JAK COLEMAN MA, MAGDIEL ON/ADDEN DUM Dona Breeze PA-C [address] [facility] [address], [place], [address], [facility] 6 11:47:54 Impacted cerumen 99668801 Completed 201102/11/2014 IMPRESSI ON: BILAT. NORMAL POST LAVAGE EXAM.; RECORDED 02/21/20 12 9:30AM BY JAK COLEMAN MA, MAGDIEL ON/ADDEN DUM Dona Howell PA-C [address] [facility] [address], [place], [address], [facility] 6 11:47:54 Follow-u p encounte r Completed 201102/11/2014 RECORDED 02/21/20 12 9:30AM BY JAK COLEMAN MA, MAGDIEL ON/ADDEN DUM Dona Howell PA-C [address] [facility] [address], [place], [address], [facility] 6 11:47:55 Pruritic disorder 079646125 Completed 201102/11/2014 RECORDED 02/21/20 12 9:30AM BY JAK COLEMAN MA, MAGDIEL ON/ADDEN DUM Dona Dante PA-C [address], [place], [address], [facility] 6 11:47:54 Onychia of toe 886081528 Completed 201102/11/2014 IMPRESSI ON: CHRONIC AND RECURRIN [...] JAK COLEMAN MA, MAGDIEL ON/ADDEN DUM Donalarry PAGAN-C [address], [place], [address], [facility] 6 11:47:54 Adult health examinat ion Completed 201102/11/2014 RECORDED 02/21/20 12 9:30AM BY JAK COLEMAN MA, ANNOTATI ON/ADDEN DUM Dona PAGAN-C [address], [place], [address], [facility] 6 11:47:55 Well child 821091022 Completed 201102/11/2014 RECORDED 02/21/20 12 9:30AM BY JAK COLEMAN MA, ANNOTATI ON/ADDEN DUM Dona Dante PAGAN-C [address], [place], [address], [facility] 6 11:47:55 Tinea pedis 1186057 Completed 201102/11/2014 RECORDED 02/21/20 12 9:30AM BY JAK COLEMAN MA, ANNOTATI ON/ADDEN DUM Dona Howell PA-C [address], [place], [address], [facility] 6 11:47:54 Cisco gross 627546928 Completed 201102/11/2014 STORY: MADE SEVERAL ATTEMPT TO REACH MOM WITH NO RETURN CALLS; RECORDED 02/21/20 12 9:30AM BY JAK COLEMAN MA, MAGDIEL ON/ADDEN DUM Dona Howell PA-C [address], [place], [address], [facility] 6 11:47:54 Viral disease 23064067 Completed 201102/11/2014 IMPRESSI ON: IN HOUSE STREP NEG, SEND OUT PENDING. LUNGS CTA. SUSPECT VIRAL ETIOLOGY . ENCOURAG ED CONTINUE D PRN USE OF TYLENOL/ MOTRIN, REST, AND FLUIDS. F/U PRN IF SXS WORSEN OR FAIL TO IMPROVE. ; RECORDED 02/21/20 12 9:30AM BY JAK COLEMAN MA, ANNOTATI ON/ADDEN DUM Dona Howell PA-C [address] [facility] [address], [place], [address], [facility] 6 11:47:54 Contact dermatit is 44662718 Completed 201103/03/2014 RECORDED 02/21/20 12 9:30AM BY AJK COLEMAN MA, ANNOTATI ON/ADDEN DUM Dona Howell PA-C [address] [facility] [address], [place], [address], [facility] 6 11:47:54 Impacted cerumen 12157571 Completed 201103/03/2014 IMPRESSI ON: BILAT. NORMAL POST LAVAGE EXAM.; RECORDED 02/21/20 12 9:30AM BY JAK COLEMAN MA, ANNOTATI ON/ADDEN DUM Dona Howell PA-C [address] [facility] [address], [place], [address], [facility] 6 11:47:54 Follow-u p encounte r Completed 201103/03/2014 RECORDED 02/21/20 12 9:30AM BY JAK COLEMAN MA, ANNOTMARAH ON/ADDEN DUM Donalarry PAGAN-C [address], [place], [address], [facility] 6 11:47:55 Pruritic disorder 388161073 Completed 201103/03/2014 RECORDED 02/21/20 12 9:30AM BY JAK COLEMAN MA, MAGDIEL ON/ADDEN DUM Donalarry PAGAN-C [address] [facility] [address], [place], [address], [facility] 6 11:47:54 Onychia of toe 890352983 Completed 201103/03/2014 IMPRESSI ON: CHRONIC AND RECURRIN [...] [address], [place], [address], [facility] 6 11:47:54 Well child 524983661 Completed 201103/03/2014 RECORDED 02/21/20 12 9:30AM BY JAK COLEMAN MA, MAGDIEL ON/ADDEN DUM Donalarry PAGAN-C [address], [place], [address], [facility] 6 11:47:55 Tinea pedis 7477853 Completed 201103/03/2014 RECORDED 02/21/20 12 9:30AM BY JAK COLEMAN MA, ANNOTATI ON/ADDEN HAILY BAINC [address] [facility] [address], [place], [address], [facility] 6 11:47:54 Urticari a 640858122 Completed 201103/03/2014 STORY: MADE SEVERAL ATTEMPT TO REACH MOM WITH NO RETURN CALLS; RECORDED 02/21/20 12 9:30AM BY JAK COLEMAN MA, ANNOTATI ON/JOSE Howell PA-C [address] [facility] [address], [place], [address], [facility] 6 11:47:54 Viral disease 14995969 Completed 201103/03/2014 IMPRESSI ON: IN HOUSE STREP NEG, SEND OUT PENDING. LUNGS CTA. SUSPECT VIRAL ETIOLOGY . ENCOURAG ED CONTINUE D PRN USE OF TYLENOL/ MOTRIN, REST, AND FLUIDS. F/U PRN IF SXS WORSEN OR FAIL TO IMPROVE. ; RECORDED 02/21/20 12 9:30AM BY JAK COLEMAN MA, ANNOTATI ON/ADDEN DUM Dona BAINC [address] [facility] [address], [place], [address], [facility] 6 11:47:54 Eruption [id number] Completed 201102/11/2014 IMPRESSI ON: ETIOLOGY UNCLEAR, NO NEW EXPOSURE THAT SHE IS AWARE OF BUT DID HAVE RECENT TRAVEL TO [place]. LITTLE IMPROVEM ENT WITH TOPICAL CS AND PO ANTIHIST AMINES. AVOID PO PRED D/T DMT1 FOR NOW. GIVEN THAT ITCHING WORSE AT NIGHT, ONGOING NATURE WILL TX WITH PERMETHR IN X 1 BEFORE SEEING DERM. APPT WITH SPEC CURRENTL Y SCHED FOR MAR, WE WILL TRY TO EXPEDITE FOR HER.; RECORDED 07/05/20 12 3:17PM BY MAGDIEL YOUNG ON/JOSE BAINC [address] [address], [place], [address], [facility] 6 11:47:54 Eruption [id number] Completed 201103/03/2014 IMPRESSI ON: ETIOLOGY UNCLEAR, NO NEW EXPOSURE THAT SHE IS AWARE OF BUT DID HAVE RECENT TRAVEL TO [place]. LITTLE IMPROVEM ENT WITH TOPICAL CS AND PO ANTIHIST AMINES. AVOID PO PRED D/T DMT1 FOR NOW. GIVEN THAT ITCHING WORSE AT NIGHT, ONGOING NATURE WILL TX WITH PERMETHR IN X 1 BEFORE SEEING DERM. APPT WITH SPEC CURRENTL Y SCHED FOR MAR, WE WILL TRY TO EXPEDITE FOR HER.; RECORDED 07/05/20 12 3:17PM BY MAGDIEL YOUNG ON/ADDEN DUM Dona PAGAN-C [address], [place], [address], [facility] 6 11:47:54 Type 1 diabetes mellitus 07680928 Completed 201202/11/2014 RECORDED 10/10/19 13 4:13PM BY MAGDIEL PIERRE ON/ADDEN DUM Dona PAGAN-C [address], [place], [address], [facility] 6 11:47:54 Amenorrh ea 61419088 Completed 201202/11/2014 IMPRESSI ON: DUE TO PREGNANC Y; RECORDED 01/30/20 13 10:36AM BY LEIGHA HAGEN MA, ANNOTATI ON/ADDEN DUM Dona PAGAN-C [address], [place], [address], [facility] 6 11:47:54 Breathin g painful 47501426 Completed 201202/11/2014 IMPRESSI ON: HER CHEST PAIN IS MUSCULOS KELETAL AND PROBABLY COSTOCHO NDRITIS; RECORDED 01/30/20 13 10:36AM BY LEIGHA HAGEN MA, MAGDIEL ON/ADDEN DUM Dona PAGAN-C [address], [place], [address], [facility] 6 11:47:54 Dizzines s and giddines s 693898043 Completed 201202/11/2014 RECORDED 01/30/20 13 10:36AM BY LEIGHA HAGEN MA, ANNOTATI ON/ADDEN DUM Dona Howell PA-C [address], [place], [address], [facility] 6 11:47:54 Leukorrh ea 067394588 Completed 201202/11/2014 RECORDED 01/30/20 13 10:36AM BY LEIGHA HAGEN MA, ANNOTATI ON/ADDEN DUM Dona Dante PA-C [address], [place], [address], [facility] 6 11:47:54 Amenorrh ea 50468192 Completed 201203/03/2014 IMPRESSI ON: DUE TO PREGNANC Y; RECORDED 01/30/20 13 10:36AM BY LEIGHA HAGEN MA, ANNOTMARAH ON/ADDEN DUM Dona Dante PA-C [address], [place], [address], [facility] 6 11:47:54 Breathin g painful 41599334 Completed 201203/03/2014 IMPRESSI ON: HER CHEST PAIN IS MUSCULOS KELETAL AND PROBABLY COSTOCHO NDRITIS; RECORDED 01/30/20 13 10:36AM BY LEIGHA HAGEN MA, ANNOTATI ON/ADDEN DUM Dona Dante PA-C [address], [place], [address], [facility] 6 11:47:54 Dizzines s and giddines s 315584284 Completed 201203/03/2014 RECORDED 01/30/20 13 10:36AM BY LEIGHA HAGEN MA, ANNOTATI ON/ADDEN DUM Dona Howell PA-C [address], [place], [address], [facility] 6 11:47:54 Leukorrh ea 556098362 Completed 201203/03/2014 RECORDED 01/30/20 13 10:36AM BY LEIGHA HAGEN MA, ANNOTATI ON/ADDEN DUM Dona Howell PA-C [address], [place], [address], [facility] 6 11:47:54 Radiolog y result abnormal 304418461 Completed 201202/11/2014 RECORDED 03/14/20 13 9:57AM BY ANTOINE ROBLERO MA, ANNOTATI ON/ADDEN DUM Dona Howell PA-C [address], [place], [address], [facility] 6 11:47:54 Primigrrenato preston 977108930 Completed 201202/11/2014 IMPRESSI ON: THIS WAS UNEXPECT [...] [address], [place], [address], [facility] 6 11:47:55 Radiolog y result abnormal 084537755 Completed 201203/03/2014 RECORDED 03/14/20 13 9:57AM BY ANTOINE ROBLERO MA, MAGDIEL ON/ADDEN DUM Dona Howell PA-C [address], [place], [address], [facility] 6 11:47:54 Primigrrenato preston 569579300 Completed 201203/03/2014 IMPRESSI ON: THIS WAS UNEXPECT [...] ANTOINE ROBLERO MA, MAGDIEL ON/ADDEN DUM Dona PAGAN-C [address], [place], [address], [facility] 6 11:47:55 Influenz a vaccine needed 03688884237 06 Completed 201302/11/2014 RECORDED 08/15/19 14 1:43PM BY SIENA FLOWERS MD, MAGDIEL ON/ADDEN DUM Dona PAGAN-C [address], [place], [address], [facility] 6 11:47:54 Adult health examinat ion Completed 201307/28/2014 RECORDED 08/15/19 14 12:58PM BY DENISE PEREZ I, OFFICE VISIT Dona Howell PA-C [address], [place], [address], [facility] 6 11:47:55 Laborato ry procedur e performe d 309687872 Completed 201302/11/2014 RECORDED 08/15/19 14 12:55PM BY MAGDIEL YOUNG ON/ADDEN DUM Dona Dante PAGAN-C [address], [place], [address], [facility] 6 11:47:55 Patient status finding 932481006 Completed 201307/28/2014 RECORDED 08/15/19 14 12:58PM BY DENISE PEREZ I, OFFICE VISIT Dona PAGAN-C [address], [place], [address], [facility] 6 11:47:54 Administ ration of diphther ia, pertussi s, and tetanus vaccine Completed 201307/28/2014 RECORDED 08/15/19 14 1:44PM BY SIENA FLOWERS MD, ANNOTATI ON/ADDEN DUM Donamag Howell IN-C [address] [facility] [address], [place], [address], [facility] 6 11:47:54 Influenz a vaccine needed 12908332820 06 Completed 201303/03/2014 RECORDED 08/15/19 14 1:43PM BY SIENA FLOWERS MD, ANNOTATI ON/ADDEN DUM Donalarry Howell IN-C [address] [facility] [address], [place], [address], [facility] 6 11:47:54 Laborato ry procedur e performe d 210743680 Completed 201303/03/2014 RECORDED 08/15/19 14 12:55PM BY DENISE PEREZ I, SIGRIDATI ON/ADDEN DUM Donamag Howell IN-C [address] [facility] [address], [place], [address], [facility] 6 11:47:55 Adult health examinat ion Completed 201303/03/2014 RECORDED 02/04/20 14 3:31PM BY JAK COLEMAN MA, MAGDIEL ON/ADDEN DUM Dona PAGAN-C [address] [facility] [address], [place], [address], [facility] 6 11:47:55 Gastroes ophageal reflux disease 597322413 Completed 201303/03/2014 RECORDED 02/04/20 14 3:30PM BY JAK COLEMAN MA, ANNOTATI ON/ADDEN DUM Dona PAGAN-C [address], [place], [address], [facility] 6 11:47:54 Infectiv e hepatiti s immuniza tion Completed 201303/03/2014 RECORDED 02/04/20 14 3:31PM BY JAK COLEMAN MA, NURSE VISIT Dona PAGAN-C [address], [place], [address], [facility] 6 11:47:54 History of clinical finding in subject 785532911 Completed 201303/03/2014 RECORDED 02/04/20 14 3:31PM BY JAK COLEMAN MA, MAGDIEL ON/ADDEN DUM Dona PAGAN-C [address], [place], [address], [facility] 6 11:47:54 Onychomy cosis due to dermatop hyte 222114560 Completed 201303/03/2014 RECORDED 02/04/20 14 3:30PM BY JAK COLEMAN MA, MAGDIEL ON/ADDEN DUM Dona PAGAN-C [address], [place], [address], [facility] 6 11:47:54 Administ ration of diphther ia, pertussi s, and tetanus vaccine Completed 201303/03/2014 RECORDED 02/04/20 14 3:30PM BY JAK COLEMAN MA, MAGDIEL ON/ADDEN DUM Dona PAGAN-C [address], [place], [address], [facility] 6 11:47:54 Varicell a vaccinat ion Completed 201303/03/2014 RECORDED 02/04/20 14 3:31PM BY JAK COLEMAN MA, NURSE VISIT Dona PAGAN-C [address], [place], [address], [facility] 6 11:47:54 Candidal vulvovag initis 72144827 Completed 201303/03/2014 RECORDED 02/04/20 14 3:31PM BY JAK COLEMAN MA, ANNOTATI ON/JOSE Howell PA-C [address] [facility] [address], [place], [address], [facility] 6 11:47:54 Pain in lower limb 36421451 Active 2016 Siena vanessa MD [address] [facility] [address], [place], [address], [facility] 7 12:08:57 Notes:Diabetic Eye Exam, [facility] on 08/18/2015. Problem Notes None recorded. Procedures Surgical History Date Name Laterality Status Provider Name and Address Organization Details Recorded Time 05/12/2017 Date of Last Pap Smear completed [facility] 05/13/2017 12:30:50 No surg proc w/in 30 days completed Leigha [facility]okes [facility] 06/14/2017 10:31:01 Imaging Results None recorded. Procedure Notes None recorded. Medical Equipment None Reported. Allergies Allergen ID Allergen Name Allergen Category Reaction Reaction Severity Criticality Documentation Date Start Date Code Code System Note Provider Name and Address Organization Details Recorded Time 10078 duloxetin e medicatio n dizziness nausea vomiting moderate Not available Not available Not available 06/01/20172016 90517 RxNorm Leigha de [place] [facility] 7 10:30:23 Medications Name Sig Start Date Stop Date Status Note LastModified by Organization Details LastModified Time multiple vitamins tabs active Not Available Not Available Not Available vitamin d 12607 unit caps active Not Available Not Available [...] Available polymyxin b sulfate/t rimethopr im sulfate 45872-5.1 unit/ml-% soln active Not Available Not Available [...] Available Vitals Date Recorded Body height Body mass index (BMI) Body weight Body temperature Oxygen saturation Oxygen saturation in Arterial blood by Pulse oximetry Heart rate Systolic And Diastolic Provider Name and Address Organization Details Last Updated DateTime 8 165.735 cm 19.6 kg/m2 04145.7 g 98.3 [degF] 100 % 100 % 80 /min 98/63 mm[Hg] Shannon Pulido MA [facility] [place] 8 09:14:17 Date Recorded Body height Provider Name an d Address Organization Details Last Updated DateTime 08/02/2017 165.735 cm Laya Braxton [facility] [place] 08/02/2017 10:02:11 Date Recorded Body height Body temperature Oxygen saturation Oxygen saturation in Arterial blood by Pulse oximetry Heart rate Body mass index (BMI) Body weight Systolic And Diastolic Provider Name and Address Organization Details Last Updated DateTime 7 165.735 cm 97.6 [degF] 97 % 97 % 91 /min 18.3 kg/m2 26753.0 3 g 104/69 mm[Hg] Boy Perez [facility] [place] 7 09:21:50 Date Recorded Body height Body mass index (BMI) Body weight Heart rate Oxygen saturation Oxygen saturation in Arterial blood by Pulse oximetry Body temperature Systolic And Diastolic Provider Name and Address Organization Details Last Updated DateTime 7 165.735 cm 18.8 kg/m2 87561.5 3 g 74 /min 97 % 97 % 98.1 [degF] 116/74 mm[Hg] Denise [facility] 7 15:58:40 Date Recorded Body height Body temperature Oxygen saturation Oxygen saturation in Arterial blood by Pulse oximetry Heart rate Body mass index (BMI) Body weight Systolic And Diastolic Provider Name and Address Organization Details Last Updated DateTime 7 165.735 cm 98.8 [degF] 97 % 97 % 116 /min 19 kg/m2 63049.1 2 g 98/62 mm[Hg] Leigha de [facility] 7 10:42:00 Social History Question Answer Notes LastModified by Organizat ion Details LastModified Time Tobacco Smoking Status Never Smoker Not Available [facility] 05/26/2020 03:36:40 Do You Have An Advance Directive? No [id number] Information not available 05/26/2020 Is Blood Transfusion Acceptable In An Emergency? Yes [id number] Information not available 05/26/2020 What Is Your Level Of Caffeine Consumption? None [id number] Information not available 05/26/2020 How Much Tobacco Do You Chew? None [id number] Information not available 05/26/2020 What Type Of Diet Are You Following? REGULAR [id number] Information not available 05/26/2020 Which Illicit Or Recreational Drugs Have You Used? None [id number] Information not available 05/26/2020 Education 12 [email or web address] Information no t available 09/10/2014 Live Alone Or With Others? With Others Son Information not available 09/10/2014 Do You Take Precautions To Prevent Distracted Driving? Yes Information not available 09/24/2015 How Often Do You Need To Have Someone Help You When You Read Instructions, Pamphlets, Or Other Written Material From Your Doctor Or Pharmacy? Never Information not available 09/24/2015 Have You Served In The ? No [email or web address] Information not available 04/01/2016 What Was The Date Of Your Most Recent Tobacco Screening? 07/26/2017 [id number] Information not available 05/26/2020 How Many Children Do You Have? 1 Todd [id number] Information not available 05/26/2020 Do You Use Protection During Sex? No [id number] Information not available 05/26/2020 Seat Belts Used Routinely Yes Information not available 09/24/2015 Are You Sexually Active? Yes [id number] Information not available 05/26/2020 Smoke Alarm In Home Yes [email or web address] Information not available 04/07/2015 At What Age Did You Start Smoking Tobacco? 2 [id number] Information not available 05/26/2020 Are You Passively Exposed To Smoke? No [email or web address] Information no t available 04/07/2015 How Much Tobacco Do You Smoke? No [id number] Information not available 05/26/2020 Do You Use Sunscreen Routinely? No [id number] Information not available 05/26/2020 How Many Years Have You Smoked Tobacco? 0 [id number] Information not available 05/26/2020 Sex: Unknown Functional Status Question Answer Note LastModified by Organizat ion Details LastModified Time What is your level of alcohol consumption? None [id number] Information not available 05/26/2020 Are you currently employed? Yes [id number] Information not available 05/26/2020 Are you able to care for yourself independently ? 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 None [id number] Information not available 05/26/2020 Mental Status None [...] Hep B, adult 5 completed Not Available [facility] 08/10/2019 02:21:35 varicella 5 completed Not Available [facility] 08/10/2019 02:21:32 Hep B, adult 4 completed Not Available [facility] 08/24/2019 02:14:00 Tdap 4 completed Not Available [facility] 02/28/2014 09:41:55 varicella 4 completed Not Available [facility] 02/28/2014 09:41:55 Td (adult), 2 Lf tetanus toxoid, preservative free, adsorbed 5 completed Not Available [facility] 02/04/2014 13:24:14 Influenza, split virus, trivalent, preservative 8 completed Not Available [facility] 02/04/2014 13:24:14 HPV, quadrivalent 9 completed Not Available [facility] 02/04/2014 13:24:14 HPV, quadrivalent 9 completed Not Available [facility] 02/04/2014 13:24:14 HPV, quadrivalent 9 completed Not Available [facility] 02/04/2014 13:24:14 Influenza, split virus, trivalent, preservative 1 completed Not Available [facility] 02/04/2014 13:24:14 influenza, seasonal, intradermal, preservative free 2 completed Not Available [facility] 02/04/2014 13:24:14 Influenza, split virus, quadrivalent, PF 4 completed Not Available [facility] 02/04/2014 13:24:14 Hep B, adult 4 completed Not Available [facility] 08/10/2019 02:21:35 Influenza, split virus, quadrivalent, PF 7 completed Not Available [facility] 08/10/2019 02:22:10 Past Encounters Encounter ID Performer Location Encounter Start Date Encounter Closed Date Diagnosis/Indication Diagnosis SNOMED-CT Code Diagnosis ICD10 Code Diagnosis IMO Codes Diagnosis Note [id number] Ernesto Gomez, [facility] Main Office [address] [place] [address] 02/26/2014 14:30:48 02/26/2014 15:01:37 Ganglion cyst 520808756 Lichenific ation of skin 576664830 [id number] autoEComm erce [address] [facility] [place] [address] 10/25/2007 00:00:00 [id number] autoEComm erce [address] [facility] [place] [address] 12/04/2007 00:00:00 [id number] autoEComm erce [address] [facility] [place] [address] 04/10/2008 00:00:00 [id number] autoEComm erce [address] [facility] [place] [address] 11/11/2008 00:00:00 [id number] autoEComm erce [address] [facility] [place] [address] 12/22/2008 00:00:00 [id number] autoEComm erce [address] [facility] [place] [address] 02/25/2009 00:00:00 [id number] autoEComm erce [address] [facility] [place] [address] 01/01/2010 00:00:00 [id number] autoEComm erce [address] [facility] [place] [address] 04/22/2010 00:00:00 [id number] autoEComm erce [address] [facility] [place] [address] 09/16/2010 00:00:00 [id number] autoEComm erce [address] [facility] [place] [address] 12/09/2010 00:00:00 [id number] autoEComm erce [address] [facility] [place] [address] 01/12/2011 00:00:00 [id number] autoEComm erce [address] [facility] [place] [address] 04/13/2011 00:00:00 [id number] [address]Comm er[address] [place] [address] 06/15/2011 00:00:00 [id number] autoEComm erce [address] [facility] [place] [address] 07/19/2011 00:00:00 [id number] autoEComm erce [address] [facility] [place] [address] 01/18/2012 00:00:00 [id number] autoEComm erce [address] [facility] [place] [address] 02/21/2012 00:00:00 [id number] autoEComm erce [address] [facility] [place] [address] 04/18/2012 00:00:00 [id number] autoEComm erce [address] [facility] [place] [address] 07/05/2012 00:00:00 [id number] autoEComm erce [address] [facility] [place] [address] 10/09/2012 00:00:00 [id number] autoEComm erce [address] [facility] [place] [address] 08/15/2013 00:00:00 [id number] Alden Adams MD Main Office [address] [address] [place], [place] [address] 03/07/2014 08:52:54 03/07/2014 12:17:28 Requires course of hepatitis B vaccination 505048858 [id number] Siena Flores MD Main Office [address] [address] [place], [place] [address] 07/28/2014 12:45:00 07/28/2014 13:12:56 Migraine 00776871 Her migraines occur 2-4 times per week so she has agreed to trying prophylaxi s. We will start with Depakote since a beta antonio may drop her BP which is already at a systolic below 110 and topomax may decrease her appetite and her BMI is already below 17. [id number] Siena Flores MD Main Office [address] [address] [place] [address] 09/10/2014 15:31:05 09/10/2014 16:11:30 Adult health examination 886831899 Requires c ourse of hepatitis B vaccination 540971381 Migraine 41243723 Her migraines occur 2-4 times per week so she has agreed to trying prophylaxi s. We will start with Depakote since a beta antonio may drop her BP which is already at a systolic below 110 and topomax may decrease her appetite and her BMI is already below 17. Type 1 marilia betes mellitus 86605364 [id number] Siena Flores MD Main Office [facility] [address] [place] [address] 09/12/2014 11:25:08 09/12/2014 11:40:26 Varicella vaccination 25521469 [id number] GABRIELA Moss Main Office [facility] [address] [address] [place] [address] 09/16/2014 10:13:32 09/16/2014 10:33:46 Hordeolum 873928962 Please apply warm compresses to area x 15 minutes 4-5 times daily- (use a wash clot with hot water and hold to area, apply fresh hot water as needed x 15 minutes. Polytrim every 6 hours as directed. Should you develop worsening swelling, redness, fever, discharge, vision changes please return. [id number] Siena Flores MD Main Office [address] [address] [place] [address] 03/10/2015 09:06:03 03/10/2015 09:58:00 Type 1 diabetes mellitus 54885691 followed at [facility] and has a pump in place. A1C's have been running high. Pain of [facility] 33275714 [id number] Alden Adams MD Main Office [address] [address] [place] [address] 04/07/2015 13:18:08 04/07/2015 13:58:55 [facility] [id number] GABRIELA Moss Main Office [address] [address] [place] [address] 07/09/2015 14:20:17 07/09/2015 15:04:29 Type 2 diabetes mellitus 26376715 E11.9 Fingerstic k A1C 8.7%, improved from the last one in february which was 11.3, she sees Dr. Martin next month. She will f.u at that appt, watch her diet- carbs and high sugar food intake, she will contact her opthalmolo gist re: blurred vision. Will check CBC, TSH and vitamin D as well. Fatigue 52140791 R53.83 [id number] Siena Flores MD Main Office [address] [address] [place] [address] 09/24/2015 14:35:59 09/24/2015 15:25:57 Adult health examination 902405908 Z00.00 Screening for malignant neoplasm of cervix 039719171 Z12.4 Type 1 marilia betes mellitus 20084103 E10.9 followed at [facility] and has a pump in place. A1C's have been running high. [id number] Dnoa Howell PA-C Main Office [address] [address] [place] [address] 12/25/2015 10:43:16 12/25/2015 11:43:08 Upper chest pain 997060324 R07.82 Musculoske letal L. chest pain. Pt. reassured. Advised to do warm compress TID 5-10 minutes, avoid lifting or excessive exercise and take ADvil 200 mg 3 po TID with food for 5 days. F/u PRN. [id number] Siena Flores MD Main Office [address] [address] [place] [address] 02/25/2016 09:57:00 02/25/2016 10:35:59 Amenorrhea 32260957 N91.2 Normal 7226457 2 Z34.91 [id number] Siena Flores MD Main Office [address] [address] [place] [address] 04/01/2016 09:56:40 04/01/2016 10:46:22 Type 1 diabetes mellitus 16976420 E10.9 followed at [facility] and has a pump in place. A1C's have been running high. Migraine 67268668 G43.90 9 Her migraines occur 2-4 times per week so she has agreed to trying prophylaxi s. We will start with Depakote since a beta antonio may drop her BP which is already at a systolic below 110 and topomax may decrease her appetite and her BMI is already below 17. Gastroesop hageal reflux disease 762337513 K21.9 [id number] Siena Flores MD Main Office [address] [address] [place] [address] 06/22/2016 10:42:11 06/22/2016 11:32:23 Postcoital bleeding 54230177 N93.0 Cultures were sent and test was negative. We will make a RADIO BOARD OPERATOR appointmen t for her for further evaluation . Sampling o f vagina for Papanicolaou smear 257140726 Z01.419 [id number] Dona Howell PA-C Main Office [address] [address] [place] [address] 07/22/2016 13:21:30 07/22/2016 14:29:10 Lateral epicondylitis 241039363 M77.11 Tendinitis of wrist 4238 48364 M77.8 ice, compressio n , ortho referral for wrist injection. [id number] Geovany Howell PA-C Main Office [address] [address] [place] [address] 08/25/2016 08:49:25 08/25/2016 09:45:11 Cellulitis 225661290 L03.011 Paronychia of finger 444 532299 L03.019 [id number] Siena Flores MD Main Office [address] [address] [place] [address] 09/02/2016 09:11:28 09/02/2016 09:51:55 Type 1 diabetes mellitus 02053164 E10.9 followed at [facility] and has a pump in place. A1C's have been running high. Physically able to work 8231431185 20762 Z78.9 Evaluation done to clear her to work. She first must see endo because of her type 1 diabetes. [id number] Geovany Howell PA-C Main Office [address] [address] [place] [address] 09/05/2016 13:53:15 09/05/2016 15:22:56 Eruption 886029453 R21 unknown etiology, but doubt anaphylaxi s as was seen in ER last night, and doubt SE of keflex as has been off it x few days - will change benadryl to zyrtec and add pred. pulse [id number] Siena Flores MD Main Office [address] [address] [place] [address] 11/11/2016 09:35:54 11/11/2016 09:51:05 Contraception care management 509310068 Z30.9 [id number] Siena Flores MD Main Office [address] [address] [place] [address] 02/13/2017 09:45:48 02/13/2017 10:14:39 Contraception care management 208521712 Z30.9 [id number] Siena Flores MD Main Office [address] [address] [place] [address] 03/21/2017 11:21:23 03/21/2017 12:11:55 Needs influenza immunization 420067614 Z23 Pain in lower limb 19871 006 M79.661 M79.662 Unclear etiology. Will check labs and do a trial of naprosyn and see her back in 2 weeks. If the pain persists we will do a referral at that time. [id number] Siena Flores MD Main Office [address] [address] [place] [address] 04/12/2017 11:29:30 04/12/2017 12:06:13 Diabetic peripheral neuropathy 456528968 E11.40 We discussed improving her diabetes control as well and she is followed by [facility] endo. [id number] Geovany Howell PA-C Main Office [address] [address] [place] [address] 04/26/2017 08:56:03 04/26/2017 10:43:46 Adult health examination 432053009 Z00.00 pt utd c a1c and lipids Irregular periods 615583 07 N92.6 despite use of depo q 3 months - will arrange for professional fee coder exam Vitamin D deficiency 347 27728 E55.9 recheck level Type 1 marilia betes mellitus 03512213 E10.9 cont meds as dir - cont f/u c [facility] endo - next is 11.17 - they check a1c q 6 months Diabetic p eripheral neuropathy 399579166 E11.40 encouraged her to increase to 3 pills nightly of elavil since no sig response to 2 tabs nightly - f/u c pcp next month Anemia 391431352 D64.9 h/o anemia - will check iron studies too Loss of te eth due to extraction 46109279 K08.409 had 3 wisdom teeth extracted last week - finished prednisone and advised to finish amox as dir as well as add probiotic supplement daily - next f/u next Monday [id number] GABRIELA Moss Main Office [address] [facility] [address] [place] [address] 05/04/2017 09:13:57 05/04/2017 09:49:28 Menorrhagia 840440485 N92.0 On depo, negative. Will refer to RADIO BOARD OPERATOR for further eval. HPV - Erendira n papillomavirus test positive 659248287 R87.619 Had pap but has not had follow-up. Will refer to RADIO BOARD OPERATOR Atypical s quamous cells of undetermined significance on cervical Papanicolaou smear 276798327 R87.610 Anemia 416055272 D64.9 Mildly anemic with normal iron and mildly low % sat. Suspect due to menorrhagi a. instructed to eat more iron rich foods- green leafy veggies, red meat. Contracept ion care management 504875440 Z30.42 To get depo today. [id number] Siena Flores MD Main Office [address] [facility] [address] [place] [address] 05/19/2017 15:52:01 05/19/2017 16:17:10 Type 1 diabetes mellitus 82894144 E10.9 followed at [facility] endo and has a pump in place. A1C's have been running high. Diabetic p eripheral neuropathy 731329025 E11.40 Tried amitriptyl ine which did not help. [id number] Geovany Howell PA-C Main Office [address] [facility] [address] [place] [address] 06/14/2017 10:27:23 06/14/2017 11:27:36 Type 1 diabetes mellitus 15458668 E10.9 cont meds, f/u c endo Diabetic p eripheral neuropathy 718153889 E11.40 no better c elavil, no tolerate duloxetine - will give trial of gabapentin Lumbar radiculopathy 128 188139 M54.16 [id number] Geovany Howell PA-C Main Office [address] [facility] [address] [facility] [place] [address] 07/26/2017 08:56:34 07/26/2017 09:58:26 Idiopathic peripheral neuropathy 75764994 G60.9 per neur persists, doubt diabetic per neur from last endo note - all labs and xrays nl so far - will get neuro evaluation -- pt does have + FH MS in maternal cousin meanwhile - cont lyrica as best you can - if SE unbearable , then stop Type 1 marilia betes mellitus 00457207 E10.9 cont meds, f/u c endo [id number] Siena Flores MD Main Office [address] [facility] [address] [facility] [place] [address] 08/02/2017 09:23:28 08/02/2017 10:31:40 Contraception care management 925376122 Z30.42 Health Concerns Section Related Observation LastModified by Organization Detai ls LastModified Time None Recorded Concern Status LastModified by Organization Details LastModified Time None Recorded Advance Directives Directive N: Payers Insurance Date Sequence Insurance Name Policy Number Policy Schulte Covered Member ID Schulte Member ID Guarantor Name 08/09/2018 1 [facility] - MEDICAID ESSENTIAL (MEDICAID HMO) [id number] Gris Vega [id number] Gris Vega 07/19/2017 1 [facility] - [place] (MEDICAID REPLACEMENT - HMO) [id number] Gris Vega [id number] Gris Vega 10/30/2019 1 [place] [facility] Gris Vega [id number] Gris Vega Notes Date Note Type Note Provider Name and Address Organization Details Recorded Time 05/04/2017 text/html Generic HPI TemplateReported by PatientPatient presents c/o intermenstrual bleeding since march. Comes [...] was treated appropriately Siena Flores MD [address] [address], [place], [address], [facility] 05/04/2017 11:50:48 05/19/2017 text/html She was started on amitriptyline 10 mg daily and increased this dose to a total of 40 mg daily for peripheral neuropathy but she stopped it because it was not giving any relief. She continues to have pain in her legs. We will try a different med but she will also discuss this with her marketing graphics specialist. Siena Flores MD [address] [address], [place], [address], [facility] 05/20/2017 14:17:38 06/14/2017 text/html rev. recent notes - c/o B LE >> B UE [...] no b/b dysfxn Siena Flores MD [address] [address], [place], [address], [facility] 06/14/2017 12:41:32 07/26/2017 text/html here for f/u per. neur no better c elavil, no tolerate [...] MS - maternal cousin Siena Flores MD [address] [address], [place], [address], [facility] 07/26/2017 09:58:50 OBGyn Episode No OBEpisode recorded.
[2025-06-04 04:28] LABS: HBS Num1 1.05 mIU/mL (0-7.99); HBc Num1 0.05 S/CO (0.00-0.79); HBsAGNum1 0.55 S/CO (0.00-0.99); Hepatitis B Surface Antigen Negative (Negative); ~HepC Num1 0.10 S/CO (0.00-0.79); ~Hepatitis B Surface Antibody NONREACTIVE (Nonreactive); ~Hepatitis C Antibody Nonreactive (Nonreactive)
== END 2025-06-03 10:59 | disposition home or self-care (01) ==
LOC: HO.HKASLDS 10:58
PROVIDERS: PCP Dentist General Practice; Visit Provider Internal Medicine Rheumatology
DX: G89.29 Other chronic pain (principal); M25.50 Pain in unspecified joint; M79.7 Fibromyalgia; Z79.899 Other long term (current) drug therapy; Z11.59 Encounter for screening for other viral diseases
CPT/HCPCS: 36415; 82085; 82550; 85652; 86140; 86200; 86704; 86706; 86803; 87340; 99202